=== PATIENT | male | born 1945 ===

== ENCOUNTER 2016-12-25 14:35 | Inpatient (IN) | payer MEDICARE ==
[2016-12-25 14:36] VITALS: BMI 20.1
[2016-12-25] MEDS ORDERED: Sodium Chloride 0.9% 1,000 ML IV STA (15:06)
[2016-12-25] MEDS ORDERED: Morphine 4 mg/ml ISec IVP STA (15:06)
[2016-12-25] MEDS ORDERED: Albuterol-Ipratrop 3 mg / 0.5 (3 ml) UD IH STA (15:09)
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
--- NOTE | 2016-12-25 15:23 | RAD ---
HISTORY: weak COMPARISON: CT chest without contrast from 12/09/2016 FINDINGS: LUNGS: There is redemonstration of known consolidation in the right upper lobe. The left lung is clear. PLEURA: There is a small right pleural effusion. No left pleural effusion. No pneumothorax. CARDIOVASCULAR: Normal. OSSEOUS STRUCTURES: No significant abnormalities. VISUALIZED UPPER ABDOMEN: Normal. OTHER FINDINGS: None. IMPRESSION: Persistent right upper lobe consolidation. Small right pleural effusion.
[2016-12-25 15:56] LABS: VENOUS BLOOD GAS BASE EXCESS -3.5 mmol/L (0.0-2.0); VENOUS BLOOD PH 7.32 (7.32-7.43)
[2016-12-25 16:14] LABS: HEMATOCRIT 26.9 % (42.0-52.0); MEAN CELL VOLUME 86.2 fL (80.0-105.0); MEAN CORPUSCULAR HEMOGLOBIN 29.8 pg (25.0-35.0); MEAN CORPUSCULAR HGB CONC 34.6 g/dl (31.0-37.0); MEAN PLATELET VOLUME 10.1 fl (7.0-11.0); PLATELET COUNT 197 10^3/uL (120.0-450.0); RED CELL DISTRIBUTION WIDTH 16.1 % (11.5-14.5)
[2016-12-25 16:44] LABS: ADD MANUAL DIFF? YES; WHITE BLOOD COUNT 2.8 10^3/ul (4.5-11.0)
[2016-12-25 17:44] LABS: URINE BILIRUBIN NEGATIVE (NEGATIVE); URINE BLOOD TRACE-LYSED (NEGATIVE); URINE GLUCOSE (UA) NEGATIVE (NEGATIVE); URINE KETONE TRACE mg/dL (NEGATIVE); URINE LEUKOCYTE ESTERASE NEGATIVE Leu/uL (NEGATIVE); URINE PROTEIN 30 mg/dL (<30 mg/dL); URINE UROBILINOGEN 0.2 E.U./dL (<1 E.U./dL)
[2016-12-25 18:18] LABS: URINE APPEARANCE CLEAR (CLEAR); URINE COLOR YELLOW (YELLOW)
[2016-12-25 18:22] LABS: ALB/GLOB RATIO 0.8 (1.1-1.8); ALKALINE PHOSPHATASE 159 U/L (38-133); ALT/SGPT 19 U/L (7-56); AST/SGOT 68 U/L (15-59); BLOOD UREA NITROGEN 36 mg/dL (7-21); CARBON DIOXIDE 24 mmol/L (21-33); CHLORIDE 96 mmol/L (98-107); GFR AFRICAN-AMERICAN > 60; GLUCOSE,RANDOM 225 mg/dL (70-110); SODIUM 135 mmol/L (132-148); TOTAL PROTEIN 8.2 g/dL (5.8-8.3)
[2016-12-25 18:26] LABS: BILIRUBIN,TOTAL 1.4 mg/dL (0.2-1.3); POTASSIUM 5.4 mmol/L (3.6-5.0)
[2016-12-25 18:33] LABS: TROPONIN I 0.02 ng/mL
--- NOTE | 2016-12-25 18:52 | CARD ---
APPROVED REPORT EKG Measurement Heart [id number] <Conclusion> Sinus tachycardia with premature atrial complexes Otherwise normal ECG
[2016-12-25] MEDS ORDERED: Iohexol 350 MG/100 ML VIAL ONE (18:54)
[2016-12-25 18:56] LABS: URINE BACTERIA MOD (NEG)
[2016-12-25] MEDS ORDERED: Sodium Chloride 0.9% 1,000 ML IV SCH (19:15)
[2016-12-25 19:30] LABS: BAND 9 % (0-2); NEUTROPHIL 70 % (50.0-70.0); PLATELET ESTIMATE NORMAL (NORMAL)
[2016-12-25] MEDS ORDERED: Sodium Chloride 0.45% 1,000 ML IV SCH ×2 (20:00→23:30)
[2016-12-25] MEDS: Albuterol-Ipratrop 3 mg / 0.5 (3 ml) UD IH SCH (20:31)
[2016-12-25 20:32] LABS: VENOUS BLOOD GAS BASE EXCESS -8.1 mmol/L (0.0-2.0); VENOUS BLOOD PH 7.29 (7.32-7.43)
--- NOTE | 2016-12-25 20:33 | CT ---
EXAM: CT Abdomen and Pelvis With Intravenous Contrast CLINICAL HISTORY: 71 years old, male; Pain; Abdominal pain; Acute; Patient HX: Abd pain. HX lung ca TECHNIQUE: Axial computed tomography images of the abdomen and pelvis with intravenous contrast. This CT exam was performed using one or more of the following dose reduction techniques: automated exposure control, adjustment of the mA and/or kV according to patient size, and/or use of iterative reconstruction technique. Coronal and sagittal reformatted images were created and reviewed. CONTRAST: 100 mL of OMNI administered intravenously. EXAM DATE/TIME: 12/25/2016 3:05 PM COMPARISON: There are no prior studies for comparison. FINDINGS: Lower thorax: Heart size is normal. There is a small hiatal hernia. There are multiple cysts at the lung bases. There is pleural thickening and scarring at the lung bases greatest on the right. Nodularity and pleural thickening has increased. There is increase in peribronchial cuffing in the right lower lobe. ABDOMEN: Liver: unremarkable Gallbladder and bile ducts: unremarkable Pancreas: Pancreas is mildly atrophic. Spleen: unremarkable Adrenals: unremarkable Kidneys and ureters: There is nonspecific bilateral perinephric stranding and edema. Kidneys and ureters are otherwise unremarkable. Stomach and bowel: Streak and motion limit evaluation of stomach, small and large bowel. Stomach is almost completely empty. There may be a duodenal diverticulum. Rotation is normal. Small bowel is distended with fluid and air. There are scattered air-fluid levels appear in There is no obstruction. Terminal ileum is distended with fluid. Appendix is unremarkable. A moderately large amount of stool in the colon. Appendix: See stomach and bowel PELVIS: Bladder: Bladder is almost empty. Reproductive: Seminal vesicles and prostate are unremarkable. ABDOMEN and PELVIS: Intraperitoneal space: There is no free air. There is no free fluid in the abdomen. Bones/joints: There is minimal compression deformity at L1. There are compression fractures L2 and L3.There are degenerative changes in the osseus structures. Bony structures are osteopenic. Soft tissues: unremarkable Vasculature: There are vascular calcifications. There are calcified phleboliths. Lymph nodes: There is no pathologic adenopathy. IMPRESSION: No acute solid visceral abnormality; nonspecific perinephric stranding and edema; constipation; distended small bowel ileus versus early obstruction possibly due to constipation; compression deformities L1, L2 and L3; increasing pleural disease and peribronchial thickening at the right base Additional findings as described above.
--- NOTE | 2016-12-25 22:46 | HP ---
HISTORY OF PRESENT ILLNESS: The patient is a 71-year-old known to me from multiple previous admissio ns. I got a call from daughter this morning that for the last 2 days he has not gotten out of bed. He is weak. He is lethargic. He is not eating at all. Since the patient is diabetic and he recentl y got chemotherapy, so I advised daughter to bring him to Emergency Room. According to her, he is we ak, refusing to eat and he usually resists to go to the hospital, but he said something is wrong with him and he wants to go to Emergency Room. Complaining of generalized weakness, complaining of chill s. Denies any nausea, but definitely decreased appetite. No history of hemoptysis, no hematemesis. PAST MEDICAL HISTORY: 1. Significant for Noninsulin dependent diabetes. 2. Hypertension. 3. Cancer lung, currently on chemotherapy. 4. Chronic anemia. 5. History of colonic mass. 6. Hyperlipidemia. 7. Chronic anemia. 8. Weight loss. 9. Stage III lung cancer. Received radiation and the radiation followed by chemotherapy by Dr. Nataliia palmly. ALLERGIES: Not allergic to any medications. MEDICATIONS AT HOME: He is on Pravachol 40 mg daily, Megace 400 daily, ferrous sulfate 1 tablet juan miguel y, oxybutynin 10 mg daily, Cipro 250 twice a day, tramadol 50 mg 3 times a day, glipizide 10 mg twice a day. SOCIAL HISTORY: He is single, lives with his daughter and he does have a history of heavy smoking, r ecently quit. REVIEW OF SYSTEMS: Generalized weakness, poor oral intake. PHYSICAL EXAMINATION: GENERAL: He is awake and alert, lethargic. VITAL SIGNS: He is afebrile, pulse 105, respirations 20, blood pressure 141/84. LUNGS: Bilateral fair airflow. Few expiratory rhonchi. HEART: S1, S2 audible. ABDOMEN: Soft, slight epigastric discomfort. NEUROLOGIC: He is sleepy, but arousable. EXTREMITIES: Bilateral leg, no edema. LABORATORY DATA: WBC is , hemoglobin 9.3, hematocrit 26.9, platelet of 197. His ABG: pH is 7. 32, pCO2 of 44, bicarbonate 22.7, pO2 is 20, FiO2 is 21%. Chemistry: Sodium 135, potassium 5.4, chl oride 96, CO2 of 24, BUN 36, creatinine 1.3, blood sugar of 227, total bilirubin 1.4, AST 68, alkalin e phosphatase is 159. Urinalysis shows ketones. Flu test is positive for influenza A and B. X-ray of the chest shows persistent right upper lobe consolidations, marked right pleural effusion. ASSESSMENT: 1. Lethargy, generalized weakness, positive for flu and viral syndrome. 2. Cancer lung, status post recent chemotherapy. 3. Hypertension. 4. Non-insulin dependent diabetes. 5. Significant weight loss. PLAN: CT scan of the abdomen and pelvis has been ordered. We will follow that. He has been started on Tamiflu. Blood culture and urine cultures are sent. We will monitor blood sugars. Start him on Tamiflu and also start him empirically on empirical coverage for pneumonia. Dr. Lucio and Dr. Meghana paulino will be consulted. Jose Angel Hull MD cc: [phone] TT: 12/25/2016 22:46:11 va
[2016-12-25] MEDS ORDERED: Vancomycin 1gm in NS 250ml 250 ML IVPB STA (22:59)
[2016-12-25] MEDS ORDERED: POLYETHYLENE GLYCOL 3350 17 GM/Dose PACKET PO ONE (23:10)
[2016-12-26] MEDS ORDERED: Insulin Regular 1 UNITS/0.01 ML ML SC STA ×2 (01:25→04:24)
[2016-12-26] MEDS: Cefepime 1gm in NS 100ml 100 ML IVPB SCH ×4 (01:32→22:35)
[2016-12-26] MEDS: Insulin Reg-HIGH-Coverage SC SCH ×5 (01:34→22:33)
[2016-12-26 02:41] LABS: URINE BILIRUBIN NEGATIVE (NEGATIVE); URINE BLOOD TRACE-LYSED (NEGATIVE); URINE GLUCOSE (UA) >=1000 mg/dL (NEGATIVE); URINE KETONE 15 mg/dL (NEGATIVE); URINE LEUKOCYTE ESTERASE NEGATIVE Leu/uL (NEGATIVE); URINE PROTEIN TRACE mg/dL (<30 mg/dL); URINE UROBILINOGEN 0.2 E.U./dL (<1 E.U./dL)
[2016-12-26 02:45] LABS: URINE APPEARANCE SLIGHT-CLOUDY (CLEAR); URINE COLOR YELLOW (YELLOW)
[2016-12-26 02:59] LABS: URINE BACTERIA OCC (NEG); URINE EPITHELIAL CELLS 0 - 2 /hpf (0-5); URINE RBC 0 - 2 /hpf (0-2); URINE WBC 0 - 2 /hpf (0-6)
--- NOTE | 2016-12-26 03:37 | CP.PCM.PN ---
Subjective - Date & Time of Evaluation Date of Evaluation: 12/26/16 Time of Evaluation: 03:34 - Subjective Subjective: S:Patient was seen at bedside. FSBS was > 500 mg %. He has no complaints. Denies having had extra food. Denies blurry vision, polyuria, stomach pain, sweating. Medical record was reviewed. O: Last Vital Signs 3 Temp 97.5 F L 12/25/16 22:11 Pulse 92 H 12/25/16 22:11 Resp 17 12/25/16 22:11 BP 107/58 L 12/25/16 22:11 Pulse Ox 99 12/25/16 22:11 Awake, alert, not in distress. LUNGS: Normal breathing pattern. NEURO:Speech normal. A: Hyperglycemia. P:Regular insulin 10 Untis SC Stat. Objective - Vital Signs/Intake and Output Vital Signs (last 24 hours): Temp Pulse Resp BP Pulse Ox 97.5 F L 92 H 17 107/58 L 99 12/25/16 22:11 12/25/16 22:11 12/25/16 22:11 12/25/16 22:11 12/25/16 22:11 - Medications Medications: Current Medications Acetaminophen (Tylenol 325mg Tab) 650 mg PO Q6H PRN PRN Reason: Fever >100.4 F Acyclovir (Zovirax) 400 mg PO BID [facility] Last Admin: 12/25/16 20:31 Dose: 400 mg Albuterol/Ipratropium (Duoneb 3 Mg/0.5 Mg (3 Ml) Ud) 3 ml IH [id number] [facility] Last Admin: 12/25/16 20:31 Dose: 3 ml Atorvastatin Calcium (Lipitor) 10 mg PO DIN [facility] Bisacodyl (Dulcolax) 10 mg RC ONCE ONE Stop: 12/26/16 10:01 Dexamethasone (Decadron) 4 mg PO BID [facility] Last Admin: 12/25/16 20:31 Dose: 4 mg Azithromycin (Zithromax 500mg In Ns) 250 mls @ 167 mls/hr IVPB DAILY [facility] PRN Reason: Protocol Cefepime HCl (Maxipime 1gm) 100 mls @ 100 mls/hr IVPB Q8 [facility] PRN Reason: Protocol Stop: 01/01/17 23:01 Last Admin: 12/26/16 01:32 Dose: 100 mls/hr Sodium Chloride (Sodium Chloride 0.45%) 1,000 mls @ 50 mls/hr IV .Q20H [facility] Last Admin: 12/25/16 23:52 Dose: 50 mls/hr Insulin Human Regular (Humulin R High) 0 units SC ACHS [facility] PRN Reason: Protocol Last Admin: 12/26/16 01:34 Dose: Not Given Megestrol Acetate (Megace) 400 mg PO DAILY [facility] Ondansetron HCl (Zofran Inj) 4 mg IVP Q6H PRN PRN Reason: Nausea/Vomiting Oseltamivir Phosphate (Tamiflu Cap) 75 mg PO BID [facility] PRN Reason: Protocol Stop: 12/30/16 19:54 Pantoprazole Sodium (Protonix Inj) 40 mg IVP DAILY [facility] Polyethylene Glycol (Miralax) 17 gm PO DAILY [facility] Tramadol HCl (Ultram) 50 mg PO Q6 PRN PRN Reason: Pain, moderate (4-7)
[2016-12-26 07:22] LABS: MEAN CELL VOLUME 84.5 fL (80.0-105.0); MEAN CORPUSCULAR HEMOGLOBIN 29.2 pg (25.0-35.0); MEAN CORPUSCULAR HGB CONC 34.5 g/dl (31.0-37.0); MEAN PLATELET VOLUME 9.6 fl (7.0-11.0); PLATELET COUNT 171 10^3/uL (120.0-450.0); RED CELL DISTRIBUTION WIDTH 15.9 % (11.5-14.5)
[2016-12-26 07:25] LABS: ADD MANUAL DIFF? YES; HEMATOCRIT 22.9 % (42.0-52.0); WHITE BLOOD COUNT 2.1 10^3/ul (4.5-11.0)
[2016-12-26] MEDS: Albuterol-Ipratrop 3 mg / 0.5 (3 ml) UD IH SCH ×4 (07:33→23:37)
[2016-12-26 07:54] LABS: ALB/GLOB RATIO 0.8 (1.1-1.8); ALKALINE PHOSPHATASE 131 U/L (38-133); ALT/SGPT 34 U/L (7-56); AST/SGOT 39 U/L (15-59); BILIRUBIN,TOTAL 0.5 mg/dL (0.2-1.3); BLOOD UREA NITROGEN 33 mg/dL (7-21); CALCIUM 8.1 mg/dL (8.4-10.5); CARBON DIOXIDE 21 mmol/L (21-33); CHLORIDE 100 mmol/L (98-107); GFR AFRICAN-AMERICAN > 60; GLUCOSE,RANDOM 223 mg/dL (70-110); POTASSIUM 4.1 mmol/L (3.6-5.0); SODIUM 134 mmol/L (132-148); TOTAL PROTEIN 6.6 g/dL (5.8-8.3)
[2016-12-26 08:26] LABS: HYPOCHROMIA 1+; NEUTROPHIL 77 % (50.0-70.0); PLATELET ESTIMATE NORMAL (NORMAL); POLYCHROMASIA SLIGHT
[2016-12-26 08:27] LABS: ANISOCYTOSIS SLIGHT; TOXIC GRANULATION SLIGHT
[2016-12-26] MEDS ORDERED: cefTRIAXone 1 gm 100 ML IVPB SCH (10:00)
[2016-12-26] MEDS: Megestrol Acetate 40 mg/ml Cup PO SCH (11:24)
[2016-12-26] MEDS: POLYETHYLENE GLYCOL 3350 17 GM/Dose PACKET PO SCH (11:24)
[2016-12-26] MEDS: Azithromycin 500MG/NS 250ml 250 ML IVPB SCH (11:28)
--- NOTE | 2016-12-26 13:01 | PN ---
DATE: 12/26/2016 The patient is 71 years old, seen and examined. Doing a little better. He is sitting in chair. No fever or chills. No nausea or vomiting. He is having his clear liquid diet. Had small bowel moveme nt last night. PHYSICAL EXAMINATION: VITAL SIGNS: He is afebrile, pulse 73, respirations 16, blood pressure 110/____. LUNGS: Bilateral fair airflow. Soft crackle at the right lower lung area. HEART: S1, S2 audible. ABDOMEN: Soft, nontender, no rebound, no guarding. NEUROLOGIC: The patient is awake and alert, able to communicate. EXTREMITIES: Bilateral legs, no edema. LABORATORY EXAMINATION: WBC is 2.1, hemoglobin 7.9, hematocrit 22.9, platelet of 171. Chemistry: S odium 134, potassium 4.1, chloride 100, CO2 21, BUN 33, creatinine 1.1 and blood sugar is 223. His f fawn test is positive. ASSESSMENT AND PLAN: 1. Viral syndrome. 2. Poor oral intake. 3. Pancytopenia. 4. Lung cancer status post radiation therapy completed. Currently getting chemotherapy. 5. Hyperlipidemia. PLAN: Currently, the patient is on IV fluid. He is on clear liquids. He is getting Decadron. Cont inue on statin. He is on Maxipime. Will continue him on Tamiflu. He is also on Zithromax; will con tinue that. He is on neutropenic isolation. His hemoglobin is borderline low. I will talk to Dr. Isabella grider. If he needs transfusion we should watch him, and if it continues to drop might need blood monge sfusion. Jose Angel Hull MD cc: [phone] TT: 12/26/2016 13:00:52 Confirmation # [id number] Dictation # [id number] alfredo
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
[2016-12-26] MEDS ORDERED: Insulin Lispro (humaLOG) MIX 75/25(10 ml) SC STA (18:48)
[2016-12-26] MEDS ORDERED: Insulin Detemir 100 units/ml Vial (Levemir) SC ONE (22:00)
[2016-12-27] MEDS: Albuterol-Ipratrop 3 mg / 0.5 (3 ml) UD IH SCH ×5 (01:39→23:28)
[2016-12-27] MEDS: Cefepime 1gm in NS 100ml 100 ML IVPB SCH ×2 (05:17→14:56)
[2016-12-27 06:58] LABS: ADD MANUAL DIFF? NO
[2016-12-27 07:16] LABS: BASO # 0.02 K/mm3 (0.0-2.0); BASO % 0.5 % (0.0-3.0); GRAN % 84.9 % (50.0-68.0); HEMATOCRIT 28.3 % (42.0-52.0); LYMPH # 0.4 (1.2-3.4); LYMPH % 8.5 % (22.0-35.0); MEAN CORPUSCULAR HEMOGLOBIN 28.8 pg (25.0-35.0); MEAN CORPUSCULAR HGB CONC 34.3 g/dl (31.0-37.0); MEAN PLATELET VOLUME 9.7 fl (7.0-11.0); MONO # 0.3 (0.1-0.6); MONO % 6.1 % (1.0-6.0); PLATELET COUNT 183 10^3/uL (120.0-450.0); RED CELL DISTRIBUTION WIDTH 15.4 % (11.5-14.5); WHITE BLOOD COUNT 4.2 10^3/ul (4.5-11.0)
[2016-12-27 07:24] LABS: ALB/GLOB RATIO 0.8 (1.1-1.8); ALKALINE PHOSPHATASE 124 U/L (38-133); ALT/SGPT 32 U/L (7-56); AST/SGOT 35 U/L (15-59); BILIRUBIN,TOTAL 1.1 mg/dL (0.2-1.3); BLOOD UREA NITROGEN 27 mg/dL (7-21); CALCIUM 8.3 mg/dL (8.4-10.5); CARBON DIOXIDE 23 mmol/L (21-33); CHLORIDE 98 mmol/L (98-107); GFR AFRICAN-AMERICAN > 60; GLUCOSE,RANDOM 266 mg/dL (70-110); POTASSIUM 4.3 mmol/L (3.6-5.0); SODIUM 135 mmol/L (132-148); TOTAL PROTEIN 6.9 g/dL (5.8-8.3)
[2016-12-27] MEDS: Insulin Reg-HIGH-Coverage SC SCH ×4 (08:43→22:29)
--- NOTE | 2016-12-27 09:28 | CON ---
DATE: 12/26/2016 This patient was seen and evaluated earlier and discussed with nursing staff. REASON FOR CONSULTATION: Anemia, rule out gastrointestinal source of blood loss, history of colonic polyp. HISTORY OF PRESENT ILLNESS: This 71-year-old patient with a past medical history of noninsulin-depen dent diabetes mellitus, hypertension, history of lung cancer on chemotherapy, chronic anemia, history of colonic mass, was admitted, found to be very weak and lethargic with poor intake. Sent to the Em ergency Room. The patient was found to be anemic with a hemoglobin of 9.3. White cell count was als o low at 2.8. The patient did give history of a cough. The Emergency Room's influenza test was also found to be positive. GI consultation was requested in view of the history of chronic ____ anemia, rule out a gastrointestinal source of blood loss. OTHER PAST MEDICAL HISTORY: As above. SOCIAL HISTORY: Denies smoking. He has a history of heavy smoking in the past; recently quit. Alco hol socially. REVIEW OF SYSTEMS: Positive as above. ALLERGIES: No known drug allergy. PHYSICAL EXAMINATION: GENERAL: The patient is lying on the bed, not in acute distress. VITAL SIGNS: Pulse 78 per minute. Blood pressure is 112/68. Temperature is 97.7. Respirations 20. HEENT: Atraumatic, anicteric. NECK: Supple. HEART: S1, S2 heard. LUNGS: Bilateral air entry present. ABDOMEN: Soft. There is no mass palpable. No tenderness. EXTREMITIES: No edema, no cyanosis. NEUROLOGIC: Alert, oriented. LABORATORY DATA: Hemoglobin from 9.3 has dropped to 7.9. WBCs also from 2.8 changed to 2.1. Platel et count decreased from ____ to 171. The patient's albumin has gone down from 3.[address] of the abdomen and pelvis was also reviewed and found to have a mild nonspecific perinephric s tranding. The patient also found to have a moderately large amount of stool present mainly in the ri ght colon. IMPRESSION: This 71-year-old patient with a lung cancer, on chemotherapy, admitted with weakness and lethargy, found to have influenza test positive, on respiratory isolation, where noticed a drop in b lood count. No obvious bleeding. The patient does have a history of some colorectal lesion. The de tails are not very clear at this present time for me. Review of the previous records shows that she had a PET scan done ____ which shows some increased activity in the rectal area. No obvious melena o r bright red blood per rectum noticed this admission. PLAN: Close followup of the hemoglobin and hematocrit, and transfuse. We will discuss with the onco logist and also with Dr. Hull regarding this patient's previous colonic workup. Thank you very much for allowing us to participate in the care of the patient. Will empirically star t the patient also on PPI. Selene Louis MD cc: [phone] TT: 12/27/2016 08:45:57 Confirmation # [id number] Dictation # [id number] mn
[2016-12-27] MEDS: Megestrol Acetate 40 mg/ml Cup PO SCH (09:43)
[2016-12-27] MEDS: POLYETHYLENE GLYCOL 3350 17 GM/Dose PACKET PO SCH (09:44)
[2016-12-27] MEDS: Azithromycin 500MG/NS 250ml 250 ML IVPB SCH (09:45)
--- NOTE | 2016-12-27 18:08 | CP.PCM.PN ---
Subjective - Date & Time of Evaluation Date of Evaluation: 12/27/16 Time of Evaluation: 10:45 - Subjective Subjective: Comfortable in bed, not in distress. Objective - Vital Signs/Intake and Output Vital Signs (last 24 hours): Temp Pulse Resp BP Pulse Ox 98 F 70 20 138/82 97 12/27/16 16:00 12/27/16 16:00 12/27/16 16:00 12/27/16 16:00 12/27/16 16:00 Intake and Output: 12/27/16 12/27/16 06:59 18:59 Intake Total 1207 640 Balance 1207 640 - Medications Medications: Current Medications Acetaminophen (Tylenol 325mg Tab) 650 mg PO Q6H PRN PRN Reason: Fever >100.4 F Last Admin: 12/26/16 15:56 Dose: 650 mg Acyclovir (Zovirax) 400 mg PO BID [facility] Last Admin: 12/27/16 09:45 Dose: 400 mg Albuterol/Ipratropium (Duoneb 3 Mg/0.5 Mg (3 Ml) Ud) 3 ml IH [id number] [facility] Last Admin: 12/27/16 14:21 Dose: 3 ml Atorvastatin Calcium (Lipitor) 10 mg PO DIN [facility] Last Admin: 12/26/16 17:27 Dose: 10 mg Dexamethasone (Decadron) 4 mg PO BID [facility] Last Admin: 12/27/16 09:50 Dose: 4 mg Azithromycin (Zithromax 500mg In Ns) 250 mls @ 167 mls/hr IVPB DAILY [facility] PRN Reason: Protocol Last Admin: 12/27/16 09:45 Dose: 167 mls/hr Cefepime HCl (Maxipime 1gm) 100 mls @ 100 mls/hr IVPB Q8 [facility] PRN Reason: Protocol Stop: 01/01/17 23:01 Last Admin: 12/27/16 14:56 Dose: 100 mls/hr Sodium Chloride (Sodium Chloride 0.45%) 1,000 mls @ 50 mls/hr IV .Q20H [facility] Last Admin: 12/25/16 23:52 Dose: 50 mls/hr Insulin Human Regular (Humulin R High) 0 units SC ACHS [facility] PRN Reason: Protocol Last Admin: 12/27/16 12:19 Dose: 15 units Megestrol Acetate (Megace) 400 mg PO DAILY [facility] Last Admin: 12/27/16 09:43 Dose: 400 mg Ondansetron HCl (Zofran Inj) 4 mg IVP Q6H PRN PRN Reason: Nausea/Vomiting Oseltamivir Phosphate (Tamiflu Cap) 75 mg PO BID [facility] PRN Reason: Protocol Stop: 12/30/16 19:54 Last Admin: 12/27/16 09:49 Dose: 75 mg Pantoprazole Sodium (Protonix Inj) 40 mg IVP DAILY [facility] Last Admin: 12/27/16 09:50 Dose: 40 mg Polyethylene Glycol (Miralax) 17 gm PO DAILY [facility] Last Admin: 12/27/16 09:44 Dose: 17 gm Tramadol HCl (Ultram) 50 mg PO Q6 PRN PRN Reason: Pain, moderate (4-7) - Labs Labs: 12/27/16 05:30 12/27/16 05:30 - Constitutional Appears: Non-toxic, No Acute Distress - Head Exam Head Exam: NORMAL INSPECTION - ENT Exam ENT Exam: Mucous Membranes Moist - Neck Exam Neck Exam: absent: Lymphadenopathy, Meningismus - Respiratory Exam Respiratory Exam: Decreased Breath Sounds - Cardiovascular Exam Cardiovascular Exam: +S1, +S2 - GI/Abdominal Exam GI & Abdominal Exam: Soft. absent: Tenderness Assessment and Plan - Assessment and Plan (Free Text) Plan: Assessment Sepsis secondary to systemic viral illness with Influenza with no evidence of pneumonia history of hospital-acquired pneumonia HTN lung cancer history of arthritis history of cataracts coronary artery disease Plan Started patient on Tamiflu day 2; cultures have been negative, PCT is only 0.22 - will d/c antibiotics Will continue to monitor clinical response
--- NOTE | 2016-12-27 20:19 | PN ---
DATE: 12/27/2016 SUBJECTIVE: The patient is a 71-year-old, seen and examined, doing well, eating and tolerating clear liquid. No nausea or vomiting. He did have the 1 bowel movement yesterday. Does not have signific ant abdominal pain. He states he is hungry. PHYSICAL EXAMINATION: VITAL SIGNS: He is afebrile, pulse 70, respirations 20, blood pressure 138/82. LUNGS: Bilateral fair airflow, no rhonchi or crackle. HEART: S1, S2 audible. ABDOMEN: Soft, nontender, no rebound, no guarding. NEUROLOGIC: He is awake and alert, ambulatory. EXTREMITIES: Bilateral leg, no edema. LABORATORY EXAMINATION: WBC is 4.2, hemoglobin 9.7, hematocrit 28.3, platelets 183. Chemistry: Sod ium 135, potassium 4.3, chloride 98, CO2 of 23, BUN 27, creatinine 1.0, blood sugar of 266. His bloo d culture and urine culture are negative. ASSESSMENT AND PLAN: 1. Viral syndrome, positive for influenza A and B. 2. Partial small-bowel obstruction secondary to constipation. He also had discussion with the patie nt's daughter, who stated that on colonoscopy 2-3 years ago he was told he has colonic mass, but it i s benign. I do not have further details and I will try to reach out for old records. 3. Insulin-dependent diabetes. PLAN: Advance the patient on soft diet and start him on glipizide and Januvia and keep him on high d ose regular insulin coverage and monitor his blood sugar. Start physical therapy. Reevaluate the pa tient in a.m. H and H seem to be stable after given 2 blood transfusions yesterday. We will monitor H and H and electrolytes periodically. Jose Angel Hull MD cc: [phone] TT: 12/27/2016 20:19:09 Confirmation # [id number] Dictation # [id number] mn
[2016-12-27] MEDS: GlipiZIDE 10 mg SR Tab PO SCH (22:29)
[2016-12-28] MEDS: Albuterol-Ipratrop 3 mg / 0.5 (3 ml) UD IH SCH ×4 (02:09→20:22)
--- NOTE | 2016-12-28 02:19 | PN ---
DATE: 12/27/2016 SUBJECTIVE: He is more alert and oriented. Appetite has improved slightly. He feels well. Denies any fatigue. No fever. No cough with expectoration. Son at bedside. He is currently on Tamiflu for positive flu serology. He is also getting Zithromax. Cough has improved during hospitalization. No chest pain. Blood sugar not controlled. REVIEW OF SYSTEMS: As per HPI. The rest of 12-point review of systems reviewed and negative. MEDICATIONS: Tylenol 650 q.6 hours p.r.n., DuoNeb 3 mL q.6 p.r.n., Zithromax 250 daily, Decadron 4 mg daily, glipizide 10 mg p.o. b.i.d., insulin as per sliding scale, Zofran p.r.n., Tamiflu 75 b.i.d., Protonix, MiraLAX, Ultram and Januvia 100 mg p.o. daily. PHYSICAL EXAMINATION: GENERAL: Comfortable in bed, in no acute distress. VITAL SIGNS: Stable. Temperature 98.7, heart rate 80 per minute, respiratory rate 20 per minute. HEENT: Normal. CHEST: Air entry present, equal bilateral. Crepitation, bilateral bases. CARDIOVASCULAR: S1, S2 normal. No murmur, no gallop. ABDOMEN: Soft, nontender. No hepatosplenomegaly. EXTREMITIES: No edema. CENTRAL NERVOUS SYSTEM: Alert, oriented x 3. No focal sensory or motor deficit. LYMPHADENOPATHY: None. LABORATORY DATA: White count 4.2, hemoglobin 9.7, hematocrit 28.3, platelets of 193. Sodium 135, potassium 4.3, creatinine 1. LFTs within normal limits. ASSESSMENT: 1. Lung cancer, stage III/IV. 2. Chronic bronchitis. 3. Flu. 4. Anemia. 5. Failure to thrive. PLAN: He is currently on Tamiflu and Zithromax. He has stage III/IV lung cancer, status post radiation to right lung, on palliative chemotherapy with Alimta. He gets frequent bronchitis exacerbation. He has been on antibiotics frequently a few times a month. Blood counts are recovering. He is status post chemo more than a week ago, status post 2 units of blood transfusion. Overall, general condition improved. We will do iron studies. He might benefit from IV iron if it is low. I had a lengthy discussion with the son who was at bedside. The patient has frequently expressed his wishes that he wants to go to [place]. Poor prognosis explained to the son. We will continue supportive care and palliative chemotherapy. I also explained to the son that without chemotherapy, lifespan is short, less than 3 months for him. At this point, both patient and family wants to be treated for cancer. Thank you, Dr. Hull, for allowing us to participate in the patient's care. Estrella Lucio MD cc: [id number] TT: 12/28/2016 02:18:49 Confirmation # [id number] Dictation # [id number] gee PANCHAL
--- NOTE | 2016-12-28 03:46 | PN ---
DATE: 12/27/2016 ADDENDUM The patient was seen and evaluated earlier. The patient is still in respiratory isolation for [facility]. PHYSICAL EXAMINATION: VITAL SIGNS: Temperature is 98, pulse 70, blood pressure 138/80. HEENT: Atraumatic, anicteric. NECK: Supple. HEART: S1, S2 heard. LUNGS: Bilateral air entry present. ABDOMEN: Soft. There is no mass palpable. No tenderness. EXTREMITIES: No edema. NEUROLOGIC: Alert, oriented. LABORATORY DATA: Hemoglobin is 9.7, hematocrit 28.3, WBC 4.2, platelets 183, BUN 27, creatinine 1.0. IMPRESSION: This is a 71-year-old patient with advanced lung cancer on chemotherapy. The patient ad mitted with viral syndrome. The patient was found to be also have constipation. The patient found t o also have drop in hemoglobin, He is stable. The patient did have a large bowel movement, br own stool, no blood. Dr. Hull's note was reviewed. The patient apparently appeared to have a col onoscopy done about 2-3 years ago with some colonic lesion, but however, the PET scan showed some in creased uptake higher up in the rectosigmoid area. We will try to get the report through the [facility]. We will avoid any endoscopy workup at the present time in view of this flu and then respiratory i solation. If colonoscopy is needed, this can be considered as an outpatient. Thank you very much for allowing us to participate in the care of the patient. Selene Louis MD cc: [phone] TT: 12/28/2016 03:45:48 Confirmation # [id number] Dictation # [id number] tn
--- NOTE | 2016-12-28 07:34 | CON ---
DATE: 12/26/2016 DATE OF CONSULTATION: 12/26/2016. CONSULT REQUESTED BY: Dr. Hull. REASON FOR CONSULTATION: Severe anemia, lung cancer. HISTORY OF PRESENT ILLNESS: The patient is a 71-year-old male well known to me from office. He was admitted to the hospital with failure to thrive, not eating well. Flu serology was found to be positive. He has right-sided lung cancer. Status post radiation, currently getting Alimta. He has multiple right -sided pneumonia, has chronic bronchitis and requires a few times a month antibiotics for lung infection. He recently completed a course of Augmentin. Complaining of loss of appetite. No fever, cough with expectoration with purulent sputum. No, hemoptysis. He also has chronic anemia. Hemoglobin was 9.3 g/dL declined to 7.9. He is also neutropenic with a white count of 2.1. Absolute neutrophil count is 3.6. He received chemotherapy more than a week ago. Also received Neulasta post-chemo for prevention of chemo-induced neutropenia. He has required blood transfusion in the past. PAST MEDICAL HISTORY: Lung cancer, chronic bronchitis, COPD, hypertension, anemia, history of colonic mass, weight loss. ALLERGIES: No known drug allergies. PAST SURGICAL HISTORY: Lung biopsy. HOME MEDICATIONS: Pravachol, Megace, ferrous sulfate, oxybutynin, tramadol, glipizide twice a day. SOCIAL HISTORY: Single, lives at home with a daughter. PERSONAL HISTORY: History of heavy smoking, quit last year. REVIEW OF SYSTEMS: As per HPI. Rest of 12-point review of systems reviewed and negative. PHYSICAL EXAMINATION: GENERAL: Comfortable in bed, in no acute distress, afebrile. VITAL SIGNS: Temperature 98.7, heart rate 100 per minute, respiratory rate 20, blood pressure 130/80. HEENT: Normal. NECK: No lymphadenopathy. CHEST: Crepitations present on the right base. CARDIOVASCULAR: S1, S2 normal. No murmur, no gallop. ABDOMEN: Soft, nontender, no hepatosplenomegaly. EXTREMITIES: No edema. NEUROLOGIC: Awake, alert, oriented x 3, no focal sensorimotor deficit. SPINE: Nontender. LABORATORY DATA: White count 2.1, hemoglobin 7.9, hematocrit 22.9, platelet count 171. Sodium 135, potassium 5.4, creatinine 1.3, bilirubin 1.4, AST 68, ALT 19, alkaline phosphatase 159. ASSESSMENT: 1. Lung cancer, right-sided, stage III/IV. 2. Hypertension. 3. Failure to thrive. 4. Non-insulin dependent diabetes mellitus. 5. Weight loss. 6. Chronic bronchitis. PLAN: Flue serology positive. He is status post chemo more than a week ago. Two units of blood transfusion to be transfused. He received Neulasta post- chemo. Blood counts are expected to recover soon. IV antibiotics as per ID. Consultation with Dr. Driscoll requested. He is currently getting Tamiflu 75 b.i.d. for flu serology positivity. He is also getting bronchodilators and Solu -Medrol. We will suggest a nutrition consult for failure to thrive. He lives all by himself at home alone and does not eat very well as per daughter. Anemia : we will check iron level. If low, he might benefit from IV iron. Thank you, Dr. Hull, for allowing us to participate in the patient's care. Estrella Lucio MD cc: [id number] TT: 12/28/2016 02:41:54 Confirmation # [id number] Dictation # [id number] alfredo 12/28/2016 06:33:30 ANSLEY
[2016-12-28] MEDS: Insulin Reg-HIGH-Coverage SC SCH ×4 (08:30→22:37)
[2016-12-28] MEDS: Megestrol Acetate 40 mg/ml Cup PO SCH (09:38)
[2016-12-28] MEDS: POLYETHYLENE GLYCOL 3350 17 GM/Dose PACKET PO SCH (09:38)
[2016-12-28] MEDS: GlipiZIDE 10 mg SR Tab PO SCH ×2 (09:39→17:11)
[2016-12-28] MEDS: Azithromycin 500MG/NS 250ml 250 ML IVPB SCH (12:05)
--- NOTE | 2016-12-28 12:58 | PN ---
DATE: 12/28/2016 SUBJECTIVE: The patient is a 71-year-old, seen and examined, lying in bed, comfortable, eating and t olerating. Seems a little short of breath. PHYSICAL EXAMINATION: VITAL SIGNS: He is afebrile, pulse 72, respirations 20, blood pressure 136/80. LUNGS: Bilateral expiratory rhonchi, more so on the right side in the mid lung region. HEART: S1, S2 audible. ABDOMEN: Soft, nontender, no rebound, no guarding. NEUROLOGIC: The patient is awake and alert, communicative. Moves all extremities. LABORATORY EXAMINATION: There is no new blood work available today. Blood culture and urine culture s are negative. ASSESSMENT: 1. Pancytopenia. 2. Anemia, status post 2 blood transfusions. 3. Partial small bowel obstruction probably secondary to constipation. 4. Small bowel ileus secondary to constipation. 5. Insulin-dependent diabetes. PLAN: We will continue nebulizer treatment. He has been started on glipizide. Blood sugar is being monitored. He is on Januvia 100 mg daily. We will start him on metformin. I spoke to Dr. Lucio. We will discontinue his dexamethasone. That might be contributing to his elevated blood levels. He has been restarted on his glipizide, Janumet, Januvia and metformin. He needs 1 more day of Tamiflu and we will discontinue isolation after that. We will reevaluate the patient in a.m. Jose Angel Hull MD cc: [id number] TT: 12/28/2016 12:57:58 Confirmation # [id number] Dictation # [id number] tn
--- NOTE | 2016-12-28 13:03 | PN ---
DATE: 12/28/2016 Seen and examined at the bedside. The patient denies any nausea, vomiting, or abdominal pain. He re ports having a bowel movement this morning. No reports of any overt GI bleed. Denies any shortness of breath or chest pain. VITAL SIGNS: Temperature is 98, blood pressure is 136/80, pulse 72, respirations 20, 98 on room air. LABORATORY DATA: No new labs are noted for today, 4 of 5 labs were reviewed. PHYSICAL EXAMINATION: HEENT: Sclerae are anicteric. NECK: Supple. CARDIAC: S1, S2. LUNGS: Decreased breath sounds but good air entry. No rales or wheeze. ABDOMEN: With bowel sounds, soft, nontender on palpation. No rebound, guarding, or organomegaly. EXTREMITIES: No edema. ASSESSMENT: This is a 71-year-old male with advanced lung cancer on chemotherapy, admitted with kasey l syndrome. Also has constipation and noted to have a drop in hemoglobin. The patient has history o f having colonoscopy done about 2-3 years ago, and reported to have a colonic lesion and reported to be negative, but patient had a PET scan done showing increased uptake in the rectosigmoid area. PLAN: Will request for previous colonoscopy report. The patient would likely benefit from a colonos copy, but at this point, we will avoid any endoscopic workup in view of his flu and respiratory isola tion. Can consider this as an outpatient. Currently, the patient is on acyclovir, is on Zithromax a nd Tamiflu. Continue GI prophylaxis of Protonix. He is getting MiraLax daily. The patient was seen and case discussed with Dr. Louis. Priscilla SELBY cc: [phone] TT: 12/28/2016 13:02:52 Confirmation # [id number] Dictation # [id number] cheryl
--- NOTE | 2016-12-28 23:53 | CP.PCM.PN ---
Subjective - Date & Time of Evaluation Date of Evaluation: 12/28/16 Time of Evaluation: 18:00 - Subjective Subjective: DATE: 12/28/2016 SUBJECTIVE: GC improved. Stating he feels better . He is now alert and oriented. Appetite has improved. No fever. No cough with expectoration. He is currently on Tamiflu for positive flu serology. He is also getting Zithromax. Cough has improved during hospitalization. No chest pain. Blood sugar not controlled due to steroids. REVIEW OF SYSTEMS: As per HPI. The rest of 12-point review of systems reviewed and negative. MEDICATIONS: Tylenol 650 q.6 hours p.r.n., DuoNeb 3 mL q.6 p.r.n., Zithromax 250 daily, Decadron 4 mg daily, glipizide 10 mg p.o. b.i.d., insulin as per sliding scale, Zofran p.r.n., Tamiflu 75 b.i.d., Protonix, MiraLAX, Ultram and Januvia 100 mg p.o. daily. PHYSICAL EXAMINATION: GENERAL: Comfortable in bed, in no acute distress. VITAL SIGNS: reviewed. HEENT: Normal. CHEST: Air entry present, equal bilateral. Crepitation, bilateral bases. CARDIOVASCULAR: S1, S2 normal. No murmur, no gallop. ABDOMEN: Soft, nontender. No hepatosplenomegaly. EXTREMITIES: No edema. CENTRAL NERVOUS SYSTEM: Alert, oriented x 3. No focal sensory or motor deficit. LYMPHADENOPATHY: None. LABORATORY DATA: reviewed. ASSESSMENT: 1. Lung cancer, stage III/IV. 2. Chronic bronchitis. 3. Flu. 4. Anemia. 5. Failure to thrive. PLAN: 1. Anemia: Hb/hct stable. s/p PRBC 2 units. plt, WC count stable. 2. Lung Cancer ; s/p XRT, on alimta. recent CT chest large mass rt. LL with surrounding infiltrate. 3. Flu : on tamiflu 4. Renal : BUN, normal, lytes normal 5. Weight loss: nutrition consult requested. Thank you, Dr. Hull, for allowing us to participate in the patient's care. Estrella Khadijah MD Objective - Vital Signs/Intake and Output Vital Signs (last 24 hours): Temp Pulse Resp BP Pulse Ox 97.7 F 90 20 123/86 98 12/28/16 16:00 12/28/16 16:00 12/28/16 16:00 12/28/16 16:00 12/28/16 16:00 Intake and Output: 12/28/16 12/29/16 18:59 06:59 Intake Total 180 360 Output Total 300 450 Balance -120 -90 - Medications Medications: Current Medications Acetaminophen (Tylenol 325mg Tab) 650 mg PO Q6H PRN PRN Reason: Fever >100.4 F Last Admin: 12/26/16 15:56 Dose: 650 mg Acyclovir (Zovirax) 400 mg PO BID [facility] Last Admin: 12/28/16 17:11 Dose: 400 mg Albuterol/Ipratropium (Duoneb 3 Mg/0.5 Mg (3 Ml) Ud) 3 ml IH [id number] [facility] Last Admin: 12/28/16 20:22 Dose: 3 ml Atorvastatin Calcium (Lipitor) 10 mg PO DIN [facility] Last Admin: 12/28/16 16:40 Dose: 10 mg Glipizide (Glucotrol Xl) 10 mg PO BID [facility] Last Admin: 12/28/16 17:11 Dose: 10 mg Azithromycin (Zithromax 500mg In Ns) 250 mls @ 167 mls/hr IVPB DAILY [facility] PRN Reason: Protocol Last Admin: 12/28/16 12:05 Dose: 167 mls/hr Insulin Human Regular (Humulin R High) 0 units SC ACHS [facility] PRN Reason: Protocol Last Admin: 12/28/16 22:37 Dose: 3 units Megestrol Acetate (Megace) 400 mg PO DAILY [facility] Last Admin: 12/28/16 09:38 Dose: 400 mg Metformin HCl (Glucophage) 500 mg PO BID [facility] Last Admin: 12/28/16 17:11 Dose: 500 mg Ondansetron HCl (Zofran Inj) 4 mg IVP Q6H PRN PRN Reason: Nausea/Vomiting Oseltamivir Phosphate (Tamiflu Cap) 75 mg PO BID [facility] PRN Reason: Protocol Stop: 12/30/16 19:54 Last Admin: 12/28/16 17:11 Dose: 75 mg Pantoprazole Sodium (Protonix Inj) 40 mg IVP DAILY [facility] Last Admin: 12/28/16 09:38 Dose: 40 mg Polyethylene Glycol (Miralax) 17 gm PO DAILY [facility] Last Admin: 12/28/16 09:38 Dose: 17 gm Sitagliptin Phosphate (Januvia) 100 mg PO DAILY [facility] Last Admin: 12/28/16 09:39 Dose: 100 mg Tramadol HCl (Ultram) 50 mg PO Q6 PRN PRN Reason: Pain, moderate (4-7) - Labs Labs: 12/27/16 05:30 12/27/16 05:30
[2016-12-29] MEDS: Albuterol-Ipratrop 3 mg / 0.5 (3 ml) UD IH SCH ×3 (02:33→20:37)
[2016-12-29] MEDS: Insulin Reg-HIGH-Coverage SC SCH ×4 (08:07→21:44)
[2016-12-29] MEDS: Pantoprazole 40 mg EC Tab PO SCH (08:08)
[2016-12-29] MEDS: Megestrol Acetate 40 mg/ml Cup PO SCH (10:41)
[2016-12-29] MEDS: POLYETHYLENE GLYCOL 3350 17 GM/Dose PACKET PO SCH (10:41)
[2016-12-29] MEDS: Azithromycin 500MG/NS 250ml 250 ML IVPB SCH (10:42)
[2016-12-29] MEDS: GlipiZIDE 10 mg SR Tab PO SCH ×2 (10:42→17:13)
--- NOTE | 2016-12-29 11:57 | PN ---
DATE: 12/29/2016 Seen and examined at the bedside earlier today. The patient denies any nausea, vomiting, or abdomina l pain. No acute overnight events are reported. The patient remains on droplet isolation for influe nza. VITAL SIGNS: Temperature is 98.9, blood pressure 128/70, pulse 78, respirations 18, 95% on room air. No new labs are noted for today. PHYSICAL EXAMINATION: HEENT: Sclerae anicteric. NECK: Supple. CARDIAC: S1, S2. LUNG SOUNDS: Positive for rhonchi. No wheeze heard. ABDOMEN: With bowel sounds, soft, nontender, no rebound or guarding. ASSESSMENT: Anemia, status post 2 units of blood. The patient with partial small bowel obstruction with constipation, has pancytopenia, influenza, history of having colonoscopy about 2-3 years ago wit h reported to have colonic lesion and reported to be negative. The patient had PET scan done showing an increased uptake in the rectosigmoid. History of lung cancer. PLAN: Continue to monitor for any overt signs of gastrointestinal bleed. The patient remains in res piratory isolation for influenza. He would benefit from a colonoscopy, but at this point, would avoi d in view of flu and respiratory isolation. He is on acyclovir, Zithromax and Tamiflu. We will cont inue to give Protonix for gastrointestinal prophylaxis. He is getting MiraLax daily. The patient was seen and case discussed with Dr. Louis. Priscilla SELBY cc: [id number] TT: 12/29/2016 11:56:47 Confirmation # [id number] Dictation # [id number]
--- NOTE | 2016-12-29 16:11 | PN ---
DATE: 12/29/2016 The patient is a 71-year-old gentleman, seen and examined, eating and tolerating. No nausea, vomitin g, no diarrhea. PHYSICAL EXAMINATION: VITAL SIGNS: He is afebrile, pulse 70, respirations 18, blood pressure 120/70. LUNGS: Bilateral fair airflow, no rhonchi or crackle except in right mid lung region posteriorly. HEART: S1, S2 audible. ABDOMEN: Soft, nontender, no rebound, no guarding. NEUROLOGIC: The patient is awake and alert, communicative and appropriate. EXTREMITIES: Bilateral legs no edema. LABORATORY EXAM: Blood sugar is 382. Blood cultures and urine cultures are negative. ASSESSMENT: 1. Partial small bowel obstruction, probably secondary to constipation that has improved. 2. Cancer of lung, stage IIIB. 3. Acute on chronic bronchitis. 4. Viral syndrome secondary to influenza. 5. Chronic anemia. 6. Malnutrition 7. Non-insulin dependent diabetes. PLAN: I will continue patient on nebulizer treatment. Monitor blood sugar. Request for TCU evaluat ion, continue on current antibiotics. We will reevaluate the patient in a.m. Jose Angel Hull MD cc: [phone] TT: 12/29/2016 16:10:50 Confirmation # [id number] Dictation # [id number] tn
[2016-12-29 16:55] VITALS: RESP 20
--- NOTE | 2016-12-29 21:54 | CP.PCM.PN ---
Subjective - Date & Time of Evaluation Date of Evaluation: 12/29/16 Time of Evaluation: 10:15 - Subjective Subjective: Comfortable in bed, not in distress. No fevers overnight, but still with some cough, although it is improving. Objective - Vital Signs/Intake and Output Vital Signs (last 24 hours): Temp Pulse Resp BP Pulse Ox 97.9 F 84 20 104/78 94 L 12/29/16 16:00 12/29/16 16:00 12/29/16 16:00 12/29/16 16:00 12/29/16 16:00 Intake and Output: 12/29/16 12/30/16 18:59 06:59 Intake Total 660 Balance 660 - Medications Medications: Current Medications Acetaminophen (Tylenol 325mg Tab) 650 mg PO Q6H PRN PRN Reason: Fever >100.4 F Last Admin: 12/26/16 15:56 Dose: 650 mg Acyclovir (Zovirax) 400 mg PO BID [facility] Last Admin: 12/29/16 17:13 Dose: 400 mg Albuterol/Ipratropium (Duoneb 3 Mg/0.5 Mg (3 Ml) Ud) 3 ml IH [id number] [facility] Last Admin: 12/29/16 20:37 Dose: 3 ml Atorvastatin Calcium (Lipitor) 10 mg PO DIN [facility] Last Admin: 12/29/16 17:13 Dose: 10 mg Glipizide (Glucotrol Xl) 10 mg PO BID [facility] Last Admin: 12/29/16 17:13 Dose: 10 mg Azithromycin (Zithromax 500mg In Ns) 250 mls @ 167 mls/hr IVPB DAILY [facility] PRN Reason: Protocol Last Admin: 12/29/16 10:42 Dose: 167 mls/hr Insulin Human Regular (Humulin R High) 0 units SC ACHS [facility] PRN Reason: Protocol Last Admin: 12/29/16 21:44 Dose: Not Given Megestrol Acetate (Megace) 400 mg PO DAILY [facility] Last Admin: 12/29/16 10:41 Dose: 400 mg Metformin HCl (Glucophage) 500 mg PO BID [facility] Last Admin: 12/29/16 17:13 Dose: 500 mg Ondansetron HCl (Zofran Inj) 4 mg IVP Q6H PRN PRN Reason: Nausea/Vomiting Oseltamivir Phosphate (Tamiflu Cap) 75 mg PO BID [facility] PRN Reason: Protocol Stop: 12/30/16 19:54 Last Admin: 12/29/16 17:13 Dose: 75 mg Pantoprazole Sodium (Protonix Ec Tab) 40 mg PO ACB [facility] Last Admin: 12/29/16 08:08 Dose: 40 mg Polyethylene Glycol (Miralax) 17 gm PO DAILY [facility] Last Admin: 12/29/16 10:41 Dose: 17 gm Sitagliptin Phosphate (Januvia) 100 mg PO DAILY [facility] Last Admin: 12/29/16 10:42 Dose: 100 mg Tramadol HCl (Ultram) 50 mg PO Q6 PRN PRN Reason: Pain, moderate (4-7) - Labs Labs: 12/27/16 05:30 12/27/16 05:30 - Constitutional Appears: Non-toxic, No Acute Distress - Head Exam Head Exam: NORMAL INSPECTION - Neck Exam Neck Exam: absent: Lymphadenopathy, Meningismus - Respiratory Exam Respiratory Exam: Decreased Breath Sounds Additional comments: expiratory wheezing noted - Cardiovascular Exam Cardiovascular Exam: +S1, +S2 - GI/Abdominal Exam GI & Abdominal Exam: Soft. absent: Tenderness Assessment and Plan - Assessment and Plan (Free Text) Plan: Assessment Sepsis secondary to systemic viral illness with Influenza with no evidence of pneumonia, on top of acute bronchitis history of hospital-acquired pneumonia HTN lung cancer history of arthritis history of cataracts coronary artery disease Plan continue Tamiflu day 3 and Zithromax day 3; cultures have been negative, PCT is only 0.22 Will continue to monitor clinical response
[2016-12-30] MEDS: Albuterol-Ipratrop 3 mg / 0.5 (3 ml) UD IH SCH ×4 (04:17→20:40)
[2016-12-30] MEDS: Insulin Reg-HIGH-Coverage SC SCH ×4 (08:33→23:37)
[2016-12-30] MEDS: Pantoprazole 40 mg EC Tab PO SCH (08:37)
[2016-12-30] MEDS: Azithromycin 500MG/NS 250ml 250 ML IVPB SCH (09:56)
[2016-12-30] MEDS: POLYETHYLENE GLYCOL 3350 17 GM/Dose PACKET PO SCH (09:56)
[2016-12-30] MEDS: GlipiZIDE 10 mg SR Tab PO SCH ×2 (09:56→18:13)
[2016-12-30] MEDS: Megestrol Acetate 40 mg/ml Cup PO SCH (09:56)
--- NOTE | 2016-12-30 11:35 | PN ---
DATE: 12/30/2016 The patient is 71 years old, seen and examined, sitting in chair, has shortness of breath even at res t, but no fever or chills, no nausea or vomiting. Eating and tolerating. PHYSICAL EXAMINATION: VITAL SIGNS: He is afebrile, pulse 71, respirations 20, blood pressure 128/77. LUNGS: Soft crackle in the upper lung region on the right side, more pronounced posteriorly. HEART: S1, S2 audible. ABDOMEN: Soft, nontender, no rebound, no guarding. NEUROLOGIC: He is awake and alert, communicative. Moves all extremities. He has generalized weakne ss, has exertional shortness of breath, bilateral legs, no edema. LABORATORY: His blood sugar is 382. His blood culture and urine cultures are negative. ASSESSMENT: 1. Partial small-bowel obstruction. 2. Viral syndrome secondary to influenza, on Tamiflu. 3. Lung cancer, currently on chemotherapy given by Dr. Lucio. 4. Chronic anemia. 5. Deconditioning and difficulty walking. 6. Uncontrolled hypertension. Initially he was on dexamethasone, but I have discontinued that. PLAN: We will continue him on glipizide. He is on Januvia and he is on metformin. I will add Levemi r for night time to have better 24-hour coverage. TCU evaluation has been requested. If accepted, t he patient will be transferred to TCU. Jose Angel Hull MD cc: [phone] TT: 12/30/2016 11:35:13 Confirmation # [id number] Dictation # [id number] cheryl
--- NOTE | 2016-12-30 15:23 | CP.PCM.PN ---
Subjective - Date & Time of Evaluation Date of Evaluation: 12/30/16 Time of Evaluation: 14:45 - Subjective Subjective: Comfortable in bed, not in distress, no fevers overnight, no diarrhea. Objective - Vital Signs/Intake and Output Vital Signs (last 24 hours): Temp Pulse Resp BP Pulse Ox 97.8 F 71 20 128/77 98 12/30/16 07:59 12/30/16 07:59 12/30/16 07:59 12/30/16 07:59 12/30/16 07:59 Intake and Output: 12/30/16 12/30/16 06:59 18:59 Intake Total 480 Output Total 600 Balance -120 - Medications Medications: Current Medications Acetaminophen (Tylenol 325mg Tab) 650 mg PO Q6H PRN PRN Reason: Fever >100.4 F Last Admin: 12/26/16 15:56 Dose: 650 mg Acyclovir (Zovirax) 400 mg PO BID [facility] Last Admin: 12/30/16 09:56 Dose: 400 mg Albuterol/Ipratropium (Duoneb 3 Mg/0.5 Mg (3 Ml) Ud) 3 ml IH [id number] [facility] Last Admin: 12/30/16 07:18 Dose: 3 ml Atorvastatin Calcium (Lipitor) 10 mg PO DIN [facility] Last Admin: 12/29/16 17:13 Dose: 10 mg Glipizide (Glucotrol Xl) 10 mg PO BID [facility] Last Admin: 12/30/16 09:56 Dose: 10 mg Azithromycin (Zithromax 500mg In Ns) 250 mls @ 167 mls/hr IVPB DAILY [facility] PRN Reason: Protocol Last Admin: 12/30/16 09:56 Dose: 167 mls/hr Insulin Detemir (Levemir) 15 unit SC HS [facility] Insulin Human Regular (Humulin R High) 0 units SC ACHS [facility] PRN Reason: Protocol Last Admin: 12/30/16 12:23 Dose: 12 units Megestrol Acetate (Megace) 400 mg PO DAILY [facility] Last Admin: 12/30/16 09:56 Dose: 400 mg Metformin HCl (Glucophage) 500 mg PO BID [facility] Last Admin: 12/30/16 09:56 Dose: 500 mg Ondansetron HCl (Zofran Inj) 4 mg IVP Q6H PRN PRN Reason: Nausea/Vomiting Oseltamivir Phosphate (Tamiflu Cap) 75 mg PO BID [facility] PRN Reason: Protocol Stop: 12/30/16 19:54 Last Admin: 12/30/16 09:59 Dose: 75 mg Pantoprazole Sodium (Protonix Ec Tab) 40 mg PO ACB [facility] Last Admin: 12/30/16 08:37 Dose: 40 mg Polyethylene Glycol (Miralax) 17 gm PO DAILY [facility] Last Admin: 12/30/16 09:56 Dose: 17 gm Sitagliptin Phosphate (Januvia) 100 mg PO DAILY [facility] Last Admin: 12/30/16 09:56 Dose: 100 mg Tramadol HCl (Ultram) 50 mg PO Q6 PRN PRN Reason: Pain, moderate (4-7) - Labs Labs: 12/27/16 05:30 12/27/16 05:30 - Constitutional Appears: Non-toxic, No Acute Distress - Head Exam Head Exam: NORMAL INSPECTION - ENT Exam ENT Exam: Mucous Membranes Moist - Neck Exam Neck Exam: absent: Lymphadenopathy, Meningismus - Respiratory Exam Respiratory Exam: Decreased Breath Sounds - Cardiovascular Exam Cardiovascular Exam: +S1, +S2 - GI/Abdominal Exam GI & Abdominal Exam: Soft. absent: Tenderness Assessment and Plan - Assessment and Plan (Free Text) Plan: Assessment Sepsis secondary to systemic viral illness with Influenza with no evidence of pneumonia, on top of acute bronchitis, slowly improving history of hospital-acquired pneumonia HTN lung cancer history of arthritis history of cataracts coronary artery disease Plan continue Tamiflu day 4 and Zithromax day 4, to complete a 5 day course; cultures have been negative, PCT is only 0.22 Will continue to monitor clinical response
[2016-12-30] MEDS: Insulin Detemir 100 units/ml Vial (Levemir) SC SCH (23:40)
--- NOTE | 2016-12-31 00:12 | PN ---
DATE: 12/30/2016 This patient was seen and evaluated. The patient is off the isolation. On examination temperature is afebrile, blood pressure 128/77, respirations 20. HENT: Atraumatic. Anicteric. NECK: Supple. HEART: S1, S2 heard. LUNGS: Bilateral air entry present. ABDOMEN: Soft. There is no mass palpable. EXTREMITIES: No cyanosis, no clubbing. LABORATORY DATA: No labs done recently. IMPRESSION: This ____-cwnc-orl patient initially a GI consult was requested for the anemia, with a d rop in blood count. The patient has a questionable history of colonic lesion. Details not clear yet . PET scan done on 09/04/2016: Focal increased uptake noticed in the rectum. The patient also ____ _ the lung cancer. History of lung cancer. The patient stage III/stage IV lung cancer, now admitted with viral syndrome . On Tamiflu for influenza. Anemia. Hemoglobin is now stable status post transfusion. PLAN: To consider the empiric therapy unless there is an active source of bleeding. Thank you very much for allowing us to participate in the care of the patient. Selene Louis MD cc: [phone] TT: 12/31/2016 00:11:52 Confirmation # [id number] Dictation # [id number]
[2016-12-31] MEDS: Albuterol-Ipratrop 3 mg / 0.5 (3 ml) UD IH SCH ×3 (07:16→19:42)
[2016-12-31] MEDS: Pantoprazole 40 mg EC Tab PO SCH (08:05)
[2016-12-31] MEDS: Insulin Reg-HIGH-Coverage SC SCH ×4 (08:05→23:30)
[2016-12-31] MEDS: Megestrol Acetate 40 mg/ml Cup PO SCH (09:44)
[2016-12-31] MEDS: Azithromycin 500MG/NS 250ml 250 ML IVPB SCH (09:44)
[2016-12-31] MEDS: GlipiZIDE 10 mg SR Tab PO SCH ×2 (09:44→17:34)
[2016-12-31] MEDS: POLYETHYLENE GLYCOL 3350 17 GM/Dose PACKET PO SCH (09:44)
--- NOTE | 2016-12-31 13:17 | CP.PCM.PN ---
Subjective - Date & Time of Evaluation Date of Evaluation: 12/31/16 Time of Evaluation: 11:00 - Subjective Subjective: DATE: 12/31/2016 SUBJECTIVE: Feeling better. admitted with loss of apatite, improved now. Cough improving. Denies shortness of breath. Blood counts stable. Able to ambulate in room. REVIEW OF SYSTEMS: As per HPI. The rest of 12-point review of systems reviewed and negative. MEDICATIONS: reviewed. PHYSICAL EXAMINATION: GENERAL: Comfortable in bed, in no acute distress. VITAL SIGNS: reviewed. HEENT: Normal. CHEST: Air entry present, equal bilateral. Crepitation, bilateral bases. CARDIOVASCULAR: S1, S2 normal. No murmur, no gallop. ABDOMEN: Soft, nontender. No hepatosplenomegaly. EXTREMITIES: No edema. CENTRAL NERVOUS SYSTEM: Alert, oriented x 3. No focal sensory or motor deficit. LYMPHADENOPATHY: None. LABORATORY DATA: reviewed. ASSESSMENT: 1. Lung cancer, stage III/IV. 2. Chronic bronchitis. 3. Flu. 4. Anemia. 5. Failure to thrive. 6 Uncontrolled DM II PLAN: 1. Anemia: Hb/hct stable. s/p PRBC 2 units. plt, WC count improved. 2. Lung Cancer ; s/p XRT, on alimta. recent CT chest large mass rt. LL with surrounding infiltrate. will continue palliative chemo as out patient. 3. Flu : treated with tamiflu 4. Renal : BUN, normal, lytes normal 5. Weight loss: apatite improved. 6. DM II : sugars not controlled, likely due to steroids. off steroids now. On Levemir insulin, started recently. Thank you, Dr. Hull, for allowing us to participate in the patient's care. Estrella Lucio MD Objective - Vital Signs/Intake and Output Vital Signs (last 24 hours): Temp Pulse Resp BP Pulse Ox 98.1 F 98 H 20 114/77 99 12/31/16 08:00 12/31/16 08:00 12/31/16 08:00 12/31/16 08:00 12/31/16 08:00 Intake and Output: 12/31/16 12/31/16 06:59 18:59 Intake Total 1250 Output Total 1100 Balance 150 - Medications Medications: Current Medications Acetaminophen (Tylenol 325mg Tab) 650 mg PO Q6H PRN PRN Reason: Fever >100.4 F Last Admin: 12/26/16 15:56 Dose: 650 mg Acyclovir (Zovirax) 400 mg PO BID [facility] Last Admin: 12/31/16 09:44 Dose: 400 mg Albuterol/Ipratropium (Duoneb 3 Mg/0.5 Mg (3 Ml) Ud) 3 ml IH [id number] [facility] Last Admin: 12/31/16 07:16 Dose: 3 ml Atorvastatin Calcium (Lipitor) 10 mg PO DIN [facility] Last Admin: 12/30/16 18:12 Dose: 10 mg Glipizide (Glucotrol Xl) 10 mg PO BID [facility] Last Admin: 12/31/16 09:44 Dose: 10 mg Azithromycin (Zithromax 500mg In Ns) 250 mls @ 167 mls/hr IVPB DAILY [facility] PRN Reason: Protocol Last Admin: 12/31/16 09:44 Dose: 167 mls/hr Insulin Detemir (Levemir) 15 unit SC HS [facility] Last Admin: 12/30/16 23:40 Dose: 15 unit Insulin Human Regular (Humulin R High) 0 units SC ACHS [facility] PRN Reason: Protocol Last Admin: 12/31/16 12:38 Dose: 4 units Megestrol Acetate (Megace) 400 mg PO DAILY [facility] Last Admin: 12/31/16 09:44 Dose: 400 mg Metformin HCl (Glucophage) 500 mg PO BID [facility] Last Admin: 12/31/16 09:43 Dose: 500 mg Ondansetron HCl (Zofran Inj) 4 mg IVP Q6H PRN PRN Reason: Nausea/Vomiting Pantoprazole Sodium (Protonix Ec Tab) 40 mg PO ACB [facility] Last Admin: 12/31/16 08:05 Dose: 40 mg Polyethylene Glycol (Miralax) 17 gm PO DAILY [facility] Last Admin: 12/31/16 09:44 Dose: 17 gm Sitagliptin Phosphate (Januvia) 100 mg PO DAILY [facility] Last Admin: 12/31/16 09:47 Dose: 100 mg Tramadol HCl (Ultram) 50 mg PO Q6 PRN PRN Reason: Pain, moderate (4-7) - Labs Labs: 12/27/16 05:30 12/27/16 05:30
--- NOTE | 2016-12-31 13:24 | CP.PCM.PN ---
Subjective - Date & Time of Evaluation Date of Evaluation: 12/30/16 Time of Evaluation: 10:00 - Subjective Subjective: DATE: 12/30/2016 SUBJECTIVE: He is being treated for stag III/IV right sided lung cancer. Admitted with flu and failure to thrive. Feeling better now. Cough improved. He continue to smoke at home. Sugars are elevated, likely due to steroids for COPD. No chest pain. SOB improved. complaining of back pain. Anemia, leukopenia - stable. No abdominal pain. Moving bowels. REVIEW OF SYSTEMS: As per HPI. The rest of 12-point review of systems reviewed and negative. MEDICATIONS: reviewed. PHYSICAL EXAMINATION: GENERAL: Comfortable in bed, in no acute distress. VITAL SIGNS: reviewed. HEENT: Normal. CHEST: Air entry present, equal bilateral. Crepitation, bilateral bases. CARDIOVASCULAR: S1, S2 normal. No murmur, no gallop. ABDOMEN: Soft, nontender. No hepatosplenomegaly. EXTREMITIES: No edema. CENTRAL NERVOUS SYSTEM: Alert, oriented x 3. No focal sensory or motor deficit. LYMPHADENOPATHY: None. LABORATORY DATA: reviewed. ASSESSMENT: 1. Lung cancer, stage III/IV. 2. Chronic bronchitis. 3. Flu. 4. Anemia. 5. Failure to thrive. 6 Uncontrolled DM II PLAN: 1. Anemia: blood counts stable. s/p 2 units of PRBC transfusion. 2. Lung Cancer ; s/p XRT, on alimta. recent CT chest large mass rt. LL with surrounding infiltrate. will continue palliative chemo as out patient. 3. Flu : treated with tamiflu 4. Renal : BUN, normal, lytes normal 5. Weight loss: apatite improved. 6. DM II : sugars not controlled, likely due to steroids. off steroids now. On Levemir insulin, started recently. 7. Bedside PT. Thank you, Dr. Hull, for allowing us to participate in the patient's care. Estrella Lucio MD Objective - Vital Signs/Intake and Output Vital Signs (last 24 hours): Temp Pulse Resp BP Pulse Ox 98.1 F 98 H 20 114/77 99 12/31/16 08:00 12/31/16 08:00 12/31/16 08:00 12/31/16 08:00 12/31/16 08:00 Intake and Output: 12/31/16 12/31/16 06:59 18:59 Intake Total 1250 Output Total 1100 Balance 150 - Medications Medications: Current Medications Acetaminophen (Tylenol 325mg Tab) 650 mg PO Q6H PRN PRN Reason: Fever >100.4 F Last Admin: 12/26/16 15:56 Dose: 650 mg Acyclovir (Zovirax) 400 mg PO BID [facility] Last Admin: 12/31/16 09:44 Dose: 400 mg Albuterol/Ipratropium (Duoneb 3 Mg/0.5 Mg (3 Ml) Ud) 3 ml IH [id number] [facility] Last Admin: 12/31/16 13:11 Dose: 3 ml Atorvastatin Calcium (Lipitor) 10 mg PO DIN [facility] Last Admin: 12/30/16 18:12 Dose: 10 mg Glipizide (Glucotrol Xl) 10 mg PO BID [facility] Last Admin: 12/31/16 09:44 Dose: 10 mg Azithromycin (Zithromax 500mg In Ns) 250 mls @ 167 mls/hr IVPB DAILY [facility] PRN Reason: Protocol Last Admin: 12/31/16 09:44 Dose: 167 mls/hr Insulin Detemir (Levemir) 15 unit SC HS [facility] Last Admin: 12/30/16 23:40 Dose: 15 unit Insulin Human Regular (Humulin R High) 0 units SC ACHS [facility] PRN Reason: Protocol Last Admin: 12/31/16 12:38 Dose: 4 units Megestrol Acetate (Megace) 400 mg PO DAILY [facility] Last Admin: 12/31/16 09:44 Dose: 400 mg Metformin HCl (Glucophage) 500 mg PO BID [facility] Last Admin: 12/31/16 09:43 Dose: 500 mg Ondansetron HCl (Zofran Inj) 4 mg IVP Q6H PRN PRN Reason: Nausea/Vomiting Pantoprazole Sodium (Protonix Ec Tab) 40 mg PO ACB [facility] Last Admin: 12/31/16 08:05 Dose: 40 mg Polyethylene Glycol (Miralax) 17 gm PO DAILY [facility] Last Admin: 12/31/16 09:44 Dose: 17 gm Sitagliptin Phosphate (Januvia) 100 mg PO DAILY [facility] Last Admin: 12/31/16 09:47 Dose: 100 mg Tramadol HCl (Ultram) 50 mg PO Q6 PRN PRN Reason: Pain, moderate (4-7) - Labs Labs: 12/27/16 05:30 12/27/16 05:30
--- NOTE | 2016-12-31 13:30 | CP.PCM.PN ---
Subjective - Date & Time of Evaluation Date of Evaluation: 12/29/16 Time of Evaluation: 18:00 - Subjective Subjective: DATE: 12/29/2016 SUBJECTIVE: No complaints today. No events overnight. Cough improved. treated for FLU. Apatite improved. Blood sugars high. No fever, cough. Blood counts stable, Hb 8.3, s/p PRBC transfusion. REVIEW OF SYSTEMS: As per HPI. The rest of 12-point review of systems reviewed and negative. MEDICATIONS: reviewed. PHYSICAL EXAMINATION: GENERAL: Comfortable in bed, in no acute distress. VITAL SIGNS: reviewed. HEENT: Normal. CHEST: Air entry present, equal bilateral. Crepitation, bilateral bases. CARDIOVASCULAR: S1, S2 normal. No murmur, no gallop. ABDOMEN: Soft, nontender. No hepatosplenomegaly. EXTREMITIES: No edema. CENTRAL NERVOUS SYSTEM: Alert, oriented x 3. No focal sensory or motor deficit. LYMPHADENOPATHY: None. LABORATORY DATA: reviewed. ASSESSMENT: 1. Lung cancer, stage III/IV. 2. Chronic bronchitis. 3. Flu. 4. Anemia. 5. Failure to thrive. 6 Uncontrolled DM II PLAN: 1. Anemia: Hb stable. white count improved. Status post chemo a week ago. 2. Lung Cancer ; s/p XRT, on alimta. recent CT chest large mass rt. LL with surrounding infiltrate. will continue palliative chemo as out patient. 3. Flu : treated with tamiflu 4. Renal : BUN, normal, lytes normal 5. Weight loss: apatite improved. 6. DM II : sugars not controlled, likely due to steroids. 7. Bedside PT. 8. No mucositis. Discussed with the daughter. Discussed with the staff nurse. Thank you, Dr. Hull, for allowing us to participate in the patient's care. Estrella Lucio MD Objective - Vital Signs/Intake and Output Vital Signs (last 24 hours): Temp Pulse Resp BP Pulse Ox 98.1 F 98 H 20 114/77 99 12/31/16 08:00 12/31/16 08:00 12/31/16 08:00 12/31/16 08:00 12/31/16 08:00 Intake and Output: 12/31/16 12/31/16 06:59 18:59 Intake Total 1250 Output Total 1100 Balance 150 - Medications Medications: Current Medications Acetaminophen (Tylenol 325mg Tab) 650 mg PO Q6H PRN PRN Reason: Fever >100.4 F Last Admin: 12/26/16 15:56 Dose: 650 mg Acyclovir (Zovirax) 400 mg PO BID [facility] Last Admin: 12/31/16 09:44 Dose: 400 mg Albuterol/Ipratropium (Duoneb 3 Mg/0.5 Mg (3 Ml) Ud) 3 ml IH [id number] [facility] Last Admin: 12/31/16 13:11 Dose: 3 ml Atorvastatin Calcium (Lipitor) 10 mg PO DIN [facility] Last Admin: 12/30/16 18:12 Dose: 10 mg Glipizide (Glucotrol Xl) 10 mg PO BID [facility] Last Admin: 12/31/16 09:44 Dose: 10 mg Azithromycin (Zithromax 500mg In Ns) 250 mls @ 167 mls/hr IVPB DAILY [facility] PRN Reason: Protocol Last Admin: 12/31/16 09:44 Dose: 167 mls/hr Insulin Detemir (Levemir) 15 unit SC HS [facility] Last Admin: 12/30/16 23:40 Dose: 15 unit Insulin Human Regular (Humulin R High) 0 units SC ACHS [facility] PRN Reason: Protocol Last Admin: 12/31/16 12:38 Dose: 4 units Megestrol Acetate (Megace) 400 mg PO DAILY [facility] Last Admin: 12/31/16 09:44 Dose: 400 mg Metformin HCl (Glucophage) 500 mg PO BID [facility] Last Admin: 12/31/16 09:43 Dose: 500 mg Ondansetron HCl (Zofran Inj) 4 mg IVP Q6H PRN PRN Reason: Nausea/Vomiting Pantoprazole Sodium (Protonix Ec Tab) 40 mg PO ACB [facility] Last Admin: 12/31/16 08:05 Dose: 40 mg Polyethylene Glycol (Miralax) 17 gm PO DAILY [facility] Last Admin: 12/31/16 09:44 Dose: 17 gm Sitagliptin Phosphate (Januvia) 100 mg PO DAILY [facility] Last Admin: 12/31/16 09:47 Dose: 100 mg Tramadol HCl (Ultram) 50 mg PO Q6 PRN PRN Reason: Pain, moderate (4-7) - Labs Labs: 12/27/16 05:30 12/27/16 05:30
[2016-12-31 13:56] LABS: ADD MANUAL DIFF? NO
[2016-12-31 13:58] LABS: BASO # 0.16 K/mm3 (0.0-2.0); BASO % 1.8 % (0.0-3.0); EOS % 0.3 % (1.5-5.0); GRAN # 6.69 (1.4-6.5); GRAN % 76.7 % (50.0-68.0); HEMATOCRIT 32.5 % (42.0-52.0); LYMPH # 1.2 (1.2-3.4); LYMPH % 13.5 % (22.0-35.0); MEAN CELL VOLUME 86.9 fL (80.0-105.0); MEAN CORPUSCULAR HEMOGLOBIN 29.7 pg (25.0-35.0); MEAN CORPUSCULAR HGB CONC 34.2 g/dl (31.0-37.0); MONO # 0.7 (0.1-0.6); MONO % 7.7 % (1.0-6.0); PLATELET COUNT 268 10^3/uL (120.0-450.0); RED CELL DISTRIBUTION WIDTH 16.3 % (11.5-14.5); WHITE BLOOD COUNT 8.7 10^3/ul (4.5-11.0)
[2016-12-31 14:17] LABS: BLOOD UREA NITROGEN 29 mg/dL (7-21); CALCIUM 7.9 mg/dL (8.4-10.5); CARBON DIOXIDE 26 mmol/L (21-33); CHLORIDE 97 mmol/L (98-107); GFR AFRICAN-AMERICAN > 60; POTASSIUM 4.2 mmol/L (3.6-5.0); SODIUM 134 mmol/L (132-148)
[2016-12-31 14:37] LABS: GLUCOSE,RANDOM 356 mg/dL (70-110)
--- NOTE | 2016-12-31 15:56 | CP.PCM.PN ---
Subjective - Date & Time of Evaluation Date of Evaluation: 12/31/16 Time of Evaluation: 13:50 - Subjective Subjective: Comfortable in bed, not in distress, no fevers overnight. Objective - Vital Signs/Intake and Output Vital Signs (last 24 hours): Temp Pulse Resp BP Pulse Ox 98.1 F 98 H 20 114/77 99 12/31/16 08:00 12/31/16 08:00 12/31/16 08:00 12/31/16 08:00 12/31/16 08:00 Intake and Output: 12/31/16 12/31/16 06:59 18:59 Intake Total 1250 840 Output Total 1100 600 Balance 150 240 - Medications Medications: Current Medications Acetaminophen (Tylenol 325mg Tab) 650 mg PO Q6H PRN PRN Reason: Fever >100.4 F Last Admin: 12/26/16 15:56 Dose: 650 mg Acyclovir (Zovirax) 400 mg PO BID [facility] Last Admin: 12/31/16 09:44 Dose: 400 mg Albuterol/Ipratropium (Duoneb 3 Mg/0.5 Mg (3 Ml) Ud) 3 ml IH [id number] [facility] Last Admin: 12/31/16 13:11 Dose: 3 ml Atorvastatin Calcium (Lipitor) 10 mg PO DIN [facility] Last Admin: 12/30/16 18:12 Dose: 10 mg Glipizide (Glucotrol Xl) 10 mg PO BID [facility] Last Admin: 12/31/16 09:44 Dose: 10 mg Insulin Detemir (Levemir) 15 unit SC HS [facility] Last Admin: 12/30/16 23:40 Dose: 15 unit Insulin Human Regular (Humulin R High) 0 units SC ACHS [facility] PRN Reason: Protocol Last Admin: 12/31/16 12:38 Dose: 4 units Megestrol Acetate (Megace) 400 mg PO DAILY [facility] Last Admin: 12/31/16 09:44 Dose: 400 mg Metformin HCl (Glucophage) 500 mg PO BID [facility] Last Admin: 12/31/16 09:43 Dose: 500 mg Ondansetron HCl (Zofran Inj) 4 mg IVP Q6H PRN PRN Reason: Nausea/Vomiting Pantoprazole Sodium (Protonix Ec Tab) 40 mg PO ACB [facility] Last Admin: 12/31/16 08:05 Dose: 40 mg Polyethylene Glycol (Miralax) 17 gm PO DAILY [facility] Last Admin: 12/31/16 09:44 Dose: 17 gm Sitagliptin Phosphate (Januvia) 100 mg PO DAILY [facility] Last Admin: 12/31/16 09:47 Dose: 100 mg Tramadol HCl (Ultram) 50 mg PO Q6 PRN PRN Reason: Pain, moderate (4-7) - Labs Labs: 12/31/16 13:50 12/31/16 13:50 - Constitutional Appears: Non-toxic, No Acute Distress - Head Exam Head Exam: NORMAL INSPECTION - Respiratory Exam Respiratory Exam: Decreased Breath Sounds - Cardiovascular Exam Cardiovascular Exam: +S1, +S2 - GI/Abdominal Exam GI & Abdominal Exam: Soft. absent: Tenderness Assessment and Plan - Assessment and Plan (Free Text) Plan: Assessment Sepsis secondary to systemic viral illness with Influenza with no evidence of pneumonia, on top of acute bronchitis,clinically improving history of hospital-acquired pneumonia HTN lung cancer history of arthritis history of cataracts coronary artery disease Plan completed a 5 day course of Tamiflu and Zithromax; cultures have been negative, PCT is only 0.22 Will continue to monitor off antibiotics since he is at risk for nosocomial infections
[2016-12-31] MEDS: Insulin Detemir 100 units/ml Vial (Levemir) SC SCH (21:34)
[2017-01-01] MEDS: Albuterol-Ipratrop 3 mg / 0.5 (3 ml) UD IH SCH ×4 (01:18→21:04)
--- NOTE | 2017-01-01 05:23 | PN ---
DATE: 12/31/2016 ADDENDUM SUBJECTIVE: This patient was seen and evaluated earlier today. The patient came to the hospital wit h GI complaints. PHYSICAL EXAMINATION: VITAL SIGNS: Afebrile. Pulse rate if 103, blood pressure 130/71, respirations 20, O2 saturation 100 %. HEENT: Atraumatic, anicteric. NECK: Supple. HEART: S1, S2 heard. LUNGS: Bilateral air entry present. ABDOMEN: Soft. There is no mass palpable. No tenderness. LABORATORY DATA: Hemoglobin remained stable at 11.1, hematocrit 32.5, WBCs 8.7, platelets 258. BUN 29, creatinine 1.2. IMPRESSION: This is a 71-year-old patient with lung cancer, questionable colonic lesions some activity in the rectum; anemia with a drop in blood count, status post transfusion and hemoglobin is stable, it has gone up 11.1 from 9.7. Tolerating the diet. No documented melena or bleeding per rec lamine. I would recommend continuing the present treatment. Followup of the hemoglobin and hematocrit. In the absence of bleeding and stage III/stage IV lung cancer, there is no immediate plan for a gastrointestinal workup. We discussed with Dr. Lucio regarding the patient. Again, thank you very much for allowing us to participate in the care of the patient. Selene Louis MD cc: [id number] TT: 01/01/2017 05:22:21 Confirmation # [id number] Dictation # [id number] tn
[2017-01-01] MEDS: Insulin Reg-HIGH-Coverage SC SCH ×4 (08:12→21:54)
[2017-01-01] MEDS: GlipiZIDE 10 mg SR Tab PO SCH ×2 (09:37→17:56)
[2017-01-01] MEDS: Megestrol Acetate 40 mg/ml Cup PO SCH (09:37)
[2017-01-01] MEDS: Pantoprazole 40 mg EC Tab PO SCH (09:37)
[2017-01-01] MEDS: POLYETHYLENE GLYCOL 3350 17 GM/Dose PACKET PO SCH (09:38)
--- NOTE | 2017-01-01 14:32 | PN ---
DATE: 01/01/2017 Seen and examined at the bedside. The patient was sitting on the side of the bed. Denies any nausea , vomiting, or abdominal pain. He reported having a bowel movement earlier today. No reports of any overt GI bleed. No diarrhea. Tolerating oral intake. Denies any shortness of breath or chest pain . VITAL SIGNS: Temperature is 98.8, blood pressure is 121/73, pulse is 101, respirations 20, 100% on r oom air. No new labs are noted for today except for 12/31, which was reviewed. PHYSICAL EXAMINATION: HEENT: Sclerae anicteric. NECK: Supple. CARDIAC: S1, S2. LUNG SOUNDS: With scattered rhonchi, did not hear any wheezing. ABDOMEN: With bowel sounds, soft, nontender. EXTREMITIES: No edema. ASSESSMENT: A 71-year-old male with lung cancer and questionable colonic lesions. The patient had a n outpatient PET scan, which reported activity in the rectum. The patient noted to have drop in bloo d count and anemia. He is status post blood transfusion and his hemoglobin is stable. No overt tosha rointestinal bleed. PLAN: We will continue to monitor patient's H and H. In absence of active bleeding and presence of stage III/IV lung cancer, there is no immediate plan for GI workup. We will discuss with Dr. Lucio. We will continue the bowel regimen. He is on MiraLax. The patient is on Megace and on acyclovir as per ID and oncology. The patient was seen and case discussed with Dr. Louis. Priscilla SELBY cc: [id number] TT: 01/01/2017 14:32:05 Confirmation # [id number] Dictation # [id number] en
--- NOTE | 2017-01-01 14:45 | PN ---
DATE: 01/01/2017 ADDENDUM This is an addendum to the GI progress report dictated by Priscilla Beal. This patient was seen and deidra luated earlier. The patient is tolerating the diet. Hemoglobin remains stable. No further bleeding . We will discuss with Dr. Lucio regarding the colonic lesions and need for any further GI workup. Thank you very much for allowing us to participate in the care of the patient. Selene Louis MD cc: [id number] TT: 01/01/2017 14:44:47 Confirmation # [id number] Dictation # [id number] en
--- NOTE | 2017-01-01 18:33 | PN ---
DATE: 01/01/2017 SUBJECTIVE: The patient is in bed in no acute distress, nontoxic. PHYSICAL EXAMINATION: VITAL SIGNS: Temperature is 97, blood pressure is 120/70, respiratory rate of 20. GENERAL: The patient was seen earlier this morning in room 566, bed 1. HEENT: Unremarkable. NECK: Supple. LUNGS: Decreased breath sounds. HEART: Normal S1, S2. ABDOMEN: Soft, nontender. LABORATORY EXAMINATION: Reveals the patient to have a white count of 8.7 and a hemoglobin of 11, BUN of 29, creatinine of 1.2. Urinalysis is noted and serology for influenza is positive for influenza B. Review of orders reveals the patient to be on a p.o. acyclovir. ASSESSMENT AND PLAN: A 71-year-old with sepsis secondary to systemic viral illness influenza with no evidence of pneumonia on top of acute bronchitis. Improving. Had completed 5 day course of Tamiflu and Zithromax and procalcitonin is only 0.22. Currently only on acyclovir and will follow with you. Must watch for renal toxicity if on acyclovir. Donaldo Driscoll MD cc: [id number] TT: 01/01/2017 18:32:05 Confirmation # [id number] Dictation # [id number] sn
--- NOTE | 2017-01-01 19:06 | PN ---
DATE: 01/01/2017 SUBJECTIVE: The patient is a 71-year-old, seen and examined. Still has cough, congestion with gurgl ing, phlegm in his throat. No nausea, vomiting, no diarrhea. PHYSICAL EXAMINATION: VITAL SIGNS: He is afebrile, pulse 103, respirations 20, blood pressure 125/77. LUNGS: Bilateral fair airflow, no rhonchi or crackle. HEART: S1, S2 audible. ABDOMEN: Soft, nontender, no rebound, no guarding. NEUROLOGIC: He is awake and alert, communicative. LABORATORY: Chemistry: Sodium 134, potassium 4.2, chloride 97, CO2 26, BUN 29, creatinine 1.2, bloo d sugar of 356. ASSESSMENT AND PLAN: 1. Viral syndrome. 2. Cancer, lung. 3. Postobstructive pneumonia. 4. Ruz-khvceow-gqspesaxv diabetes. 5. Chronic bronchitis. PLAN: The patient finished his course of antibiotic. Will monitor his blood sugar. He seems to be very weak and deconditioned. I recommended rehabilitation in TCU but, because of insurance reasons, he was not accepted. I will discuss with patient's daughter. The patient lives by himself. If she agrees for subacute rehabilitation, I will make a plan. Jose Angel Hull MD cc: [phone] TT: 01/01/2017 19:05:30 Confirmation # [id number] Dictation # [id number] alfredo
[2017-01-01] MEDS: Insulin Detemir 100 units/ml Vial (Levemir) SC SCH (21:53)
[2017-01-02] MEDS: Albuterol-Ipratrop 3 mg / 0.5 (3 ml) UD IH SCH ×3 (02:21→14:03)
[2017-01-02] MEDS: Insulin Reg-HIGH-Coverage SC SCH ×2 (07:34→12:12)
[2017-01-02 08:02] VITALS: BP 121/78; PULSE 98; TEMP 97.8; O2SAT 94
[2017-01-02] MEDS: Pantoprazole 40 mg EC Tab PO SCH (08:31)
[2017-01-02] MEDS: Megestrol Acetate 40 mg/ml Cup PO SCH (09:19)
[2017-01-02] MEDS: GlipiZIDE 10 mg SR Tab PO SCH (09:20)
[2017-01-02] MEDS: POLYETHYLENE GLYCOL 3350 17 GM/Dose PACKET PO SCH (09:20)
--- NOTE | 2017-01-02 12:38 | PN ---
DATE: 01/02/2017 Seen and examined late this morning. The patient denies nausea, vomiting, or abdominal pain. Report ed having bowel movement earlier today. No reports of any melena or bright red blood per rectum. VITAL SIGNS: Temperature 97.8, blood pressure 121/78, pulse 98, respirations 20, 94 on room air. LABORATORY DATA: No new labs are noted. PHYSICAL EXAMINATION: HEENT: Sclera is anicteric. NECK: Supple. CARDIAC: S1, S2. LUNGS: Sounds with scattered rhonchi, no wheezing. ABDOMEN: With bowel sounds, soft, nondistended, nontender on palpation. No organomegaly. EXTREMITIES: No edema. NEUROLOGIC: Awake, alert, and oriented. ASSESSMENT: A 71-year-old male with lung cancer, history of colon polyps. Had outpatient CT scan re porting activity in the rectum. The patient is status post a viral syndrome. The patient is noted t o have anemia, status post blood transfusion and hemoglobin remains stable. No overt GI signs of ble eding. Other comorbidities are non-insulin dependent diabetes and chronic bronchitis. PLAN: The patient will finish antibiotic course. His hemoglobin has remained stable. Continue angela l prep. He is on MiraLax, PPI, Protonix. The patient is going to be discharged home today. Can jerrica arambula in outpatient office. The patient was seen and case discussed with Dr. Louis. Priscilla SELBY cc: [id number] TT: 01/02/2017 12:38:32 Confirmation # [id number] Dictation # [id number] sn
--- NOTE | 2017-01-02 12:57 | DS ---
The patient is 71 years old, seen and examined, sitting in chair. Still has cough and congestion. C omplained of generalized weakness. However, he started to eat. PHYSICAL EXAMINATION: VITAL SIGNS: He is afebrile, pulse 9____, respirations 20, blood pressure 121/78. LUNGS: Bilateral fair airflow. No rhonchi or crackle. HEART: S1, S2 audible. No murmur. ABDOMEN: Soft, nontender. No rebound, no guarding. NEUROLOGIC: The patient is awake and alert, communicative. Ambulates with mild shortness of breath. ASSESSMENT: 1. Viral syndrome, status post influenza viral infection. 2. Non-insulin dependent diabetes. 3. Hypertension. 4. Hyperlipidemia. 5. Carcinoma lung, currently on chemotherapy that he received 2 weeks ago. PLAN: The patient finished his course of antibiotic. I really wanted him to go to subacute rehab, b ut because of insurance reasons, he cannot go to TCU, and daughter does not want him to be in subacut e rehab. I had a discussion with her, and she is willing to take him home, and she will watch him cl osely. She will follow with Dr. Lucio to continue his chemotherapy. Jose Angel Hull MD cc: [phone] TT: 01/02/2017 12:56:12 jn
--- NOTE | 2017-01-02 15:06 | PN ---
DATE: 01/02/2017 The patient is in bed, in no acute distress, nontoxic. PHYSICAL EXAMINATION: VITAL SIGNS: Temperature is 97, blood pressure is 120/70, respiratory rate of 18. HEENT: Unremarkable. NECK: Supple. LUNGS: Have decreased breath sounds. HEART: Normal S1, S2. ABDOMEN: Soft, nontender. LABORATORY DATA: Reveals a white count of 8.7, hemoglobin of 11. Chemistries are noted. BUN of 29, creatinine of 1.2. Urinalysis is noted. Influenza B is positive. Review of the orders reveals the patient to be on p.o. acyclovir. ASSESSMENT AND PLAN: This is a 71-year-old with sepsis secondary to systemic viral illness influenza , no evidence of pneumonia, on top of acute bronchitis. The patient has completed a 5-day course of Tamiflu and Zithromax. Currently, patient is at risk for developing nosocomial infections. Donaldo Driscoll MD cc: [id number] TT: 01/02/2017 15:05:54 Confirmation # [id number] Dictation # [id number] mn
== END 2017-01-02 16:00 | disposition home or self-care (01) | DRG 872 ==
LOC: ED 14:35 → ERH 19:01 → 5RNO 22:50
PROVIDERS: ADMIT Internal Medicine; ATTEND Internal Medicine
PROC: 30233N1 Transfusion of Nonautologous Red Blood Cells into Peripheral Vein, Percutaneous Approach (ICD-10-PCS; principal; 2016-12-26)
DX: A41.9 Sepsis, unspecified organism (principal); J10.1 Influenza due to other identified influenza virus with other respiratory manifestations; D61.818 Other pancytopenia; E46 Unspecified protein-calorie malnutrition; C34.91 Malignant neoplasm of unspecified part of right bronchus or lung; K56.7 Ileus, unspecified; Z68.1 Body mass index [BMI] 19.9 or less, adult; J44.0 Chronic obstructive pulmonary disease with (acute) lower respiratory infection; J20.9 Acute bronchitis, unspecified; E11.65 Type 2 diabetes mellitus with hyperglycemia; E86.0 Dehydration; I10 Essential (primary) hypertension; R62.7 Adult failure to thrive; E78.5 Hyperlipidemia, unspecified; R63.4 Abnormal weight loss; H26.9 Unspecified cataract; K59.00 Constipation, unspecified; R26.2 Difficulty in walking, not elsewhere classified; I25.10 Atherosclerotic heart disease of native coronary artery without angina pectoris; M19.90 Unspecified osteoarthritis, unspecified site; Z79.84 Long term (current) use of oral hypoglycemic drugs; Z87.891 Personal history of nicotine dependence; Z86.010 Personal history of colon polyps

== ENCOUNTER 2017-01-05 17:23 | Inpatient (IN) | payer MEDICARE ==
[2017-01-05 17:35] VITALS: BMI 24.0
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
[2017-01-05] MEDS ORDERED: Piperacill/Tazo 4.5gm in NS 100 ML IVPB STA (17:39)
[2017-01-05] MEDS ORDERED: Vancomycin 1gm in NS 250ml 250 ML IVPB STA (17:47)
[2017-01-05 18:12] LABS: HEMATOCRIT 30.2 % (42.0-52.0); MEAN CORPUSCULAR HGB CONC 34.1 g/dl (31.0-37.0); MEAN PLATELET VOLUME 9.6 fl (7.0-11.0); PLATELET COUNT 309 10^3/uL (120.0-450.0); RED CELL DISTRIBUTION WIDTH 16.6 % (11.5-14.5); VENOUS BLOOD GAS BASE EXCESS -0.4 mmol/L (0.0-2.0); VENOUS BLOOD PH 7.38 (7.32-7.43); WHITE BLOOD COUNT 18.7 10^3/ul (4.5-11.0)
[2017-01-05 18:14] LABS: ADD MANUAL DIFF? YES
[2017-01-05 18:21] LABS: ALB/GLOB RATIO 0.8 (1.1-1.8); ALKALINE PHOSPHATASE 127 U/L (38-133); ALT/SGPT 24 U/L (7-56); AST/SGOT 30 U/L (15-59); BILIRUBIN,TOTAL 1.2 mg/dL (0.2-1.3); BLOOD UREA NITROGEN 16 mg/dL (7-21); CALCIUM 8.3 mg/dL (8.4-10.5); CARBON DIOXIDE 27 mmol/L (21-33); CHLORIDE 101 mmol/L (98-107); GFR AFRICAN-AMERICAN > 60; GLUCOSE,RANDOM 207 mg/dL (70-110); PHOSPHOROUS 3.9 mg/dL (2.5-4.5); POTASSIUM 4.5 mmol/L (3.6-5.0); SODIUM 139 mmol/L (132-148); TOTAL PROTEIN 7.7 g/dL (5.8-8.3)
[2017-01-05 18:22] LABS: INR 1.12 (0.93-1.08); PARTIAL THROMBOPLASTIN TIME 28.8 Seconds (23.7-30.8)
[2017-01-05] MEDS ORDERED: Magnesium Sulfate 2 GM in Sodium Chloride 0.9% 100 ML IVPB ONE (18:27)
[2017-01-05 18:36] LABS: ANISOCYTOSIS SLIGHT; BAND 1 % (0-2); METAMYELOCYTE 1 %; NEUTROPHIL 91 % (50.0-70.0); PLATELET ESTIMATE NORMAL (NORMAL); POIKILOCYTOSIS SLIGHT
[2017-01-05 18:37] LABS: LARGE PLATELETS PRESENT
[2017-01-05] MEDS ORDERED: Sodium Chloride 0.9% 1,000 ML IV SCH (19:30)
[2017-01-05 20:23] LABS: URINE BILIRUBIN NEGATIVE (NEGATIVE); URINE BLOOD TRACE-INTACT (NEGATIVE); URINE GLUCOSE (UA) NEGATIVE (NEGATIVE); URINE KETONE NEGATIVE (NEGATIVE); URINE LEUKOCYTE ESTERASE NEGATIVE Leu/uL (NEGATIVE); URINE PROTEIN 100 mg/dL (<30 mg/dL)
[2017-01-05 20:24] LABS: URINE APPEARANCE CLEAR (CLEAR); URINE COLOR YELLOW (YELLOW)
[2017-01-05 20:40] LABS: URINE BACTERIA FEW (NEG); URINE EPITHELIAL CELLS 0 - 2 /hpf (0-5); URINE WBC 0 - 2 /hpf (0-6)
[2017-01-05] MEDS ORDERED: Levalbuterol 1.25 MG/3 ML Inhal Soln UD IH PRN (21:25)
[2017-01-05] MEDS ORDERED: ACYCLOVIR 400 MG PO SCH (21:30)
--- NOTE | 2017-01-05 22:01 | HP ---
HISTORY OF PRESENT ILLNESS: The patient is a 71-year-old known to me from multiple previous admissio ns. He was just discharged on 01/02 in stable condition after he was admitted for his viral syndrome, received 8 days of antibiotic for influenza and suppurative infection. He went home, was okay for a day, started to have cough and congestion again and he spiked fever, so daughter brought him to [facility] for further evaluation. Complains of having chills, palpitation, also complained of produ ctive cough, no hemoptysis, no hematemesis. Complained of generalized weakness and poor oral intake. PAST MEDICAL HISTORY: 1. Significant for CA lung and is currently getting chemotherapy by Dr. Lucio. 2. He also has significant past medical history of non-insulin dependent diabetes. 3. Hypertension. 4. Hyperlipidemia. 5. Status post external radiation, followed by chemotherapy that he was receiving recently. 6. Chronic anemia. ALLERGIES: Not allergic to any medications. MEDICATIONS AT HOME: He is on Pravachol 40 mg daily, Megace 400 daily, ____ sulfate 1 tablet daily, oxybutynin 10 mg daily, tramadol 50 mg 3 times a day, glipizide 10 mg twice a day. SOCIAL HISTORY: He is single, lives with his daughter and has a history of heavy smoking, and he rec ently quit. REVIEW OF SYSTEMS: Significant for generalized weakness, poor oral intake. PHYSICAL EXAMINATION: GENERAL: He is awake and alert, communicative. VITAL SIGNS: He has temperature of 101, pulse 123, respirations 20, blood pressure 141/90. LUNGS: Bilateral upper lung region soft crackles with expiratory rhonchi. HEART: S1, S2 audible. Tachycardia. ABDOMEN: Soft, nontender, no rebound, no guarding. NEUROLOGIC: He is awake and alert and communicative. EXTREMITIES: Bilateral leg, no edema. LABORATORY DATA: WBC is 18.7, hemoglobin 10.3, hematocrit 30.2, platelet 309. Chemistry: Sodium 13 9, potassium 4.5, chloride 101, CO2 of 27, BUN 16, creatinine 1.0, blood sugar of 207. Magnesium is 1.0. X-ray of chest shows right upper lobe infiltrate and small right pleural effusion. ASSESSMENT: 1. Carcinoma lung, probably postobstructive pneumonia. 2. Asthmatic bronchitis. 3. Hypertension. 4. Hyperlipidemia. 5. Non-insulin dependent diabetes. 6. Significant weight loss with poor oral intake. 7. Recent viral syndrome. PLAN: The patient will be admitted. We will start him on IV antibiotic. Blood culture and urine cu ltures are sent. Sent sputum for culture. Monitor blood sugar. Supplement magnesium and ID evaluat ion by Dr. Driscoll has been requested. We will reevaluate the patient in a.m. Jos eAngel Hull MD cc: [phone] TT: 01/05/2017 22:01:12 jn
--- NOTE | 2017-01-05 22:11 | CT ---
EXAM: CT Head Without Intravenous Contrast CLINICAL HISTORY: 71 years old, male; Pain; Headache; Vascular TECHNIQUE: Axial computed tomography images of the head/brain without intravenous contrast. This CT exam was performed using one or more of the following dose reduction techniques: automated exposure control, adjustment of the mA and/or kV according to patient size, and/or use of iterative reconstruction technique. EXAM DATE/TIME: 01/05/2017 8:15 PM COMPARISON: No relevant prior studies available. FINDINGS: BRAIN: Small area of low density is seen in the right basal ganglia, which has an appearance most compatible with an old/chronic lacunar infarct. Areas of hypodensity seen in the white matter bilaterally, nonspecific in appearance, but most likely representing chronic small vessel ischemic changes, in a patient of this age. Physiologic left basal ganglia calcification. Diffuse, marked, age-related cortical atrophy and ventriculomegaly. No significant acute abnormality identified. No acute hemorrhage seen within the brain. No acute extra-axial fluid collections visualized. No evidence of significant mass effect within the brain. VENTRICLES: See above. BONES/JOINTS: No acute fractures or other acute bony abnormality noted. SOFT TISSUES: No acute abnormality of the visualized soft tissues is seen. VASCULATURE: Atherosclerotic calcification. SINUSES: Fluid in the maxillary sinuses bilaterally, most compatible with acute sinusitis Remaining visualized paranasal sinuses appear clear. MASTOID AIR CELLS: Mastoid air cells appear clear. IMPRESSION: - No acute findings seen within the brain. - Bilateral maxillary acute sinusitis. - See above for remaining findings.
[2017-01-05] MEDS: Vancomycin 1gm in NS 250ml 250 ML IVPB SCH (22:12)
[2017-01-06 07:32] LABS: ADD MANUAL DIFF? NO
[2017-01-06 07:53] LABS: BASO # 0.02 K/mm3 (0.0-2.0); BASO % 0.1 % (0.0-3.0); EOS % 0.1 % (1.5-5.0); GRAN # 11.33 (1.4-6.5); GRAN % 83.6 % (50.0-68.0); LYMPH # 0.6 (1.2-3.4); LYMPH % 4.3 % (22.0-35.0); MEAN CELL VOLUME 88.4 fL (80.0-105.0); MEAN CORPUSCULAR HEMOGLOBIN 29.6 pg (25.0-35.0); MEAN CORPUSCULAR HGB CONC 33.5 g/dl (31.0-37.0); MEAN PLATELET VOLUME 9.7 fl (7.0-11.0); MONO # 1.6 (0.1-0.6); MONO % 11.9 % (1.0-6.0); PLATELET COUNT 251 10^3/uL (120.0-450.0); RED CELL DISTRIBUTION WIDTH 16.5 % (11.5-14.5); WHITE BLOOD COUNT 13.6 10^3/ul (4.5-11.0)
[2017-01-06 07:56] LABS: ALB/GLOB RATIO 0.8 (1.1-1.8); ALKALINE PHOSPHATASE 105 U/L (38-133); ALT/SGPT 21 U/L (7-56); AST/SGOT 22 U/L (15-59); BILIRUBIN,TOTAL 0.6 mg/dL (0.2-1.3); BLOOD UREA NITROGEN 16 mg/dL (7-21); CALCIUM 7.4 mg/dL (8.4-10.5); CARBON DIOXIDE 20 mmol/L (21-33); CHLORIDE 109 mmol/L (95-110); GFR AFRICAN-AMERICAN > 60; GLUCOSE,RANDOM 121 mg/dL (70-110); MAGNESIUM 1.2 mg/dL (1.7-2.2); PHOSPHOROUS 4.2 mg/dL (2.5-4.5); POTASSIUM 4.3 mmol/L (3.6-5.0); SODIUM 140 mmol/L (132-148)
[2017-01-06] MEDS: Vancomycin 1gm in NS 250ml 250 ML IVPB SCH (08:55)
[2017-01-06] MEDS: Megestrol Acetate 40 mg/ml Cup PO SCH (10:23)
[2017-01-06] MEDS: GlipiZIDE 10 mg SR Tab PO SCH ×2 (10:24→17:03)
[2017-01-06] MEDS: Magnesium Oxide 400 mg Tab UD PO SCH ×2 (10:24→17:04)
[2017-01-06] MEDS ORDERED: Magnesium Oxide 400 mg Tab UD PO SCH (10:30)
--- NOTE | 2017-01-06 10:33 | RAD ---
HISTORY: Sepsis Patient COMPARISON: Comparison made with prior chest radiograph and CT scan chest dated 12/25/2016 and 12/09/2016 respectively. FINDINGS: LUNGS: Re- demonstrated is right upper lobe opacity which most likely represent some a combination of previously noted pleural-based mass and atelectasis and or infiltrate. . Lung felix remain hyperinflated consistent with emphysema (upper lobe predominance) which is seen to better advantage on prior CT scan. Chronic atelectasis/scarring changes right lung base. PLEURA: No significant pleural effusion identified, no pneumothorax apparent. CARDIOVASCULAR: Normal. OSSEOUS STRUCTURES: No significant abnormalities. VISUALIZED UPPER ABDOMEN: Normal. OTHER FINDINGS: None. IMPRESSION: Right upper lobe opacity likely representing some combination of of previously noted large pleural-based mass density and associated adjacent parenchymal atelectasis and/or infiltrate. Hyperinflation consistent with emphysema.
--- NOTE | 2017-01-06 11:27 | CARD ---
APPROVED REPORT EKG Measurement Heart [id number] <Conclusion> Sinus tachycardia APC's No change
[2017-01-06] MEDS: Insulin Lispro (humaLOG) MEDIUM Coverage SC SCH ×4 (12:15→21:56)
[2017-01-06] MEDS: Levalbuterol 1.25 MG/3 ML Inhal Soln UD IH SCH ×2 (14:07→19:45)
--- NOTE | 2017-01-06 14:55 | CON ---
DATE: 01/06/2017 The patient is in bed in 367, bed 2. CHIEF COMPLAINT: Fever of 101, shortness of breath x 1 day duration. HISTORY OF PRESENT ILLNESS: This is a 71-year-old male, recent hospitalization with influenza B, was treated with Tamiflu and Zithromax. The patient with history of lung cancer with radiation, history of hypertension, diabetes, arthritis, cataract, coronary artery disease, high cholesterol, long time smoker, renal insufficiency who was admitted, recently was discharged and now readmitted with new fe vers and shortness of breath and infectious disease consultation requested. The patient states that he had no abdominal pain, just the cough, nonproductive. There is shortness of breath. No chest ulises n, no headaches, blurred vision. There is low grade fevers and occasional chills. PAST MEDICAL HISTORY: Significant for influenza B, recent hospitalization, lung cancer with radiation , hypertension, diabetes, arthritis, cataract, coronary artery disease, high cholesterol. PAST SURGICAL HISTORY: Significant for cataract surgery. ALLERGIES: The patient has no known allergies. SOCIAL HISTORY: Is a long time smoker. The patient also does have renal disease. MEDICATIONS AT HOME: Reviewed and include tramadol, oxybutynin, omeprazole and Decadron. PHYSICAL EXAMINATION: GENERAL: The patient appears chronically ill, debilitated, cachectic. VITAL SIGNS: Temperature of 101, heart rate of 96, blood pressure is 100/60, respiratory rate of 22, 91% oxygen saturation. HEENT: Unremarkable. NECK: Supple. LUNGS: Have decreased breath sounds. HEART: Normal S1, S2. ABDOMEN: Soft, nontender. LABORATORY EXAMINATION: Reveals a white count of 18,700, hemoglobin of 8, platelets of 251. The yovanny mistries reveal the BUN of 16, creatinine of 1.1. Urinalysis is noted. CAT scan of the chest is pen ding. Chest x-ray report is noted, an infiltrate with a mass. ASSESSMENT AND PLAN: This is a 71-year-old male with recent hospitalization with influenza B with fawn ng cancer and radiation, diabetes, hypertension, arthritis, cataract, coronary artery disease, high c holesterol, renal insufficiency, long time smoker, presenting with dyspnea, shortness of breath with leukocytosis, tachycardia, hypoxia and infiltrates on the chest x-ray. 1. Severe sepsis with healthcare-associated possible gram-positive cocci, possible gram-negative anuja pneumonia. We will check on a procalcitonin, blood cultures, urine cultures, sputum cultures and tr eat the patient with doxycycline and meropenem, pending initial culture results. The patient was alr amena given vancomycin. Will follow closely with you and make further recommendations based on procal citonin and virk cultures. Donaldo Driscoll MD cc: [phone] TT: 01/06/2017 14:55:36 Confirmation # [id number] Dictation # [id number] rn
[2017-01-06] MEDS: Meropenem 1g/NS 100mL IVPB 100 ML IVPB SCH ×2 (15:14→21:55)
--- NOTE | 2017-01-06 17:51 | CT ---
PROCEDURE: CT scan chest dated 01/06/2017 COMPARISON: Comparison made with CT scan chest 12/09/2016. TECHNIQUE: Radiation dose (DLP):299.23 mGy-cm. This CT exam was performed using one or more of the following dose reduction techniques: Automated exposure control, adjustment of the mA and/or kV according to patient size, and/or use of iterative reconstruction technique. Findings: The previously noted lobulated pleural-based masslike density in the right posterolateral upper lung field is less well seen on this study due to further increase/progression of surrounding adjacent atelectasis which partially silhouettes the lesion. In addition, there is a new area of atelectasis and or infiltrate in the anterior aspect right upper lobe of extending to the pleural surface located slightly more inferiorly than the progressed atelectatic changes in the posterior. The large pleural-based lesion is of uncertain etiology though could represent an area of chronic up postinflammatory pleural thickening however pleural-based malignancy not excluded. The areas of opacity upper lobe could conceivably represent contiguous tumor spread. Clinical correlation is recommended. Clinical correlation recommended. Underlying centrilobular emphysema with upper lobe predominance again noted. Re- demonstrated is a elliptical shaped nodular opacity abutting the pleural surface post lateral convexity right lung base. This measures approximately 60.4 mm. There are areas of atelectasis on and or scarring in the posterior lung base as well. Small nodular density left lung base. Tiny calcified granuloma medial aspect left lung base unchanged. Re- demonstrated are chronic appearing endplate deformities of the T8, T12 and L1 as well as superior L2 segments unchanged from prior study. No evidence of retropulsed fragments. Mild infiltration changes seen within the perinephric fat bilaterally nonspecific. Thickening Heart size within range of normal. No significant pericardial effusion. No significant mediastinal adenopathy. Rule out evaluation for hilar adenopathy limited due to the lack of circulating intravenous contrast material. Trachea and mainstem bronchi are patent without obvious endoluminal lesions. . Impression: Re- demonstrated is a somewhat lobulated pleural based mass lesion right post lateral upper lobe associate with the progression of surrounding atelectasis and or infiltrate. New area of atelectasis in the anterior aspect right upper lobe noted as well. Deep pleural-based lesion could represent chronic postinflammatory pleural thickening however the possibility of a pleural base mass with areas of surrounding atelectasis and/or infiltrate not excluded. Clinical correlation recommended Re- demonstrated are centrilobular emphysematous changes with upper lobe predominance. See above discussion for additional findings and details. .
--- NOTE | 2017-01-06 17:55 | CP.PCM.PN ---
Subjective - Date & Time of Evaluation Date of Evaluation: 01/06/17 Time of Evaluation: 11:00 - Subjective Subjective: pt needs angiocath insertion. Objective - Vital Signs/Intake and Output Vital Signs (last 24 hours): Temp Pulse Resp BP Pulse Ox 97.6 F 82 22 140/85 100 01/06/17 06:00 01/06/17 06:00 01/06/17 06:00 01/06/17 06:00 01/06/17 06:00 Intake and Output: 01/06/17 01/06/17 06:59 18:59 Intake Total 100 Output Total 200 Balance -100 - Medications Medications: Current Medications Acyclovir (Zovirax) 400 mg PO BID [facility] Last Admin: 01/06/17 17:04 Dose: 400 mg Atorvastatin Calcium (Lipitor) 10 mg PO DAILY [facility] Last Admin: 01/06/17 10:24 Dose: 10 mg Glipizide (Glucotrol Xl) 10 mg PO BID [facility] Last Admin: 01/06/17 17:03 Dose: 10 mg Sodium Chloride (Sodium Chloride 0.9%) 1,000 mls @ 100 mls/hr IV .Q10H [facility] Last Admin: 01/05/17 20:33 Dose: 100 mls/hr Vancomycin HCl (Vancomycin 1gm) 250 mls @ 167 mls/hr IVPB Q12H [facility] PRN Reason: Protocol Last Admin: 01/06/17 08:55 Dose: 167 mls/hr Doxycycline Hyclate 100 mg/ (Sodium Chloride) 100 mls @ 100 mls/hr IVPB Q12 [facility] PRN Reason: Protocol Last Admin: 01/06/17 11:05 Dose: 100 mls/hr Meropenem 1g/NS 100mL IVPB (Meropenem 1g/Ns 100ml Ivpb) 100 mls @ 100 mls/hr IVPB Q8 [facility] PRN Reason: Protocol Stop: 01/15/17 14:01 Insulin Human Lispro (Humalog Med) 0 units SC ACHS [facility] PRN Reason: Protocol Last Admin: 01/06/17 16:43 Dose: 8 units Levalbuterol HCl (Xopenex) 1.25 mg IH [id number] [facility] Last Admin: 01/06/17 14:07 Dose: 1.25 mg Levalbuterol HCl (Xopenex) 1.25 mg IH Q2 PRN PRN Reason: Shortness of Breath Magnesium Oxide (Mag-Ox) 400 mg PO BID [facility] Last Admin: 01/06/17 17:04 Dose: 400 mg Megestrol Acetate (Megace) 400 mg PO DAILY [facility] Last Admin: 01/06/17 10:23 Dose: 400 mg Sitagliptin Phosphate (Januvia) 100 mg PO DAILY [facility] Last Admin: 01/06/17 10:24 Dose: 100 mg - Labs Labs: 01/06/17 07:00 01/06/17 07:00 PT 12.1 Seconds (9.9-11.8) H 01/05/17 17:38 INR 1.12 (0.93-1.08) H 01/05/17 17:38 APTT 28.8 Seconds (23.7-30.8) 01/05/17 17:38 Assessment and Plan - Assessment and Plan (Free Text) Assessment: 20 guage angiocath inserted in rt antecubital area.
--- NOTE | 2017-01-06 17:56 | CP.PCM.PN ---
Subjective - Date & Time of Evaluation Date of Evaluation: 01/06/17 Time of Evaluation: 17:00 - Subjective Subjective: pt ,s iv infiltrated and needs angicath insertion. Objective - Vital Signs/Intake and Output Vital Signs (last 24 hours): Temp Pulse Resp BP Pulse Ox 97.6 F 82 22 140/85 100 01/06/17 06:00 01/06/17 06:00 01/06/17 06:00 01/06/17 06:00 01/06/17 06:00 Intake and Output: 01/06/17 01/06/17 06:59 18:59 Intake Total 100 Output Total 200 Balance -100 - Medications Medications: Current Medications Acyclovir (Zovirax) 400 mg PO BID [facility] Last Admin: 01/06/17 17:04 Dose: 400 mg Atorvastatin Calcium (Lipitor) 10 mg PO DAILY [facility] Last Admin: 01/06/17 10:24 Dose: 10 mg Glipizide (Glucotrol Xl) 10 mg PO BID [facility] Last Admin: 01/06/17 17:03 Dose: 10 mg Sodium Chloride (Sodium Chloride 0.9%) 1,000 mls @ 100 mls/hr IV .Q10H [facility] Last Admin: 01/05/17 20:33 Dose: 100 mls/hr Vancomycin HCl (Vancomycin 1gm) 250 mls @ 167 mls/hr IVPB Q12H [facility] PRN Reason: Protocol Last Admin: 01/06/17 08:55 Dose: 167 mls/hr Doxycycline Hyclate 100 mg/ (Sodium Chloride) 100 mls @ 100 mls/hr IVPB Q12 [facility] PRN Reason: Protocol Last Admin: 01/06/17 11:05 Dose: 100 mls/hr Meropenem 1g/NS 100mL IVPB (Meropenem 1g/Ns 100ml Ivpb) 100 mls @ 100 mls/hr IVPB Q8 [facility] PRN Reason: Protocol Stop: 01/15/17 14:01 Insulin Human Lispro (Humalog Med) 0 units SC ACHS [facility] PRN Reason: Protocol Last Admin: 01/06/17 16:43 Dose: 8 units Levalbuterol HCl (Xopenex) 1.25 mg IH [id number] [facility] Last Admin: 01/06/17 14:07 Dose: 1.25 mg Levalbuterol HCl (Xopenex) 1.25 mg IH Q2 PRN PRN Reason: Shortness of Breath Magnesium Oxide (Mag-Ox) 400 mg PO BID [facility] Last Admin: 01/06/17 17:04 Dose: 400 mg Megestrol Acetate (Megace) 400 mg PO DAILY [facility] Last Admin: 01/06/17 10:23 Dose: 400 mg Sitagliptin Phosphate (Januvia) 100 mg PO DAILY [facility] Last Admin: 01/06/17 10:24 Dose: 100 mg - Labs Labs: 01/06/17 07:00 01/06/17 07:00 PT 12.1 Seconds (9.9-11.8) H 01/05/17 17:38 INR 1.12 (0.93-1.08) H 01/05/17 17:38 APTT 28.8 Seconds (23.7-30.8) 01/05/17 17:38 Assessment and Plan - Assessment and Plan (Free Text) Assessment: 20 guage angiocath insertes in rt leg.
[2017-01-06] MEDS ORDERED: Sodium Chloride 0.9% 1,000 ML IV SCH (17:57)
--- NOTE | 2017-01-06 18:35 | PN ---
DATE: 01/06/2017 The patient is a 71-year-old, seen and examined. He was just discharged, and after 2 days he spiked fever, worsening cough and congestion, so he was brought to Emergency Room. VITAL SIGNS: Afebrile, pulse 82, respirations 22, blood pressure 140/85. LUNGS: Bilateral soft crackle. HEART: S1, S2 audible. Bilateral expiratory rhonchi. ABDOMEN: Soft, nontender, no rebound, no guarding. NEUROLOGICALLY: He is awake and alert, but falls asleep and lethargic in between. BILATERAL LEGS: No edema. LABORATORY EXAMINATION: WBC 13.6, hemoglobin 8.7, hematocrit 26, platelet 51. Chemistry: Sodium 14 0, potassium 4.3, chloride 109, CO2 of 20, BUN 16, creatinine 1.1, blood sugar of 121. Had CT scan of the chest done that shows right posterolateral lung mass associated with progression o f surrounding atelectasis and infiltrate. ID: Pleural-based lesion with postinflammatory changes, c entrilobular emphysema. ASSESSMENT AND PLAN: 1. Lung mass with associated infiltrate and postinflammatory changes. 2. Bronchospasm. 3. Asthmatic bronchitis. 4. Non-insulin dependent diabetes. PLAN: Currently, the patient is on doxycycline. He is getting glipizide and Januvia. Currently, he is on meropenem. He is on IV fluid. I will cut down from 100 to 50 mL. Encourage p.o. intake. Co ntinue nebulizer treatment. Monitor blood sugar. PROGNOSIS: Poor. I will talk to patient's daughter, who is my patient also, about DNR. Jose Angel Hull MD cc: [phone] TT: 01/06/2017 18:35:12 Confirmation # [id number] Dictation # [id number] jn
[2017-01-07] MEDS: Vancomycin 1gm in NS 250ml 250 ML IVPB SCH ×3 (00:20→22:55)
[2017-01-07] MEDS: Levalbuterol 1.25 MG/3 ML Inhal Soln UD IH SCH ×4 (01:30→19:49)
[2017-01-07] MEDS: Meropenem 1g/NS 100mL IVPB 100 ML IVPB SCH ×3 (05:42→21:32)
[2017-01-07] MEDS: Insulin Lispro (humaLOG) MEDIUM Coverage SC SCH ×4 (08:13→22:56)
[2017-01-07] MEDS: GlipiZIDE 10 mg SR Tab PO SCH ×2 (09:50→17:32)
[2017-01-07] MEDS: Megestrol Acetate 40 mg/ml Cup PO SCH (09:50)
[2017-01-07] MEDS: Magnesium Oxide 400 mg Tab UD PO SCH ×2 (09:50→17:32)
--- NOTE | 2017-01-07 11:14 | PN ---
DATE: 01/07/2017 The patient is a 71-year-old, seen and examined, sitting in chair. Mild shortness of breath with cou gh tolerating. PHYSICAL EXAMINATION: VITAL SIGNS: He is afebrile, pulse 82, respirations 22, blood pressure 140/85. LUNGS: Bilateral fair airflow, but he has soft crackles bilaterally diffuse, more so on the right up per lung region. ABDOMEN: Soft, nontender. NEUROLOGIC: He is awake and alert. EXTREMITIES: Bilateral legs, no edema. LABORATORY EXAMINATION: WBC 13.6, hemoglobin 8.7, hematocrit 26, platelets 251. Chemistry: Sodium 140, potassium 4.3, chloride 109, CO2 20, BUN 16, creatinine 1.1, blood sugar of 248, calcium 7.4. P rocalcitonin 0.96. Blood cultures are negative. ASSESSMENT: 1. Probably postobstructive pneumonia. 2. Cancer of lung, currently on chemotherapy by Dr. Lucio. 3. Noninsulin dependent diabetes. 4. Significant weight loss. 5. Right posterolateral upper lobe associated atelectasis. PLAN: Currently, patient on antibiotic as recommended by ID, that is doxycycline and meropenem. I w ill discontinue his IV fluid since he has very poor peripheral access. I will keep that just for IV antibiotics. He is on meropenem. I will start him on small dose of Solu-Medrol. I will discuss wit h the patient's daughter to discuss about do not resuscitate and I will reevaluate patient in a.m. I will order for sequential compression devices for deep venous thrombosis prophylaxis. Jose Angel Hull MD cc: [phone] TT: 01/07/2017 11:14:17 Confirmation # [id number] Dictation # [id number] en
--- NOTE | 2017-01-07 17:18 | PN ---
DATE: 01/07/2017 The patient seen in room 367, bed 2. He is somewhat improved. He has no fever. He had an uneventfu l night. The temperature is down. PHYSICAL EXAMINATION: VITAL SIGNS: Temperature is 97, T-max was 101; blood pressure is 140/80, respiratory rate of 22. HEENT: Unremarkable. NECK: Supple. LUNGS: Have decreased breath sounds. HEART: Normal S1, S2. ABDOMEN: Soft. LABORATORY DATA: Reveals a white count of 13,600, hemoglobin of 8, platelets of 251. BUN of 16, cre atinine is 1.1. Procalcitonin 0.96. Urinalysis is noted. Blood cultures are no growth. ASSESSMENT AND PLAN: He is a 71-year-old male with recent hospitalization with influenza B with lung cancer, status post radiation, diabetes and hypertension, cataracts, arthritis, coronary artery dise ase, high cholesterol, renal insufficiency, long time smoker, now presenting with shortness of breath , leukocytosis, tachycardia, hypoxia and infiltrates with severe sepsis with healthcare-associated po ssible gram-positive cocci, possible gram-negative anuja; workup pending. Currently on doxycycline and meropenem day #2. Thus far, the blood culture is no growth at 24 hours. Procalcitonin is elevated at 0.96. Will follow with you and make further recommendations. Will need at least 4-7 days of anti biotics, day #2. Donaldo Driscoll MD cc: [phone] TT: 01/07/2017 17:18:00 Confirmation # [id number] Dictation # [id number] dn
[2017-01-07] MEDS ORDERED: Insulin Lispro 1 UNITS/0.01 ML SC STA ×2 (21:31→23:15)
[2017-01-07] MEDS: MethylPREDNISolone 40 mg Vial IV SCH (21:31)
--- NOTE | 2017-01-07 21:31 | CP.PCM.PN ---
Subjective - Date & Time of Evaluation Date of Evaluation: 01/07/17 Time of Evaluation: 21:30 - Subjective Subjective: S:Patient was seen at [facility] because his fsbs was >500. I had ordered 12 Units regular insulin SC. He states that his daughter had brought Ice cream for him which he ate. Has no symptoms. Denies blurry vision, stomach pain, polyuria, palpitation, sweating. Medical record was reviewed. O: Last Vital Signs 3 Temp 98.1 F 01/08/17 00:00 Pulse 110 H 01/08/17 00:00 Resp 22 01/08/17 00:00 BP 141/64 01/08/17 00:00 Pulse Ox 96 01/08/17 00:00 Awake, alert, not in distress. LUNGS:Normal breathing pattern. A:Hyperglycemia. P:Regular insulin 12 Units SC stat. Repeat FSBS was still high (464mg %) and 12 units regular insulin was given. Repeat FSBS was 142 mg %, 71 mg %. Will observe. Objective - Vital Signs/Intake and Output Vital Signs (last 24 hours): Temp Pulse Resp BP Pulse Ox 97.6 F 82 22 140/85 100 01/06/17 06:00 01/06/17 06:00 01/06/17 06:00 01/06/17 06:00 01/06/17 06:00 - Medications Medications: Current Medications Acyclovir (Zovirax) 400 mg PO BID [facility] Last Admin: 01/07/17 17:32 Dose: 400 mg Atorvastatin Calcium (Lipitor) 10 mg PO DAILY [facility] Last Admin: 01/07/17 09:50 Dose: 10 mg Glipizide (Glucotrol Xl) 10 mg PO BID [facility] Last Admin: 01/07/17 17:32 Dose: 10 mg Vancomycin HCl (Vancomycin 1gm) 250 mls @ 167 mls/hr IVPB Q12H [facility] PRN Reason: Protocol Last Admin: 01/07/17 09:49 Dose: 167 mls/hr Doxycycline Hyclate 100 mg/ (Sodium Chloride) 100 mls @ 100 mls/hr IVPB Q12 [facility] PRN Reason: Protocol Last Admin: 01/07/17 09:49 Dose: 100 mls/hr Meropenem 1g/NS 100mL IVPB (Meropenem 1g/Ns 100ml Ivpb) 100 mls @ 100 mls/hr IVPB Q8 [facility] PRN Reason: Protocol Stop: 01/15/17 14:01 Last Admin: 01/07/17 14:21 Dose: 100 mls/hr Insulin Human Lispro (Humalog Med) 0 units SC ACHS [facility] PRN Reason: Protocol Last Admin: 01/07/17 17:31 Dose: 5 units Levalbuterol HCl (Xopenex) 1.25 mg IH [id number] [facility] Last Admin: 01/07/17 19:49 Dose: 1.25 mg Levalbuterol HCl (Xopenex) 1.25 mg IH Q2 PRN PRN Reason: Shortness of Breath Magnesium Oxide (Mag-Ox) 400 mg PO BID [facility] Last Admin: 01/07/17 17:32 Dose: 400 mg Megestrol Acetate (Megace) 400 mg PO DAILY [facility] Last Admin: 01/07/17 09:50 Dose: 400 mg Methylprednisolone (Solu-Medrol) 20 mg IV Q12 [facility] Sitagliptin Phosphate (Januvia) 100 mg PO DAILY [facility] Last Admin: 01/07/17 09:50 Dose: 100 mg - Labs Labs: 01/06/17 07:00 01/06/17 07:00 PT 12.1 Seconds (9.9-11.8) H 01/05/17 17:38 INR 1.12 (0.93-1.08) H 01/05/17 17:38 APTT 28.8 Seconds (23.7-30.8) 01/05/17 17:38
[2017-01-08] MEDS: Levalbuterol 1.25 MG/3 ML Inhal Soln UD IH SCH ×4 (01:10→19:40)
[2017-01-08] MEDS: Meropenem 1g/NS 100mL IVPB 100 ML IVPB SCH ×3 (05:49→21:58)
--- NOTE | 2017-01-08 06:34 | CP.PCM.PN ---
Subjective - Date & Time of Evaluation Date of Evaluation: 01/08/17 Time of Evaluation: 06:33 - Subjective Subjective: # 22 angiocath was inserted in left forearm. Dx:Poor venous access. Objective - Vital Signs/Intake and Output Vital Signs (last 24 hours): Temp Pulse Resp BP Pulse Ox 98.1 F 110 H 22 141/64 96 01/08/17 00:00 01/08/17 00:00 01/08/17 00:00 01/08/17 00:00 01/08/17 00:00 Intake and Output: 01/07/17 01/08/17 18:59 06:59 Intake Total 690 Output Total 700 Balance -10 - Medications Medications: Current Medications Acyclovir (Zovirax) 400 mg PO BID [facility] Last Admin: 01/07/17 17:32 Dose: 400 mg Atorvastatin Calcium (Lipitor) 10 mg PO DAILY [facility] Last Admin: 01/07/17 09:50 Dose: 10 mg Glipizide (Glucotrol Xl) 10 mg PO BID [facility] Last Admin: 01/07/17 17:32 Dose: 10 mg Vancomycin HCl (Vancomycin 1gm) 250 mls @ 167 mls/hr IVPB Q12H [facility] PRN Reason: Protocol Last Admin: 01/07/17 22:55 Dose: 167 mls/hr Doxycycline Hyclate 100 mg/ (Sodium Chloride) 100 mls @ 100 mls/hr IVPB Q12 [facility] PRN Reason: Protocol Last Admin: 01/07/17 21:32 Dose: 100 mls/hr Meropenem 1g/NS 100mL IVPB (Meropenem 1g/Ns 100ml Ivpb) 100 mls @ 100 mls/hr IVPB Q8 [facility] PRN Reason: Protocol Stop: 01/15/17 14:01 Last Admin: 01/08/17 05:49 Dose: 100 mls/hr Insulin Human Lispro (Humalog Med) 0 units SC ACHS [facility] PRN Reason: Protocol Last Admin: 01/07/17 22:56 Dose: Not Given Levalbuterol HCl (Xopenex) 1.25 mg IH [id number] [facility] Last Admin: 01/08/17 01:10 Dose: 1.25 mg Levalbuterol HCl (Xopenex) 1.25 mg IH Q2 PRN PRN Reason: Shortness of Breath Magnesium Oxide (Mag-Ox) 400 mg PO BID [facility] Last Admin: 01/07/17 17:32 Dose: 400 mg Megestrol Acetate (Megace) 400 mg PO DAILY [facility] Last Admin: 01/07/17 09:50 Dose: 400 mg Methylprednisolone (Solu-Medrol) 20 mg IV Q12 [facility] Last Admin: 01/07/17 21:31 Dose: 20 mg Sitagliptin Phosphate (Januvia) 100 mg PO DAILY [facility] Last Admin: 01/07/17 09:50 Dose: 100 mg - Labs Labs: 01/06/17 07:00 01/06/17 07:00 PT 12.1 Seconds (9.9-11.8) H 01/05/17 17:38 INR 1.12 (0.93-1.08) H 01/05/17 17:38 APTT 28.8 Seconds (23.7-30.8) 01/05/17 17:38
[2017-01-08] MEDS: Insulin Lispro (humaLOG) MEDIUM Coverage SC SCH ×2 (07:57→11:39)
[2017-01-08] MEDS: GlipiZIDE 10 mg SR Tab PO SCH ×2 (09:52→17:34)
[2017-01-08] MEDS: Megestrol Acetate 40 mg/ml Cup PO SCH (09:52)
[2017-01-08] MEDS: Vancomycin 1gm in NS 250ml 250 ML IVPB SCH ×2 (09:52→21:58)
[2017-01-08] MEDS: Magnesium Oxide 400 mg Tab UD PO SCH ×2 (09:52→17:34)
[2017-01-08] MEDS: MethylPREDNISolone 40 mg Vial IV SCH ×2 (09:54→21:59)
[2017-01-08] MEDS ORDERED: Insulin Regular 1 UNITS/0.01 ML ML SC STA (12:56)
--- NOTE | 2017-01-08 13:33 | PN ---
DATE: 01/08/2017 The patient is a 71-year-old, seen and examined, mild shortness of breath, more so on walking. He is still coughing a lot, bringing phlegm. PHYSICAL EXAMINATION: VITAL SIGNS: He is afebrile, pulse 95, respirations 18, blood pressure 144/83. LUNGS: Bilateral soft crackles. HEART: S1, S2 audible. ABDOMEN: Soft, nontender, no rebound, no guarding. NEUROLOGIC: He is awake and alert, able to communicate. LABORATORY EXAMINATION: Blood sugar is 237. ASSESSMENT: 1. Cancer of lung. 2. Postobstructive pneumonia. 3. Chronic anemia. 4. Non-insulin dependent diabetes. 5. History of hypertension. PLAN: We will continue patient on doxycycline and meropenem. Started on IV steroids. He is on vanc omycin. I will discuss with Dr. Lucio. I will also discuss with patient's daughter. He should be D NR. His respiratory status is declining. Jose Angel Hull MD cc: [phone] TT: 01/08/2017 13:33:32 Confirmation # [id number] Dictation # [id number] en
[2017-01-08] MEDS ORDERED: Insulin Lispro (humaLOG) MIX 75/25(10 ml) SC SCH (16:30)
--- NOTE | 2017-01-08 16:30 | CP.PCM.PN ---
Subjective - Date & Time of Evaluation Date of Evaluation: 01/08/17 Time of Evaluation: 09:20 - Subjective Subjective: Patient is comfortable in bed, not in distress, no fevers overnight. Objective - Vital Signs/Intake and Output Vital Signs (last 24 hours): Temp Pulse Resp BP Pulse Ox 98.0 F 95 H 18 144/83 98 01/08/17 06:00 01/08/17 06:00 01/08/17 06:00 01/08/17 06:00 01/08/17 06:00 Intake and Output: 01/08/17 01/08/17 06:59 18:59 Intake Total 690 240 Output Total 700 475 Balance -10 -235 - Medications Medications: Current Medications Acyclovir (Zovirax) 400 mg PO BID [facility] Last Admin: 01/08/17 09:52 Dose: 400 mg Atorvastatin Calcium (Lipitor) 10 mg PO DAILY [facility] Last Admin: 01/08/17 09:52 Dose: 10 mg Glipizide (Glucotrol Xl) 10 mg PO BID [facility] Last Admin: 01/08/17 09:52 Dose: 10 mg Vancomycin HCl (Vancomycin 1gm) 250 mls @ 167 mls/hr IVPB Q12H [facility] PRN Reason: Protocol Last Admin: 01/08/17 09:52 Dose: 167 mls/hr Doxycycline Hyclate 100 mg/ (Sodium Chloride) 100 mls @ 100 mls/hr IVPB Q12 [facility] PRN Reason: Protocol Last Admin: 01/08/17 11:29 Dose: 100 mls/hr Meropenem 1g/NS 100mL IVPB (Meropenem 1g/Ns 100ml Ivpb) 100 mls @ 100 mls/hr IVPB Q8 [facility] PRN Reason: Protocol Stop: 01/15/17 14:01 Last Admin: 01/08/17 13:36 Dose: 100 mls/hr Insulin Human Lispro (Humalog High) 0 units SC ACHS [facility] PRN Reason: Protocol Insulin Lispro Protam/Lispro Human (Humalog Mix 75/25) 10 units SC ACBD [facility] Levalbuterol HCl (Xopenex) 1.25 mg IH [id number] [facility] Last Admin: 01/08/17 13:10 Dose: 1.25 mg Levalbuterol HCl (Xopenex) 1.25 mg IH Q2 PRN PRN Reason: Shortness of Breath Magnesium Oxide (Mag-Ox) 400 mg PO BID [facility] Last Admin: 01/08/17 09:52 Dose: 400 mg Methylprednisolone (Solu-Medrol) 20 mg IV Q12 [facility] Last Admin: 01/08/17 09:54 Dose: 20 mg Sitagliptin Phosphate (Januvia) 100 mg PO DAILY [facility] Last Admin: 01/08/17 09:52 Dose: 100 mg - Labs Labs: 01/06/17 07:00 01/06/17 07:00 PT 12.1 Seconds (9.9-11.8) H 01/05/17 17:38 INR 1.12 (0.93-1.08) H 01/05/17 17:38 APTT 28.8 Seconds (23.7-30.8) 01/05/17 17:38 - Constitutional Appears: Non-toxic, No Acute Distress - Head Exam Head Exam: NORMAL INSPECTION - ENT Exam ENT Exam: Mucous Membranes Moist - Neck Exam Neck Exam: absent: Lymphadenopathy, Meningismus - Respiratory Exam Respiratory Exam: Decreased Breath Sounds - Cardiovascular Exam Cardiovascular Exam: +S1, +S2 - GI/Abdominal Exam GI & Abdominal Exam: Soft. absent: Tenderness Assessment and Plan - Assessment and Plan (Free Text) Plan: Assessment Severe sepsis secondary to healthcare-associated pneumonia with possible gram positive cocci and/or gram negative bacilli, slowly improving S/P systemic viral illness with Influenza with no evidence of pneumonia, on top of acute bronchitis history of hospital-acquired pneumonia HTN lung cancer history of arthritis history of cataracts coronary artery disease Plan continue Doxycycline and Meropenem day 3, to complete 4-7 days of therapy Will follow clinically
[2017-01-08] MEDS: Insulin Lispro (HUMAlog) HIGH Coverage SC SCH ×2 (17:34→21:54)
[2017-01-09] MEDS: Levalbuterol 1.25 MG/3 ML Inhal Soln UD IH SCH ×4 (02:45→19:15)
[2017-01-09] MEDS: GlipiZIDE 10 mg SR Tab PO SCH ×2 (11:07→17:35)
[2017-01-09] MEDS: MethylPREDNISolone 40 mg Vial IV SCH ×2 (11:08→22:13)
[2017-01-09] MEDS: Magnesium Oxide 400 mg Tab UD PO SCH ×2 (11:08→17:35)
[2017-01-09] MEDS: Vancomycin 1gm in NS 250ml 250 ML IVPB SCH (11:09)
[2017-01-09] MEDS: Meropenem 1g/NS 100mL IVPB 100 ML IVPB SCH ×2 (14:00→22:13)
--- NOTE | 2017-01-09 14:02 | PN ---
DATE: 01/09/2017 The patient is a 71-year-old, seen and examined, still short of breath, has cough and congestion. [place] s productive cough, gets short of breath on walking. PHYSICAL EXAMINATION: VITAL SIGNS: He is afebrile, pulse 72, respirations 20, blood pressure 140/78. LUNGS: Bilateral soft crackles, more pronounced posteriorly. HEART: S1, S2 audible. ABDOMEN: Soft, nontender, no rebound, no guarding. NEUROLOGIC: He is awake and alert and able to answer simple questions. LABORATORY EXAMINATION: Blood sugar is 237. Urine is positive for Enterococcus faecium and is resis tant to almost all antibiotics. ASSESSMENT. 1. Cancer lung, probably postobstructive pneumonia. 2. Status post viral illness, was on Tamiflu. 3. Asthmatic bronchitis. 4. Insulin-dependent diabetes. 5. Hypertension. 6. Enterococcus faecium urinary tract infection. PLAN: Currently, the patient is on doxycycline. He is on meropenem. He is also getting vancomycin. He is on small dose of steroids. His blood sugar seems to be running high. I will increase his do se from 10-15 for coverage. He is refusing for physical therapy. I spoke to his daughter about DNR. She is not clear. She will discuss with her father and might have to arrange for subacute rehab. The patient has not been able to get chemotherapy because of his repeated episodes of pneumonia and v iral illness. I will discussed with Dr. Lucio. I will follow up this patient in a.m. Jose Angel Hull MD cc: [phone] TT: 01/09/2017 14:02:12 Confirmation # [id number] Dictation # [id number] tn
--- NOTE | 2017-01-09 17:16 | CP.PCM.PN ---
Subjective - Date & Time of Evaluation Date of Evaluation: 01/09/17 Time of Evaluation: 09:50 - Subjective Subjective: Patient is feeling better, no fevers overnight. Objective - Vital Signs/Intake and Output Vital Signs (last 24 hours): Temp Pulse Resp BP Pulse Ox 98.4 F 72 20 140/78 100 01/09/17 06:00 01/09/17 06:00 01/09/17 06:00 01/09/17 06:00 01/09/17 06:00 Intake and Output: 01/09/17 01/09/17 06:59 18:59 Intake Total 120 1200 Output Total 975 Balance -855 1200 - Medications Medications: Current Medications Acyclovir (Zovirax) 400 mg PO BID [facility] Last Admin: 01/09/17 11:09 Dose: 400 mg Atorvastatin Calcium (Lipitor) 10 mg PO DAILY [facility] Last Admin: 01/09/17 11:08 Dose: 10 mg Glipizide (Glucotrol Xl) 10 mg PO BID [facility] Last Admin: 01/09/17 11:07 Dose: 10 mg Vancomycin HCl (Vancomycin 1gm) 250 mls @ 167 mls/hr IVPB Q12H [facility] PRN Reason: Protocol Last Admin: 01/09/17 11:09 Dose: 167 mls/hr Doxycycline Hyclate 100 mg/ (Sodium Chloride) 100 mls @ 100 mls/hr IVPB Q12 [facility] PRN Reason: Protocol Last Admin: 01/08/17 21:55 Dose: 100 mls/hr Meropenem 1g/NS 100mL IVPB (Meropenem 1g/Ns 100ml Ivpb) 100 mls @ 100 mls/hr IVPB Q8 [facility] PRN Reason: Protocol Stop: 01/15/17 14:01 Last Admin: 01/08/17 21:58 Dose: 100 mls/hr Insulin Human Lispro (Humalog High) 0 units SC ACHS [facility] PRN Reason: Protocol Last Admin: 01/08/17 21:54 Dose: 3 units Insulin Lispro Protam/Lispro Human (Humalog Mix 75/25) 15 units SC ACBD [facility] Levalbuterol HCl (Xopenex) 1.25 mg IH [id number] [facility] Last Admin: 01/09/17 13:25 Dose: 1.25 mg Levalbuterol HCl (Xopenex) 1.25 mg IH Q2 PRN PRN Reason: Shortness of Breath Magnesium Oxide (Mag-Ox) 400 mg PO BID [facility] Last Admin: 01/09/17 11:08 Dose: 400 mg Methylprednisolone (Solu-Medrol) 20 mg IV Q12 [facility] Last Admin: 01/09/17 11:08 Dose: 20 mg Sitagliptin Phosphate (Januvia) 100 mg PO DAILY [facility] Last Admin: 01/09/17 11:07 Dose: 100 mg - Labs Labs: 01/06/17 07:00 01/06/17 07:00 PT 12.1 Seconds (9.9-11.8) H 01/05/17 17:38 INR 1.12 (0.93-1.08) H 01/05/17 17:38 APTT 28.8 Seconds (23.7-30.8) 01/05/17 17:38 - Constitutional Appears: Non-toxic, No Acute Distress - Head Exam Head Exam: NORMAL INSPECTION - ENT Exam ENT Exam: Mucous Membranes Moist - Neck Exam Neck Exam: absent: Lymphadenopathy, Meningismus - Respiratory Exam Respiratory Exam: Decreased Breath Sounds - Cardiovascular Exam Cardiovascular Exam: +S1, +S2 - GI/Abdominal Exam GI & Abdominal Exam: Soft. absent: Tenderness Assessment and Plan - Assessment and Plan (Free Text) Plan: Assessment Severe sepsis secondary to healthcare-associated pneumonia with possible gram positive cocci and/or gram negative bacilli, slowly improving S/P systemic viral illness with Influenza with no evidence of pneumonia, on top of acute bronchitis history of hospital-acquired pneumonia HTN lung cancer history of arthritis history of cataracts coronary artery disease Plan continue Doxycycline and Meropenem day 4, to complete 4-7 days of therapy Will follow clinically
[2017-01-09] MEDS: Insulin Lispro (HUMAlog) HIGH Coverage SC SCH ×4 (18:22→22:12)
[2017-01-09] MEDS: Insulin Lispro (humaLOG) MIX 75/25(10 ml) SC SCH (18:24)
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
[2017-01-09] MEDS: Levalbuterol 1.25 MG/3 ML Inhal Soln UD IH PRN (23:36)
[2017-01-10] MEDS: Levalbuterol 1.25 MG/3 ML Inhal Soln UD IH SCH ×4 (01:24→19:17)
[2017-01-10] MEDS: Meropenem 1g/NS 100mL IVPB 100 ML IVPB SCH (05:38)
[2017-01-10] MEDS: Insulin Lispro (HUMAlog) HIGH Coverage SC SCH ×4 (08:02→22:23)
[2017-01-10] MEDS: Insulin Lispro (humaLOG) MIX 75/25(10 ml) SC SCH ×2 (08:03→16:06)
[2017-01-10] MEDS: MethylPREDNISolone 40 mg Vial IV SCH ×2 (09:48→22:24)
[2017-01-10] MEDS: Magnesium Oxide 400 mg Tab UD PO SCH ×2 (09:49→18:17)
[2017-01-10] MEDS: GlipiZIDE 10 mg SR Tab PO SCH ×2 (09:49→18:17)
--- NOTE | 2017-01-10 13:46 | PN ---
DATE: 01/10/2017 The patient is a 71-year-old, seen and examined, sitting in chair with mild shortness of breath, bett er than before, but still gets short of breath on minimal walking. PHYSICAL EXAMINATION: VITAL SIGNS: He is afebrile, pulse 89, respirations 20, blood pressure 120/67. LUNGS: Bilateral soft crackles anteriorly and posteriorly. HEART: S1, S2 audible. ABDOMEN: Soft, nontender, no rebound, no guarding. NEUROLOGIC: He is awake and alert, able to communicate, minimal activity, gets short of breath on ex ertion. EXTREMITIES: Bilateral legs, no edema. LABORATORY EXAMINATION: Blood sugar is 237. His urine positive for Enterococcus faecium. ASSESSMENT: 1. Cancer of lung. 2. Chronic obstructive pulmonary disease with postobstructive pneumonia. 3. Stage IV cancer of lung. 4. Noninsulin dependent diabetes. 5. Deconditioning and difficulty walking. 6. Recent viral syndrome. 7. Enterococcus faecium urinary tract infection. 8. Asthmatic bronchitis. PLAN: I discussed with Dr. Lucio. Prognosis overall is poor. His functional status is declining. We will continue him on current antibiotic regimen that is doxycycline and meropenem. Continue on ne bulizer treatment. Monitor blood sugar. He is on small of steroid, continue that. We will discuss with ID for duration of antibiotic and make discharge plan. Jose Angel Hull MD cc: [phone] TT: 01/10/2017 13:45:39 Confirmation # [id number] Dictation # [id number] tn
--- NOTE | 2017-01-10 17:54 | CP.PCM.PN ---
Subjective - Date & Time of Evaluation Date of Evaluation: 01/10/17 Time of Evaluation: 10:05 - Subjective Subjective: Comfortable in bed, not in distress, no fevers overnight. Objective - Vital Signs/Intake and Output Vital Signs (last 24 hours): Temp Pulse Resp BP Pulse Ox 97.9 F 89 20 125/67 100 01/10/17 06:00 01/10/17 06:00 01/10/17 06:00 01/10/17 06:00 01/10/17 06:00 Intake and Output: 01/10/17 01/10/17 06:59 18:59 Intake Total 420 1220 Output Total 1200 400 Balance -780 820 - Medications Medications: Current Medications Acyclovir (Zovirax) 400 mg PO BID [facility] Last Admin: 01/10/17 09:49 Dose: 400 mg Atorvastatin Calcium (Lipitor) 10 mg PO DAILY [facility] Last Admin: 01/10/17 09:49 Dose: 10 mg Doxycycline Hyclate (Doryx) 100 mg PO Q12 [facility] PRN Reason: Protocol Glipizide (Glucotrol Xl) 10 mg PO BID [facility] Last Admin: 01/10/17 09:49 Dose: 10 mg Meropenem 1g/NS 100mL IVPB (Meropenem 1g/Ns 100ml Ivpb) 100 mls @ 100 mls/hr IVPB Q8 [facility] PRN Reason: Protocol Stop: 01/15/17 14:01 Last Admin: 01/10/17 05:38 Dose: 100 mls/hr Insulin Human Lispro (Humalog High) 0 units SC ACHS [facility] PRN Reason: Protocol Last Admin: 01/10/17 16:05 Dose: 10 units Insulin Lispro Protam/Lispro Human (Humalog Mix 75/25) 15 units SC ACBD [facility] Last Admin: 01/10/17 16:06 Dose: 15 unit Levalbuterol HCl (Xopenex) 1.25 mg IH [id number] [facility] Last Admin: 01/10/17 13:22 Dose: 1.25 mg Levalbuterol HCl (Xopenex) 1.25 mg IH Q2 PRN PRN Reason: Shortness of Breath Last Admin: 01/09/17 23:36 Dose: 1.25 mg Magnesium Oxide (Mag-Ox) 400 mg PO BID [facility] Last Admin: 01/10/17 09:49 Dose: 400 mg Methylprednisolone (Solu-Medrol) 20 mg IV Q12 [facility] Last Admin: 01/10/17 09:48 Dose: 20 mg Sitagliptin Phosphate (Januvia) 100 mg PO DAILY [facility] Last Admin: 01/10/17 09:49 Dose: 100 mg - Labs Labs: 01/06/17 07:00 01/06/17 07:00 PT 12.1 Seconds (9.9-11.8) H 01/05/17 17:38 INR 1.12 (0.93-1.08) H 01/05/17 17:38 APTT 28.8 Seconds (23.7-30.8) 01/05/17 17:38 - Constitutional Appears: Non-toxic, No Acute Distress - Head Exam Head Exam: NORMAL INSPECTION - ENT Exam ENT Exam: Mucous Membranes Moist - Neck Exam Neck Exam: absent: Lymphadenopathy, Meningismus - Respiratory Exam Respiratory Exam: Decreased Breath Sounds - Cardiovascular Exam Cardiovascular Exam: +S1, +S2 - GI/Abdominal Exam GI & Abdominal Exam: Soft. absent: Tenderness Assessment and Plan - Assessment and Plan (Free Text) Plan: Assessment Severe sepsis secondary to healthcare-associated pneumonia with possible gram positive cocci and/or gram negative bacilli, slowly improving S/P systemic viral illness with Influenza with no evidence of pneumonia, on top of acute bronchitis history of hospital-acquired pneumonia HTN lung cancer history of arthritis history of cataracts coronary artery disease Plan continue Doxycycline and Meropenem day 5, to complete 4-7 days of therapy Will follow clinically
[2017-01-10] MEDS: Levalbuterol 1.25 MG/3 ML Inhal Soln UD IH PRN (23:27)
[2017-01-11] MEDS: Levalbuterol 1.25 MG/3 ML Inhal Soln UD IH SCH ×3 (02:55→13:05)
[2017-01-11] MEDS: Insulin Lispro (HUMAlog) HIGH Coverage SC SCH ×3 (08:34→17:22)
[2017-01-11] MEDS: Insulin Lispro (humaLOG) MIX 75/25(10 ml) SC SCH ×2 (08:35→17:22)
[2017-01-11 09:59] VITALS: BP 120/72; PULSE 95; RESP 22; TEMP 98.2; O2SAT 98
[2017-01-11] MEDS: MethylPREDNISolone 40 mg Vial IV SCH (10:48)
[2017-01-11] MEDS: GlipiZIDE 10 mg SR Tab PO SCH (10:48)
[2017-01-11] MEDS: Magnesium Oxide 400 mg Tab UD PO SCH (10:48)
[2017-01-11 13:12] LABS: ALB/GLOB RATIO 0.8 (1.1-1.8); ALKALINE PHOSPHATASE 110 U/L (38-133); ALT/SGPT 41 U/L (7-56); AST/SGOT 34 U/L (15-59); BILIRUBIN,TOTAL 0.4 mg/dL (0.2-1.3); BLOOD UREA NITROGEN 37 mg/dL (7-21); CALCIUM 8.4 mg/dL (8.4-10.5); CARBON DIOXIDE 27 mmol/L (21-33); CHLORIDE 100 mmol/L (98-107); GFR AFRICAN-AMERICAN > 60; GLUCOSE,RANDOM 147 mg/dL (70-110); POTASSIUM 4.5 mmol/L (3.6-5.0); SODIUM 137 mmol/L (132-148); TOTAL PROTEIN 6.6 g/dL (5.8-8.3)
--- NOTE | 2017-01-11 13:14 | RAD ---
HISTORY: Lung ca PNA COMPARISON: 01/05/2017 FINDINGS: LUNGS: There is a persistent infiltrate in the right upper lobe. This is unchanged PLEURA: No significant pleural effusion identified, no pneumothorax apparent. CARDIOVASCULAR: Normal. OSSEOUS STRUCTURES: No significant abnormalities. VISUALIZED UPPER ABDOMEN: Normal. OTHER FINDINGS: None. IMPRESSION: No change in right upper lobe infiltrate
--- NOTE | 2017-01-11 13:16 | PN ---
DATE: 01/11/2017 The patient is 71 years old, seen and examined sitting in chair. His lungs seem better today. He polanco s less rattling in the upper lung region. PHYSICAL EXAMINATION: VITAL SIGNS: He is afebrile, pulse 95, respirations 22, blood pressure 120/72. LUNGS: Bilateral good airflow, few soft crackles in the upper lung region and bilateral posteriorly. HEART: S1, S2 audible. ABDOMEN: Soft, nontender, no rebound, no guarding. NEUROLOGIC: The patient is awake and alert, communicative. LABORATORY: Blood sugar is 237. ASSESSMENT AND PLAN: 1. Lung mass, right posterolateral associated with progression of surrounding atelectasis and infilt rate. 2. New area of atelectasis in anterior aspect of the right upper lobe. 3. Non-insulin dependent diabetes. 4. Hypertension. 5. Significant weight loss. 6. Poor intravenous access. PLAN: Currently, patient is on doxycycline and meropenem. He has been switched to p.o. steroid and doxycycline. I will request Dr. Villa to evaluate patient if he is again needed for bronchoscopic suc tion because he is getting recurrent pneumonia. If he plans for that, we will keep him another day. Otherwise, he is scheduled to be transferred to subacute rehab versus home. Jose Angel Hull MD cc: [phone] TT: 01/11/2017 13:16:25 Confirmation # [id number] Dictation # [id number]
[2017-01-11 13:18] LABS: ARTERIAL BLOOD GAS HCO3 24.2 mmol/L (21-28); ARTERIAL BLOOD GAS O2 CAPACITY 12.1 mL/dl (16-24); ARTERIAL BLOOD GAS O2 CONTENT 11.7 ML/dl (15-23); ARTERIAL BLOOD GAS PH 7.46 (7.35-7.45); ARTERIAL BLOOD HGB O2 SAT 93.7 % (95.0-98.0); HHB 3.1 % (0-5); METHEMOGLOBIN 1.2 % (0.0-3.0)
[2017-01-11 14:07] LABS: ADD MANUAL DIFF? NO
[2017-01-11 14:09] LABS: BASO # 0.01 K/mm3 (0.0-2.0); BASO % 0.1 % (0.0-3.0); GRAN # 13.45 (1.4-6.5); GRAN % 87.6 % (50.0-68.0); HEMATOCRIT 26.9 % (42.0-52.0); LYMPH # 0.8 (1.2-3.4); LYMPH % 4.9 % (22.0-35.0); MEAN CELL VOLUME 88.5 fL (80.0-105.0); MEAN CORPUSCULAR HEMOGLOBIN 30.3 pg (25.0-35.0); MEAN CORPUSCULAR HGB CONC 34.2 g/dl (31.0-37.0); MEAN PLATELET VOLUME 9.5 fl (7.0-11.0); MONO # 1.1 (0.1-0.6); MONO % 7.4 % (1.0-6.0); PLATELET COUNT 288 10^3/uL (120.0-450.0); RED CELL DISTRIBUTION WIDTH 16.3 % (11.5-14.5); WHITE BLOOD COUNT 15.4 10^3/ul (4.5-11.0)
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
--- NOTE | 2017-01-11 19:17 | CP.PCM.PN ---
Subjective - Date & Time of Evaluation Date of Evaluation: 01/11/17 Time of Evaluation: 10:15 - Subjective Subjective: Comfortable in bed, not in distress. No fevers. Objective - Vital Signs/Intake and Output Vital Signs (last 24 hours): Temp Pulse Resp BP Pulse Ox 98.2 F 95 H 22 120/72 98 01/11/17 06:00 01/11/17 06:00 01/11/17 06:00 01/11/17 06:00 01/11/17 06:00 Intake and Output: 01/11/17 01/12/17 18:59 06:59 Intake Total 360 Output Total 500 Balance -140 - Labs Labs: 01/11/17 14:06 01/11/17 12:45 PT 12.1 Seconds (9.9-11.8) H 01/05/17 17:38 INR 1.12 (0.93-1.08) H 01/05/17 17:38 APTT 28.8 Seconds (23.7-30.8) 01/05/17 17:38 - Constitutional Appears: Non-toxic, No Acute Distress - Head Exam Head Exam: NORMAL INSPECTION - Respiratory Exam Respiratory Exam: Decreased Breath Sounds - Cardiovascular Exam Cardiovascular Exam: +S1, +S2 - GI/Abdominal Exam GI & Abdominal Exam: Soft. absent: Tenderness Assessment and Plan - Assessment and Plan (Free Text) Plan: Assessment Severe sepsis secondary to healthcare-associated pneumonia with possible gram positive cocci and/or gram negative bacilli,clinically improving S/P systemic viral illness with Influenza with no evidence of pneumonia, on top of acute bronchitis history of hospital-acquired pneumonia HTN lung cancer history of arthritis history of cataracts coronary artery disease Plan continue Doxycycline day 6, to complete 7 days of therapy discussed with Dr. Hull
[2017-01-11] MEDS ORDERED: Arformoterol 15 mcg/2 ml Inh Sol IH SCH (20:00)
[2017-01-11] MEDS ORDERED: Acetylcysteine 20% Inhal Soln (4ml) IH SCH (20:00)
[2017-01-11] MEDS ORDERED: Budesonide 0.5 mg/2 ml Inhal Susp UD IH SCH (20:00)
--- NOTE | 2017-01-26 13:01 | DS ---
ADDENDUM to note written on 01/11. The patient was evaluated by Dr. Villa and it was decided that he does not need any intervention and t here was no indication for bronchoscopy, so he was discharged on 01/11 to subacute rehab and I will fo llow him as outpatient when he is discharged from rehabilitation. I spoke with his daughter who will resume all his medication as outpatient including tramadol, he is on Januvia 100 daily, Pravachol 20 mg daily. He will be maintained on oxybutynin, omeprazole, Megace, glipizide, ferrous sulfate, and Decadron 4 mg twice a day, Zovirax. I will follow him in the office. Jose Angel Hull MD cc: [phone] TT: 01/26/2017 13:01:23 jn
== END 2017-01-11 18:49 | DRG 871 ==
LOC: ED 17:23 → ERH 19:27 → 3RNO 22:37
PROVIDERS: ADMIT Internal Medicine; ATTEND Internal Medicine
DX: A41.9 Sepsis, unspecified organism (principal); J11.00 Influenza due to unidentified influenza virus with unspecified type of pneumonia; R64 Cachexia; E11.65 Type 2 diabetes mellitus with hyperglycemia; D89.9 Disorder involving the immune mechanism, unspecified; C34.90 Malignant neoplasm of unspecified part of unspecified bronchus or lung; J44.0 Chronic obstructive pulmonary disease with (acute) lower respiratory infection; N39.0 Urinary tract infection, site not specified; J98.11 Atelectasis; D64.9 Anemia, unspecified; I10 Essential (primary) hypertension; E78.5 Hyperlipidemia, unspecified; F17.200 Nicotine dependence, unspecified, uncomplicated; E78.00 Pure hypercholesterolemia, unspecified; B95.2 Enterococcus as the cause of diseases classified elsewhere; I25.10 Atherosclerotic heart disease of native coronary artery without angina pectoris; J45.909 Unspecified asthma, uncomplicated; N28.9 Disorder of kidney and ureter, unspecified; R09.02 Hypoxemia; R65.20 Severe sepsis without septic shock; Z79.84 Long term (current) use of oral hypoglycemic drugs; Z79.899 Other long term (current) drug therapy; Z85.118 Personal history of other malignant neoplasm of bronchus and lung; Z87.01 Personal history of pneumonia (recurrent); Z87.440 Personal history of urinary (tract) infections; Z92.3 Personal history of irradiation; M19.90 Unspecified osteoarthritis, unspecified site; R40.2412 Glasgow coma scale score 13-15, at arrival to emergency department; R00.0 Tachycardia, unspecified; R63.4 Abnormal weight loss; B34.9 Viral infection, unspecified; Z98.49 Cataract extraction status, unspecified eye; R53.81 Other malaise; R26.2 Difficulty in walking, not elsewhere classified

== ENCOUNTER 2017-02-17 07:53 | Observation (INO) | payer MEDICARE, OTHER ==
[2017-02-17 08:18] VITALS: BMI 21.9
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
[2017-02-17 09:08] LABS: ADD MANUAL DIFF? NO
[2017-02-17 09:15] LABS: BASO # 0.02 K/mm3 (0.0-2.0); BASO % 0.3 % (0.0-3.0); EOS % 0.5 % (1.5-5.0); GRAN # 5.95 (1.4-6.5); GRAN % 77.4 % (50.0-68.0); LYMPH # 1.1 (1.2-3.4); MEAN CELL VOLUME 85.9 fL (80.0-105.0); MEAN CORPUSCULAR HEMOGLOBIN 29.3 pg (25.0-35.0); MEAN CORPUSCULAR HGB CONC 34.1 g/dl (31.0-37.0); MEAN PLATELET VOLUME 8.1 fl (7.0-11.0); MONO # 0.6 (0.1-0.6); MONO % 7.8 % (1.0-6.0); PLATELET COUNT 188 10^3/uL (120.0-450.0); RED CELL DISTRIBUTION WIDTH 16.8 % (11.5-14.5); WHITE BLOOD COUNT 7.7 10^3/ul (4.5-11.0)
[2017-02-17 09:16] LABS: HEMATOCRIT 21.4 % (42.0-52.0)
[2017-02-17 09:27] LABS: ALB/GLOB RATIO 0.9 (1.1-1.8); ALKALINE PHOSPHATASE 194 U/L (38-133); ALT/SGPT 29 U/L (7-56); AST/SGOT 37 U/L (15-59); BILIRUBIN,TOTAL 0.4 mg/dL (0.2-1.3); BLOOD UREA NITROGEN 18 mg/dL (7-21); CALCIUM 9.3 mg/dL (8.4-10.5); CARBON DIOXIDE 24 mmol/L (21-33); CHLORIDE 103 mmol/L (98-107); GFR AFRICAN-AMERICAN > 60; GLUCOSE,RANDOM 168 mg/dL (70-110); INR 1.06 (0.93-1.08); PARTIAL THROMBOPLASTIN TIME 30.8 Seconds (23.7-30.8); POTASSIUM 3.5 mmol/L (3.6-5.0); SODIUM 140 mmol/L (132-148); TOTAL PROTEIN 7.6 g/dL (5.8-8.3)
[2017-02-17] MEDS ORDERED: Potassium Chloride 20 mEq ER Tab PO STA (09:35)
--- NOTE | 2017-02-17 10:06 | RAD ---
HISTORY: cough r/o pna COMPARISON: CT and chest x-ray 01/06/2017 FINDINGS: LUNGS: There is chronic dense consolidation in the right upper lobe. This is unchanged. PLEURA: No significant pleural effusion identified, no pneumothorax apparent. CARDIOVASCULAR: Normal. OSSEOUS STRUCTURES: No significant abnormalities. VISUALIZED UPPER ABDOMEN: Normal. OTHER FINDINGS: None. IMPRESSION: Chronic dense consolidation right upper lobe
[2017-02-17 12:01] VITALS: RESP 20
[2017-02-17 12:32] VITALS: O2SAT 98
[2017-02-17] MEDS ORDERED: OXYBUTYNIN CHLORIDE 10 MG PO SCH (14:00)
[2017-02-17] MEDS ORDERED: Levalbuterol 1.25 MG/3 ML Inhal Soln UD IH SCH (14:00)
[2017-02-17] MEDS ORDERED: Insulin Lispro (humaLOG) MEDIUM Coverage SC SCH (16:30)
--- NOTE | 2017-02-17 17:56 | HP ---
HISTORY OF PRESENT ILLNESS: The patient is 71 years old, who was referred by Dr. Lucio because of ab normal lab; hemoglobin was 7.1. He also was having shortness of breath, cough and congestion. He polanco s a plan to visit a family member in [place] but because of his increasing weakness and shortness of breath, he was referred to the ER for blood transfusions. Denies any fever or chills. Does comp erich of cough and congestion. No history of nausea or vomiting, no history of diarrhea. PAST MEDICAL HISTORY: Is significant for: 1. Non-insulin dependent diabetes. 2. Hypertension. 3. Cancer lung, currently getting chemotherapy. 4. Hypertension. 5. Hyperlipidemia. 6. Status post external radiation. 7. Chronic anemia. ALLERGIES: Not allergic to any medications. MEDICATIONS AT HOME: He is on Pravachol 40 mg daily, Megace 400 daily, , Oxybutynin 10 mg juan miguel y, tramadol 50 mg 3 times a day, glipizide 10 mg twice a day. SOCIAL HISTORY: He is single. He lives with his daughter. History of heavy smoking in the past, bu t he quit recently, a few years ago. REVIEW OF SYSTEMS: Is significant for generalized weakness, cough and congestion. PHYSICAL EXAMINATION: GENERAL: He is awake and alert, communicative. VITAL SIGNS: He is afebrile, pulse 77, respirations 20, blood pressure . LUNGS: Bilateral fair airflow, no rhonchi or crackle. HEART: S1, S2. HEENT: He does have rhonchi in the mid lung region posteriorly. ABDOMEN: Soft, nontender, no rebound, no guarding. NEUROLOGIC: He is awake and alert, communicative. LABORATORY DATA: WBC 7.7, hemoglobin 7.3, hematocrit 21.4, platelet of 188. PT 11.4, INR 1.06. Roula dalila: Sodium 140, potassium 3.5, chloride 103, CO2 of 24, BUN 18, creatinine 1.3, blood sugar of 1 89. ASSESSMENT AND PLAN: 1. Symptomatic anemia. 2. Carcinoma of the lung. 3. Chronic obstructive pulmonary disease. 4. Hypertension. 5. Hyperlipidemia. 6. Non-insulin dependent diabetes. PLAN: The patient is being placed in observation. He will receive 2 packed RBCs and he will be give n Lasix 20 mg in between. Monitor blood sugar. After his 2 blood transfusions, his respiratory stat us will be assessed. If he is clinically stable, he will be discharge either tonight or tomorrow bertram haile. Jose Angel Hull MD cc: [phone] TT: 02/17/2017 17:55:25 gee
[2017-02-17 17:57] VITALS: BP 136/82; PULSE 74; TEMP 98.3
[2017-02-17] MEDS ORDERED: GlipiZIDE 10 mg SR Tab PO SCH (18:00)
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
[2017-02-18] MEDS ORDERED: Pantoprazole 40 mg EC Tab PO SCH (06:30)
--- NOTE | 2017-03-14 22:36 | DS ---
The patient is 71 years old, who was referred by Dr. Lucio since she is leaving country. He was foun d to be anemic, so Dr. Lucio sent patient to have blood transfusion done. His hemoglobin was 7.1. T he patient received 2 blood transfusions under cover of Lasix and after he received 2 blood transfusi ons he was discharged home the same day. Will resume his medication. He will follow with Dr. Lucio and myself as outpatient. Jose Angel Hull MD cc: [phone] TT: 03/14/2017 22:35:31 gee
== END 2017-02-17 19:23 | disposition home or self-care (01) ==
LOC: ED 07:53 → ERH 09:47 → 3RSO 11:47
PROVIDERS: ADMIT Internal Medicine; ATTEND Internal Medicine
DX: D64.9 Anemia, unspecified (principal); C34.90 Malignant neoplasm of unspecified part of unspecified bronchus or lung; E11.9 Type 2 diabetes mellitus without complications; E78.5 Hyperlipidemia, unspecified; G62.9 Polyneuropathy, unspecified; H40.9 Unspecified glaucoma; I10 Essential (primary) hypertension; J44.9 Chronic obstructive pulmonary disease, unspecified; Z79.84 Long term (current) use of oral hypoglycemic drugs; Z79.899 Other long term (current) drug therapy; Z87.01 Personal history of pneumonia (recurrent); Z87.440 Personal history of urinary (tract) infections; F17.210 Nicotine dependence, cigarettes, uncomplicated; Z98.42 Cataract extraction status, left eye; Z98.41 Cataract extraction status, right eye; M19.90 Unspecified osteoarthritis, unspecified site; R40.2412 Glasgow coma scale score 13-15, at arrival to emergency department; Z92.3 Personal history of irradiation
CPT/HCPCS: 36430; 71010; 80053; 82948; 85025; 85610; 85730; 86850; 86900; 86920; 94640; 96374; 99285; G0378; J1940; J8540; P9016

== ENCOUNTER 2017-03-19 13:20 | Inpatient (IN) | payer MEDICARE, BC ==
[2017-03-19 13:20] VITALS: BMI 21.9
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
--- NOTE | 2017-03-19 15:24 | US ---
PROCEDURE: Left upper extremity venous ultrasound HISTORY: Arm pain and swelling. Evaluate for deep venous thrombosis. PHYSICIAN(S): Jose Piper MD. FINDINGS: The visualized leftinternal jugular vein is sonographically normal and compressible. No evidence of obstruction or thrombus is seen. The visualized segments of the left subclavian vein are patent with normal waveforms. No sonographic evidence of obstruction or thrombosis is seen. The visualized deep venous system of the proximal leftupper extremity is sonographically normal and compressible. IMPRESSION: 1. No sonographic evidence for deep venous thrombosis in the visualized segments of the left upper extremity.
--- NOTE | 2017-03-19 15:57 | RAD ---
PROCEDURE: Left Hand Radiographs. HISTORY: swelling COMPARISON: None. FINDINGS: BONES: Normal. No fracture. JOINTS: Normal. No osteoarthritic changes. SOFT TISSUES: Normal. OTHER FINDINGS: None. IMPRESSION: Normal left hand radiographs.
[2017-03-19 17:15] LABS: ADD MANUAL DIFF? NO
[2017-03-19 17:32] LABS: BASO # 0.03 K/mm3 (0.0-2.0); BASO % 0.4 % (0.0-3.0); EOS # 0.2 (0.0-0.7); EOS % 1.9 % (1.5-5.0); GRAN % 77.3 % (50.0-68.0); HEMATOCRIT 27.8 % (42.0-52.0); LYMPH # 1.1 (1.2-3.4); LYMPH % 13.8 % (22.0-35.0); MEAN CELL VOLUME 88.5 fL (80.0-105.0); MEAN CORPUSCULAR HEMOGLOBIN 29.6 pg (25.0-35.0); MEAN CORPUSCULAR HGB CONC 33.5 g/dl (31.0-37.0); MEAN PLATELET VOLUME 8.8 fl (7.0-11.0); MONO # 0.5 (0.1-0.6); MONO % 6.6 % (1.0-6.0); PLATELET COUNT 322 10^3/uL (120.0-450.0); RED CELL DISTRIBUTION WIDTH 15.8 % (11.5-14.5); WHITE BLOOD COUNT 7.8 10^3/ul (4.5-11.0)
[2017-03-19 17:38] LABS: ALB/GLOB RATIO 0.9 (1.1-1.8); BILIRUBIN,TOTAL 0.7 mg/dL (0.2-1.3); CALCIUM 8.9 mg/dL (8.4-10.5); POTASSIUM 4.2 mmol/L (3.6-5.0); URIC ACID 6.4 mg/dL (3.5-8.5)
[2017-03-19 17:39] LABS: INR 1.05 (0.93-1.08); PARTIAL THROMBOPLASTIN TIME 32.9 Seconds (23.7-30.8)
[2017-03-19] MEDS ORDERED: Vancomycin 1gm in NS 250ml 1 GM/250 ML BAG IVPB STA (18:22)
--- NOTE | 2017-03-19 20:44 | US ---
PROCEDURE: Right lower extremity venous US HISTORY: Leg pain and swelling. Evaluate for DVT. PHYSICIAN(S): Jose Piper M.D. TECHNIQUE: Duplex sonography and color-flow Doppler with graded compression were used to evaluate the deep venous system of the right lower extremity. FINDINGS: The visualized deep venous system of the right lower extremity is sonographically normal and compressible. Normal waveforms and augmentation are seen. There is no sonographic evidence for deep venous thrombosis in the visualized segments of the right lower extremity. IMPRESSION: 1. No sonographic evidence for deep venous thrombosis in the visualized segments of the right lower extremity.
--- NOTE | 2017-03-19 20:45 | US ---
PROCEDURE: Upper extremity WBI/PVR exam HISTORY: Peripheral vascular disease with arm pain PHYSICIAN(S): Jose Piper MD. FINDINGS: The resting WBI's are normal: right, 1.19and left, 1.19. The upper arm, forearm, and wrist PVR waveforms are normal and symmetric bilaterally. No significant segmental gradients are demonstrated. IMPRESSION: 1. Normal WBI and PVR examination at rest.
--- NOTE | 2017-03-19 21:40 | CON ---
DATE: 03/19/2017 The patient was seen earlier in the Emergency Room. CHIEF COMPLAINT: Left hand swelling x 1 day. HISTORY OF PRESENT ILLNESS: This is a 71-year-old male, known to me from previous admission with a h istory of lung cancer, has had chemotherapy and radiation, hypertension, coronary artery disease, hig h cholesterol, diabetes, arthritis and cataract, a long time smoker, history of healthcare-associated pneumonia, renal insufficiency, history of influenza B, history of cataract surgery and was admitted with swelling of the left hand times several days. The patient states he has had chemotherapy recen tly; however, it has not been in his left hand, it has been in his right hand. He has had no fevers and chills. No chest pain, shortness of breath or cough. No hemoptysis. PAST MEDICAL HISTORY: Significant for lung cancer with hypertension, coronary artery disease, high c holesterol, diabetes, arthritis, cataract and renal insufficiency. PAST SURGICAL HISTORY: Significant for cataract surgery. ALLERGIES: The patient has no known allergies. MEDICATIONS: Noted. PHYSICAL EXAMINATION: GENERAL: The patient is in bed with a temperature of 98, blood pressure is 116/60, respiratory rate of 18, heart rate of 92. HEENT: Unremarkable. NECK: Supple. LUNGS: Have decreased breath sounds. HEART: Normal S1, S2. ABDOMEN: Soft, nontender. EXTREMITIES: The left hand is swollen and edema, no break in the skin. It is warm to touch and no d ischarge. Pulses: Radial pulse and ulnar pulse are intact. He is able to flex and extend his finge rs, although it is difficult because of the significant edema. LABORATORY EXAMINATION: Reveals the patient has a white count of 7.8, hemoglobin of 9, platelets of 322. Coagulation is noted. The chemistries reveal the creatinine is 1.5 with a GFR of 46 and alk ph os is 139. ASSESSMENT AND PLAN: A 71-year-old male with lung cancer, chemotherapy, radiation, hypertension, dep ression, diabetes mellitus, high cholesterol, arthritis, influenza B, renal insufficiency. 1. Left hand cellulitis in a patient with renal insufficiency. We will treat the patient with Tefla ro pending culture results and clinical response. X-ray of the hand is negative. The patient had an ultrasound which shows no clear thrombus in the subclavian and will make further recommendations upo n reviewing the initial results. Donaldo Driscoll MD cc: [phone] TT: 03/19/2017 21:39:52 Confirmation # [id number] Dictation # [id number] mn
[2017-03-19] MEDS: Ceftaroline 600 MG in Sodium Chloride 0.9% 100 ML IVPB SCH (21:53)
[2017-03-19 23:07] VITALS: RESP 20
[2017-03-20] MEDS ORDERED: oxyCODONE 10 mg Immediate Release Tab PO PRN (00:07)
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
[2017-03-20] MEDS: Albuterol-Ipratrop 3 mg / 0.5 (3 ml) UD IH SCH ×4 (04:30→20:22)
[2017-03-20] MEDS: Insulin Reg-MEDIUM-Coverage SC SCH ×4 (08:33→22:04)
[2017-03-20] MEDS: Ceftaroline 600 MG in Sodium Chloride 0.9% 100 ML IVPB SCH ×2 (09:48→22:03)
--- NOTE | 2017-03-20 19:32 | CP.PCM.PN ---
Subjective - Date & Time of Evaluation Date of Evaluation: 03/20/17 Time of Evaluation: 08:00 - Subjective Subjective: improving hand infevtion Objective - Vital Signs/Intake and Output Vital Signs (last 24 hours): Temp Pulse Resp BP Pulse Ox 98.2 F 93 H 20 144/75 97 03/20/17 16:00 03/20/17 16:00 03/20/17 16:00 03/20/17 16:00 03/20/17 16:00 Intake and Output: 03/20/17 03/21/17 18:59 06:59 Intake Total 620 Output Total 550 Balance 70 - Medications Medications: Current Medications Acetaminophen (Tylenol 325mg Tab) 650 mg PO Q6H PRN PRN Reason: Pain, Mild (1-3) Acyclovir (Zovirax) 400 mg PO BID [facility] PRN Reason: Protocol Last Admin: 03/20/17 18:05 Dose: 400 mg Albuterol/Ipratropium (Duoneb 3 Mg/0.5 Mg (3 Ml) Ud) 3 ml IH [id number] [facility] Last Admin: 03/20/17 13:29 Dose: 3 ml Colchicine (Colocrys) 0.6 mg PO TID [facility] Last Admin: 03/20/17 18:06 Dose: 0.6 mg Ceftaroline Fosamil 600 mg/ (Sodium Chloride) 100 mls @ 100 mls/hr IVPB Q12 [facility] PRN Reason: Protocol Stop: 03/28/17 22:01 Last Admin: 03/20/17 09:48 Dose: 100 mls/hr Insulin Human Regular (Humulin R Med) 0 units SC ACHS [facility] PRN Reason: Protocol Last Admin: 03/20/17 18:06 Dose: 3 units Oxycodone HCl (Oxycodone Immediate Release Tab) 10 mg PO Q4 PRN PRN Reason: Pain, moderate (4-7) Pantoprazole Sodium (Protonix Inj) 40 mg IVP DAILY [facility] Last Admin: 03/20/17 09:47 Dose: 40 mg Prednisone (Prednisone Tab) 20 mg PO BID [facility] Last Admin: 03/20/17 18:06 Dose: 20 mg - Labs Labs: PT 11.3 Seconds (9.9-11.8) 03/19/17 17:04 INR 1.05 (0.93-1.08) 03/19/17 17:04 APTT 32.9 Seconds (23.7-30.8) H 03/19/17 17:04 - Constitutional Appears: Well - Head Exam Head Exam: ATRAUMATIC, NORMAL INSPECTION, NORMOCEPHALIC - Eye Exam Eye Exam: EOMI, Normal appearance, PERRL Pupil Exam: NORMAL ACCOMODATION, PERRL - ENT Exam ENT Exam: Mucous Membranes Moist, Normal Exam - Neck Exam Neck Exam: Full ROM, Normal Inspection. absent: Lymphadenopathy - Extremities Exam Extremities Exam: Full ROM, Normal Capillary Refill, Normal Inspection. absent : Joint Swelling, Pedal Edema - Back Exam Back Exam: NORMAL INSPECTION - Neurological Exam Neurological Exam: Alert, Awake, CN II-XII Intact, Normal Gait, Oriented x3 Assessment and Plan - Assessment and Plan (Free Text) Assessment: left hand cellulitis Plan: present abx pending work up
[2017-03-21] MEDS: Albuterol-Ipratrop 3 mg / 0.5 (3 ml) UD IH SCH ×3 (01:27→13:10)
[2017-03-21 06:44] LABS: ADD MANUAL DIFF? NO
[2017-03-21 07:08] LABS: BASO # 0.01 K/mm3 (0.0-2.0); BASO % 0.2 % (0.0-3.0); GRAN # 5.47 (1.4-6.5); GRAN % 87.2 % (50.0-68.0); HEMATOCRIT 26.6 % (42.0-52.0); LYMPH # 0.5 (1.2-3.4); LYMPH % 8.6 % (22.0-35.0); MEAN CELL VOLUME 88.4 fL (80.0-105.0); MEAN CORPUSCULAR HEMOGLOBIN 29.2 pg (25.0-35.0); MEAN CORPUSCULAR HGB CONC 33.1 g/dl (31.0-37.0); MEAN PLATELET VOLUME 9.1 fl (7.0-11.0); MONO # 0.3 (0.1-0.6); PLATELET COUNT 350 10^3/uL (120.0-450.0); RED CELL DISTRIBUTION WIDTH 15.6 % (11.5-14.5); WHITE BLOOD COUNT 6.3 10^3/ul (4.5-11.0)
[2017-03-21 07:11] LABS: ALB/GLOB RATIO 0.9 (1.1-1.8); ALKALINE PHOSPHATASE 132 U/L (38-133); ALT/SGPT 12 U/L (7-56); AST/SGOT 29 U/L (15-59); BILIRUBIN,TOTAL 0.6 mg/dL (0.2-1.3); BLOOD UREA NITROGEN 17 mg/dL (7-21); CALCIUM 9.1 mg/dL (8.4-10.5); CARBON DIOXIDE 23 mmol/L (21-33); CHLORIDE 101 mmol/L (98-107); GFR AFRICAN-AMERICAN > 60; GLUCOSE,RANDOM 219 mg/dL (70-110); MAGNESIUM 1.2 mg/dL (1.7-2.2); POTASSIUM 4.7 mmol/L (3.6-5.0); SODIUM 134 mmol/L (132-148); TOTAL PROTEIN 7.3 g/dL (5.8-8.3); URIC ACID 5.4 mg/dL (3.5-8.5)
[2017-03-21] MEDS: Insulin Reg-MEDIUM-Coverage SC SCH ×2 (08:08→12:24)
[2017-03-21] MEDS: Ceftaroline 600 MG in Sodium Chloride 0.9% 100 ML IVPB SCH (10:37)
[2017-03-21] MEDS ORDERED: Magnesium Oxide 400 mg Tab UD PO SCH (10:45)
[2017-03-21] MEDS ORDERED: Magnesium Sulfate 2 GM in Sodium Chloride 0.9% 100 ML IVPB SCH (10:45)
[2017-03-21 11:40] LABS: IRON 55 ug/dL (45-180)
[2017-03-21] MEDS: Magnesium Sulfate 2 GM in Sodium Chloride 0.9% 100 ML IVPB SCH (14:43)
[2017-03-21] MEDS ORDERED: Magnesium Oxide 400 mg Tab UD PO ONE (16:00)
[2017-03-21 16:38] VITALS: BP 140/74; PULSE 78; TEMP 98.2; O2SAT 100
[2017-03-21 18:37] LABS: FOLATE 8.5 ng/mL
--- NOTE | 2017-03-21 19:19 | CP.PCM.PN ---
Subjective - Date & Time of Evaluation Date of Evaluation: 03/21/17 Time of Evaluation: 07:00 - Subjective Subjective: doing better hand improving Objective - Vital Signs/Intake and Output Vital Signs (last 24 hours): Temp Pulse Resp BP Pulse Ox 98.2 F 78 20 140/74 100 03/21/17 16:00 03/21/17 16:00 03/21/17 16:00 03/21/17 16:00 03/21/17 16:00 Intake and Output: 03/21/17 03/22/17 18:59 06:59 Intake Total 120 Balance 120 - Labs Labs: 03/21/17 06:30 03/21/17 06:30 PT 11.3 Seconds (9.9-11.8) 03/19/17 17:04 INR 1.05 (0.93-1.08) 03/19/17 17:04 APTT 32.9 Seconds (23.7-30.8) H 03/19/17 17:04 - Constitutional Appears: Well - Head Exam Head Exam: ATRAUMATIC, NORMAL INSPECTION, NORMOCEPHALIC - Eye Exam Eye Exam: EOMI, Normal appearance, PERRL Pupil Exam: NORMAL ACCOMODATION, PERRL - ENT Exam ENT Exam: Mucous Membranes Moist, Normal Exam - Neck Exam Neck Exam: Full ROM, Normal Inspection. absent: Lymphadenopathy - Respiratory Exam Respiratory Exam: Clear to Ausculation Bilateral, NORMAL BREATHING PATTERN - Cardiovascular Exam Cardiovascular Exam: REGULAR RHYTHM, +S1, +S2. absent: Murmur - GI/Abdominal Exam GI & Abdominal Exam: Soft, Normal Bowel Sounds. absent: Tenderness - Rectal Exam Rectal Exam: NORMAL INSPECTION - Exam Exam: Circumcision, NORMAL INSPECTION External exam: NORMAL EXTERNAL EXAM Speculum exam: NORMAL SPECULUM EXAM Bimanual exam: NORMAL BIMANUAL EXAM - Extremities Exam Extremities Exam: Full ROM, Normal Capillary Refill, Normal Inspection. absent : Joint Swelling, Pedal Edema - Back Exam Back Exam: NORMAL INSPECTION - Neurological Exam Neurological Exam: Alert, Awake, CN II-XII Intact, Normal Gait, Oriented x3 - Psychiatric Exam Psychiatric exam: Normal Affect, Normal Mood - Skin Skin Exam: Dry, Intact, Normal Color, Warm Assessment and Plan - Assessment and Plan (Free Text) Assessment: left hand cellulitis resolving Plan: po abx d/w pmd f/up as outpt
[2017-03-22] MEDS ORDERED: Amoxicillin-Clav 875-125 mg Tab PO SCH (10:00)
== END 2017-03-21 18:37 | disposition home or self-care (01) | DRG 603 ==
LOC: ED 13:20 → ERH 18:28 → 5RNO 20:51
PROVIDERS: ADMIT Internal Medicine; ATTEND Internal Medicine
DX: L03.114 Cellulitis of left upper limb (principal); J44.9 Chronic obstructive pulmonary disease, unspecified; C34.91 Malignant neoplasm of unspecified part of right bronchus or lung; E11.9 Type 2 diabetes mellitus without complications; D64.9 Anemia, unspecified; I10 Essential (primary) hypertension; M19.90 Unspecified osteoarthritis, unspecified site; Z92.21 Personal history of antineoplastic chemotherapy; Z92.3 Personal history of irradiation; Z87.891 Personal history of nicotine dependence; Z87.440 Personal history of urinary (tract) infections; Z87.01 Personal history of pneumonia (recurrent); Z79.899 Other long term (current) drug therapy; I25.10 Atherosclerotic heart disease of native coronary artery without angina pectoris; E78.00 Pure hypercholesterolemia, unspecified; Z98.42 Cataract extraction status, left eye; Z98.41 Cataract extraction status, right eye; R40.2412 Glasgow coma scale score 13-15, at arrival to emergency department; N28.9 Disorder of kidney and ureter, unspecified

== ENCOUNTER 2017-04-09 12:40 | Day surgery (SDC) | payer MEDICARE, BC ==
[2017-04-03 09:59] VITALS: BMI 19.9
[2017-04-09 13:16] LABS: MEAN CELL VOLUME 88.9 fL (80.0-105.0); MEAN CORPUSCULAR HEMOGLOBIN 29.3 pg (25.0-35.0); MEAN CORPUSCULAR HGB CONC 32.9 g/dl (31.0-37.0); MEAN PLATELET VOLUME 8.8 fl (7.0-11.0); PLATELET COUNT 115 10^3/uL (120.0-450.0); RED CELL DISTRIBUTION WIDTH 14.9 % (11.5-14.5)
[2017-04-09 13:23] LABS: BLOOD UREA NITROGEN 17 mg/dL (7-21); CALCIUM 9.1 mg/dL (8.4-10.5); GFR AFRICAN-AMERICAN > 60; GFR NON-AFRICAN AMERICAN 60; WHITE BLOOD COUNT 2.4 10^3/ul (4.5-11.0)
[2017-04-09 13:24] LABS: HEMOGLOBIN 7.9 gm/dL (14.0-18.0)
[2017-04-09 13:25] LABS: INR 0.99 (0.93-1.08); PARTIAL THROMBOPLASTIN TIME 29.4 Seconds (23.7-30.8); PROTHROMBIN TIME 10.7 Seconds (9.9-11.8)
[2017-04-09 13:58] LABS: BAND 2 % (0-2); LYMPHOCYTE 30 % (22.0-35.0); MONOCYTE 5 % (1.0-6.0); NEUTROPHIL 63 % (50.0-70.0); PLATELET ESTIMATE LOW (NORMAL)
[2017-04-09] MEDS ORDERED: Lidocaine 2% Inj (20ml) ONE (15:28)
[2017-04-09] MEDS ORDERED: Midazolam 2 MG/2 ML VIAL ONE ×2 (15:29→16:07)
[2017-04-09 17:26] VITALS: PULSE 70
[2017-04-09] MEDS ORDERED: Oxycodone/Acetaminophen 5/325 mg Tab PO PRN (17:29)
[2017-04-09] MEDS ORDERED: Sodium Chloride 0.45% 1,000 ML IV SCH (17:30)
[2017-04-09 17:45] VITALS: RESP 18; TEMP 97.4
--- NOTE | 2017-04-09 18:46 | VASCULAR ---
PROCEDURE: Ultrasound and fluoroscopic right internal jugular venous access port. CLINICAL HISTORY: Lung carcinoma.Venous port for chemotherapy. PHYSICIAN(S): Jose Piper M.D. TECHNIQUE: The relative risks and indications of the procedure were explained to the patient and his daughter and consent obtained. The patient was placed supine on the arteriogram table and the right neck and chest prepped and draped in the usual sterile fashion. Conscious sedation monitoring was provided throughout the procedure by a nurse. Antibiotics were given prior to the procedure. Under direct ultrasound guidance, the right internal jugular vein was punctured with a micro-puncture set. A 0.035 angled Glidewire was advanced into the IVC. A 4 cm incision was made below the right clavicle and the pocket blunted dissected. A 8 Maori single-lumen catheter, 21 cm long, was advanced to the SVC/RA junction. The catheter was trimmed and attached to the port. The port aspirates and injects easily. The port was placed in the pocket and closed in 2 layers. The patient tolerated the procedure well. IMPRESSION: Ultrasound and fluoroscopically placed right internal jugular venous access port.
[2017-04-09 19:07] VITALS: BP 124/66; O2SAT 95
== END 2017-04-09 19:10 | disposition home or self-care (01) ==
LOC: SDSVAS 12:40
PROVIDERS: ATTEND Radiology Vascular & Interventional Radiology
DX: Z45.2 Encounter for adjustment and management of vascular access device (principal); C34.91 Malignant neoplasm of unspecified part of right bronchus or lung; I10 Essential (primary) hypertension; E11.9 Type 2 diabetes mellitus without complications; D64.9 Anemia, unspecified
CPT/HCPCS: 36415; 36561; 76937; 77001; 80048; 85025; 85610; 85730; 99152; C1769; C1788; J0690; J1644; J2250; J2405; J3010; J7030 ×2

== ENCOUNTER 2017-06-04 20:33 | Inpatient (IN) | payer MEDICARE, BC ==
[2017-06-04] MEDS ORDERED: Oxycodone/Acetaminophen 5/325 mg Tab PO STA (21:25)
[2017-06-04 22:10] LABS: BASO # 0.07 K/mm3 (0.0-2.0); BASO % 0.7 % (0.0-3.0); EOS # 0.1 (0.0-0.7); EOS % 1.2 % (1.5-5.0); GRAN # 8.04 (1.4-6.5); GRAN % 80.1 % (50.0-68.0); LYMPH # 1.2 (1.2-3.4); LYMPH % 12.1 % (22.0-35.0); MEAN CELL VOLUME 86.8 fl (80.0-105.0); MEAN CORPUSCULAR HEMOGLOBIN 29.5 pg (25.0-35.0); MEAN PLATELET VOLUME 9.1 fl (7.0-11.0); MONO # 0.6 (0.1-0.6); MONO % 5.9 % (1.0-6.0); RED CELL DISTRIBUTION WIDTH 15.5 % (11.5-14.5)
[2017-06-04 22:24] LABS: ALB/GLOB RATIO 1.2 (1.1-1.8); ALKALINE PHOSPHATASE 181 U/L (38-126); ALT/SGPT 18 U/L (7-56); AST/SGOT 38 U/L (17-59); BILIRUBIN,TOTAL 0.6 mg/dL (0.2-1.3); BLOOD UREA NITROGEN 18 mg/dL (7-21); CALCIUM 9.1 mg/dL (8.4-10.5); CARBON DIOXIDE 21 mmol/L (21-33); CHLORIDE 101 mmol/L (98-107); GFR AFRICAN-AMERICAN > 60; GLUCOSE,RANDOM 256 mg/dL (70-110); POTASSIUM 4.5 mmol/L (3.6-5.0); SODIUM 133 mmol/L (132-148)
[2017-06-04 22:32] LABS: INR 1.06 (0.93-1.08); PARTIAL THROMBOPLASTIN TIME 31.6 Seconds (23.7-30.8)
[2017-06-04] MEDS ORDERED: Morphine 2 mg/ml ISec IVP STA (22:38)
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
[2017-06-05] MEDS: Morphine 2 mg/ml ISec IVP PRN ×2 (02:09→18:13)
[2017-06-05 03:20] VITALS: BMI 18.0
[2017-06-05] MEDS: Albuterol-Ipratrop 3 mg / 0.5 (3 ml) UD IH SCH ×2 (07:38→13:32)
--- NOTE | 2017-06-05 08:30 | CT ---
PROCEDURE: CT right hand/wrist HISTORY: without contrast/hand CT, ro fx COMPARISON: Not available TECHNIQUE: 1.25 mm contiguous axial sections were acquired through the right hand and wrist. Sagittal and coronal images were reformatted from the axial scan. Please note that the examination is limited in that the patient was unable cooperate for proper positioning. FINDINGS: There is no evidence of fracture. The joint spaces and articular surfaces are preserved. There is chondrocalcinosis seen throughout the wrist. This is a nonspecific finding. Normal carpal alignment is maintained. The radiocarpal articulation is intact. IMPRESSION: No acute fracture.
--- NOTE | 2017-06-05 08:40 | RAD ---
PROCEDURE: Right Hand Radiographs. HISTORY: fx COMPARISON: None. FINDINGS: BONES: Normal. No fracture. JOINTS: There are some calcifications in the region of the triangular fibrocartilage SOFT TISSUES: Normal. OTHER FINDINGS: None. IMPRESSION: No evidence of fracture.
--- NOTE | 2017-06-05 08:42 | RAD ---
PROCEDURE: Radiographs of the Right Shoulder HISTORY: fx COMPARISON: No prior. FINDINGS: BONES: There is a displaced overlapping fracture of the humeral neck JOINTS: Normal. Glenohumeral and acromioclavicular joints preserved. No osteoarthritis. SOFT TISSUES: Normal. OTHER FINDINGS: None. IMPRESSION: Transverse displaced overlapping fracture of the humeral neck
--- NOTE | 2017-06-05 08:44 | RAD ---
PROCEDURE: Radiographs of the right humerus. HISTORY: fx COMPARISON: Shoulder FINDINGS: BONES: There is a displaced transverse overlapping fracture of the humeral neck. The remainder of the humerus is intact SOFT TISSUES: Normal. OTHER FINDINGS: None. IMPRESSION: There is a displaced transverse overlapping fracture of the humeral neck. The remainder of the humerus is intact
--- NOTE | 2017-06-05 08:49 | RAD ---
HISTORY: cough COMPARISON: 02/17/2017 FINDINGS: LUNGS: There is dense consolidation in the right upper lobe. This is unchanged. PLEURA: No significant pleural effusion identified, no pneumothorax apparent. CARDIOVASCULAR: Normal. OSSEOUS STRUCTURES: Fracture of right humeral neck VISUALIZED UPPER ABDOMEN: Normal. OTHER FINDINGS: None. IMPRESSION: Chronic consolidation in the right upper lobe
[2017-06-05] MEDS: GlipiZIDE 10 mg SR Tab PO SCH ×2 (10:36→17:16)
--- NOTE | 2017-06-05 17:13 | CP.PCM.PN ---
Subjective - Date & Time of Evaluation Date of Evaluation: 06/05/17 Time of Evaluation: 17:09 - Subjective Subjective: Patient seen and examined with Dr. Little full consult dictated Objective - Vital Signs/Intake and Output Vital Signs (last 24 hours): Temp Pulse Resp BP Pulse Ox 97.6 F 75 18 124/75 97 06/05/17 07:22 06/05/17 07:41 06/05/17 07:22 06/05/17 07:22 06/05/17 07:22 Intake and Output: 06/05/17 06/05/17 06:59 18:59 Intake Total 120 660 Output Total 20 400 Balance 100 260 - Medications Medications: Current Medications Acetaminophen (Tylenol 325mg Tab) 650 mg PO Q4 PRN PRN Reason: Fever >100.4 F Albuterol/Ipratropium (Duoneb 3 Mg/0.5 Mg (3 Ml) Ud) 3 ml IH Q6 [facility] Stop: 06/05/17 18:01 Last Admin: 06/05/17 13:32 Dose: 3 ml Atorvastatin Calcium (Lipitor) 10 mg PO DIN [facility] Colchicine (Colocrys) 0.6 mg PO DAILY [facility] Last Admin: 06/05/17 10:36 Dose: 0.6 mg Glipizide (Glucotrol Xl) 10 mg PO BID [facility] Last Admin: 06/05/17 10:36 Dose: 10 mg Morphine Sulfate (Morphine) 2 mg IVP Q4 PRN PRN Reason: Pain, moderate (4-7) Last Admin: 06/05/17 02:09 Dose: 2 mg Pantoprazole Sodium (Protonix Inj) 40 mg IVP DAILY [facility] Last Admin: 06/05/17 10:36 Dose: 40 mg Sitagliptin Phosphate (Januvia) 100 mg PO DAILY [facility] Last Admin: 06/05/17 10:36 Dose: 100 mg - Labs Labs: PT 11.4 Seconds (9.9-11.8) 06/04/17 22:06 INR 1.06 (0.93-1.08) 06/04/17 22:06 APTT 31.6 Seconds (23.7-30.8) H 06/04/17 22:06 Assessment and Plan (1) Closed fracture of right proximal humerus Assessment & Plan: risks/benefits/alt of surgical vs conservative mgmt of fracture explained to patient and son at bedside patient opts for surgery ORIF vs hemiarthroplasty after medically optimized Dr. Little d/w Dr. Lucio plan for surgery when optimized, possibly 06/07 pm or 06/08am elbow pain, xrays ordered right hand pain, CT negative for fracure, noted degenerative joint disease and chondrocalcinosis, cont brace for rest sling ice Status: Acute
--- NOTE | 2017-06-05 21:16 | HP ---
HISTORY OF PRESENT ILLNESS: The patient is 71 years old, known to [place] [facility]. The patient went to visit his country in [place]. He fell almost a week ago, he was seen by local doctor and he does not recall and but patient states he is in lot of pain, he cannot lift his right arm, so his daughter brought him to the emergency room for further evaluation. Denies any head trauma. No history of loss of consciousness. PAST MEDICAL HISTORY: 1. His past medical history is significant for carcinoma of lung, currently under care of Dr. Lucio and was getting chemotherapy. 2. Hypertension. 3. Gnl-bgsckzz-avhkrhidp diabetes. 4. Hyperlipidemia. ALLERGIES: NOT ALLERGIC TO ANY MEDICATION. MEDICATIONS AT HOME: He is in on Pravachol 40 mg daily, Mag-Ox 400 mg daily, colchicine 0.6 daily, Glipizide 10 mg twice a day, Januvia 100 mg daily. SOCIAL HISTORY: He is single, lives with his daughter and was a heavy smoker in the past, but quit since he was diagnosed with CA lung. REVIEW OF SYSTEMS: Significant for right arm pain, unable to raise his right arm; however, he is able to move his fingers. PHYSICAL EXAMINATION GENERAL: He is awake, alert, oriented, able to give his history. VITAL SIGNS: He is afebrile, pulse 75, respiration 18, blood pressure 124/75. LUNGS: Bilateral fair air flow. No rhonchi or crackle. HEART: S1, S2 audible. ABDOMEN: Soft, nontender, no rebound, no guarding. NEUROLOGIC: He is awake and alert, able to communicate. EXTREMITIES: Right arm is in the sling. Bilateral leg, no edema. LABORATORY EXAM: WBC is 10, hemoglobin 8.5, hematocrit 25, platelet 328, PT 11.4, INR 1.06. Chemistry; sodium 133, potassium 4.5, chloride 101, CO2 21, BUN 18, creatinine 1.1, blood sugar of 219, alkaline phosphatase 181. X-ray of right shoulder shows transverse displaced overlapping fracture of the humeral neck. X-ray of the head is negative for any fracture. ASSESSMENT AND PLAN: 1. Status post fall. 2. Displaced transverse overlapping right humeral fracture. 3. Cancer of lung. 4. Chronic obstructive pulmonary disease. 5. Hypertension. 6. Ysa-efptope-itnwkuvmn diabetes. The plan is currently patient's right shoulder is in the splint, awaiting Dr. Little's input, continue him on current pain medication, monitor his blood sugar, out of bed to chair. We will reevaluate patient in a.m. and we will discuss with daughter. Jose Angel Hull MD
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
[2017-06-06] MEDS: MethylPREDNISolone 40 mg Vial IVP SCH ×2 (00:41→09:55)
--- NOTE | 2017-06-06 02:09 | CON ---
DATE: 06/05/2017 INPATIENT CONSULTATION REASON FOR CONSULT: Right possible humerus fracture. HISTORY OF PRESENT ILLNESS: This is a 71-year-old gentleman with past medical history of lung CA, hypertension and diabetes who presented with complaints of right upper extremity pain. According to the patient, he fell approximately one week ago in [place] injuring his right shoulder. The patient has subsequently returned to [place] and was seen in the emergency room and was found to have a very proximal humerus fracture. I was consulted for further orthopedic evaluation and treatment. The patient also has some complaints of right elbow pain in right hand and wrist pain. The wrist pain appears to be chronic. He does have a history of having previous gouty attack. PHYSICAL EXAMINATION GENERAL: This is a elderly gentleman in no apparent distress. He is awake, alert, and oriented x3. EXTREMITIES: His right upper extremity is in a sling. Some swelling is noted around the shoulder and the skin is otherwise intact. He has pain with passive range of motion of the shoulder. No swelling and no tenderness along the humeral shaft. He does have some mild tenderness to palpation at the distal humerus at the elbow joint. No gross crepitus is appreciated. He is tolerating some passive elbow flexion and extension without significant pain. His forearm is nontender and there was no obvious swelling or crepitus. Grossly, he is evaluated on the wrist. He came in using a cockup wrist splint. No gross deformity is appreciated. Grossly, he is neurovascularly intact. DIAGNOSTIC DATA: X-rays of the right shoulder showed a displaced right proximal humerus fracture. 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 Again, there is no acute changes are appreciated. IMPRESSION: Right proximal humerus fracture. PLAN: I spoke to the patient and his son and given the displacement, recommendation will be for possible open reduction and internal fixation of the fracture verus hemiarthroplasty. For now, the patient wants to proceed. I spoke to Dr. Lucio and he is going to be medically optimize with cardiac and pulmonary clearance prior to surgery. Matthew Little MD [facility] # [id number]
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
[2017-06-06] MEDS: Budesonide 0.5 mg/2 ml Inhal Susp UD IH SCH ×2 (07:09→21:06)
[2017-06-06] MEDS: Arformoterol 15 mcg/2 ml Inh Sol IH SCH ×2 (07:09→21:01)
[2017-06-06] MEDS: Acetylcysteine 20% Inhal Soln (4ml) IH SCH ×2 (07:09→21:01)
[2017-06-06 07:40] LABS: BASO # 0.04 K/mm3 (0.0-2.0); BASO % 0.5 % (0.0-3.0); EOS % 0.1 % (1.5-5.0); GRAN # 8.14 (1.4-6.5); GRAN % 94.3 % (50.0-68.0); HEMATOCRIT 25.4 % (42.0-52.0); LYMPH # 0.4 (1.2-3.4); LYMPH % 4.2 % (22.0-35.0); MEAN CELL VOLUME 86.7 fl (80.0-105.0); MEAN CORPUSCULAR HEMOGLOBIN 28.7 pg (25.0-35.0); MEAN CORPUSCULAR HGB CONC 33.1 g/dl (31.0-37.0); MEAN PLATELET VOLUME 9.5 fl (7.0-11.0); MONO # 0.1 (0.1-0.6); MONO % 0.9 % (1.0-6.0); PLATELET COUNT 360 10^3/uL (120.0-450.0); RED CELL DISTRIBUTION WIDTH 15.3 % (11.5-14.5); WHITE BLOOD COUNT 8.6 10^3/ul (4.5-11.0)
[2017-06-06 08:44] LABS: ANISOCYTOSIS 1+; HYPOCHROMIA 2+; NEUTROPHIL 95 % (50.0-70.0); OVALOCYTES SLIGHT; PLATELET ESTIMATE NORMAL (NORMAL); POLYCHROMASIA SLIGHT; TOXIC GRANULATION 1+
--- NOTE | 2017-06-06 09:05 | RAD ---
PROCEDURE: Radiographs of the right elbow. HISTORY: elbow pain COMPARISON: No prior. FINDINGS: BONES: Normal. No fracture. JOINTS: Normal. No osteoarthritis. SOFT TISSUES: Normal. JOINT EFFUSION: None. OTHER FINDINGS: None. IMPRESSION: Unremarkable radiographs of the right elbow.
--- NOTE | 2017-06-06 09:49 | CARD ---
APPROVED REPORT EKG Measurement Heart [id number] <Conclusion> Normal sinus rhythm with sinus arrhythmia Normal ECG
[2017-06-06] MEDS: GlipiZIDE 10 mg SR Tab PO SCH ×2 (09:56→17:01)
[2017-06-06] MEDS ORDERED: Enoxaparin 30 mg Syringe SC SCH (10:00)
--- NOTE | 2017-06-06 10:45 | CP.PCM.PN ---
Subjective - Date & Time of Evaluation Date of Evaluation: 06/06/17 Time of Evaluation: 10:41 - Subjective Subjective: Ortho note/Dr. Little Patient complains of right shoulder pain. Denies CP/SOB/numbness/tingling at this time. Objective - Vital Signs/Intake and Output Vital Signs (last 24 hours): Temp Pulse Resp BP Pulse Ox 98.0 F 76 20 122/69 96 06/06/17 07:30 06/06/17 07:30 06/06/17 07:30 06/06/17 07:30 06/06/17 07:30 Intake and Output: 06/06/17 06/06/17 06:59 18:59 Intake Total 720 Output Total 950 Balance -230 - Medications Medications: Current Medications Acetaminophen (Tylenol 325mg Tab) 650 mg PO Q4 PRN PRN Reason: Fever >100.4 F Acetylcysteine (Acetylcysteine 20%) 4 ml IH BIDRESP [facility] Last Admin: 06/06/17 07:09 Dose: 4 ml Arformoterol Tartrate (Brovana) 15 mcg IH [id number] [facility] Last Admin: 06/06/17 07:09 Dose: 15 mcg Atorvastatin Calcium (Lipitor) 10 mg PO DIN [facility] Last Admin: 06/05/17 17:16 Dose: 10 mg Budesonide (Pulmicort Respules) 0.5 mg IH [id number] [facility] Last Admin: 06/06/17 07:09 Dose: 0.5 mg Colchicine (Colocrys) 0.6 mg PO DAILY [facility] Last Admin: 06/06/17 09:56 Dose: 0.6 mg Doxycycline Hyclate (Doryx) 100 mg PO Q12 [facility] PRN Reason: Protocol Last Admin: 06/06/17 09:55 Dose: 100 mg Enoxaparin Sodium (Lovenox) 30 mg SC DAILY [facility] PRN Reason: Protocol Furosemide (Lasix) 20 mg IVP ONCE PRN PRN Reason: give between blood transfusion Stop: 06/06/20 23:59 Glipizide (Glucotrol Xl) 10 mg PO BID [facility] Last Admin: 06/06/17 09:56 Dose: 10 mg Methylprednisolone (Solu-Medrol) 20 mg IVP Q12 [facility] Last Admin: 06/06/17 09:55 Dose: 20 mg Montelukast Sodium (Singulair) 10 mg PO HS [facility] Morphine Sulfate (Morphine) 2 mg IVP Q4 PRN PRN Reason: Pain, moderate (4-7) Last Admin: 06/05/17 18:13 Dose: 2 mg Pantoprazole Sodium (Protonix Inj) 40 mg IVP DAILY [facility] Last Admin: 06/06/17 09:54 Dose: 40 mg Roflumilast (Daliresp) 500 mcg PO DAILY [facility] Last Admin: 06/06/17 09:55 Dose: 500 mcg Sitagliptin Phosphate (Januvia) 100 mg PO DAILY [facility] Last Admin: 06/06/17 09:55 Dose: 100 mg - Labs Labs: 06/06/17 06:24 PT 11.4 Seconds (9.9-11.8) 06/04/17 22:06 INR 1.06 (0.93-1.08) 06/04/17 22:06 APTT 31.6 Seconds (23.7-30.8) H 06/04/17 22:06 - Extremities Exam Additional comments: RUE: sling intact, +ROM fingers/thumb, sensation intact, TTP shoulder, and elbow. +radial pulse Assessment and Plan (1) Closed fracture of right proximal humerus Assessment & Plan: patient agrees to surgery, ORIF vs hemiarthroplasty (decision will be made intraoperatively) awaiting medical optimization pulm consultation noted plan for OR 06/07 5pm if optimized for transfusion (chronic anemia) NPO p 8am tomorrow hold lovenox after today's dose labs in am elbow xrays reviewed with Dr. Little, negative for fracture d/w Dr. Little, agrees with above Status: Acute Radiology Interpretation - Senior Commissary Agent Senior Commissary Agent:: Radiologist - Radiology Interpretation #2 Interpretation: Patient Name / ID : RAIZA ETIENNE / [id number] Exam Date : 06/05/2017 21:06:06 ( Approved ) Study Comment : Sex / Age : M / [id number] Creator : Nilson Fernando MD Dictator : Nilson Fernando MD Solar Sales Rep : Dcs Engineer : Nilson Fernando MD Approver2 : Report Date : 06/06/2017 08:59:42 My Comment : PROCEDURE: Radiographs of the right elbow. HISTORY: elbow pain COMPARISON: No prior. FINDINGS: BONES: Normal. No fracture. JOINTS: Normal. No osteoarthritis. SOFT TISSUES: Normal. JOINT EFFUSION: None. OTHER FINDINGS: None. IMPRESSION: Unremarkable radiographs of the right elbow.
--- NOTE | 2017-06-06 14:17 | CON ---
DATE: 06/06/2017 LOCATION: The patient in room 564, bed 1. REASON FOR CONSULTATION: Fracture right humerus, cardiac evaluation, risk stratification for surgery, history of carcinoma of the lung, getting chemotherapy, anemia, COPD, and hypertension. HISTORY OF PRESENT ILLNESS: A 71-year-old male with known case of carcinoma of the lung, hypertension, cyp-sfoubxz-sqloygnod diabetes, hyperlipidemia, getting chemotherapy. He slipped and fell and had pain on the right upper arm and shoulder. He could not raise the arm and found to have a displaced transverse overlapping right humerus fracture, for which he is needing surgery, so consult has been requested for risk stratification from cardiac point of view. The patient denies any history of chest pain on exertion or any history of CT or angina. The patient says that his breathing also has been stable. PAST MEDICAL HISTORY: Positive for carcinoma of the lung and chemotherapy treatment, hypertension, wmf-oedbcyz-mdfbqdekl diabetes mellitus and hyperlipidemia. PERSONAL HISTORY: He used to smoke one to yhi-eie-ynoi pack for many years, stopped now. The patient used to drink socially. ALLERGIES: THE PATIENT DENIES ANY ALLERGIES. HOME MEDICATIONS: The patient was getting chemotherapy till about few weeks ago. He was also getting magnesium oxide 400 mg daily, colchicine 0.6 mg daily, glipizide 10 mg twice a day, Januvia 100 mg daily, and Pravachol 40 mg daily. REVIEW OF SYSTEMS: All the systems reviewed, positive mentioned in the history, otherwise negative. PHYSICAL EXAMINATION: VITAL SIGNS: Blood pressure 122/69, respiration 20, pulse 76, temperature 98.0. HEENT: Head is normocephalic. Eyes, pupil normal. Conjunctiva pale. NECK: JVP low. Carotids are equal. Thorax, AP diameter is normal. LUNGS: No rales. CARDIOVASCULAR: S1 and S2. ABDOMEN: Soft. No tenderness. No organomegaly. EXTREMITIES: The patient had no edema on the legs. No clubbing. No cyanosis. The patient has marked tenderness in the right upper arm, shoulder and cannot lift the arm. CENTRAL NERVOUS SYSTEM: The patient is conscious, alert, and moving otherwise all extremities. LABORATORY DATA: Show prothrombin time 11.4 with INR 1.06, PTT 31.6. WBC 8.6, hemoglobin 8.4, hematocrit 25.4, platelet 360. Sodium 133, potassium 4.5, BUN 18, creatinine 1.1, sugar 74, random sugar 256. AST and ALT normal. Alkaline phosphatase 181. Total protein and albumin normal. Calcium 9.1. Chest x-ray shows a right upper lobe consolidation, which has not changed as compare to previously. The rest of the lung shows emphysematous changes. EKG showed sinus rhythm, PAC and early repolarization with ST-T changes in II, III, aVF. DIAGNOSES: Displaced transverse overlapping right humerus fracture, status post fall, carcinoma of the lung, and getting chemotherapy, anemia, chronic obstructive pulmonary disease, hypertension, iha-aqvoseb-snythzrhu diabetes and hyperlipidemia. PLAN: From a cardiac point of view, the patient's condition seems to be stable. The patient has Port-A-Cath on the right upper chest for chemotherapy. The patient's blood count is low, so if he needs surgery, he probably needs blood transfusion. From a cardiac point of view, the patient can go surgery at a moderate risk. The patient is getting colchicine 0.6 mg daily, Daliresp 500 mcg p.o. daily, Doryx 100 mg p.o. q. 12 hours, Glucotrol XL 10 mg b.i.d., Januvia 100 mg daily, atorvastatin 10 mg p.o. daily, Lovenox 30 mg subcutaneous daily, Protonix injection 40 mg IV daily, Singulair 10 mg p.o. at bedtime and Solu-Medrol 20 mg IV q. 12 hours. We will follow with you. Allan Chavez MD
--- NOTE | 2017-06-06 15:33 | PN ---
DATE: SUBJECTIVE: The patient is a 71-year-old, seen and examined, lying in bed, seems to be comfortable. No nausea, vomiting, or diarrhea. Eating and tolerating. Complained of pain in the right arm, unable to move. PHYSICAL EXAMINATION: VITAL SIGNS: Afebrile, pulse 76, respirations 18, and blood pressure 137/62. LUNGS: Bilateral fair air flow. No rhonchi or crackles. HEART: S1 and S2 audible. ABDOMEN: Soft and nontender. No rebound. No guarding. NEUROLOGIC: He is awake and alert, and able to communicate. EXTREMITIES: Bilateral leg, no edema. LABORATORY DATA: WBC is 8.6, hemoglobin 8.4, hematocrit 25.4, and platelets of 360. Chemistry: Blood sugar is 335. ASSESSMENT: 1. Status post fall. 2. Displaced right humeral fracture. 3. Cancer of lung, on chemotherapy. 4. Pancytopenia. 5. Hypertension. 6. Iik-ezqdlty-cjpimdoqa diabetes. 7. osteoarthritis. PLAN: Currently, the patient is on DVT prophylaxis. He is on Brovana and Pulmicort. The patient will receive two blood transfusions for possible open reduction and internal fixation in the a.m. Jose Angel Hull MD
[2017-06-06] MEDS: Insulin Reg-MEDIUM-Coverage SC SCH ×2 (16:56→22:05)
[2017-06-06] MEDS: Insulin Lispro (humaLOG) MIX 75/25(10 ml) SC SCH (19:09)
--- NOTE | 2017-06-06 19:12 | PN ---
DATE: 06/06/2017 PULMONARY PROGRESS NOTE REFERRING PHYSICIAN: Jose Angel Hull MD SUBJECTIVE: He is lying on the bed, feeling better today, decreased cough, decreased shortness of breath. Still has a right upper extremity pain. No nausea, vomiting or diarrhea. No leg pain or leg swelling. OBJECTIVE GENERAL: In no acute distress. VITAL SIGNS: Temperature is 98, heart rate is 72, respiratory rate is 18, blood pressure 139/74, pulse ox 93% on room air. HEENT: Moist mucous membrane. . NECK: Supple. No JVD. LUNGS: Had a good airflow with left lung, scattered rhonchi, some wheezing on the right lung. Has a right Port-A-Cath. ABDOMEN: Soft, nontender. No organomegaly. EXTREMITIES: No edema. NEUROLOGIC: Awake and alert. Follows simple commands. LABORATORY DATA: Shows hemoglobin 8.4, hematocrit 25.4, WBC 8.6, platelet is 360. INR 1.06, PTT 32. Blood sugar is 135. EKG this morning shows normal sinus rhythm with sinus arrhythmia. IMPRESSION AND PLAN: History of unresectable lung cancer, been on chemotherapy, chronic obstructive lung disease, hypertension, diabetes, hyperlipidemia, status post fall with right humeral fracture, anemia requiring blood transfusions. From pulmonary point of view, he is doing much better. Lungs are improved. We will decrease steroids. Continue inhaled bronchodilators. Pulmonary status much better than yesterday, probably optimized from pulmonary point of view. May need close cardiopulmonary monitoring, especially because of upper airway crowdiness. May have sleep apnea syndrome. Thank you and we will follow with you. Allan Woods MD
[2017-06-06] MEDS: Albuterol-Ipratrop 3 mg / 0.5 (3 ml) UD IH SCH (21:02)
[2017-06-07 07:32] LABS: HEMATOCRIT 32.2 % (42.0-52.0); MEAN CELL VOLUME 84.7 fl (80.0-105.0); MEAN CORPUSCULAR HEMOGLOBIN 29.5 pg (25.0-35.0); MEAN CORPUSCULAR HGB CONC 34.8 g/dl (31.0-37.0); MEAN PLATELET VOLUME 9.5 fl (7.0-11.0); RED CELL DISTRIBUTION WIDTH 14.9 % (11.5-14.5); WHITE BLOOD COUNT 13.7 10^3/ul (4.5-11.0)
[2017-06-07] MEDS: Arformoterol 15 mcg/2 ml Inh Sol IH SCH (07:51)
[2017-06-07] MEDS: Acetylcysteine 20% Inhal Soln (4ml) IH SCH (07:51)
[2017-06-07] MEDS: Budesonide 0.5 mg/2 ml Inhal Susp UD IH SCH (07:51)
[2017-06-07] MEDS: Insulin Lispro (humaLOG) MIX 75/25(10 ml) SC SCH ×2 (08:00→17:00)
[2017-06-07] MEDS: Insulin Reg-MEDIUM-Coverage SC SCH ×4 (08:00→23:29)
--- NOTE | 2017-06-07 08:53 | CP.PCM.PN ---
Subjective - Date & Time of Evaluation Date of Evaluation: 06/07/17 Time of Evaluation: 08:53 - Subjective Subjective: Pt seen and evaluated by pulmonary and cardiac services. Will plan for ORIF today if medically optimized. Objective - Vital Signs/Intake and Output Vital Signs (last 24 hours): Temp Pulse Resp BP Pulse Ox 97.8 F 76 20 137/77 97 06/07/17 07:30 06/07/17 07:30 06/07/17 07:30 06/07/17 07:30 06/07/17 07:30 Intake and Output: 06/07/17 06/07/17 06:59 18:59 Intake Total 2285 Output Total 3800 Balance -1515 - Medications Medications: Current Medications Acetaminophen (Tylenol 325mg Tab) 650 mg PO Q4 PRN PRN Reason: Fever >100.4 F Acetylcysteine (Acetylcysteine 20%) 4 ml IH BIDRESP [facility] Last Admin: 06/07/17 07:51 Dose: 4 ml Arformoterol Tartrate (Brovana) 15 mcg IH [id number] [facility] Last Admin: 06/07/17 07:51 Dose: 15 mcg Atorvastatin Calcium (Lipitor) 10 mg PO DIN [facility] Last Admin: 06/06/17 16:57 Dose: 10 mg Budesonide (Pulmicort Respules) 0.5 mg IH [id number] [facility] Last Admin: 06/07/17 07:51 Dose: 0.5 mg Colchicine (Colocrys) 0.6 mg PO DAILY [facility] Last Admin: 06/06/17 09:56 Dose: 0.6 mg Doxycycline Hyclate (Doryx) 100 mg PO Q12 [facility] PRN Reason: Protocol Last Admin: 06/06/17 22:04 Dose: 100 mg Enoxaparin Sodium (Lovenox) 30 mg SC DAILY [facility] PRN Reason: Protocol Last Admin: 06/06/17 13:38 Dose: Not Given Furosemide (Lasix) 20 mg IVP ONCE PRN PRN Reason: give between blood transfusion Stop: 06/06/20 23:59 Last Admin: 06/06/17 16:49 Dose: 20 mg Glipizide (Glucotrol Xl) 10 mg PO BID [facility] Last Admin: 06/06/17 17:01 Dose: 10 mg Insulin Human Regular (Humulin R Med) 0 units SC ACHS [facility] PRN Reason: Protocol Last Admin: 06/06/17 22:05 Dose: Not Given Insulin Lispro Protam/Lispro Human (Humalog Mix 75/25) 10 units SC ACBD [facility] Last Admin: 06/06/17 19:09 Dose: 10 units Montelukast Sodium (Singulair) 10 mg PO HS [facility] Last Admin: 06/06/17 22:04 Dose: 10 mg Morphine Sulfate (Morphine) 2 mg IVP Q4 PRN PRN Reason: Pain, moderate (4-7) Last Admin: 06/05/17 18:13 Dose: 2 mg Pantoprazole Sodium (Protonix Inj) 40 mg IVP DAILY [facility] Last Admin: 06/06/17 09:54 Dose: 40 mg Prednisone (Prednisone Tab) 20 mg PO DAILY [facility] Roflumilast (Daliresp) 500 mcg PO DAILY [facility] Last Admin: 06/06/17 09:55 Dose: 500 mcg Sitagliptin Phosphate (Januvia) 50 mg PO DAILY [facility] - Labs Labs: 06/07/17 07:15 PT 11.4 Seconds (9.9-11.8) 06/04/17 22:06 INR 1.06 (0.93-1.08) 06/04/17 22:06 APTT 31.6 Seconds (23.7-30.8) H 06/04/17 22:06
[2017-06-07] MEDS: GlipiZIDE 10 mg SR Tab PO SCH (10:00)
--- NOTE | 2017-06-07 13:37 | PN ---
DATE: SUBJECTIVE: The patient is seen and examined. He is status post fall and had right humerus fracture. He has pain in the right shoulder. Scheduled for surgery today, late afternoon. PHYSICAL EXAMINATION VITAL SIGNS: The patient is afebrile, pulse 76, respirations 20, blood pressure 137/77. LUNGS: Bilateral fair air flow. No rhonchi or crackles. HEART: S1 and S2 audible. ABDOMEN: Soft, nontender. No rebound. No guarding. NEUROLOGIC: The patient is awake and alert. Able to communicate, ambulatory. Right arm is in the sling. LABORATORY DATA: WBC is 13.7, hemoglobin 11.2, hematocrit 32, platelet of 383. Chemistry, blood sugar is 106. He had more attacks of hypoglycemia. I will cut down his oral hypoglycemic since his oral intake is going to be unpredictable after surgery. ASSESSMENT: 1. Status post fall. 2. Displaced humeral fracture. 2. Hypertension. 3. Carcinoma of lung. 4. Chronic obstructive pulmonary disease. 5. Anemia status post blood transfusion. PLAN: I will continue the patient on current medication. I will hold off his oral hypoglycemics. Continue him on antibiotic. Plan for surgery tonight. Jose Angel Hull MD
--- NOTE | 2017-06-07 14:55 | PN ---
DATE: 06/07/2017 LOCATION: Room 564, bed 1. REASON FOR CONSULTATION: Fracture right humerus, cardiac evaluation, history of carcinoma of the lung, anemia, COPD, and hypertension. SUBJECTIVE: The patient lying flat in bed without any chest pain, shortness of breath, or palpitation. Complaining right upper arm pain where he had fracture. PHYSICAL EXAMINATION VITAL SIGNS: Blood pressure 137/77, respirations 20, pulse 76, and temperature 97.8. HEENT: Head is normocephalic. Eyes: Pupil normal. Conjunctiva slightly pale. NECK: JVP low. Carotids are equal. Thorax, AP diameter is normal. LUNGS: Clear. CARDIOVASCULAR: S1 and S2. ABDOMEN: Soft and nontender. No organomegaly. EXTREMITIES: Right upper arm fractured area. Legs: No clubbing. No cyanosis. LABORATORY DATA: WBC 13.7, hemoglobin 11.2, hematocrit 32.2, and platelet 383. The patient's hemoglobin was low so the patient received blood transfusion then hemoglobin improved today. Random sugar 106. Other lab was normal from 06/04/2017 that reported in yesterday's consult. DIAGNOSES: Displaced transverse overlapping right humerus fracture, status post fall, carcinoma of the lung, getting chemotherapy, anemia, chronic obstructive pulmonary disease, hypertension, tin-ruecvaa-ppzziztua diabetes mellitus, hyperlipidemia, status post blood transfusion for the anemia. PLAN: As mentioned before, the patient is at moderate risk for surgery. So, from cardiac point of view the patient can go for surgery at moderate risk. The patient continued on colchicine 0.6 mg p.o. daily, Doryx 100 mg p.o. q.12 hours, Januvia 50 mg daily, Lipitor 10 mg p.o. daily, Protonix 40 mg daily, Singulair 10 mg p.o. at bedtime daily. Continue present therapy. We will follow with you. Allan Chavez MD
[2017-06-07] MEDS ORDERED: Bupivacaine-Epi 0.25%-1:200,000 PF Inj ONE (16:25)
[2017-06-07] MEDS ORDERED: Bupivacaine 0.5% Inj(30mL) ONE (16:26)
[2017-06-07] MEDS ORDERED: Midazolam 2 MG/2 ML VIAL ONE (16:35)
[2017-06-07] MEDS ORDERED: Etomidate 20 mg/10ml Inj IV ONE (16:36)
[2017-06-07] MEDS ORDERED: Dextrose 50% SYRINGE Inj (50 ml) IVP STA (16:40)
[2017-06-07] MEDS ORDERED: Desflurane Inhalation Anesthetic Liq (240 ml) ONE (17:22)
[2017-06-07] MEDS ORDERED: Succinylcholine 200 mg/10 ml Inj IV ONE (17:25)
[2017-06-07] MEDS ORDERED: Rocuronium 10 mg/ml (5 ml) ONE (17:25)
[2017-06-07] MEDS ORDERED: Glycopyrrolate 0.2 mg/ml (2ml vial) ONE (21:37)
--- NOTE | 2017-06-07 21:51 | PN ---
PULMONARY PROGRESS NOTE DATE: 06/07/2017 REFERRING PHYSICIAN: Jose Angel Hull MD. SUBJECTIVE: The patient is out of bed to chair. Night was unremarkable. Breathing is better. Decreased cough. No nausea. No vomiting. No diarrhea. No leg pain or leg swelling. Right upper extremity is in sling. OBJECTIVE: GENERAL: In no acute distress. VITAL SIGNS: Temperature 98, heart rate 76, respiratory rate is 20, blood pressure 137/77, pulse ox 97% on room air. HEENT: Moist mucous membranes. Crowded airway. NECK: Supple. No JVD. LUNGS: Scattered rhonchi and few wheezing, more on the right lung, left lung comparatively clear. HEART: S1 and S2. ABDOMEN: Soft and nontender. No organomegaly. EXTREMITIES: There is no edema. NEUROLOGIC: Awake and alert. Follows simple command. MEDICATIONS: He is on Mucomyst 20% inhaled twice a day, Brovana inhaled twice a day, colchicine 0.6 mg daily, Dilaudid 500 mcg daily, doxycycline 100 mg twice a day, insulin coverage, Januvia 50 mg daily, Lasix 20 mg IV daily p.r.n., Lipitor 10 mg daily, Lovenox 30 mg subcutaneous daily, morphine 2 mg q. 4 hours p.r.n., prednisone 20 mg daily, Protonix 40 mg daily, Pulmicort inhaled twice a day, Singulair 10 mg daily, Tylenol p.r.n. basis. LABORATORY DATA: Hemoglobin 11.2, hematocrit 32.2, WBC 13.7, platelet is 383. Glucose is 106. IMPRESSION AND PLAN: Unresectable lung cancer, been on chemotherapy, chronic obstructive lung disease, hypertension, diabetes, hyperlipidemia, status post fall with a right humeral fracture, anemia, requiring blood transfusion. Pulmonary point of view, pulmonary function is optimized with steroids, antibiotics, and inhaled bronchodilator. Sleep apnea precaution. He is sedated and needs close cardiopulmonary monitoring. Thank you and we will follow with you. Allan Woods MD
[2017-06-07] MEDS ORDERED: Lactated Ringer's 1,000 ML IV SCH (22:17)
[2017-06-07] MEDS: HYDROmorphone 0.5 mg/0.5 ml ISec IVP PRN ×3 (22:20→22:50)
[2017-06-07] MEDS ORDERED: HYDROmorphone 0.5 mg/0.5 ml ISec ONE ×2 (22:36→22:54)
--- NOTE | 2017-06-07 23:25 | PCM.SURG1 ---
Surgeon's Initial Post Op Note - Surgeon's Notes Surgeon: Cheri Little MD Panel Assembler: Stiven Cristina PA-C Type of Anesthesia: General Endo Anesthesia Administered By: Dr. Antony Pre-Operative Diagnosis: Right proximal humerus fracture Operative Findings: biomet plate Post-Operative Diagnosis: same Operation Performed: ORIF right proximal humerus Specimen/Specimens Removed: none Estimated Blood Loss: EBL {In ML}: 600 Blood Products Given: PRBC (1u) Drains Used: No Drains Post-Op Condition: Fair Date of Surgery/Procedure: 06/07/17 Time of Surgery/Procedure: 10:30
[2017-06-08] MEDS: ceFAZolin 2 GM in Sodium Chloride 0.9% 100 ML IVPB SCH ×2 (01:22→09:35)
[2017-06-08 02:10] VITALS: RESP 20
[2017-06-08] MEDS: Acetylcysteine 20% Inhal Soln (4ml) IH SCH ×2 (07:28→20:05)
[2017-06-08] MEDS: Budesonide 0.5 mg/2 ml Inhal Susp UD IH SCH ×2 (07:29→20:07)
[2017-06-08] MEDS: Arformoterol 15 mcg/2 ml Inh Sol IH SCH ×2 (07:29→20:07)
[2017-06-08 07:38] LABS: HEMATOCRIT 31.1 % (42.0-52.0); MEAN CELL VOLUME 86.9 fl (80.0-105.0); MEAN CORPUSCULAR HEMOGLOBIN 29.9 pg (25.0-35.0); MEAN CORPUSCULAR HGB CONC 34.4 g/dl (31.0-37.0); MEAN PLATELET VOLUME 9.3 fl (7.0-11.0); RED CELL DISTRIBUTION WIDTH 14.9 % (11.5-14.5); WHITE BLOOD COUNT 10.8 10^3/ul (4.5-11.0)
[2017-06-08] MEDS: Insulin Lispro (humaLOG) MIX 75/25(10 ml) SC SCH ×2 (08:18→17:37)
[2017-06-08] MEDS: Insulin Reg-MEDIUM-Coverage SC SCH ×4 (08:19→21:51)
--- NOTE | 2017-06-08 10:37 | RAD ---
PROCEDURE: Radiographs of the Right Shoulder HISTORY: s/p ORIF right shoulder COMPARISON: Comparison is made to the previous study dated 06/04/2017 FINDINGS: BONES: Status post internal fixation for the previously seen right humeral neck fracture. The right humerus not seen at near normal alignment. There is no evidence of glenohumeral dislocation. JOINTS: Normal. Glenohumeral and acromioclavicular joints preserved. No osteoarthritis. SOFT TISSUES: Mild soft tissue swelling seen. OTHER FINDINGS: Re- demonstration of heterogeneous opacity at the right upper lung. Right-sided Port-A-Cath is again seen in place. IMPRESSION: Status post internal fixation of the previously seen right humerus neck fracture.
--- NOTE | 2017-06-08 10:44 | RAD ---
PROCEDURE: Fluoroscopy up to 1 hour HISTORY: O.R.I.F. RT. HUMERUS COMPARISON: TECHNIQUE: Fluoroscopy was provided in the operating room. 274 seconds of fluoro time were used. 7 images were submitted FINDINGS: The study shows internal fixation of a right humeral fracture with a plate and multiple screws. There is anatomic alignment IMPRESSION: As above
--- NOTE | 2017-06-08 13:53 | OP ---
PROCEDURE DATE: 06/07/2017 PREOPERATIVE DIAGNOSIS: Right proximal humerus fracture. POSTOPERATIVE DIAGNOSIS: Right proximal humerus fracture. PROCEDURE: Open reduction and internal fixation of right proximal humerus fracture. SURGEON: Matthew Little MD [employer] OFFICER: Dr. Little was assisted by Phi Cristina, the physician assistant professor of forestry. Ms. Cristina was scrubbed and present throughout the entire case and assisted in the patient's positioning, fracture reduction, retraction as well as wound closure. TYPE OF ANESTHESIA: General. COMPLICATIONS: None. ESTIMATED BLOOD LOSS: 600 mL. The patient received 1 unit of packed RBCs. IMPLANT: Biomet proximal humeral locking plate. INDICATION FOR THE PROCEDURE: This is a 71-year-old gentleman who presented status post fall approximately one week ago with complains of right shoulder pain. Clinical and radiographic examination was consistent with a displaced proximal humerus fracture. Recommendations were for open reduction and internal fixation of the fracture once the patient is medically optimized. The risks, benefits, and alternatives of the procedure were discussed with the patient and informed consent was obtained. DESCRIPTION OF PROCEDURE: After the surgical site was finally identified in the preoperative holding area, the patient was taken to the operating room and placed supine on the operating table. After administration of general anesthesia, the patient was positioned in the beach chair position. Care was taken to make sure all bony prominences and nerves were well padded and protected. The patient received 2 grams of Ancef IV and right upper extremity was prepped and draped in the usual sterile fashion. The bony landmarks were identified and approximately 10 cm oblique incision was made over the deltopectoral interval. Soft tissues were dissected bluntly and a systolic vein was identified and gently retracted laterally. The deltopectoral groove was then developed down to the clavipectoral fascia, which was incised and the patient was noted to have some fracture of the hematoma and this was evacuated. At this point, the wound was copiously irrigated and our attention was directed to the fracture. The patient was noted to have a partial tearing of the subscapularis and stay sutures were placed in the subscapularis as well as the greater tuberosity fragment. The humeral articular fragment was then elevated and an open reduction was performed. Open reduction was originally held due to K-wires. This was confirmed using the C-arm image intensifier both the AP and axillary planes. Satisfied, a 3-0 zip Biomet proximal humeral plate was placed and was held in the place with additional K-wires. The position of the plate was confirmed using the C-arm. Satisfied, the plate was first fixed distally with a cortical screw and then 6 locking screws were then placed in the head fragment. Again position of the screws was confirmed using the image intensifier. Finally, the two additional locking screws were placed in the shaft. All K-wires were removed and position of the hardware was confirmed using the image intensifier multiple planes. Satisfied, the greater tuberosity fragment was repaired to the plate with using #2 FiberWire suture and that was passed through the fragment and then produce suture holes in the plate. In a similar fashion, the subscapularis was also repaired back down. At this point, final x-rays were taken confirming good position of the hardware as well as a good fracture reduction. The wound was then copiously irrigated and closed in a layered fashion. A sterile dressing was applied and the right upper extremity was placed in a sling. The patient was awakened and taken to the recovery room in stable condition. Matthew Little MD
--- NOTE | 2017-06-08 14:01 | CP.PCM.PN ---
Subjective - Date & Time of Evaluation Date of Evaluation: 06/08/17 Time of Evaluation: 13:59 - Subjective Subjective: Pt awake, alert. VSS afebrile RUE: dressing intact grossly NVI distally Hg 10.7 POD#1 cont sling stable for d/c from ortho standpoint antibiotics X 1 week Objective - Vital Signs/Intake and Output Vital Signs (last 24 hours): Temp Pulse Resp BP Pulse Ox 97.7 F 65 20 145/78 97 06/08/17 08:04 06/08/17 08:04 06/08/17 08:04 06/08/17 08:04 06/08/17 08:04 Intake and Output: 06/08/17 06/08/17 06:59 18:59 Intake Total 2520 Output Total 400 Balance 2120 - Medications Medications: Current Medications Acetaminophen (Tylenol 325mg Tab) 650 mg PO Q4 PRN PRN Reason: Fever >100.4 F Acetylcysteine (Acetylcysteine 20%) 4 ml IH BIDRESP [facility] Last Admin: 06/08/17 07:28 Dose: 4 ml Arformoterol Tartrate (Brovana) 15 mcg IH [id number] [facility] Last Admin: 06/08/17 07:29 Dose: 15 mcg Atorvastatin Calcium (Lipitor) 10 mg PO DIN [facility] Last Admin: 06/07/17 17:02 Dose: Not Given Budesonide (Pulmicort Respules) 0.5 mg IH [id number] [facility] Last Admin: 06/08/17 07:29 Dose: 0.5 mg Colchicine (Colocrys) 0.6 mg PO DAILY [facility] Last Admin: 06/08/17 09:33 Dose: 0.6 mg Doxycycline Hyclate (Doryx) 100 mg PO Q12 [facility] PRN Reason: Protocol Last Admin: 06/08/17 09:33 Dose: 100 mg Enoxaparin Sodium (Lovenox) 30 mg SC Q24H [facility] PRN Reason: Protocol Furosemide (Lasix) 20 mg IVP ONCE PRN PRN Reason: give between blood transfusion Stop: 06/06/20 23:59 Last Admin: 06/06/17 16:49 Dose: 20 mg Hydromorphone HCl (Dilaudid) 0.5 mg IVP Q15M PRN PRN Reason: Pain, moderate (4-7) Last Admin: 06/07/17 22:50 Dose: 0.5 mg Insulin Human Regular (Humulin R Med) 0 units SC ACHS [facility] PRN Reason: Protocol Last Admin: 06/08/17 11:36 Dose: 3 units Insulin Lispro Protam/Lispro Human (Humalog Mix 75/25) 10 units SC ACBD [facility] Last Admin: 06/08/17 08:18 Dose: 10 units Montelukast Sodium (Singulair) 10 mg PO HS [facility] Last Admin: 06/07/17 23:30 Dose: Not Given Morphine Sulfate (Morphine) 2 mg IVP Q4 PRN PRN Reason: Pain, moderate (4-7) Last Admin: 06/05/17 18:13 Dose: 2 mg Pantoprazole Sodium (Protonix Inj) 40 mg IVP DAILY [facility] Last Admin: 06/08/17 09:33 Dose: 40 mg Prednisone (Prednisone Tab) 20 mg PO DAILY [facility] Last Admin: 06/08/17 09:33 Dose: 20 mg Roflumilast (Daliresp) 500 mcg PO DAILY [facility] Last Admin: 06/08/17 09:33 Dose: 500 mcg Sitagliptin Phosphate (Januvia) 50 mg PO DAILY [facility] Last Admin: 06/08/17 09:33 Dose: 50 mg - Labs Labs: 06/08/17 06:30 PT 11.4 Seconds (9.9-11.8) 06/04/17 22:06 INR 1.06 (0.93-1.08) 06/04/17 22:06 APTT 31.6 Seconds (23.7-30.8) H 06/04/17 22:06
--- NOTE | 2017-06-08 14:03 | CP.PCM.PN ---
Subjective - Date & Time of Evaluation Date of Evaluation: 06/08/17 Time of Evaluation: 13:59 - Subjective Subjective: Patient sitting in chair. Complains of right shoulder pain, but says that medication helps. Denies CP/SOB/dizziness. Objective - Vital Signs/Intake and Output Vital Signs (last 24 hours): Temp Pulse Resp BP Pulse Ox 97.7 F 65 20 145/78 97 06/08/17 08:04 06/08/17 08:04 06/08/17 08:04 06/08/17 08:04 06/08/17 08:04 Intake and Output: 06/08/17 06/08/17 06:59 18:59 Intake Total 2520 Output Total 400 Balance 2120 - Medications Medications: Current Medications Acetaminophen (Tylenol 325mg Tab) 650 mg PO Q4 PRN PRN Reason: Fever >100.4 F Acetylcysteine (Acetylcysteine 20%) 4 ml IH BIDRESP [facility] Last Admin: 06/08/17 07:28 Dose: 4 ml Arformoterol Tartrate (Brovana) 15 mcg IH [id number] [facility] Last Admin: 06/08/17 07:29 Dose: 15 mcg Atorvastatin Calcium (Lipitor) 10 mg PO DIN [facility] Last Admin: 06/07/17 17:02 Dose: Not Given Budesonide (Pulmicort Respules) 0.5 mg IH [id number] [facility] Last Admin: 06/08/17 07:29 Dose: 0.5 mg Colchicine (Colocrys) 0.6 mg PO DAILY [facility] Last Admin: 06/08/17 09:33 Dose: 0.6 mg Doxycycline Hyclate (Doryx) 100 mg PO Q12 BRAYAN PRN Reason: Protocol Last Admin: 06/08/17 09:33 Dose: 100 mg Enoxaparin Sodium (Lovenox) 30 mg SC Q24H BRAYAN PRN Reason: Protocol Furosemide (Lasix) 20 mg IVP ONCE PRN PRN Reason: give between blood transfusion Stop: 06/06/20 23:59 Last Admin: 06/06/17 16:49 Dose: 20 mg Hydromorphone HCl (Dilaudid) 0.5 mg IVP Q15M PRN PRN Reason: Pain, moderate (4-7) Last Admin: 06/07/17 22:50 Dose: 0.5 mg Insulin Human Regular (Humulin R Med) 0 units SC ACHS BRAYAN PRN Reason: Protocol Last Admin: 06/08/17 11:36 Dose: 3 units Insulin Lispro Protam/Lispro Human (Humalog Mix 75/25) 10 units SC ACBD [facility] Last Admin: 06/08/17 08:18 Dose: 10 units Montelukast Sodium (Singulair) 10 mg PO HS [facility] Last Admin: 06/07/17 23:30 Dose: Not Given Morphine Sulfate (Morphine) 2 mg IVP Q4 PRN PRN Reason: Pain, moderate (4-7) Last Admin: 06/05/17 18:13 Dose: 2 mg Pantoprazole Sodium (Protonix Inj) 40 mg IVP DAILY [facility] Last Admin: 06/08/17 09:33 Dose: 40 mg Prednisone (Prednisone Tab) 20 mg PO DAILY [facility] Last Admin: 06/08/17 09:33 Dose: 20 mg Roflumilast (Daliresp) 500 mcg PO DAILY [facility] Last Admin: 06/08/17 09:33 Dose: 500 mcg Sitagliptin Phosphate (Januvia) 50 mg PO DAILY [facility] Last Admin: 06/08/17 09:33 Dose: 50 mg - Labs Labs: 06/08/17 06:30 PT 11.4 Seconds (9.9-11.8) 06/04/17 22:06 INR 1.06 (0.93-1.08) 06/04/17 22:06 APTT 31.6 Seconds (23.7-30.8) H 06/04/17 22:06 - Extremities Exam Additional comments: RUE: sling and dressing intact. +ROM fingers/wrist, sensation intact, +radial pulse, no visible drainage from wound Assessment and Plan (1) Closed fracture of right proximal humerus Assessment & Plan: POD#1 s/p right proximal humerus ORIF -sig intraop blood loss, given 1uPRBC intra op, monitor h/h -sling -dressing may be removed on 06/12 and replaced with dry sterile dressing -d/c planning to rehab per Dr. Hull -orthopedically stable for d/c -continue pain medication, also per Dr. Little continue keflex 500mg PO QID x 7 days upon discharge -PT/OT -encourage OOB -d/w Dr. Little, agrees with above -post operative imaging reviewed, well positioned fx and hardware Status: Acute (2) Anemia Assessment & Plan: acute on chronic s/p 2uPRBC preop and 1u intraop Status: Acute
--- NOTE | 2017-06-08 14:15 | PN ---
DATE: 06/08/2017 LOCATION: The patient is in room 564, bed 1. REASON FOR CONSULTATION: Followup of his fracture right humerus, status post surgery yesterday, history of carcinoma of the lung, anemia, COPD, and hypertension. SUBJECTIVE: The patient is lying flat in bed without any chest pain, shortness of breath, or palpitation. Complaining of pain at the surgical site, which is right upper arm. PHYSICAL EXAMINATION: VITAL SIGNS: Blood pressure 145/78 and earlier blood pressure was 125/77, respirations 20, pulse 65, and temperature 97.7. HEENT: Head is normocephalic. Eyes, pupils normal. Conjunctivae slightly pale. NECK: JVP low. Carotids are equal. Thorax, AP diameter is normal. LUNGS: No significant rales. CARDIOVASCULAR: S1 and S2. ABDOMEN: Soft. No tenderness. No organomegaly. Bowel sounds normal. EXTREMITIES: No clubbing. No cyanosis. LABORATORY DATA: WBC 10.8, hemoglobin 10.7, hematocrit 31.1, and platelets 317. Random sugar 231. DIAGNOSES: Status post surgery for displaced transverse overlapping right humerus fracture, hypertension, status post fall, carcinoma of the lung, getting chemotherapy, anemia, chronic obstructive pulmonary disease, [id number] diabetes mellitus, hyperlipidemia, status post blood transfusion for the anemia. PLAN: Clinically, the patient's cardiac status seem to be stable. We will continue the present therapy, which is colchicine 0.6 mg daily, Daliresp 500 mcg p.o. daily, Doryx 100 mg p.o. q. 12 hours, Januvia 50 mg daily, Lipitor 10 mg daily, Lovenox 30 mg subcu q. 24 hours, Protonix 40 mg IV daily, and Singulair 10 mg at bedtime. We will continue present therapy and we will continue to monitor and follow with you. Allan Chavez MD
--- NOTE | 2017-06-08 14:47 | PN ---
DATE: SUBJECTIVE: The patient is 71-year-old male, seen and examined, sitting in chair, status post open reduction and internal fixation right femur, doing well. He complained of some pain, but better than before. PHYSICAL EXAMINATION: VITAL SIGNS: He is afebrile, pulse is 65, respirations are 20, and blood pressure is 141/78. LUNGS: Bilateral fair air flow. No rhonchi or crackles. HEART: S1 and S2 audible. ABDOMEN: Soft. NEUROLOGIC: He is awake and alert. Communicative and ambulatory. LABORATORY EXAM: WBC is 10.8, hemoglobin is 10.7, hematocrit is 31, and platelet of 317. Chemistry; blood sugar is 231. ASSESSMENT AND PLAN: 1. Status post fall. 2. Status post right humerus open reduction and internal fixation. 3. Carcinoma of lung, on chemotherapy. 4. Hypertension. 5. Non-insulin dependent diabetes. PLAN: We will continue the patient on current medical treatment and TCU evaluation will be requested. If bed is available, he can be transferred to TCU. Jose Angel Hull MD
[2017-06-08] MEDS ORDERED: Enoxaparin 30 mg Syringe SC SCH ×2 (21:00)
--- NOTE | 2017-06-08 21:06 | PN ---
PULMONARY PROGRESS NOTE DATE: 06/08/2017 REFERRING PHYSICIAN: Jose Angel Hull MD SUBJECTIVE: The patient is out of bed to chair. Status post right proximal humerus ORIF. Feels better. Some pain at the incision site. Still has some cough. No nausea, vomiting or diarrhea. No leg swelling. PHYSICAL EXAMINATION GENERAL: In no acute distress. VITAL SIGNS: Temperature 98, heart rate 65, respiratory rate is 20, blood pressure 145/78, pulse ox 97% on room air. HEENT: Moist mucous membranes. Crowded airway. NECK: Supple. No JVD. LUNGS: Scattered rhonchi and wheezing of the right lung, fair air flow in the left lung. HEART: S1 and S2. ABDOMEN: Soft and nontender. No organomegaly. EXTREMITIES: There is no edema of the lower extremity. Right upper extremity with dressing. NEUROLOGIC: Awake and alert. Follows simple command. MEDICATIONS: He is on Mucomyst 20% inhaled twice a day, Brovana inhaled twice a day, colchicine 0.6 mg daily, Daliresp 500 mcg daily, Dilaudid 5 mg q.15 minutes p.r.n. basis, doxycycline 100 mg twice a day, insulin coverage, Januvia 50 mg daily, Lasix 20 mg was given today, Lipitor 10 mg daily, Lovenox 30 mg subcutaneous q. 24 hours, morphine 2 mg q. 4 hours p.r.n., prednisone 20 mg daily, Protonix 40 mg daily, Pulmicort inhaled twice a day, Singulair 10 mg daily, Tylenol p.r.n. basis. LABORATORY DATA: Shows hemoglobin 10.7, hematocrit 30.1, WBC 10.8, platelet is 317. Blood sugars is 175. IMPRESSION AND PLAN: Status post fall with the right humerus fracture status post open reduction and internal fixation of right humerus with plate, chronic obstructive lung disease, unresectable lung cancer, hypertension, diabetes, hyperlipidemia. Pulmonary point of view, doing okay. We will decrease prednisone to 10 mg daily. Continue inhaled bronchodilator, pain medications, gastric prophylaxis, DVT prophylaxis. Start therapy. Thank you and we will follow with you. Allan Woods MD [facility] # [id number]
[2017-06-08] MEDS: Morphine 2 mg/ml ISec IVP PRN (21:26)
[2017-06-09 07:55] VITALS: BP 129/60; PULSE 70; TEMP 98.2; O2SAT 98
[2017-06-09] MEDS: Insulin Reg-MEDIUM-Coverage SC SCH ×2 (08:28→15:01)
[2017-06-09] MEDS: Insulin Lispro (humaLOG) MIX 75/25(10 ml) SC SCH (08:29)
[2017-06-09] MEDS: Acetylcysteine 20% Inhal Soln (4ml) IH SCH (08:34)
[2017-06-09] MEDS: Arformoterol 15 mcg/2 ml Inh Sol IH SCH (08:34)
[2017-06-09] MEDS: Budesonide 0.5 mg/2 ml Inhal Susp UD IH SCH (08:35)
--- NOTE | 2017-06-09 22:14 | PN ---
DATE: 06/09/2017 PULMONARY PROGRESS NOTE REFERRING PHYSICIAN: Jose Angel Hull MD SUBJECTIVE: He is sitting up in the chair. Night was unremarkable. Feels better. Decreased cough, decreased shortness of breath. Right shoulder pain is better. No nausea, no vomiting, no diarrhea. No leg pain or leg swelling. PHYSICAL EXAMINATION GENERAL: In no acute distress. VITAL SIGNS: Temperature is 98, heart rate 70, respiratory rate is 20, blood pressure 129/60, and pulse ox 98% on room air. HEENT: Moist mucous membranes. No sore throat. NECK: Supple. No JVD. LUNGS: Scattered rhonchi, more on the right than the left. HEART: S1 and S2. ABDOMEN: Soft and nontender. No organomegaly. EXTREMITIES: No edema. Right shoulder has a dressing. NEUROLOGIC: Awake and alert. Follows simple command. MEDICATIONS: Reviewed, noted no new change in medications reported since yesterday. LABORATORY DATA: Reviewed. Blood sugar this morning is 162. IMPRESSION AND PLAN: Status post fall with right humeral fracture, status post open reduction and internal fixation of the right humerus; chronic obstructive lung disease; unresectable lung cancer; hypertension; diabetes; hyperlipidemia; may have sleep apnea syndrome. The patient will need outpatient full PFT. Also, should have sleep study. Gastric prophylaxis, DVT prophylaxis, bronchodilator, and pain management. Thank you and we will follow with you. Allan Woods MD
--- NOTE | 2017-06-09 22:28 | PN ---
REASON FOR CONSULTATION: Follow up fracture of right humerus, status post open reduction and internal fixation, COPD, hypertension, continue the care. SUBJECTIVE: The patient denies any chest pain, shortness of breath, any palpitation. OBJECTIVE: Not in apparent distress, lying flat. PHYSICAL EXAMINATION: VITAL SIGNS: Temperature afebrile, heart rate 70, blood pressure 109/60. HEENT: PERRLA. Extraocular muscles are intact. NECK: Supple. No carotid bruit. No thyromegaly. EXTREMITIES: Right arm in sling and cast. LABORATORY DATA: Blood workup as follows: WBC 10.8, hemoglobin 10.7, hematocrit 31.1, platelet count 317. Chemistry shows sodium as of 11, 133; potassium 4.5; chloride 101; carbon dioxide 21; anion gap of 15; BUN 18; creatinine 1.1. IMPRESSION: A 71-year-old male with past medical history significant for status post displaced humerus fracture, status post open reduction and internal fixation, status post fall, carcinoma of the lung, getting chemotherapy, chronic obstructive pulmonary disease, type 2 diabetes, hypertension, hyperlipidemia. RECOMMENDATION: Pervious studies are stable. Continue current treatment and continue DVT prophylaxis. We will follow with you, adequate analgesia, ambulation. Repeat the blood workup in the morning. We will follow with you. Thank you Dr. Hull for providing me the opportunity in taking care of the patient. We will repeat the blood workup on Sunday. Allan Solano MD
--- NOTE | 2017-06-10 02:45 | DS ---
HISTORY OF PRESENT ILLNESS: The patient is a 71-year-old male known to me from previous admissions, went to [facility], had a fall, was having excruciating pain in the right shoulder. He came here for evaluation and found to have dysplasia, humeral head fracture. The patient underwent open reduction and internal fixation and he also has significant past medical history of non-insulin dependent diabetes, CA lung, on chemotherapy, hypertension, hyperlipidemia, chronic anemia, requiring blood transfusion. The patient had surgical intervention done by Dr. Little and being transferred for TCU for further rehab. PHYSICAL EXAMINATION: GENERAL: On examination today, he is awake and alert. Communicative. VITAL SIGNS: ;Afebrile, pulse 70, respirations 20, blood pressure 129/60. LUNG: Bilateral fair airs, no rhonchi or crackles. HEART: S1 and S2 audible. ABDOMEN: Soft, nontender. No rebound. No guarding. NEUROLOGIC: Awake and alert, able to communicate, ambulatory. EXTREMITIES: Right arm is in the sling. LABORATORY DATA: Blood sugar is 162. ASSESSMENT: 1. Status post fall. 2. Right humeral fracture, status post open reduction and internal fixation. 3. Carcinoma of the lung. 4. Chronic anemia. 5. Non-insulin dependent diabetes. PLAN: The patient is being transferred to TCU. He will receive physical therapy, gait graining and we will monitor his medication. Monitor his blood sugar and reevaluate the patient. Jose Angel Hull MD
== END 2017-06-09 16:00 | DRG 493 ==
LOC: ED 20:33 → ERH 23:09 → 5RNO 06-05 01:26
PROVIDERS: ADMIT Internal Medicine Medical Oncology; ATTEND Internal Medicine
PROC: 0PSC04Z Reposition Right Humeral Head with Internal Fixation Device, Open Approach (ICD-10-PCS; principal; 2017-06-07 17:00)
PROC: 0X980ZZ Drainage of Right Upper Arm, Open Approach (ICD-10-PCS; 2017-06-07 17:00)
DX: S42.291A Other displaced fracture of upper end of right humerus, initial encounter for closed fracture (principal); D61.818 Other pancytopenia; J44.9 Chronic obstructive pulmonary disease, unspecified; C34.11 Malignant neoplasm of upper lobe, right bronchus or lung; E11.9 Type 2 diabetes mellitus without complications; W01.0XXA Fall on same level from slipping, tripping and stumbling without subsequent striking against object, initial encounter; D50.9 Iron deficiency anemia, unspecified; I10 Essential (primary) hypertension; E78.5 Hyperlipidemia, unspecified; M10.9 Gout, unspecified; M19.90 Unspecified osteoarthritis, unspecified site; Z79.84 Long term (current) use of oral hypoglycemic drugs; Z79.899 Other long term (current) drug therapy; H40.9 Unspecified glaucoma; Z92.3 Personal history of irradiation; Z87.01 Personal history of pneumonia (recurrent); Z87.440 Personal history of urinary (tract) infections; Z87.891 Personal history of nicotine dependence; H26.9 Unspecified cataract; Z87.19 Personal history of other diseases of the digestive system; R40.2412 Glasgow coma scale score 13-15, at arrival to emergency department; M11.20 Other chondrocalcinosis, unspecified site

== ENCOUNTER 2017-06-09 16:05 | Inpatient (IN) | payer OTHER, BC ==
[2017-06-09] MEDS: Morphine 2 mg/ml ISec IVP PRN (20:56)
[2017-06-09] MEDS: Insulin Reg-MEDIUM-Coverage SC SCH (21:20)
[2017-06-09] MEDS ORDERED: Pneumococcal 23-Valent Vaccine IM ONE (22:07)
[2017-06-09] MEDS: Arformoterol 15 mcg/2 ml Inh Sol IH SCH (22:15)
[2017-06-09] MEDS: Budesonide 0.5 mg/2 ml Inhal Susp UD IH SCH (22:16)
[2017-06-10 07:00] LABS: BASO # 0.03 K/mm3 (0.0-2.0); BASO % 0.2 % (0.0-3.0); EOS # 0.1 (0.0-0.7); EOS % 0.7 % (1.5-5.0); GRAN # 9.73 (1.4-6.5); GRAN % 80.7 % (50.0-68.0); HEMATOCRIT 31.2 % (42.0-52.0); LYMPH # 1.2 (1.2-3.4); LYMPH % 10.2 % (22.0-35.0); MEAN CELL VOLUME 87.6 fl (80.0-105.0); MEAN CORPUSCULAR HEMOGLOBIN 29.2 pg (25.0-35.0); MEAN CORPUSCULAR HGB CONC 33.3 g/dl (31.0-37.0); MEAN PLATELET VOLUME 9.3 fl (7.0-11.0); MONO % 8.2 % (1.0-6.0); WHITE BLOOD COUNT 12.1 10^3/ul (4.5-11.0)
[2017-06-10] MEDS: Insulin Lispro (humaLOG) MIX 75/25(10 ml) SC SCH ×2 (07:07→17:45)
[2017-06-10] MEDS: Acetylcysteine 20% Inhal Soln (4ml) IH SCH ×3 (07:13→20:00)
[2017-06-10] MEDS: Budesonide 0.5 mg/2 ml Inhal Susp UD IH SCH ×2 (07:16→20:00)
[2017-06-10] MEDS: Arformoterol 15 mcg/2 ml Inh Sol IH SCH ×2 (07:16→20:00)
[2017-06-10 07:40] LABS: GFR AFRICAN-AMERICAN > 60
[2017-06-10] MEDS: Insulin Reg-MEDIUM-Coverage SC SCH ×4 (08:18→22:25)
[2017-06-10 08:21] LABS: ALKALINE PHOSPHATASE 85 U/L (38-126); ALT/SGPT 14 U/L (7-56); AST/SGOT 19 U/L (17-59); BILIRUBIN,TOTAL 0.4 mg/dL (0.2-1.3); BLOOD UREA NITROGEN 22 mg/dL (7-21); CARBON DIOXIDE 19 mmol/L (21-33); CHLORIDE 110 mmol/L (98-107); GLUCOSE,RANDOM 143 mg/dL (70-110); POTASSIUM 3.4 mmol/L (3.6-5.0); SODIUM 139 mmol/L (132-148); TOTAL PROTEIN 4.5 g/dL (5.8-8.3)
[2017-06-10 08:26] LABS: CALCIUM 6.7 mg/dL (8.4-10.5)
[2017-06-10] MEDS ORDERED: Potassium Chloride 20 mEq/15 ml LIQ UD PO STA (08:46)
[2017-06-10] MEDS: Enoxaparin 30 mg Syringe SC SCH (10:53)
[2017-06-10] MEDS: Morphine 2 mg/ml ISec IVP PRN (22:28)
--- NOTE | 2017-06-11 02:00 | HP ---
HISTORY OF PRESENT ILLNESS: The patient is a 71 years old who fell at home and sustained right humerus fracture that was displaced, underwent open reduction and internal fixation, now transferred to TCU for rehab. PAST MEDICAL HISTORY: The patient has significant past medical history of; 1. CA lung. 2. History of COPD, currently getting chemotherapy. 3. Non-insulin dependent diabetes. 4. Hypertension. 5. Hyperlipidemia. 6. History of gastritis. ALLERGIES: NOT ALLERGIC TO ANY MEDICATIONS. MEDICATIONS AT HOME: He is on Januvia 100 daily, Pravachol 20 mg daily, glipizide 10 mg twice a day, ferrous sulfate 325 daily, colchicine 0.6 daily. SOCIAL HISTORY: Single, lives with his daughter. His is back in [place]. Was actively smoking up until few months ago. PHYSICAL EXAMINATION GENERAL: He is awake and alert. Communicative. VITAL SIGNS: Afebrile, pulse 87, respirations 18, blood pressure 135/74. LUNG: Bilateral fair airflow. No rhonchi or crackles. HEART: S1 and S2 audible. ABDOMEN: Soft, nontender. No rebound. No guarding. NEUROLOGIC: Awake and alert, able to communicate. Right arm is in the sling, status post open reduction and internal fixation. LABORATORY DATA: WBC is 12.1, hemoglobin 10.4, hematocrit 31.2, platelets 256. Chemistries; sodium 139, potassium 3.4, chloride 110, CO2 of 19, BUN 22, creatinine 0.7, blood sugar of 147. ASSESSMENT AND PLAN: 1. Status post fall. 2. Right humeral fracture, status post open reduction and internal fixation. 3. Non-insulin dependent diabetes. 4. Hypertension. 5. Hyperlipidemia. 6. Cancer of lung, currently on physical therapy. We will continue to monitor blood sugar. Encouraged ambulation. We will follow up. Jose Angel Hull MD
[2017-06-11] MEDS: Morphine 2 mg/ml ISec IVP PRN ×2 (05:50→21:51)
[2017-06-11] MEDS: Pantoprazole 40 mg EC Tab PO SCH (05:51)
[2017-06-11] MEDS: Arformoterol 15 mcg/2 ml Inh Sol IH SCH ×2 (07:43→21:15)
[2017-06-11] MEDS: Budesonide 0.5 mg/2 ml Inhal Susp UD IH SCH ×2 (07:43→21:15)
[2017-06-11] MEDS: Acetylcysteine 20% Inhal Soln (4ml) IH SCH ×2 (07:43→21:15)
[2017-06-11] MEDS: Enoxaparin 30 mg Syringe SC SCH (11:00)
[2017-06-11] MEDS ORDERED: Potassium Chloride 20 mEq/15 ml LIQ UD PO STA (11:13)
[2017-06-11] MEDS: Insulin Reg-MEDIUM-Coverage SC SCH ×3 (12:30→21:58)
[2017-06-11] MEDS: Insulin Lispro (humaLOG) MIX 75/25(10 ml) SC SCH (17:37)
--- NOTE | 2017-06-11 17:43 | PN ---
DATE: SUBJECTIVE: The patient is an 71-year-old male, seen and examined, doing well, lying in bed, relatively pain free. PHYSICAL EXAMINATION: VITAL SIGNS: The patient is afebrile, pulse 88, respirations 18, blood pressure 115/59. LUNGS: Bilateral fair air flow. No rhonchi or crackles. HEART: S1 and S2 audible. ABDOMEN: Soft, nontender. No rebound. No guarding. NEUROLOGIC: The patient is awake and alert, able to communicate. LABORATORY DATA: WBC 12.1, hemoglobin 10.4, hematocrit 31.2, and platelets 256. Chemistry: Blood sugar is 252. ASSESSMENT: 1. Status post fall. 2. Right humerus fracture. 3. Status post open reduction and internal fixation. 4. Carcinoma of lung. 5. Non-insulin dependent diabetes. 6. Anemia, status post blood fusion. PLAN: Monitor blood sugar and encourage physical therapy . Jose Angel Hull MD
--- NOTE | 2017-06-12 01:18 | CON ---
DATE: 06/11/2017 CONSULT REQUESTED BY: Jose Angel Hull MD REASON FOR CONSULTATION: Left lung cancer, and right arm fracture. HISTORY OF PRESENT ILLNESS: Mr. Chepe Amaro is a 71-year-old male with right-sided lung cancer. He is currently on single agent gemcitabine. His last chemotherapy was more than a month ago. He went to [place] and fell there. He had right humerus fracture, underwent repair, and transferred to Transitional Care Unit for physical therapy. PAST MEDICAL HISTORY: 1. Lung cancer, right sided. 2. COPD. 3. Non-insulin dependent diabetes. 4. Hypertension. 5. Hyperlipidemia. 6. History of gastritis. ALLERGIES: NO KNOWN DRUG ALLERGIES. PAST SURGICAL HISTORY: Lung biopsy. CURRENT MEDICATIONS: Januvia,, Pravachol, glipizide, iron, and colchicine daily. SOCIAL HISTORY: Lives with his daughter. PERSONAL HISTORY: He is a smoker. No history of drug abuse. PHYSICAL EXAMINATION GENERAL: Alert, awake and oriented. VITAL SIGNS: Stable. Temperature is 98.6, heart rate is 80 per minute, blood pressure is 110/70 and respiratory rate is 18 per minute, and oxygen saturation is 98% on room air. CHEST: Air entry present and equal and bilaterally. No added sounds. CARDIOVASCULAR: S1 and S2 normal. No murmur. No gallop. ABDOMEN: Soft and nontender. No hepatosplenomegaly. EXTREMITIES: No edema. LABORATORY DATA: White count of 12,000, hemoglobin of 10.4, hematocrit of 31, and platelets of 256. Sodium of 139, potassium of 3.4, BUN of 22, and creatinine of 0.7. ASSESSMENT AND PLAN: 1. Right humerus fracture. 2. Diabetes mellitus. 3. Right-sided lung cancer. 4. Hypertension. 5. Hyperlipidemia. PLAN: Pain is well controlled on morphine 2 mg IV q. 4 hours. p.r.n. It is unlikely, he has metastatic lesion in the bone, but I will consider bone scan while he is admitted to the hospital. He is currently on single agent gemcitabine, last chemotherapy more than a month ago. We will resume chemotherapy in 3 to 4 weeks. Continue current medications. He is also on doxycycline and Keflex. Sugar was controlled on current medication. Thank you Dr. Hull for allowing us to participate in Mr. Amaro' care. Estrella Lucio MD [facility] # [id number] [place]
[2017-06-12] MEDS: Acetylcysteine 20% Inhal Soln (4ml) IH SCH ×2 (07:13→20:44)
[2017-06-12] MEDS: Arformoterol 15 mcg/2 ml Inh Sol IH SCH ×2 (07:13→20:44)
[2017-06-12] MEDS: Budesonide 0.5 mg/2 ml Inhal Susp UD IH SCH ×2 (07:14→20:44)
[2017-06-12] MEDS: Enoxaparin 30 mg Syringe SC SCH (10:39)
[2017-06-12] MEDS: Insulin Reg-MEDIUM-Coverage SC SCH ×5 (12:36→21:55)
[2017-06-12] MEDS: Insulin Lispro (humaLOG) MIX 75/25(10 ml) SC SCH (17:53)
--- NOTE | 2017-06-12 21:50 | PN ---
SUBJECTIVE: The patient is 71 years old, seen and examined, lying in bed, seemed to be comfortable, not in any distress, eating and tolerating. PHYSICAL EXAMINATION: VITAL SIGNS: The patient is afebrile, pulse 88, respirations 18, blood pressure 116/64. LUNGS: Bilateral air flow. No rhonchi or crackles. HEART: S1 and S2 audible. ABDOMEN: Soft, nontender. No rebound. No guarding. NEUROLOGIC: The patient is awake and alert, able to communicate. Blood sugar is 230. ASSESSMENT: 1. Status post fall. 2. Right humerus fracture, status post open reduction and internal fixation. 3. Insulin-dependent diabetes. 4. Carcinoma of lung. 5. Hypertension. 6. Hyperlipidemia. PLAN: Currently, the patient is on DVT prophylaxis. He is on Singulair, getting Keflex. Continue physical therapy. We will see the patient in a.m. Jose Angel Hull MD
[2017-06-13] MEDS: Pantoprazole 40 mg EC Tab PO SCH (05:51)
[2017-06-13] MEDS: Insulin Lispro (humaLOG) MIX 75/25(10 ml) SC SCH (06:29)
[2017-06-13] MEDS: Insulin Reg-MEDIUM-Coverage SC SCH ×4 (06:29→22:11)
[2017-06-13] MEDS: Acetylcysteine 20% Inhal Soln (4ml) IH SCH ×2 (07:14→20:15)
[2017-06-13] MEDS: Budesonide 0.5 mg/2 ml Inhal Susp UD IH SCH ×2 (07:15→20:15)
[2017-06-13] MEDS: Arformoterol 15 mcg/2 ml Inh Sol IH SCH ×2 (07:15→20:15)
[2017-06-13] MEDS: Enoxaparin 30 mg Syringe SC SCH (10:33)
--- NOTE | 2017-06-13 10:38 | CP.PCM.PN ---
Subjective - Date & Time of Evaluation Date of Evaluation: 06/13/17 Time of Evaluation: 10:37 - Subjective Subjective: Pt awake, alert. Afebrile, VSS RUE: incision clean and intact NVI distally sling in place cont current care D/c sutures POD #14 Objective - Vital Signs/Intake and Output Vital Signs (last 24 hours): Temp Pulse Resp BP Pulse Ox 98.6 F 71 14 125/78 97 06/12/17 17:48 06/12/17 17:48 06/12/17 17:48 06/12/17 17:48 06/12/17 10:00 - Medications Medications: Current Medications Acetaminophen (Tylenol 325mg Tab) 650 mg PO Q4H PRN; Protocol PRN Reason: Fever >100.4 F Last Admin: 06/12/17 21:59 Dose: 650 mg Acetylcysteine (Acetylcysteine 20%) 4 ml IH BID BRAYAN PRN Reason: Protocol Last Admin: 06/13/17 07:14 Dose: 4 ml Arformoterol Tartrate (Brovana) 15 mcg IH [id number] BRAYAN PRN Reason: Protocol Last Admin: 06/13/17 07:15 Dose: 15 mcg Atorvastatin Calcium (Lipitor) 10 mg PO 1700 BRAYAN PRN Reason: Protocol Last Admin: 06/12/17 17:56 Dose: 10 mg Budesonide (Pulmicort Respules) 0.5 mg IH [id number] BRAYAN PRN Reason: Protocol Last Admin: 06/13/17 07:15 Dose: 0.5 mg Cephalexin Monohydrate (Keflex) 500 mg PO Q6 BRAYAN PRN Reason: Protocol Last Admin: 06/13/17 05:51 Dose: 500 mg Colchicine (Colocrys) 0.6 mg PO DAILY BRAYAN PRN Reason: Protocol Last Admin: 06/12/17 10:37 Dose: 0.6 mg Doxycycline Hyclate (Doryx) 100 mg PO Q12 BRAYAN PRN Reason: Protocol Last Admin: 06/12/17 21:55 Dose: 100 mg Enoxaparin Sodium (Lovenox) 30 mg SC DAILY BRAYAN PRN Reason: Protocol Last Admin: 06/12/17 10:39 Dose: 30 mg Insulin Human Regular (Humulin R Med) 0 units SC ACHS BRAYAN PRN Reason: Protocol Last Admin: 06/13/17 06:29 Dose: Not Given Insulin Lispro Protam/Lispro Human (Humalog Mix 75/25) 10 units SC ACBD BRAYAN PRN Reason: Protocol Last Admin: 06/13/17 06:29 Dose: Not Given Montelukast Sodium (Singulair) 10 mg PO HS BRAYAN PRN Reason: Protocol Last Admin: 06/12/17 21:56 Dose: 10 mg Morphine Sulfate (Morphine) 2 mg IVP Q4H PRN; Protocol PRN Reason: Pain, moderate (4-7) Last Admin: 06/11/17 21:51 Dose: 2 mg Pantoprazole Sodium (Protonix Ec Tab) 40 mg PO 0600 BRAYAN Last Admin: 06/13/17 05:51 Dose: 40 mg Prednisone (Prednisone Tab) 10 mg PO DAILY BRAYAN PRN Reason: Protocol Last Admin: 06/12/17 10:39 Dose: 10 mg Roflumilast (Daliresp) 500 mcg PO DAILY BRAYAN PRN Reason: Protocol Last Admin: 06/12/17 10:37 Dose: 500 mcg Sitagliptin Phosphate (Januvia) 50 mg PO DAILY BRAYAN PRN Reason: Protocol Last Admin: 06/12/17 10:38 Dose: 50 mg - Labs Labs: 06/10/17 06:30 06/10/17 06:30
--- NOTE | 2017-06-13 19:26 | PN ---
SUBJECTIVE: The patient is 71 years old, seen and examined, lying in bed, seems to be comfortable, eating and tolerating, minimal pain in the right shoulder, participating in therapy. PHYSICAL EXAMINATION: VITAL SIGNS: He is afebrile, pulse 72, respirations 18, blood pressure 123/60. LUNGS: Bilateral air flow. No rhonchi or crackles. HEART: S1 and S2 audible. ABDOMEN: Soft, nontender. No rebound. No guarding. NEUROLOGIC: The patient is awake and alert, communicative. Blood sugar seems to be running high. I will discontinue doxycycline, and we will start the patient on oral hypoglycemics, and I will put him on glipizide, cut down his prednisone, monitor his blood sugar, and continue physical therapy. Reevaluate the patient in a.m. Jose Angel Hull MD
--- NOTE | 2017-06-14 00:34 | CP.PCM.PN ---
Subjective - Date & Time of Evaluation Date of Evaluation: 06/13/17 Time of Evaluation: 11:00 - Subjective Subjective: HISTORY OF PRESENT ILLNESS: Mr. Chepe Amaro is a 71-year-old male with right-sided lung cancer. He is currently on single agent gemcitabine. His last chemotherapy was more than a month ago. He went to [place] and fell there. He had right humerus fracture, underwent repair, Pain controlled with current meds. PAST MEDICAL HISTORY: 1. Lung cancer, right sided. 2. COPD. 3. Non-insulin dependent diabetes. 4. Hypertension. 5. Hyperlipidemia. 6. History of gastritis. ALLERGIES: NO KNOWN DRUG ALLERGIES. PAST SURGICAL HISTORY: Lung biopsy. CURRENT MEDICATIONS: Januvia,, Pravachol, glipizide, iron, and colchicine daily. SOCIAL HISTORY: Lives with his daughter. PERSONAL HISTORY: He is a smoker. No history of drug abuse. PHYSICAL EXAMINATION GENERAL: Alert, awake and oriented. VITAL SIGNS: reviewed. CHEST: Air entry present and equal and bilaterally. No added sounds. CARDIOVASCULAR: S1 and S2 normal. No murmur. No gallop. ABDOMEN: Soft and nontender. No hepatosplenomegaly. EXTREMITIES: No edema. LABORATORY DATA: White count of 12,000, hemoglobin of 10.4, hematocrit of 31, and platelets of 256. Sodium of 139, potassium of 3.4, BUN of 22, and creatinine of 0.7. ASSESSMENT AND PLAN: 1. Right humerus fracture. 2. Diabetes mellitus. 3. Right-sided lung cancer. 4. Hypertension. 5. Hyperlipidemia. PLAN: pain controlled with current meds. will re-start chemo in 3-4 weeks. H/hct stable. ambulating. Thank you Dr. Hull for allowing us to participate in Mr. Amaro' care. Estrella Lucio MD Objective - Vital Signs/Intake and Output Vital Signs (last 24 hours): Temp Pulse Resp BP Pulse Ox 98 F 72 18 123/60 98 06/13/17 16:00 06/13/17 16:00 06/13/17 16:00 06/13/17 16:00 06/13/17 16:00 Intake and Output: 06/13/17 06/14/17 18:59 06:59 Intake Total 480 Output Total 700 Balance -220 - Medications Medications: Current Medications Acetaminophen (Tylenol 325mg Tab) 650 mg PO Q4H PRN; Protocol PRN Reason: Fever >100.4 F Last Admin: 06/13/17 12:53 Dose: 650 mg Acetylcysteine (Acetylcysteine 20%) 4 ml IH BID BRAYAN PRN Reason: Protocol Last Admin: 06/13/17 20:15 Dose: 4 ml Arformoterol Tartrate (Brovana) 15 mcg IH [id number] BRAYAN PRN Reason: Protocol Last Admin: 06/13/17 20:15 Dose: 15 mcg Atorvastatin Calcium (Lipitor) 10 mg PO 1700 BRAYAN PRN Reason: Protocol Last Admin: 06/13/17 17:30 Dose: 10 mg Budesonide (Pulmicort Respules) 0.5 mg IH [id number] BRAYAN PRN Reason: Protocol Last Admin: 06/13/17 20:15 Dose: 0.5 mg Cephalexin Monohydrate (Keflex) 500 mg PO Q6 BRAYAN PRN Reason: Protocol Last Admin: 06/14/17 00:16 Dose: 500 mg Colchicine (Colocrys) 0.6 mg PO DAILY BRAYAN PRN Reason: Protocol Last Admin: 06/13/17 10:33 Dose: 0.6 mg Doxycycline Hyclate (Doryx) 100 mg PO Q12 BRAYAN PRN Reason: Protocol Last Admin: 06/13/17 21:45 Dose: 100 mg Enoxaparin Sodium (Lovenox) 30 mg SC DAILY BRAYAN PRN Reason: Protocol Last Admin: 06/13/17 10:33 Dose: 30 mg Glipizide (Glucotrol) 10 mg PO 0700,1700 [facility] Insulin Human Regular (Humulin R Med) 0 units SC ACHS BRAYAN PRN Reason: Protocol Last Admin: 06/13/17 22:11 Dose: 2 units Insulin Lispro Protam/Lispro Human (Humalog Mix 75/25) 10 units SC ACBD BRAYAN PRN Reason: Protocol Last Admin: 06/13/17 06:29 Dose: Not Given Montelukast Sodium (Singulair) 10 mg PO HS BRAYAN PRN Reason: Protocol Last Admin: 06/13/17 21:46 Dose: 10 mg Pantoprazole Sodium (Protonix Ec Tab) 40 mg PO 0600 [facility] Last Admin: 06/13/17 05:51 Dose: 40 mg Roflumilast (Daliresp) 500 mcg PO DAILY BRAYAN PRN Reason: Protocol Last Admin: 06/13/17 10:33 Dose: 500 mcg Sitagliptin Phosphate (Januvia) 50 mg PO DAILY [facility] PRN Reason: Protocol Last Admin: 06/13/17 10:33 Dose: 50 mg - Labs Labs: 06/10/17 06:30 06/10/17 06:30
[2017-06-14] MEDS: Pantoprazole 40 mg EC Tab PO SCH (05:57)
[2017-06-14] MEDS: Arformoterol 15 mcg/2 ml Inh Sol IH SCH ×2 (07:34→20:08)
[2017-06-14] MEDS: Budesonide 0.5 mg/2 ml Inhal Susp UD IH SCH ×2 (07:35→20:09)
[2017-06-14] MEDS: Insulin Lispro (humaLOG) MIX 75/25(10 ml) SC SCH ×4 (08:13→17:56)
[2017-06-14] MEDS: Insulin Reg-MEDIUM-Coverage SC SCH ×3 (08:19→17:55)
[2017-06-14] MEDS: Enoxaparin 30 mg Syringe SC SCH (11:47)
[2017-06-14] MEDS: Acetylcysteine 20% Inhal Soln (4ml) IH SCH (20:08)
--- NOTE | 2017-06-14 22:06 | PN ---
SUBJECTIVE: The patient is 71 years old, seen and examined, sitting in chair, seems to be comfortable. Finished eating the lunch, finished all. No nausea or vomiting. No diarrhea. Complains of pain in the right shoulder . PHYSICAL EXAMINATION VITAL SIGNS: He is afebrile. Pulse 79, respirations 20, blood pressure 119/67. LUNGS: Bilateral fair air flow. No rhonchi or crackles. HEART: S1 and S2 audible. ABDOMEN: Soft. Nontender. No rebound. No guarding. NEUROLOGIC: The patient is communicative and ambulatory with therapist. ASSESSMENT: 1. Status post fall. 2. Right humerus fracture, status post open reduction and internal fixation. 3. Carcinoma of the lung. 3. Hypertension. 4. Insulin-dependent diabetes. PLAN: The patient is currently stable, receiving his medications, doing well. Blood sugar is being monitored. Continue physical therapy. We will follow the patient. Jose Angel Hull MD
[2017-06-15] MEDS: Insulin Reg-MEDIUM-Coverage SC SCH ×5 (00:25→21:45)
[2017-06-15] MEDS: Pantoprazole 40 mg EC Tab PO SCH (05:29)
[2017-06-15] MEDS: Insulin Lispro (humaLOG) MIX 75/25(10 ml) SC SCH (06:38)
[2017-06-15] MEDS: Acetylcysteine 20% Inhal Soln (4ml) IH SCH (07:14)
[2017-06-15] MEDS: Arformoterol 15 mcg/2 ml Inh Sol IH SCH ×2 (07:15→19:58)
[2017-06-15] MEDS: Budesonide 0.5 mg/2 ml Inhal Susp UD IH SCH ×2 (07:15→19:58)
[2017-06-15] MEDS: Enoxaparin 30 mg Syringe SC SCH (10:26)
--- NOTE | 2017-06-15 16:01 | PN ---
DATE: SUBJECTIVE: The patient is a 71-year-old, seen and examined, ambulating well. Eating and tolerating. No nausea, vomiting. No diarrhea. PHYSICAL EXAMINATION VITAL SIGNS: He is afebrile, pulse 80, respirations 20, and blood pressure 122/66. LUNGS: Bilateral fair air flow. No rhonchi or crackles. HEART: S1 and S2 audible. ABDOMEN: Soft, nontender. No rebound. No guarding. NEUROLOGIC: The patient is awake and alert, communicative, ambulatory. ASSESSMENT AND PLAN: 1. Status post fall. 2. . 3. Status post open reduction and internal fixation. 4. Non-insulin dependent diabetes. 5. Carcinoma of lung. 6. Chronic obstructive pulmonary disease. PLAN: We will continue the patient on current medical treatment. Discontinue Mucomyst. Continue on Brovana, colchicine. Discontinue Daliresp. Discontinue doxycycline. Monitor his blood sugar closely. Continue physical therapy. We will follow up the patient in a.m. Jose Angel Hull MD
[2017-06-16] MEDS: Insulin Reg-MEDIUM-Coverage SC SCH ×4 (06:34→22:01)
[2017-06-16] MEDS: Insulin Lispro (humaLOG) MIX 75/25(10 ml) SC SCH ×2 (06:35→17:30)
[2017-06-16] MEDS: Arformoterol 15 mcg/2 ml Inh Sol IH SCH ×2 (07:50→20:21)
[2017-06-16] MEDS: Budesonide 0.5 mg/2 ml Inhal Susp UD IH SCH ×2 (07:50→20:21)
[2017-06-16] MEDS: Enoxaparin 30 mg Syringe SC SCH (10:08)
[2017-06-16 16:45] VITALS: RESP 19
--- NOTE | 2017-06-17 00:13 | CP.PCM.PN ---
Subjective - Date & Time of Evaluation Date of Evaluation: 06/14/17 Time of Evaluation: 10:00 - Subjective Subjective: SUBJECTIVE : Mr. Chepe Amaro is a 71-year-old male with right-sided lung cancer. He is currently on single agent gemcitabine. His last chemotherapy was more than a month ago. He went to [place] and fell there. He had right humerus fracture, underwent repair, Pain controlled with current meds. he is participating in PT . PAST MEDICAL HISTORY: 1. Lung cancer, right sided. 2. COPD. 3. Non-insulin dependent diabetes. 4. Hypertension. 5. Hyperlipidemia. 6. History of gastritis. ALLERGIES: NO KNOWN DRUG ALLERGIES. PAST SURGICAL HISTORY: Lung biopsy. CURRENT MEDICATIONS: Januvia,, Pravachol, glipizide, iron, and colchicine daily. SOCIAL HISTORY: Lives with his daughter. PERSONAL HISTORY: He is a smoker. No history of drug abuse. PHYSICAL EXAMINATION GENERAL: Alert, awake and oriented. VITAL SIGNS: reviewed. CHEST: Air entry present and equal and bilaterally. No added sounds. CARDIOVASCULAR: S1 and S2 normal. No murmur. No gallop. ABDOMEN: Soft and nontender. No hepatosplenomegaly. EXTREMITIES: No edema. RADIO PERFORMER : alert, oriented, no cranial nerves intact. LABORATORY DATA: reviewed. ASSESSMENT AND PLAN: 1. Right humerus fracture. 2. Diabetes mellitus. 3. Right-sided lung cancer. 4. Hypertension. 5. Hyperlipidemia. PLAN: pain controlled with current meds. H/hct stable. ambulating with support. Thank you Dr. Hull for allowing us to participate in Mr. Amaro' care. Estrella Lucio MD Objective - Vital Signs/Intake and Output Vital Signs (last 24 hours): Temp Pulse Resp BP Pulse Ox 97.4 F L 86 19 109/66 98 06/16/17 16:00 06/16/17 16:00 06/16/17 16:00 06/16/17 16:00 06/16/17 16:00 - Medications Medications: Current Medications Acetaminophen (Tylenol 325mg Tab) 650 mg PO Q4H PRN; Protocol PRN Reason: Fever >100.4 F Last Admin: 06/13/17 12:53 Dose: 650 mg Arformoterol Tartrate (Brovana) 15 mcg IH [id number] BRAYAN PRN Reason: Protocol Last Admin: 06/16/17 20:21 Dose: 15 mcg Atorvastatin Calcium (Lipitor) 10 mg PO 1700 BRAYAN PRN Reason: Protocol Last Admin: 06/16/17 17:00 Dose: 10 mg Budesonide (Pulmicort Respules) 0.5 mg IH [id number] BRAYAN PRN Reason: Protocol Last Admin: 06/16/17 20:21 Dose: 0.5 mg Colchicine (Colocrys) 0.6 mg PO DAILY BRAYAN PRN Reason: Protocol Last Admin: 06/16/17 10:08 Dose: 0.6 mg Enoxaparin Sodium (Lovenox) 30 mg SC 0600 BRAYAN PRN Reason: Protocol Glipizide (Glucotrol) 10 mg PO 0700,1700 [facility] Last Admin: 06/16/17 17:00 Dose: 10 mg Insulin Human Regular (Humulin R Med) 0 units SC ACHS BRAYAN PRN Reason: Protocol Last Admin: 06/16/17 22:01 Dose: Not Given Insulin Lispro Protam/Lispro Human (Humalog Mix 75/25) 10 units SC ACBD BRAYAN PRN Reason: Protocol Last Admin: 06/16/17 17:30 Dose: 10 unit Sitagliptin Phosphate (Januvia) 50 mg PO DAILY [facility] PRN Reason: Protocol Last Admin: 06/16/17 10:08 Dose: 50 mg - Labs Labs: 06/10/17 06:30 06/10/17 06:30
--- NOTE | 2017-06-17 00:19 | CP.PCM.PN ---
Subjective - Date & Time of Evaluation Date of Evaluation: 06/15/17 Time of Evaluation: 10:00 - Subjective Subjective: Comfortable in bed. Pain right shoulder controlled with current meds. apatite good. No nausea, no vomiting. Objective - Vital Signs/Intake and Output Vital Signs (last 24 hours): Temp Pulse Resp BP Pulse Ox 97.4 F L 86 19 109/66 98 06/16/17 16:00 06/16/17 16:00 06/16/17 16:00 06/16/17 16:00 06/16/17 16:00 - Medications Medications: Current Medications Acetaminophen (Tylenol 325mg Tab) 650 mg PO Q4H PRN; Protocol PRN Reason: Fever >100.4 F Last Admin: 06/13/17 12:53 Dose: 650 mg Arformoterol Tartrate (Brovana) 15 mcg IH [id number] BRAYAN PRN Reason: Protocol Last Admin: 06/16/17 20:21 Dose: 15 mcg Atorvastatin Calcium (Lipitor) 10 mg PO 1700 [facility]RAYAN PRN Reason: Protocol Last Admin: 06/16/17 17:00 Dose: 10 mg Budesonide (Pulmicort Respules) 0.5 mg IH [id number] BRAYAN PRN Reason: Protocol Last Admin: 06/16/17 20:21 Dose: 0.5 mg Colchicine (Colocrys) 0.6 mg PO DAILY BRAYAN PRN Reason: Protocol Last Admin: 06/16/17 10:08 Dose: 0.6 mg Enoxaparin Sodium (Lovenox) 30 mg SC 0600 BRAYAN PRN Reason: Protocol Glipizide (Glucotrol) 10 mg PO 0700,1700 [facility] Last Admin: 06/16/17 17:00 Dose: 10 mg Insulin Human Regular (Humulin R Med) 0 units SC ACHS BRAYAN PRN Reason: Protocol Last Admin: 06/16/17 22:01 Dose: Not Given Insulin Lispro Protam/Lispro Human (Humalog Mix 75/25) 10 units SC ACBD BRAYAN PRN Reason: Protocol Last Admin: 06/16/17 17:30 Dose: 10 unit Sitagliptin Phosphate (Januvia) 50 mg PO DAILY BRAYAN PRN Reason: Protocol Last Admin: 06/16/17 10:08 Dose: 50 mg - Labs Labs: 06/10/17 06:30 06/10/17 06:30 - Head Exam Head Exam: ATRAUMATIC, NORMAL INSPECTION, NORMOCEPHALIC - Eye Exam Eye Exam: absent: Conjunctival injection, EOMI, Normal appearance, Nystagmus, Periorbital swelling, Periorbital tenderness, PERRL, Scleral icterus - ENT Exam ENT Exam: absent: Mucous Membranes Dry, Mucous Membranes Moist, Normal Exam, Normal External Ear Exam, Normal Oropharynx, TM's Normal Bilaterally - Neck Exam Neck Exam: absent: Full ROM, Lymphadenopathy, Meningismus, Normal Inspection, Tenderness, Thyromegaly - Respiratory Exam Respiratory Exam: Clear to Ausculation Bilateral, NORMAL BREATHING PATTERN - Cardiovascular Exam Cardiovascular Exam: REGULAR RHYTHM, +S1, +S2 - GI/Abdominal Exam GI & Abdominal Exam: absent: Bruit, Distended, Firm, Guarding, Rigid, Soft, Tenderness, Diminished Bowel Sounds, Hernia, Hyperactive Bowel Sounds, Hypoactive Bowel Sounds, Normal Bowel Sounds, Organomegaly, Pulsatile Mass, Rebound, Mass - Extremities Exam Extremities Exam: Normal Inspection - Back Exam Back Exam: NORMAL INSPECTION - Neurological Exam Neurological Exam: Alert, Normal Gait, Oriented x3 - Psychiatric Exam Psychiatric exam: Normal Affect - Skin Skin Exam: Normal Color, Warm Assessment and Plan - Assessment and Plan (Free Text) Assessment: 1. Lung cancer, right upper lobe : on single agent gemcitabine. On hold for past 1 month. resume in 3-4 weeks. 2. Anemia : Hb/hct stable. 3. Right arm pain : controlled with current meds. 4. PT : walks with support. Thank you Dr. Hull for allowing us to participate in his care.
--- NOTE | 2017-06-17 05:23 | DS ---
HISTORY OF PRESENT ILLNESS: The patient is a 71-year-old, seen and examined, lying in bed, seems to be comfortable. Eating and tolerating. PHYSICAL EXAMINATION: VITAL SIGNS: He is afebrile, pulse of 79, respiration 20, and blood pressure 125/63. LUNGS: Bilateral fair airflow. No rhonchi or crackles. HEART: S1 and S2, audible. ABDOMEN: Soft and nontender. No rebound. No guarding. EXTREMITIES: His right arm is in the sling. LABORATORY DATA: Blood sugar is 157. ASSESSMENT: 1. Status post fall. 2. Right humerus fracture. 3. Status post open reduction and internal fixation. 4. Non-insulin dependent diabetes. 5. Hyperlipidemia. 6. Cancer of lung, currently on chemotherapy. PLAN: The patient is clinically stable. He is being discharge home tomorrow and he will get his physical therapy as outpatient and he will follow with Dr. Lucio for treatment of lung cancer. Jose Angel Hull MD
[2017-06-17] MEDS ORDERED: Enoxaparin 30 mg Syringe SC SCH (06:00)
[2017-06-17] MEDS: Insulin Lispro (humaLOG) MIX 75/25(10 ml) SC SCH (06:32)
[2017-06-17] MEDS: Insulin Reg-MEDIUM-Coverage SC SCH ×2 (06:33→12:00)
[2017-06-17 16:53] VITALS: BP 113/61; PULSE 89; TEMP 98.4; O2SAT 99
[2017-06-17] MEDS: Arformoterol 15 mcg/2 ml Inh Sol IH SCH (16:53)
[2017-06-17] MEDS: Budesonide 0.5 mg/2 ml Inhal Susp UD IH SCH (16:53)
== END 2017-06-17 17:03 | disposition home or self-care (01) | DRG 560 ==
LOC: TRCU 16:05
PROVIDERS: ADMIT Internal Medicine; ATTEND Internal Medicine
PROC: F07Z9ZZ Gait Training/Functional Ambulation Treatment (ICD-10-PCS; principal; 2017-06-10)
PROC: 3E0F7GC Introduction of Other Therapeutic Substance into Respiratory Tract, Via Natural or Artificial Opening (ICD-10-PCS; 2017-06-10)
PROC: F08Z4ZZ Home Management Treatment (ICD-10-PCS; 2017-06-11)
DX: S42.291D Other displaced fracture of upper end of right humerus, subsequent encounter for fracture with routine healing (principal); Z98.890 Other specified postprocedural states; C34.11 Malignant neoplasm of upper lobe, right bronchus or lung; J44.9 Chronic obstructive pulmonary disease, unspecified; E11.9 Type 2 diabetes mellitus without complications; D64.9 Anemia, unspecified; I10 Essential (primary) hypertension; E78.5 Hyperlipidemia, unspecified; K29.70 Gastritis, unspecified, without bleeding; F17.210 Nicotine dependence, cigarettes, uncomplicated; W19.XXXD Unspecified fall, subsequent encounter; Z79.84 Long term (current) use of oral hypoglycemic drugs; Z79.4 Long term (current) use of insulin

== ENCOUNTER 2017-11-16 12:37 | Inpatient (IN) | payer MEDICARE, BC ==
[2017-11-14 15:14] VITALS: BMI 18.0
[2017-11-16] MEDS ORDERED: Etomidate 40 MG/20 ML ML IV ONE (14:36)
[2017-11-16] MEDS ORDERED: Sodium Chloride 0.9% 1,000 ML IV SCH (15:30)
[2017-11-16 15:49] LABS: HEMOGLOBIN 11.1 g/dL (14.0-18.0); MEAN CELL VOLUME 87.5 fl (80.0-105.0); MEAN CORPUSCULAR HEMOGLOBIN 28.2 pg (25.0-35.0); MEAN CORPUSCULAR HGB CONC 32.3 g/dl (31.0-37.0); MEAN PLATELET VOLUME 9.2 fl (7.0-11.0); RBC 3.93 10^6/uL (3.5-6.1); RED CELL DISTRIBUTION WIDTH 17.5 % (11.5-14.5); WHITE BLOOD COUNT 10.9 10^3/ul (4.5-11.0)
--- NOTE | 2017-11-16 19:06 | CP.PCM.CON ---
History of Present Illness - History of Present Illness History of Present Illness: General surgery consult for Dr. Rivera Consulted for: sigmoid mass Patient is a 71M with PMH of lung cancer currently undergoing chemotherapy who came for a colonoscopy today. Patient was found to have a 3.5cm sessile polyp in his sigmoid colon which was biopsied. Dr. Rivera was consulted for possible resection. Patient states that he has abdominal pain after the colonoscopy but denies any current or history of nausea, vomiting, or melena but states that he had a small amount of blood after his multiple bowel movements from drinking the colonoscopy prep. Denies fevers, chills, chest pain, SOB, or any other symptoms. Review of Systems - Review of Systems All systems: reviewed and no additional remarkable complaints except (as per HPI ) Past Patient History - Infectious Disease Hx of Infectious Diseases: None - Past Medical History & Family History Past Medical History?: Yes - Past Social History Smoking Status: Light Smoker < 10 Cigarettes Daily Alcohol: Occasional Drugs: Denies - CARDIAC Hx Pacemaker: No - PULMONARY Hx Chronic Obstructive Pulmonary Disease (COPD): Yes - NEUROLOGICAL Hx Paralysis: No - HEENT Hx HEENT Problems: Yes Hx Cataracts: Yes Hx Glaucoma: Yes - RENAL Hx Chronic Kidney Disease: No - ENDOCRINE/METABOLIC Hx Diabetes Mellitus Type 2: Yes - HEMATOLOGICAL/ONCOLOGICAL Hx Blood Transfusions: Yes (2 UNITS PRBC IN 2017 AFTER CHEMO) Hx Blood Transfusion Reaction: No Hx Cancer: Yes (lung) - INTEGUMENTARY Hx Dermatological Problems: No - MUSCULOSKELETAL/RHEUMATOLOGICAL Hx Musculoskeletal Disorders: Yes (right knee pain) Hx Fractures: Yes (R humerus) - GASTROINTESTINAL Hx Gastrointestinal Disorders: No - GENITOURINARY/GYNECOLOGICAL Hx Genitourinary Disorders: No Hx Reproductive Disorders: No - PSYCHIATRIC Hx Emotional Abuse: No Hx Physical Abuse: No Hx Substance Use: No - SURGICAL HISTORY Hx Surgeries: Yes Hx Cholecystectomy: Yes - ANESTHESIA Hx Anesthesia Reactions: No Hx Malignant Hyperthermia: No Meds Allergies/Adverse Reactions: Allergies Allergy/AdvReac Type Severity Reaction Status Date / Time No Known Allergies Allergy Verified 11/16/17 13:55 - Medications Medications: Current Medications Albuterol/Ipratropium (Duoneb 3 Mg/0.5 Mg (3 Ml) Ud) 3 ml IH [id number] BRAYAN Physical Exam - Constitutional Appears: Well, Non-toxic, No Acute Distress - Head Exam Head Exam: ATRAUMATIC, NORMOCEPHALIC - Eye Exam Eye Exam: EOMI. absent: Conjunctival injection, Scleral icterus - ENT Exam ENT Exam: Mucous Membranes Moist, Normal Oropharynx - Neck Exam Additional comments: portacath in place in the right superior chest - Respiratory Exam Respiratory Exam: NORMAL BREATHING PATTERN. absent: Accessory Muscle Use, Respiratory Distress - Cardiovascular Exam Cardiovascular Exam: RRR - GI/Abdominal Exam GI & Abdominal Exam: Soft. absent: Distended, Tenderness - Rectal Exam Rectal Exam: NORMAL INSPECTION. absent: Bloody Stool, Fecal Impaction Additional comments: no masses palpated, normal prostate - Extremities Exam Extremities exam: Positive for: pedal pulses present. Negative for: calf tenderness, pedal edema - Neurological Exam Neurological exam: Alert, Oriented x3 - Psychiatric Exam Psychiatric exam: Normal Affect, Normal Mood - Skin Skin Exam: Dry, Intact, Normal Color, Warm Results - Vital Signs Recent Vital Signs: Last Vital Signs Temp 98 F 11/16/17 17:48 Pulse 75 11/16/17 17:48 Resp 18 11/16/17 17:48 BP 110/58 L 11/16/17 17:48 Pulse Ox 95 11/16/17 17:48 - Labs Result Diagrams: 11/16/17 15:45 Labs: Laboratory Results - last 24 hr 11/16/17 15:45 WBC 10.9 D RBC 3.93 Hgb 11.1 L D Hct 34.4 L MCV 87.5 MCH 28.2 MCHC 32.3 RDW 17.5 H Plt Count 307 MPV 9.2 Assessment & Plan - Assessment and Plan (Free Text) Assessment: 71M with sigmoid polyp concerning for neoplasm Plan: -F/U biopsy results -CLD per GI recs -F/U further GI recommendations -F/U oncology recommendations -Further surgical planning pending pathology results--possible surgical resection next week -trend CBC -PRN pain and nausea medication -Thank you for this interesting consult Seen and examined with DR. Rivera, Further recs per him Cecile Dash, PGY2
[2017-11-16] MEDS: Sodium Chloride 0.45% 1,000 ML IV SCH (20:02)
[2017-11-16 21:02] LABS: CALCIUM 9.9 mg/dL (8.4-10.5)
[2017-11-16] MEDS ORDERED: Influenza Vaccine 60 mcg/0.5 mL SYR (4YR UP) IM ONE (22:56)
[2017-11-16] MEDS ORDERED: Pneumococcal 23-Valent Vaccine IM ONE (22:56)
[2017-11-17] MEDS: Albuterol-Ipratrop 3 mg / 0.5 (3 ml) UD IH SCH ×4 (03:50→21:00)
[2017-11-17 06:49] LABS: BASO # 0.06 K/mm3 (0.0-2.0); BASO % 0.9 % (0.0-3.0); EOS # 0.1 (0.0-0.7); EOS % 1.8 % (1.5-5.0); GRAN # 4.51 (1.4-6.5); GRAN % 68.8 % (50.0-68.0); HEMOGLOBIN 9.6 g/dL (14.0-18.0); LYMPH # 1.2 (1.2-3.4); LYMPH % 17.7 % (22.0-35.0); MEAN CORPUSCULAR HEMOGLOBIN 27.4 pg (25.0-35.0); MEAN CORPUSCULAR HGB CONC 31.8 g/dl (31.0-37.0); MEAN PLATELET VOLUME 9.2 fl (7.0-11.0); MONO # 0.7 (0.1-0.6); MONO % 10.8 % (1.0-6.0); RBC 3.51 10^6/uL (3.5-6.1); RED CELL DISTRIBUTION WIDTH 17.4 % (11.5-14.5); WHITE BLOOD COUNT 6.6 10^3/ul (4.5-11.0)
[2017-11-17 07:03] LABS: INR 1.15 (0.93-1.08); PROTHROMBIN TIME 13.3 SECONDS (9.4-12.5)
[2017-11-17 07:19] LABS: CALCIUM 9.7 mg/dL (8.4-10.5)
[2017-11-17 07:20] LABS: ALBUMIN 3.5 g/dL (3.0-4.8)
[2017-11-17 07:21] LABS: ALB/GLOB RATIO 1.1 (1.1-1.8)
[2017-11-17] MEDS ORDERED: Iohexol 240 (50 ml) ONE (08:46)
--- NOTE | 2017-11-17 10:29 | CP.PCM.PN ---
Subjective - Date & Time of Evaluation Date of Evaluation: 11/17/17 Time of Evaluation: 07:25 - Subjective Subjective: Surgery Progress note. Dr. Rivera Pt seen and examined at bedside. No acute events overnight. No N/V/D. Tolerating clears C/o right 2nd toe pain. Denies trauma. No CP/SOB. No F/C. Objective - Vital Signs/Intake and Output Vital Signs (last 24 hours): Temp Pulse Resp BP Pulse Ox 99.9 F H 82 20 121/66 94 L 11/17/17 00:00 11/17/17 00:00 11/17/17 00:00 11/17/17 00:00 11/17/17 00:00 Intake and Output: 11/17/17 11/17/17 06:59 18:59 Intake Total 1480 Output Total 450 Balance 1030 - Medications Medications: Current Medications Albuterol/Ipratropium (Duoneb 3 Mg/0.5 Mg (3 Ml) Ud) 3 ml IH [id number] [facility] Last Admin: 11/17/17 08:35 Dose: 3 ml Sodium Chloride (Sodium Chloride 0.45%) 1,000 mls @ 60 mls/hr IV .[id number] BRAYAN Last Admin: 11/16/17 20:02 Dose: 60 mls/hr - Labs Labs: 11/17/17 06:30 11/17/17 06:30 PT 13.3 SECONDS (9.4-12.5) H 11/17/17 06:30 INR 1.15 (0.93-1.08) H 11/17/17 06:30 - Constitutional Appears: Well, Non-toxic, No Acute Distress - Head Exam Head Exam: ATRAUMATIC, NORMAL INSPECTION, NORMOCEPHALIC - Eye Exam Eye Exam: EOMI, Normal appearance - ENT Exam ENT Exam: Mucous Membranes Moist - Respiratory Exam Respiratory Exam: NORMAL BREATHING PATTERN. absent: Accessory Muscle Use, Respiratory Distress - GI/Abdominal Exam GI & Abdominal Exam: Soft. absent: Distended, Firm, Guarding, Rigid, Tenderness , Rebound - Extremities Exam Extremities Exam: Normal Inspection. absent: Calf Tenderness Additional comments: Right 2nd toe: no apparent deformities. Tenderness to palpation. Dry skin noted. No erythema, no induration. - Neurological Exam Neurological Exam: Alert, Awake, Oriented x3 - Psychiatric Exam Psychiatric exam: Normal Affect, Normal Mood - Skin Skin Exam: Dry, Intact, Warm Assessment and Plan - Assessment and Plan (Free Text) Assessment: 71yo M with sigmoid polyp, s/p biopsy by GI on 11/16/17. Also c/o right toe pain today. Plan: - f/u biopsy results - Diet recs as per GI - f/u Heme/Onc recs - F/u Foot Xray - Possible surgical resection next week pending path results Further recs as per Dr. Miguel Baum PGY1 surgery pager: [phone]
--- NOTE | 2017-11-17 10:58 | RAD ---
HISTORY: COMPARISON: 06/04/2017. TECHNIQUE: Chest PA and lateral FINDINGS: The right MediPort terminates at the cavoatrial junction. LINES AND TUBES: None. LUNG AND PLEURA: The lungs are well inflated. There is persistent dense consolidation in the right upper lobe. The left lung is clear. There is a small right pleural effusion. The left lung is clear. HEART AND MEDIASTINUM: The heart is not enlarged. The hilar and mediastinal contours are within normal limits. SKELETAL STRUCTURES: Status post ORIF right proximal humeral fracture. VISUALIZED UPPER ABDOMEN: Normal. OTHER FINDINGS: None. IMPRESSION: Persistent right upper lobe consolidation and small pleural effusion. Clear left lung.
--- NOTE | 2017-11-17 11:09 | RAD ---
PROCEDURE: Radiographs of the right 2nd digit. TECHNIQUE:: AP radiograph of the right foot, with oblique and lateral view of the right 2nd digit. COMPARISON: None. FINDINGS: BONES: There is no acute displaced fracture or bone destruction. Bone alignment is normal. There is diffuse bone demineralization. 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 The remaining joint spaces are preserved. SOFT TISSUES: Normal. OTHER FINDINGS: None. IMPRESSION: No acute fracture or dislocation.
[2017-11-17] MEDS: PrednisoLONE 1% Opht Susp(5 ml) OU SCH ×2 (12:55→17:13)
--- NOTE | 2017-11-17 14:04 | CT ---
PROCEDURE: CT Abdomen and Pelvis with contrast HISTORY: Sigmoid mass COMPARISON: 12/25/2016. TECHNIQUE: CT scan of the abdomen and pelvis was performed without administration of intravenous contrast. Oral contrast was administered. Coronal and sagittal reformatted images were obtained. Radiation dose: Total exam DLP = 194.86 mGy-cm. This CT exam was performed using one or more of the following dose reduction techniques: Automated exposure control, adjustment of the mA and/or kV according to patient size, and/or use of iterative reconstruction technique. FINDINGS: LOWER THORAX: There is subsegmental atelectasis in the right middle lobe, lower lobe and dependent atelectasis in the left lung base. LIVER: Normal in size. No gross lesion or ductal dilatation. GALLBLADDER AND BILE DUCTS: There are no calcified gallstones. PANCREAS: Normal in size. No gross lesion or ductal dilatation. SPLEEN: Normal in size. ADRENALS: No discrete nodule. KIDNEYS AND URETERS: Normal in size without hydronephrosis or nephrolithiasis. VASCULATURE: Advanced atherosclerotic aortoiliac calcifications. No aortic aneurysm. BOWEL: The small bowel loops are normal in caliber. There is a 3.1 x 2.7 x 2.9 cm polypoid soft tissue mass in the distal sigmoid colon. There is mild sigmoid diverticulosis without CT evidence for acute diverticulitis. No bowel obstruction. APPENDIX: Normal appendix. PERITONEUM: No free fluid. No free air. LYMPH NODES: No enlarged lymph nodes. BLADDER: Well distended and normal in appearance. REPRODUCTIVE: The prostate gland is normal in size. BONES: Diffuse bone demineralization and old superior endplate compression fracture deformities in the L2 and L3 vertebral bodies. Multilevel degenerative disc disease. OTHER FINDINGS: None. IMPRESSION: 1. 3.1 x 2.7 x 2.9 cm polypoid soft tissue mass in the distal sigmoid colon. No evidence of bowel obstruction. 2. Sigmoid diverticulosis without CT evidence for acute diverticulitis.
[2017-11-17] MEDS: FLUOROMETHOLONE OU SCH ×2 (14:55→17:15)
[2017-11-17] MEDS: Insulin Lispro (humaLOG) MEDIUM Coverage SC SCH ×2 (17:12→22:20)
--- NOTE | 2017-11-17 18:27 | CARD ---
APPROVED REPORT EXAM: Two-dimensional and M-mode echocardiogram with Doppler and color Doppler. INDICATION Pre-Op 2D DIMENSIONS Left Atrium (2D)4.0 (1.6-4.0cm)IVSd1.3 (0.7-1.1cm) LVDd4.0 (3.9-5.9cm)PWd1.3 (0.7-1.1cm) LVDs3.1 (2.5-4.0cm)FS (%) 21.6 % LVEF (%)44.3 (>50%) M-Mode DIMENSIONS Aortic Root3.00 (2.2-3.7cm) Aortic Valve AoV Peak Vhhwnmrr37.7cm/Freya Peak GR.4mmHg Mitral Valve MV E Bmxypfuy86.6cm/sMV A Zunveusb72.9cm/sE/A ratio0.8 TDI E/Lateral E'0.0E/Medial E'0.0 LEFT VENTRICLE The left ventricle is normal size. There is borderline concentric left ventricular hypertrophy. The systolic function is mildly impaired. There is global hypokinesis of the left ventricle. Transmitral Doppler flow pattern is Grade I-abnormal relaxation pattern. RIGHT VENTRICLE The right ventricle is normal size. There is normal right ventricular wall thickness. The right ventricular systolic function is normal. ATRIA The left atrium size is normal. The right atrium size is normal. There is a catheter in the right atrium AORTIC VALVE The aortic valve is not well visualized. No aortic regurgitation is present. There is no aortic valvular stenosis. MITRAL VALVE The mitral valve is not well visualized. There is no mitral valve regurgitation noted. There is no mitral valve stenosis. TRICUSPID VALVE The tricuspid valve is normal in structure. There is no tricuspid valve regurgitation noted. GREAT VESSELS The aortic root is normal in size. The IVC is normal in size and collapses >50% with inspiration. PERICARDIAL EFFUSION There is a trace circumferential pericardial effusion. <Conclusion> The left ventricle is normal size. There is borderline concentric left ventricular hypertrophy. The systolic function is mildly impaired. There is global hypokinesis of the left ventricle. Transmitral Doppler flow pattern is Grade I-abnormal relaxation pattern.
--- NOTE | 2017-11-17 18:57 | CARD ---
APPROVED REPORT EKG Measurement Heart [id number] <Conclusion> Normal sinus rhythm with sinus arrhythmia Normal ECG
[2017-11-17] MEDS: Latanoprost 2.5 ml Opht Soln OU SCH (22:21)
--- NOTE | 2017-11-17 23:49 | HP ---
HISTORY OF PRESENT ILLNESS: The patient is a 71-year-old who had chronic anemia, was being treated for lung cancer and was getting chemotherapy intermittently as recommended by Dr. Lucio. He has been given iron infusion and was scheduled to have a colonoscopy done as outpatient that was done yesterday and was found to have obstructing lesion in the colon, so being admitted for further evaluation. The patient denies any active rectal bleeding, does have history of weight loss. PAST MEDICAL HISTORY: Significant for: 1. Ywp-niabcta-tmxheezqf diabetes. 2. Hypertension. 3. Hyperlipidemia. 4. CA of lung, on chemotherapy. 5. Recent fall, sustaining left humeral fracture, for which he had open reduction and internal fixation. ALLERGIES: HE IS NOT ALLERGIC TO ANY MEDICATION. MEDICATIONS AT HOME: He is on tramadol 50 mg twice a day, metformin 500 twice a day, Januvia 100 mg daily, prednisolone eye drop, pravastatin, glipizide, ferrous sulfate, and colchicine for his gout. SOCIAL HISTORY: He used to be a heavy smoker. He still smokes as he get the chance. He does admit drinking alcohol. REVIEW OF SYSTEMS: Generalized weakness and weight loss. PHYSICAL EXAMINATION: GENERAL: He is awake, alert, oriented, communicative. VITAL SIGNS: Temperature 99.9, pulse 82, respirations 20, blood pressure 110/66. LUNGS: Bilateral good airflow. Few soft crackle in upper lung region. HEART: S1 and S2 audible. ABDOMEN: Soft, nontender. No rebound, no guarding. NEUROLOGIC: He is awake and alert, able to communicate. EXTREMITIES: Bilateral leg, no edema. LABORATORY DATA: WBC 6.6, hemoglobin 9.6, hematocrit 30.2, platelets of 280. PT 13.3, INR 1.15. Chemistry: Sodium 135, potassium 4.8, chloride 104, CO2 of 22, BUN 28, creatinine 1.6, blood sugar of 123. His CEA is 5. His echocardiogram is pending. His foot x-ray, no fracture. ASSESSMENT: 1. Sessile lesion in sigmoid colon. 2. Cancer, lung. 3. Renal insufficiency. 4. Bav-krnpmba-vwjgchlny diabetes. 5. Chronic anemia. PLAN: We will follow up echocardiogram, monitor his blood sugar. The patient is going for CT of the abdomen and pelvis, get Cardiology evaluation for medical clearance. We will keep him on clear liquid. Once the patient is prepped, we will proceed for partial colectomy next week. Jose Angel Hull MD [facility] # [id number]
[2017-11-18] MEDS: Albuterol-Ipratrop 3 mg / 0.5 (3 ml) UD IH SCH ×5 (02:07→20:19)
--- NOTE | 2017-11-18 02:28 | CON ---
DATE OF EVALUATION: 11/17/2017 REASON FOR CONSULTATION: Colon mass, lung cancer. CONSULT REQUESTED BY: Jose Angel Hull MD HISTORY OF PRESENT ILLNESS: Mr. Amaro is a 71-year-old male, well-known to me. He was diagnosed with right upper lobe lung cancer, completed radiation to the lung, currently on maintenance chemotherapy with gemcitabine. He had last PET scan done in July, showed complete resolution of right upper lobe mass with low FDG activity in the pleural surface consistent with scarring. He has iron deficiency anemia, status post IV iron. Colonoscopy done yesterday, showed a rectosigmoid mass around 3 cm. A CAT scan of the abdomen and pelvis done today showed cecal mass around 3 cm. He denies any abdominal pain. No nausea, no vomiting, and no active bleeding. Having bowel movements, no signs of intestinal obstruction. PAST MEDICAL HISTORY: Diabetes mellitus type 2, hypertension, hyperlipidemia; lung cancer, non-small cell. ALLERGIES: NO KNOWN DRUG ALLERGIES. PAST SURGICAL HISTORY: Repair of left humeral fracture. HOME MEDICATIONS: Tramadol twice a day, metformin twice a day, Januvia 100 mg daily, prednisone eye drops, pravastatin and colchicine. SOCIAL HISTORY: A heavy smoker, continues to smoke. No history of alcohol abuse. REVIEW OF SYSTEMS: As per HPI. Rest of 12-point review of systems reviewed negative. PHYSICAL EXAMINATION GENERAL: Comfortable in bed, in no acute distress. VITAL SIGNS: Temperature 98.7, heart rate 80 per minute, blood pressure 132/70. HEENT: Pallor positive. NECK: No lymphadenopathy. CHEST: Air entry present and equal bilaterally. No added sounds. CARDIOVASCULAR: S1 and S2 normal. No murmur. No gallop. ABDOMEN: Soft, nontender. No hepatosplenomegaly. EXTREMITIES: No edema. CENTRAL NERVOUS SYSTEM: Alert and oriented x3. No focal sensory or motor deficits. LABORATORY DATA: White count 6.6, hemoglobin 9.6, hematocrit 30.2, platelets 280. Sodium 135, potassium 4.8, creatinine 1.6, bilirubin 0.7. Coags normal. ASSESSMENT: 1. New rectosigmoid mass. 2. Lung cancer. 3. Iron deficiency anemia. 4. Chronic obstructive pulmonary disease. 5. Diabetes mellitus type 2. PLAN: Surgery consultation by Dr. Rivera is requested, he needs resection of the rectosigmoid mass. He has a very good response to treatment for lung cancer. As per the last PET scan done in 07/2017,. He received radiation also. Iron deficiency anemia, he is on IV iron as an outpatient. We will give one dose of iron 200 mg. Hemoglobin is 9.6. He will need Cardiology clearance for surgery. Currently, on liquid and soft diet. Thank you Dr. Hull for allowing us to participate in Mr. Amaro' care. Estrella Lucio MD [facility]
[2017-11-18 07:04] LABS: BASO # 0.08 K/mm3 (0.0-2.0); BASO % 1.1 % (0.0-3.0); EOS # 0.1 (0.0-0.7); EOS % 1.5 % (1.5-5.0); GRAN # 5.12 (1.4-6.5); GRAN % 72.2 % (50.0-68.0); HEMOGLOBIN 9.7 g/dL (14.0-18.0); LYMPH # 0.9 (1.2-3.4); LYMPH % 13.2 % (22.0-35.0); MEAN CELL VOLUME 87.2 fl (80.0-105.0); MEAN CORPUSCULAR HEMOGLOBIN 28.2 pg (25.0-35.0); MEAN CORPUSCULAR HGB CONC 32.3 g/dl (31.0-37.0); MEAN PLATELET VOLUME 9.4 fl (7.0-11.0); MONO # 0.9 (0.1-0.6); RBC 3.44 10^6/uL (3.5-6.1); WHITE BLOOD COUNT 7.1 10^3/ul (4.5-11.0)
[2017-11-18] MEDS: Insulin Lispro (humaLOG) MEDIUM Coverage SC SCH ×4 (07:47→22:24)
[2017-11-18 08:51] LABS: ALB/GLOB RATIO 1.1 (1.1-1.8); ALBUMIN 3.4 g/dL (3.0-4.8); ALT/SGPT 22 U/L (7-56); AST/SGOT 23 U/L (17-59); BLOOD UREA NITROGEN 25 mg/dL (7-21); CALCIUM 9.4 mg/dL (8.4-10.5); GFR AFRICAN-AMERICAN > 60; GFR NON-AFRICAN AMERICAN 54
--- NOTE | 2017-11-18 10:14 | CP.PCM.PN ---
Subjective - Date & Time of Evaluation Date of Evaluation: 11/18/17 Time of Evaluation: 10:11 - Subjective Subjective: surgery: Dr. Rivera patient complains of right 2nd toe pain. States it feels like pins and needles. No other complaints. Objective - Vital Signs/Intake and Output Vital Signs (last 24 hours): Temp Pulse Resp BP Pulse Ox 98 F 71 18 121/67 99 11/18/17 08:23 11/18/17 08:23 11/18/17 08:23 11/18/17 08:23 11/18/17 08:23 Intake and Output: 11/18/17 11/18/17 06:59 18:59 Intake Total 1740 Output Total 1900 Balance -160 - Medications Medications: Current Medications Albuterol/Ipratropium (Duoneb 3 Mg/0.5 Mg (3 Ml) Ud) 3 ml IH [id number] [facility] Last Admin: 11/18/17 08:50 Dose: 3 ml Sodium Chloride (Sodium Chloride 0.45%) 1,000 mls @ 60 mls/hr IV .[id number] [facility] Last Admin: 11/16/17 20:02 Dose: 60 mls/hr Iron Sucrose 200 mg/ Sodium (Chloride) 110 mls @ 110 mls/hr IVPB ONCE ONE Stop: 11/18/17 10:59 Insulin Human Lispro (Humalog Med) 0 units SC ACHS [facility] PRN Reason: Protocol Last Admin: 11/18/17 07:47 Dose: Not Given Latanoprost (Xalatan Opht) 0 ml OU HS [facility] Last Admin: 11/17/17 22:21 Dose: 2.5 ml Fluorometholone [ Fluorometholone] ( Home Med) 1 drop OU TID [facility] Last Admin: 11/17/17 17:15 Dose: Not Given Prednisolone Acetate (Pred Forte 1% Opht Susp) 0 ml OU BID [facility] Last Admin: 11/17/17 17:13 Dose: 1 drop - Labs Labs: 11/18/17 06:40 11/18/17 06:40 PT 13.3 SECONDS (9.4-12.5) H 11/17/17 06:30 INR 1.15 (0.93-1.08) H 11/17/17 06:30 - Constitutional Appears: Non-toxic, No Acute Distress - Head Exam Head Exam: ATRAUMATIC, NORMOCEPHALIC - Eye Exam Eye Exam: EOMI, Normal appearance - ENT Exam ENT Exam: Mucous Membranes Moist - Respiratory Exam Respiratory Exam: NORMAL BREATHING PATTERN. absent: Respiratory Distress - Cardiovascular Exam Cardiovascular Exam: REGULAR RHYTHM. absent: Tachycardia - Extremities Exam Additional comments: anhydrosis of BL LE, DP pulses faint. LE warm to touch. reproduction of pain with light touch. No calf pain noted and compartments are soft. - Skin Skin Exam: Dry, Warm Assessment and Plan - Assessment and Plan (Free Text) Assessment: 71 y/o male w/ rectal mass s/p biopsy and RLE pain Plan: -await ABIs of LE -f/u pathology from biopsy -consider neurotin for pain of LE -cont diet -no acute surgical intervention, will plan for resection of rectal mass next week pending pathology -further recs per Dr. Miguel Watts PGY3
[2017-11-18] MEDS: PrednisoLONE 1% Opht Susp(5 ml) OU SCH ×2 (10:54→17:34)
[2017-11-18] MEDS: FLUOROMETHOLONE OU SCH ×3 (10:55→17:35)
[2017-11-18] MEDS: Latanoprost 2.5 ml Opht Soln OU SCH (22:24)
--- NOTE | 2017-11-18 22:42 | CON ---
DATE: 11/18/2017 CARDIOLOGY CONSULTATION Cardiology consultation (with Dr. Chavez) HISTORY OF PRESENT ILLNESS: The patient is a 71-year-old male who presents for possible surgery based on the pathologic results of the endoscopic biopsy of his colon. PAST MEDICAL HISTORY: Notable for history of lung CA. In addition, the patient suffers from diabetes mellitus and COPD. His risk factors also includes hypertension as well as hyperlipidemia. In preparation for his possible surgery, echocardiogram revealed a dilated cardiomyopathy. SOCIAL HISTORY: The patient still occasionally smokes. No alcohol abuse, however. REVIEW OF SYSTEMS: 14-point review of systems is reviewed in detail. No angina. No shortness of breath. Negative edema. No previous myocardial infarction. No other cardiac symptomatology noted. PHYSICAL EXAMINATION: VITAL SIGNS: Blood pressure 121/67, heart rate in the 70s. NECK: Negative JVD. LUNGS: Without rales, negative wheezing. HEART: Reveal S1, S2. EXTREMITIES: Without edema. LABORATORY DATA: EKG shows no acute changes. BUN and creatinine is 25 and 1.3, hemoglobin is 9.7. IMPRESSION: 1. Dilated cardiomyopathy. 2. History of lung cancer. 3. Diabetes mellitus. 4. Hypertension. 5. Hypercholesterolemia. 6. Awaiting biopsy results of his colonoscopy. Given these findings, the patient's etiology for his dilated cardiomyopathy is unknown. However, given his multiple cardiac risk factors, coronary artery disease would be high on the list. He is currently stable from a cardiac perspective. We will start beta blockers given his high probability for coronary artery disease. Awaiting for surgical decision of when to do surgery. In the morning, we will transfer the care back to Dr. Chavez. Jose Knight MD
--- NOTE | 2017-11-18 22:50 | PN ---
DATE: 11/18/2017 SUBJECTIVE: He is comfortable in bed, in no acute distress. He is on soft diet right now. Family is bringing other food and giving him to eat. He has currently two oranges on his plate, brought by the family member. In the morning, he was found to be eating muffin. Denies any shortness of breath. No chest pain. No abdominal pain. No bleeding from any site. REVIEW OF SYSTEMS: As per HPI. Rest of 12-point review of systems reviewed negative. PHYSICAL EXAMINATION: GENERAL: Comfortable in bed, in no acute distress. VITAL SIGNS: Temperature 98.7, heart rate 80 per minute, blood pressure 134/67, respiratory rate 18 per minute, oxygen saturation 100% on room air. HEENT: Normal. Pallor positive. CHEST: Air entry present and equal bilaterally. No added sound. CARDIOVASCULAR: S1 and S2 normal. No murmur. No gallop. ABDOMEN: Soft, nontender. No hepatosplenomegaly. EXTREMITIES: No edema. SPINE: Nontender. LABORATORY DATA: White count 7.1, hemoglobin 9.7, hematocrit 30, platelet count 255. Sodium 135, potassium 4.8, creatinine 1.3. ASSESSMENT: 1. Lung cancer, right upper lobe. 2. Rectosigmoid mass. 3. Iron deficiency anemia. 4. Chronic obstructive pulmonary disease. 5. Diabetes mellitus type 2. PLAN: He is currently on liquid diet in anticipation for surgery likely to be done on Sunday after clearance from Cardiology, on DuoNeb every 6 hours. He is currently on sliding scale insulin, beta-miguel 25 mg p.o. b.i.d. metoprolol, continue that. He is on gentle hydration at 60 mL an hour sodium chloride. We will monitor the blood counts and renal functions. Estrella Lucio MD
[2017-11-19] MEDS: Albuterol-Ipratrop 3 mg / 0.5 (3 ml) UD IH SCH ×4 (02:00→20:30)
[2017-11-19] MEDS: Sodium Chloride 0.45% 1,000 ML IV SCH (05:36)
[2017-11-19 06:22] LABS: BASO # 0.08 K/mm3 (0.0-2.0); BASO % 1.3 % (0.0-3.0); EOS # 0.1 (0.0-0.7); EOS % 2.1 % (1.5-5.0); GRAN # 4.33 (1.4-6.5); GRAN % 68.8 % (50.0-68.0); HEMOGLOBIN 9.8 g/dL (14.0-18.0); LYMPH # 0.9 (1.2-3.4); LYMPH % 14.1 % (22.0-35.0); MEAN CELL VOLUME 85.4 fl (80.0-105.0); MEAN CORPUSCULAR HEMOGLOBIN 27.6 pg (25.0-35.0); MEAN CORPUSCULAR HGB CONC 32.3 g/dl (31.0-37.0); MEAN PLATELET VOLUME 9.1 fl (7.0-11.0); MONO # 0.9 (0.1-0.6); MONO % 13.7 % (1.0-6.0); RBC 3.55 10^6/uL (3.5-6.1); RED CELL DISTRIBUTION WIDTH 16.7 % (11.5-14.5); WHITE BLOOD COUNT 6.3 10^3/ul (4.5-11.0)
[2017-11-19 06:55] LABS: BLOOD UREA NITROGEN 16 mg/dL (7-21); CALCIUM 9.5 mg/dL (8.4-10.5); GFR AFRICAN-AMERICAN > 60; GFR NON-AFRICAN AMERICAN > 60
[2017-11-19] MEDS: Insulin Lispro (humaLOG) MEDIUM Coverage SC SCH ×3 (08:02→17:11)
[2017-11-19] MEDS: PrednisoLONE 1% Opht Susp(5 ml) OU SCH ×2 (10:16→17:04)
[2017-11-19] MEDS: FLUOROMETHOLONE OU SCH ×3 (10:17→18:14)
--- NOTE | 2017-11-19 13:10 | CP.PCM.PN ---
Subjective - Date & Time of Evaluation Date of Evaluation: 11/19/17 Time of Evaluation: 13:07 - Subjective Subjective: General Surgery progress note: Dr. Rivera Patient seen and examined at bedside. Patient denies any complaints at this time including nausea vomiting diarrhea. He is tolerating his diet. Objective - Vital Signs/Intake and Output Vital Signs (last 24 hours): Temp Pulse Resp BP Pulse Ox 98.9 F 64 18 121/68 97 11/19/17 08:23 11/19/17 10:15 11/19/17 08:23 11/19/17 10:15 11/19/17 08:23 Intake and Output: 11/19/17 11/19/17 06:59 18:59 Intake Total 1200 Output Total 2024 Balance -825 - Medications Medications: Current Medications Albuterol/Ipratropium (Duoneb 3 Mg/0.5 Mg (3 Ml) Ud) 3 ml IH [id number] [facility] Last Admin: 11/19/17 07:38 Dose: 3 ml Gabapentin (Neurontin) 400 mg PO TID [facility] PRN Reason: Protocol Last Admin: 11/19/17 10:16 Dose: 400 mg Sodium Chloride (Sodium Chloride 0.45%) 1,000 mls @ 60 mls/hr IV .[id number] [facility] Last Admin: 11/19/17 05:36 Dose: 60 mls/hr Insulin Human Lispro (Humalog Med) 0 units SC ACHS [facility] PRN Reason: Protocol Last Admin: 11/19/17 11:52 Dose: Not Given Latanoprost (Xalatan Opht) 0 ml OU HS [facility] Last Admin: 11/18/17 22:24 Dose: 2.5 ml Metoprolol Tartrate (Lopressor) 25 mg PO BID [facility] Last Admin: 11/19/17 10:15 Dose: 25 mg Fluorometholone [ Fluorometholone] ( Home Med) 1 drop OU TID [facility] Last Admin: 11/19/17 10:17 Dose: Not Given Prednisolone Acetate (Pred Forte 1% Opht Susp) 0 ml OU BID [facility] Last Admin: 11/19/17 10:16 Dose: 1 drop - Labs Labs: 11/19/17 06:00 11/19/17 06:00 PT 13.3 SECONDS (9.4-12.5) H 11/17/17 06:30 INR 1.15 (0.93-1.08) H 11/17/17 06:30 Assessment and Plan - Assessment and Plan (Free Text) Assessment: 71 y/o male w/ rectal mass s/p biopsy and RLE pain, possibly 2/2 PVD Plan: -await ABIs of LE -f/u pathology from rectal mass biopsy -further surgical plans pending pathology results -started neurontin today -cont diet, CLD starting tomorrow in preparation for possible OR -discussed with Dr. Rivera, who agrees with above
--- NOTE | 2017-11-19 16:28 | PN ---
DATE: REASON FOR CONSULTATION AND FOLLOWUP: Preop evaluation for abdominal surgery, risk stratification. SUBJECTIVE: The patient denies any chest pain or shortness of breath, complains of right leg pain and abdominal pain. OBJECTIVE: GENERAL: Not in apparent distress. VITAL SIGNS: Temperature afebrile, heart rate 64, blood pressure 121/68. HEENT: PERRLA. Extraocular muscles intact. NECK: Supple. No carotid bruit or thyromegaly. CHEST: Clear to auscultation. HEART: S1, S2, regular. ABDOMEN: Soft. EXTREMITIES: Clubbing and cyanosis negative. LABORATORY DATA: Blood workup as follows: WBC 6.3, hemoglobin 9.8, hematocrit 30.3, platelet count 272. Chemistry show sodium 132, potassium 4.9, chloride 104, carbon dioxide 24, anion gap of 13. BUN 16, creatinine 1.1. IMPRESSION: Preoperative evaluation, risk stratification for abdominal surgery of partial obstruction of the small bowel, history of lung cancer, history of diabetes, chronic obstructive pulmonary disease. The patient is scheduled for abdominal surgery tomorrow. The patient had echocardiography done on 11/17/2017, that showed his mildly impaired calculated ejection fraction is 44%, no mitral regurgitation noted, no mitral stenosis, no tricuspid valve regurgitation noted. A 71-year-old male with past medical history of lung cancer, admitted for bowel obstruction requiring abdominal surgery to relieve the small bowel obstruction, history of chronic obstructive pulmonary disease, diabetes, hypertension, hyperlipidemia, mildly decreased left ventricular function, ejection fraction 44%. Left ventricular size reported normal, concentric left ventricular hypertrophy, mildly decreased left ventricular function, normal left ventricular size and function, normal mitral valve, normal tricuspid valve. In view of above, for risk stratification, patient is moderate to high risk for surgery. We will clear the surgery because bnvh-wq-ppmohdq ratio is in favor of having surgery because patient from the obstruction, history of lung cancer. No evidence of acute ischemia, no evidence of acute congestive heart failure or arrhythmia. We will clear him for the high risk procedure. Continue beta-miguel 25 p.o. b.i.d. We will monitor with you. Thank you Dr. Hull for providing us the opportunity in taking care of the patient, Chepe Amaro. We will follow with you. We will get lipid profile, TSH, hemoglobin A1c for tomorrow. Allan Solano MD [facility] # [id number]
--- NOTE | 2017-11-19 17:52 | US ---
PROCEDURE: Lower extremity STERLING exam HISTORY: Peripheral vascular disease with pain and claudication. Diabetes. Smoker. PHYSICIAN(S): Jose Piper MD. FINDINGS: The resting STERLING's are severely abnormal: Right, 0.45 and left, 0.57. The brachial systolic pressures are symmetric. The right high thigh PVR waveform is normal. The left high thigh PVR waveform is slightly decreased in amplitude compared to the right. Could represent left iliac occlusive disease. Severe gradients are noted across both thighs. The calf PVR waveforms are moderately blunted. This is consistent with bilateral SFA occlusive disease. The ankle and metatarsal waveforms are severely blunted and nearly flat. This is consistent with bilateral tibial disease. IMPRESSION: 1. Severely abnormal ABIs at rest. 2. Bilateral SFA occlusive disease. 3. Bilateral tibial occlusive disease. 4. Possible left iliac occlusive disease. 5. If clinically indicated, further evaluation with MRA with gadolinium runoff, CTA runoff, or conventional arteriogram can be considered.
--- NOTE | 2017-11-19 18:11 | PN ---
DATE: SUBJECTIVE: The patient is 71 years old, seen and examined, complained of foot pain, complained of some abdominal discomfort. No nausea, vomiting or diarrhea. OBJECTIVE: VITAL SIGNS: He is afebrile, pulse 64, respirations 18, blood pressure 121/68. LUNGS: Bilateral fair airflow. No rhonchi or crackle. HEART: S1 and S2 audible. ABDOMEN: Soft, nontender. No rebound, no guarding. NEUROLOGICAL: Patient is awake and alert, able to communicate. LABORATORY DATA: WBC 6.3, hemoglobin 9.8, hematocrit 30.3, platelets 272. Chemistry: Sodium 137, potassium 4.9, chloride 104, CO2 of 24, BUN 16, creatinine 1.1, blood sugar of 132. Had x-ray of chest done shows right upper lobe consolidation with small pleural effusion, but actually this is a CA lung. Echocardiogram shows left ventricle normal in size, but LVH, mild systolic function impairment, global hypokinesia of left ventricle. ASSESSMENT: 1. Descending colon mass. 2. Cancer of the lung, currently on chemotherapy. 3. Hxj-jslchrt-djezbpoes diabetes. 4. Hyperlipidemia. 5. Foot pain, rule out peripheral vascular disease. X-ray of the foot is negative. PLAN: Patient is going for Doppler study, I agree with that. We will monitor his blood sugar. He is on clear liquid diet. Awaiting Cardiology evaluation yet. The patient has been started on beta-miguel. Once we have arterial Doppler study done and get Cardiology eval, he is scheduled to be for surgery on Sunday or . Jose Angel Hull MD
[2017-11-19] MEDS: EYE OU SCH (18:14)
[2017-11-19] MEDS ORDERED: Albuterol-Ipratrop 3 mg / 0.5 (3 ml) UD IH STA (18:16)
[2017-11-19] MEDS: Latanoprost 2.5 ml Opht Soln OU SCH (21:47)
--- NOTE | 2017-11-20 01:12 | PN ---
DATE: 11/19/2017 SUBJECTIVE: This patient was seen and evaluated earlier. The patient is tolerating the diet. No complaints of any abdominal pain. PHYSICAL EXAMINATION: VITAL SIGNS: Temperature is 97.6, pulse 61, blood pressure 110/52, respirations 20, O2 saturations 99. HEENT: Atraumatic, anicteric. NECK: Supple. HEART: S1 and S2 heard. LUNGS: Bilateral air entry present. ABDOMEN: Soft. There is no tenderness. EXTREMITIES: No cyanosis or clubbing. LABORATORY DATA: Hemoglobin 9.8, hematocrit 30.3, WBC 6.3, platelets 272. Chemistries essentially unremarkable. CT scan of the abdomen and pelvis done earlier was reviewed. Again, there is a colonic mass in the distal sigmoid colon. IMPRESSION AND PLAN: This is a 71-year-old patient with a history of lung cancer, on chemo, non-insulin dependent diabetes mellitus, who was found to have a large colonic mass in the distal sigmoid colon at 20 cm level. It was initially at 10 cm, pushed up to 20 cm, suggestive of possible intussuscepting lesion. Multiple biopsies done. Pathology is still pending. Would recommend followup of the biopsy report. The patient is due to have surgery. Thank you very much for allowing us to participate in the care of the patient. Selene Louis MD
[2017-11-20] MEDS: Albuterol-Ipratrop 3 mg / 0.5 (3 ml) UD IH SCH ×4 (02:32→20:40)
[2017-11-20] MEDS ORDERED: Peg-Electrolyte Oral Soln 4L (Golytely) PO ONE ×2 (07:28→15:46)
--- NOTE | 2017-11-20 07:36 | CP.PCM.PN ---
Subjective - Date & Time of Evaluation Date of Evaluation: 11/20/17 Time of Evaluation: 07:33 - Subjective Subjective: Surgery Pt s&e. No acute events overnight. Pt denies Fever, chills, nausea, vomiting, diarrhea, chest pain, SOB. Tolerating diet. c/o LE pain Objective - Vital Signs/Intake and Output Vital Signs (last 24 hours): Temp Pulse Resp BP Pulse Ox 98.0 F 67 18 110/52 L 99 11/19/17 21:00 11/19/17 21:00 11/19/17 21:00 11/19/17 18:33 11/19/17 21:00 Intake and Output: 11/20/17 11/20/17 06:59 18:59 Intake Total 240 Output Total 1600 Balance -1360 - Medications Medications: Current Medications Albuterol/Ipratropium (Duoneb 3 Mg/0.5 Mg (3 Ml) Ud) 3 ml IH [id number] [facility] Last Admin: 11/20/17 02:32 Dose: Not Given Gabapentin (Neurontin) 400 mg PO TID [facility] PRN Reason: Protocol Last Admin: 11/19/17 17:04 Dose: 400 mg Sodium Chloride (Sodium Chloride 0.45%) 1,000 mls @ 60 mls/hr IV .[id number] [facility] Last Admin: 11/19/17 05:36 Dose: 60 mls/hr Insulin Human Lispro (Humalog Med) 0 units SC ACHS [facility] PRN Reason: Protocol Last Admin: 11/19/17 17:11 Dose: Not Given Latanoprost (Xalatan Opht) 0 ml OU HS [facility] Last Admin: 11/19/17 21:47 Dose: 2.5 ml Metoprolol Tartrate (Lopressor) 25 mg PO BID [facility] Last Admin: 11/19/17 17:03 Dose: 25 mg Fluorometholone [Fml (0.1%] Eye Drops) 1 drop OU TID [facility] Last Admin: 11/19/17 18:14 Dose: 1 drop Polyethylene Glycol/Electrolytes (Golytely) 2,000 ml PO ONCE ONE Stop: 11/21/17 07:27 Polyethylene Glycol/Electrolytes (Golytely) 2,000 ml PO ONCE ONE Stop: 11/20/17 07:29 Prednisolone Acetate (Pred Forte 1% Opht Susp) 0 ml OU BID [facility] Last Admin: 11/19/17 17:04 Dose: 1 drop - Labs Labs: 11/19/17 06:00 11/19/17 06:00 PT 13.3 SECONDS (9.4-12.5) H 11/17/17 06:30 INR 1.15 (0.93-1.08) H 11/17/17 06:30 - Constitutional Appears: No Acute Distress - Head Exam Head Exam: ATRAUMATIC, NORMAL INSPECTION, NORMOCEPHALIC - Eye Exam Eye Exam: EOMI, Normal appearance, PERRL Pupil Exam: NORMAL ACCOMODATION, PERRL - ENT Exam ENT Exam: Mucous Membranes Moist, Normal Exam - Neck Exam Neck Exam: Full ROM, Normal Inspection. absent: Lymphadenopathy - Respiratory Exam Respiratory Exam: Clear to Ausculation Bilateral, NORMAL BREATHING PATTERN - Cardiovascular Exam Cardiovascular Exam: REGULAR RHYTHM, +S1, +S2. absent: Murmur - GI/Abdominal Exam GI & Abdominal Exam: Soft, Normal Bowel Sounds. absent: Distended, Firm, Guarding, Rigid, Tenderness - Extremities Exam Extremities Exam: absent: Joint Swelling, Pedal Edema, Tenderness - Back Exam Back Exam: NORMAL INSPECTION - Neurological Exam Neurological Exam: Alert, Awake, CN II-XII Intact, Normal Gait, Oriented x3 - Psychiatric Exam Psychiatric exam: Normal Affect, Normal Mood - Skin Skin Exam: Dry, Intact, Normal Color, Warm Assessment and Plan - Assessment and Plan (Free Text) Assessment: 71 y/o male w/ rectal mass s/p biopsy and RLE pain, possibly 2/2 PVD STERLING: R 0.45, L 0.57 Plan: -Possible OR on 11/22 -NPO aftermidnight on Sun -Golytely today 2L and tomorrow 2L -f/u pathology from rectal mass biopsy - neurontin for LE pain -cont diet, CLD in preparation for possible OR -Will discuss with Dr. Rivera
[2017-11-20 07:44] LABS: BASO # 0.06 K/mm3 (0.0-2.0); BASO % 0.8 % (0.0-3.0); EOS # 0.2 (0.0-0.7); EOS % 2.3 % (1.5-5.0); GRAN # 5.21 (1.4-6.5); GRAN % 71.9 % (50.0-68.0); LYMPH # 1.1 (1.2-3.4); LYMPH % 15.2 % (22.0-35.0); MEAN CELL VOLUME 86.1 fl (80.0-105.0); MEAN CORPUSCULAR HEMOGLOBIN 28.4 pg (25.0-35.0); MEAN PLATELET VOLUME 9.1 fl (7.0-11.0); MONO # 0.7 (0.1-0.6); MONO % 9.8 % (1.0-6.0); RBC 3.52 10^6/uL (3.5-6.1); RED CELL DISTRIBUTION WIDTH 16.7 % (11.5-14.5); WHITE BLOOD COUNT 7.3 10^3/ul (4.5-11.0)
[2017-11-20] MEDS: Insulin Lispro (humaLOG) MEDIUM Coverage SC SCH ×3 (07:44→16:33)
[2017-11-20 08:02] LABS: LDL CHOLESTEROL 60 mg/dL (0-129)
[2017-11-20 08:12] LABS: ALB/GLOB RATIO 1.1 (1.1-1.8); ALBUMIN 3.5 g/dL (3.0-4.8); ALT/SGPT 20 U/L (7-56); AST/SGOT 28 U/L (17-59); BLOOD UREA NITROGEN 13 mg/dL (7-21); CALCIUM 9.6 mg/dL (8.4-10.5); GFR AFRICAN-AMERICAN > 60; GFR NON-AFRICAN AMERICAN > 60; HDL CHOLESTEROL 50 mg/dL (29-60); MAGNESIUM 1.4 mg/dL (1.7-2.2)
--- NOTE | 2017-11-20 09:33 | PN ---
DATE: SUBJECTIVE: has a mass in the sigmoid somewhere between 10 and 25 cm, apparently a prolapse is in and out. Biopsies are pending. Surgical resection is planned for . CAT scan apparently report shows this polypoid mass, 53, biopsies are pending. Plan is for . Morgan Rivera MD
[2017-11-20] MEDS: FLUOROMETHOLONE OU SCH ×3 (09:47→18:33)
[2017-11-20] MEDS: EYE OU SCH ×3 (09:47→18:33)
[2017-11-20] MEDS: PrednisoLONE 1% Opht Susp(5 ml) OU SCH ×2 (10:13→18:31)
[2017-11-20] MEDS ORDERED: Magnesium Sulfate 2 GM in Sodium Chloride 0.9% 100 ML IVPB ONE (11:37)
--- NOTE | 2017-11-20 15:39 | PN ---
DATE: REASON FOR CONSULTATION: Follow up preop evaluation for abdominal pain for abdominal surgery risk stratification. SUBJECTIVE: The patient denies any chest pain, shortness of breath or any palpitation. Says that surgery has been postponed for . Now, he is eating light breakfast. PHYSICAL EXAMINATION: GENERAL: Not in any apparent distress. VITAL SIGNS: Temperature afebrile, heart rate 62, blood pressure 130/65. HEENT: PERRLA. Extraocular muscles intact. NECK: Supple. No carotid bruit or thyromegaly. CHEST: Clear to auscultation. HEART: S1, S2, regular. ABDOMEN: Soft. EXTREMITIES: Clubbing and cyanosis negative. LABORATORY DATA: Blood workup as follows: WBC 7.3, hemoglobin 10, hematocrit 30.3, platelet count 277. Chemistry show sodium 137, potassium 5.3, chloride 103, carbon dioxide 24, anion gap of 14, BUN 13, creatinine 1.1, magnesium 1.4. IMPRESSION: Hypomagnesemia, hyperkalemia, anemia, preoperative evaluation for abdominal surgery, risk stratification for abdominal surgery, diabetes, hypertension, hyperlipidemia, chronic obstructive pulmonary disease, status post endoscopy. The patient had echocardiography on 11/17/2017 shows mildly impaired calculated ejection fraction 44%, no mitral regurgitation, no tricuspid regurgitation, no mitral stenosis. In view of above, risks and benefits ratio, the patient to have abdominal surgery done, no acute contraindication, no evidence of acute decompensated congestive heart failure, no evidence of acute ischemia. Because of the overall the patient moderate to high risk, but risk and benefits ratio in favor of the patient to have surgery done. We will continue perioperative beta-miguel. We will follow with you. We will follow electrolytes and monitor with you closely. We will supplement magnesium and repeat the lab in the morning for elevated potassium. We will follow with you. Thank you, Dr. Hull, for providing us the opportunity in taking care of the patientPrem. Allan Solano MD
[2017-11-20] MEDS: Lactated Ringer's 1,000 ML IV SCH (16:25)
--- NOTE | 2017-11-20 17:49 | CP.PCM.PN ---
<Priscilla Beal - Last Filed: 11/20/17 17:48> Subjective - Date & Time of Evaluation Date of Evaluation: 11/20/17 Time of Evaluation: 12:30 - Subjective Subjective: Seen and examined at the bedside earlier today, chart reviewed. Patient denies nausea or vomiting no complaints of abdominal pain. Patient tolerating clear liquid. No acute overnight events reported. Sigmoid colon biopsy at 20 cm reports tubular adenomas. Objective - Vital Signs/Intake and Output Vital Signs (last 24 hours): Temp Pulse Resp BP Pulse Ox 97.6 F 62 16 130/65 98 11/20/17 06:00 11/20/17 09:44 11/20/17 06:00 11/20/17 09:44 11/20/17 06:00 Intake and Output: 11/20/17 11/20/17 06:59 18:59 Intake Total 240 760 Output Total 1600 Balance -1360 760 - Medications Medications: Current Medications Albuterol/Ipratropium (Duoneb 3 Mg/0.5 Mg (3 Ml) Ud) 3 ml IH [id number] [facility] Last Admin: 11/20/17 13:55 Dose: Not Given Gabapentin (Neurontin) 400 mg PO TID [facility] PRN Reason: Protocol Last Admin: 11/20/17 15:10 Dose: 400 mg Lactated Ringer's (Lactated Ringer's) 1,000 mls @ 75 mls/hr IV .[id number] [facility] Last Admin: 11/20/17 16:25 Dose: 75 mls/hr Insulin Human Lispro (Humalog Med) 0 units SC ACHS [facility] PRN Reason: Protocol Last Admin: 11/20/17 11:35 Dose: Not Given Latanoprost (Xalatan Opht) 0 ml OU HS [facility] Last Admin: 11/19/17 21:47 Dose: 2.5 ml Metoprolol Tartrate (Lopressor) 25 mg PO BID [facility] Last Admin: 11/20/17 09:44 Dose: 25 mg Fluorometholone [Fml (0.1%] Eye Drops) 1 drop OU TID [facility] Last Admin: 11/20/17 15:24 Dose: 1 drop Polyethylene Glycol/Electrolytes (Golytely) 2,000 ml PO ONCE ONE Stop: 11/21/17 07:27 Prednisolone Acetate (Pred Forte 1% Opht Susp) 0 ml OU BID [facility] Last Admin: 11/20/17 10:13 Dose: 1 drop - Labs Labs: 11/20/17 07:00 11/20/17 07:00 PT 13.3 SECONDS (9.4-12.5) H 11/17/17 06:30 INR 1.15 (0.93-1.08) H 11/17/17 06:30 - Constitutional Appears: No Acute Distress - Head Exam Head Exam: NORMOCEPHALIC - Eye Exam Eye Exam: Normal appearance. absent: Scleral icterus - ENT Exam ENT Exam: Mucous Membranes Moist - Respiratory Exam Respiratory Exam: NORMAL BREATHING PATTERN. absent: Respiratory Distress - Cardiovascular Exam Cardiovascular Exam: +S1, +S2 - GI/Abdominal Exam GI & Abdominal Exam: Soft, Normal Bowel Sounds. absent: Guarding, Tenderness, Rebound - Extremities Exam Extremities Exam: absent: Calf Tenderness - Neurological Exam Neurological Exam: Alert, Awake, Oriented x3 - Skin Skin Exam: Dry, Warm Assessment and Plan - Assessment and Plan (Free Text) Assessment: Assessment: Abnormal PET scan, status post colonoscopy found to have a sigmoid colon mass, pathology report tubular adenoma Lung cancer on chemotherapy Diabetes mellitus Peripheral vascular disease Plan: Clear liquids Tentative plan for OR on , start bowel prep on Sunday as per surgery Continue IV fluids for hydration Continue PPI DVT prophylaxis Monitor H&H Surgical follow-up Seen and discussed with Dr. Louis. <Selene Louis V - Last Filed: 11/21/17 01:17> Objective - Vital Signs/Intake and Output Vital Signs (last 24 hours): Temp Pulse Resp BP Pulse Ox 97.4 F L 70 18 123/58 L 100 11/20/17 16:00 11/20/17 18:32 11/20/17 16:00 11/20/17 18:32 11/20/17 16:00 Intake and Output: 11/20/17 11/21/17 18:59 06:59 Intake Total 760 Balance 760 - Medications Medications: Current Medications Albuterol/Ipratropium (Duoneb 3 Mg/0.5 Mg (3 Ml) Ud) 3 ml IH [id number] [facility] Last Admin: 11/20/17 20:40 Dose: 3 ml Gabapentin (Neurontin) 400 mg PO TID [facility] PRN Reason: Protocol Last Admin: 11/20/17 18:32 Dose: 400 mg Lactated Ringer's (Lactated Ringer's) 1,000 mls @ 75 mls/hr IV .[id number] [facility] Last Admin: 11/20/17 16:25 Dose: 75 mls/hr Insulin Human Lispro (Humalog Med) 0 units SC ACHS [facility] PRN Reason: Protocol Last Admin: 11/20/17 16:33 Dose: Not Given Latanoprost (Xalatan Opht) 0 ml OU HS [facility] Last Admin: 11/20/17 21:19 Dose: 2.5 ml Metoprolol Tartrate (Lopressor) 25 mg PO BID [facility] Last Admin: 11/20/17 18:32 Dose: 25 mg Fluorometholone [Fml (0.1%] Eye Drops) 1 drop OU TID [facility] Last Admin: 11/20/17 18:33 Dose: 1 drop Polyethylene Glycol/Electrolytes (Golytely) 2,000 ml PO ONCE ONE Stop: 11/21/17 07:27 Prednisolone Acetate (Pred Forte 1% Opht Susp) 0 ml OU BID [facility] Last Admin: 11/20/17 18:31 Dose: 1 drop - Labs Labs: 11/20/17 07:00 11/20/17 07:00 PT 13.3 SECONDS (9.4-12.5) H 11/17/17 06:30 INR 1.15 (0.93-1.08) H 11/17/17 06:30 Attending/Attestation - Attestation I have personally seen and examined this patient.: Yes I have fully participated in the care of the patient.: Yes I have reviewed all pertinent clinical information, including history, physical exam and plan: Yes Notes (Text): This is an addendum to GI progress report dictated by Priscilla Beal APN.The patient was seen and examined earlier. Medical records, lab studies, imagings were reviewed. Last 24 hours events reviewed. Agreed with the above treatment plan as outlined in Priscilla Beal APN's notes the with the addition of the following comfortable on examination abdomen soft no tenderness pathology report reviewed Large lesion partially obstructing, would need to surgery Schedule for OR on 11/21/17 01:16
[2017-11-20] MEDS: Latanoprost 2.5 ml Opht Soln OU SCH (21:19)
[2017-11-21] MEDS: Insulin Lispro (humaLOG) MEDIUM Coverage SC SCH ×5 (02:13→23:02)
[2017-11-21] MEDS: Albuterol-Ipratrop 3 mg / 0.5 (3 ml) UD IH SCH ×4 (02:30→21:20)
--- NOTE | 2017-11-21 02:34 | CON ---
DATE: 11/20/2017 TIME: 4 p.m. CHIEF COMPLAINT/HISTORY OF PRESENT ILLNESS: I know Mr. Amaro from a port placement in March 2017. He was diagnosed with a right lung cancer and has been receiving treatment with Dr. Lucio. Recently, he was noted to have a large sigmoid polyp, which was biopsied and will likely need surgery in the near future. I am seeing him for his PVD and rest pain. Mr. Amaro is an ex-smoker since his lung CA diagnosis and has diabetes. He states that he has been having rest pain in his feet, greater on the right than the left for approximately 1 to 2 months. It is worse at night and does interfere with his sleep. He has no obvious ulcer or gangrene. He has strong femoral pulses. He has a palpable left popliteal pulse. His right popliteal pulse is absent. His pedal pulses are absent bilaterally. Chronic ishemic changes with slow capillary refill is seen bilaterally. His feet are cool and symmetric in temperature. His STERLING/PVR exam is severely abnormal. His right ankle and metatarsal waveforms are essentially flat. His left ankle and metatarsal waveforms are severely blunted. The study is consistent with multilevel occlusive disease. IMPRESSION AND PLAN: I will order an MRA runoff with gadolinium to evaluate the levels of obstruction. Mr. Amaro is having some rest pain and his circulation will likely have to be addressed. Certainly, his sigmoid polyp needs to be dealt with first. I will review his MRA and make recommendations at that point. Dr. Rivera is planning on proceeding with surgery in the near future. Jose Piper MD MTDD
[2017-11-21] MEDS ORDERED: Peg-Electrolyte Oral Soln 4L (Golytely) PO ONE (07:26)
--- NOTE | 2017-11-21 08:45 | PN ---
DATE: 11/20/2017 SUBJECTIVE: The patient is a 71 years old, seen and examined. Anxious to irregular foot. Does complain of right foot pain. Doppler study was done, seems to have significant peripheral vascular disease. Spoke to Dr. Jose Piper, who will order for MRA and we will get DrArthur involved. PHYSICAL EXAMINATION: GENERAL: He is awake, alert, oriented, communicative. VITAL SIGNS: He is afebrile, pulse 69, respirations 18, blood pressure 123/51. LUNGS: Bilateral fair airflow. No rhonchi or crackle. HEART: S1 and S2 audible. ABDOMEN: Soft, nontender. No rebound. No guarding. NEUROLOGIC: The patient is awake, alert, able to communicate. LABORATORY DATA: WBC 7.3, hemoglobin 10, hematocrit 30, platelets 277. PT 13.3, INR 1.15. Chemistry: Sodium 137, potassium 5.3, chloride 103, CO2 of 24, BUN 13, creatinine 1.1, blood sugar 122, magnesium 1.4. ASSESSMENT: 1. Cancer of lung, on chemotherapy. 2. Cancer of colon showing tubular adenoma that has obstructive lesion. 3. [id number] diabetes. 4. Hypertension. 5. Hyperlipidemia. 6. Peripheral vascular disease. PLAN: His biopsy is not consistent with malignancy. I will reach out to surgical team for further plan. We have to address his significant peripheral vascular disease and we will continue the patient on current nebulizer treatment. He is on IV fluids. Blood sugar is being monitored. Re-evaluate the patient in the a.m. Jose Angel Hull MD
--- NOTE | 2017-11-21 10:47 | CP.PCM.CON ---
History of Present Illness - History of Present Illness History of Present Illness: Vascular surgery consult note for Dr. Healy Consulted for: PVD Patient is a 71M who ambulates with a cane at home with PMH of lung cancer undergoing chemotherapy, COPD currently smoking everyday, DM, HTN, and HLD who developed an acute worsening of chronic right lower extremity pain after a colonoscopy on 11/16. Patient states pain begins at his knee and radiates down his leg. It is worst in his right 2nd toe. Patient denies any numbness or weakness in his extremity but uses a cane at home due to arthritis of the right knee. Denies any history of chronic wounds or blood clots. Patient underwent a bilateral US of his LE's on 11/19 which showed STERLING's of 0.41 on the right and 0.57 on the left. Vascular surgery was consulted. PMH: COPD, lung cancer, HTN, HLD, DM type 2, tobacco abuse, gastritis PSH: cholecystectomy, portacath placement ALL: NKDA Social: current 1/2PPD smoker, occasional alcohol consumption, no marijuana or other substances Review of Systems - Review of Systems All systems: reviewed and no additional remarkable complaints except (as per HPI ) Past Patient History - Infectious Disease Hx of Infectious Diseases: None - Past Medical History & Family History Past Medical History?: Yes Past Family History: Reviewed and not pertinent - Past Social History Smoking Status: Current Some Days Smoker Alcohol: Occasional Drugs: Denies - CARDIAC Hx Hypercholesterolemia: Yes Hx Hypertension: Yes Hx Pacemaker: No - PULMONARY Hx Asthma: Yes Hx Bronchitis: Yes Hx Chronic Obstructive Pulmonary Disease (COPD): Yes Hx Pneumonia: Yes - NEUROLOGICAL Hx Neurological Disorder: No - HEENT Hx HEENT Problems: Yes Hx Cataracts: Yes (b/l sx) Hx Glaucoma: Yes - RENAL Hx Chronic Kidney Disease: No - ENDOCRINE/METABOLIC Hx Diabetes Mellitus Type 2: Yes - HEMATOLOGICAL/ONCOLOGICAL Hx Anemia: Yes (blood transfusion) Hx Cancer: Yes (lung) Hx Chemotherapy: Yes - INTEGUMENTARY Hx Dermatological Problems: Yes Other/Comment: dry skin to arms and legs thick toenails, dry heels - MUSCULOSKELETAL/RHEUMATOLOGICAL Hx Musculoskeletal Disorders: Yes (right knee pain) Hx Arthritis: Yes Hx Falls: Yes (past) Hx Fractures: Yes (R humerus) Hx Unsteady Gait: Yes (cane) - GASTROINTESTINAL Hx Gastrointestinal Disorders: Yes (appetite loss, diarrhea, colon tumor) Other/Comment: sigmoidoscope and bx of colon mass partial obstructed lesion today 11/16/17 - GENITOURINARY/GYNECOLOGICAL Hx Urinary Tract Infection: Yes - PSYCHIATRIC Hx Emotional Abuse: No Hx Physical Abuse: No Hx Substance Use: No - SURGICAL HISTORY Hx Surgeries: Yes (rcw pac) Hx Cardiac Catheterization: Yes Hx Cholecystectomy: Yes - ANESTHESIA Hx Anesthesia Reactions: No Hx Malignant Hyperthermia: No Meds Allergies/Adverse Reactions: Allergies Allergy/AdvReac Type Severity Reaction Status Date / Time No Known Allergies Allergy Verified 11/16/17 13:55 - Medications Medications: Current Medications Albuterol/Ipratropium (Duoneb 3 Mg/0.5 Mg (3 Ml) Ud) 3 ml IH [id number] [facility] Last Admin: 11/21/17 07:37 Dose: 3 ml Gabapentin (Neurontin) 400 mg PO TID [facility] PRN Reason: Protocol Last Admin: 11/20/17 18:32 Dose: 400 mg Lactated Ringer's (Lactated Ringer's) 1,000 mls @ 75 mls/hr IV .[id number] [facility] Last Admin: 11/20/17 16:25 Dose: 75 mls/hr Insulin Human Lispro (Humalog Med) 0 units SC ACHS [facility] PRN Reason: Protocol Last Admin: 11/21/17 02:13 Dose: Not Given Latanoprost (Xalatan Opht) 0 ml OU HS [facility] Last Admin: 11/20/17 21:19 Dose: 2.5 ml Metoprolol Tartrate (Lopressor) 25 mg PO BID [facility] Last Admin: 11/20/17 18:32 Dose: 25 mg Fluorometholone [Fml (0.1%] Eye Drops) 1 drop OU TID [facility] Last Admin: 11/20/17 18:33 Dose: 1 drop Prednisolone Acetate (Pred Forte 1% Opht Susp) 0 ml OU BID [facility] Last Admin: 11/20/17 18:31 Dose: 1 drop Physical Exam - Constitutional Appears: Non-toxic, No Acute Distress, Chronically Ill - Head Exam Head Exam: ATRAUMATIC, NORMOCEPHALIC - Eye Exam Eye Exam: Normal appearance. absent: Conjunctival injection, Scleral icterus - ENT Exam ENT Exam: Mucous Membranes Moist, Normal Oropharynx - Respiratory Exam Respiratory Exam: NORMAL BREATHING PATTERN. absent: Accessory Muscle Use, Respiratory Distress - Cardiovascular Exam Cardiovascular Exam: RRR - GI/Abdominal Exam GI & Abdominal Exam: Soft. absent: Distended, Tenderness - Extremities Exam Extremities exam: Negative for: calf tenderness, pedal edema Additional comments: DP and TP pulses 1+ palpation on the left foot. Dopplerable TP and DP pulses on the right foot. No wounds. Feet warm, normal color - Neurological Exam Neurological exam: Alert, Oriented x3 - Psychiatric Exam Psychiatric exam: Normal Affect, Normal Mood - Skin Skin Exam: Dry, Intact, Normal Color, Warm Results - Vital Signs Recent Vital Signs: Last Vital Signs Temp 97.4 F L 11/20/17 16:00 Pulse 70 11/20/17 18:32 Resp 18 11/20/17 16:00 BP 123/58 L 11/20/17 18:32 Pulse Ox 100 11/20/17 16:00 - Labs Result Diagrams: 11/20/17 07:00 11/20/17 07:00 Labs: Laboratory Results - last 24 hr 11/20/17 11/20/17 11/20/17 07:00 16:12 21:39 POC Glucose (mg/dL) 122 H 113 H Hemoglobin A1c 6.3 Magnesium 11/21/17 11/21/17 06:40 07:28 POC Glucose (mg/dL) 87 Hemoglobin A1c Magnesium 1.8 Assessment & Plan - Assessment and Plan (Free Text) Assessment: 71M with occlusive disease of the BL lower extremities and claudication Plan: -F/U MRA today--further recs pending results -proceed with colon resection with Dr. Rivera tomorrow, which takes priority. Will address the PVD further after the resection -Keep pressure offloading boots while patient in bed -PRN pain medication Discussed with Dr. Healy, who agrees with above Cecile Dash, PGY2
[2017-11-21] MEDS: PrednisoLONE 1% Opht Susp(5 ml) OU SCH ×2 (11:06→17:43)
[2017-11-21] MEDS: EYE OU SCH ×3 (11:07→17:40)
[2017-11-21] MEDS: FLUOROMETHOLONE OU SCH ×3 (11:07→17:40)
--- NOTE | 2017-11-21 13:59 | CP.PCM.PN ---
<Priscilla Beal - Last Filed: 11/21/17 13:59> Subjective - Date & Time of Evaluation Date of Evaluation: 11/21/17 Time of Evaluation: 12:00 - Subjective Subjective: S&E at bedside, chart reviewed, No new complaints, tolerating oral intake, No N.V or c/o abdominal pain. C/o pain to legs, for MRI LE. Preppring for surgery . Objective - Vital Signs/Intake and Output Vital Signs (last 24 hours): Temp Pulse Resp BP Pulse Ox 97.4 F L 75 18 117/78 100 11/20/17 16:00 11/21/17 11:06 11/20/17 16:00 11/21/17 11:06 11/20/17 16:00 - Medications Medications: Current Medications Albuterol/Ipratropium (Duoneb 3 Mg/0.5 Mg (3 Ml) Ud) 3 ml IH [id number] ON LICENSE OF [facility] Last Admin: 11/21/17 07:37 Dose: 3 ml Gabapentin (Neurontin) 400 mg PO TID ON LICENSE OF [facility] PRN Reason: Protocol Last Admin: 11/21/17 11:05 Dose: 400 mg Lactated Ringer's (Lactated Ringer's) 1,000 mls @ 75 mls/hr IV .[id number] ON LICENSE OF [facility] Last Admin: 11/20/17 16:25 Dose: 75 mls/hr Insulin Human Lispro (Humalog Med) 0 units SC ACHS ON LICENSE OF [facility] PRN Reason: Protocol Last Admin: 11/21/17 08:05 Dose: Not Given Latanoprost (Xalatan Opht) 0 ml OU HS ON LICENSE OF [facility] Last Admin: 11/20/17 21:19 Dose: 2.5 ml Metoprolol Tartrate (Lopressor) 25 mg PO BID ON LICENSE OF [facility] Last Admin: 11/21/17 11:06 Dose: 25 mg Fluorometholone [Fml (0.1%] Eye Drops) 1 drop OU TID ON LICENSE OF [facility] Last Admin: 11/21/17 11:07 Dose: 1 drop Prednisolone Acetate (Pred Forte 1% Opht Susp) 0 ml OU BID ON LICENSE OF [facility] Last Admin: 11/21/17 11:06 Dose: 1 drop - Labs Labs: 11/20/17 07:00 11/20/17 07:00 PT 13.3 SECONDS (9.4-12.5) H 11/17/17 06:30 INR 1.15 (0.93-1.08) H 11/17/17 06:30 Assessment and Plan - Assessment and Plan (Free Text) Assessment: Assessment: Abnormal PET scan, status post colonoscopy found to have a sigmoid colon mass, pathology report tubular adenoma Lung cancer on chemotherapy Diabetes mellitus Peripheral vascular disease Plan: Clear liquids plan for OR on ,bowel prep as per surgery, golytle Continue IV fluids for hydration Continue PPI DVT prophylaxis Monitor H&H Surgical follow-up vascular team on board. Seen and discussed with Dr. Louis. <Selene Louis V - Last Filed: 11/22/17 00:03> Objective - Vital Signs/Intake and Output Vital Signs (last 24 hours): Temp Pulse Resp BP Pulse Ox 98.0 F 66 18 135/68 98 11/21/17 07:30 11/21/17 17:43 11/21/17 07:30 11/21/17 17:43 11/21/17 07:30 Intake and Output: 11/21/17 11/22/17 18:59 06:59 Intake Total 900 Output Total 1200 Balance -300 - Medications Medications: Current Medications Albuterol/Ipratropium (Duoneb 3 Mg/0.5 Mg (3 Ml) Ud) 3 ml IH [id number] ON LICENSE OF [facility] Last Admin: 11/21/17 21:20 Dose: 3 ml Gabapentin (Neurontin) 400 mg PO TID ON LICENSE OF [facility] PRN Reason: Protocol Last Admin: 11/21/17 17:39 Dose: 400 mg Lactated Ringer's (Lactated Ringer's) 1,000 mls @ 75 mls/hr IV .[id number] ON LICENSE OF [facility] Last Admin: 11/20/17 16:25 Dose: 75 mls/hr Insulin Human Lispro (Humalog Med) 0 units SC ACHS ON LICENSE OF [facility] PRN Reason: Protocol Last Admin: 11/21/17 23:02 Dose: Not Given Latanoprost (Xalatan Opht) 0 ml OU HS ON LICENSE OF [facility] Last Admin: 11/21/17 21:27 Dose: 2.5 ml Metoprolol Tartrate (Lopressor) 25 mg PO BID ON LICENSE OF [facility] Last Admin: 11/21/17 17:43 Dose: 25 mg Fluorometholone [Fml (0.1%] Eye Drops) 1 drop OU TID ON LICENSE OF [facility] Last Admin: 11/21/17 17:40 Dose: 1 drop Prednisolone Acetate (Pred Forte 1% Opht Susp) 0 ml OU BID [facility] Last Admin: 11/21/17 17:43 Dose: 1 drop - Labs Labs: 11/20/17 07:00 11/20/17 07:00 PT 13.3 SECONDS (9.4-12.5) H 11/17/17 06:30 INR 1.15 (0.93-1.08) H 11/17/17 06:30 Attending/Attestation - Attestation I have personally seen and examined this patient.: Yes I have fully participated in the care of the patient.: Yes I have reviewed all pertinent clinical information, including history, physical exam and plan: Yes Notes (Text): This is an addendum to GI progress report dictated by Priscilla Beal APN.The patient was seen and examined earlier. Medical records, lab studies, imagings were reviewed. Last 24 hours events reviewed. Agreed with the above treatment plan as outlined in Priscilla Beal APN's notes the with the addition of the following 11/22/17 00:02
--- NOTE | 2017-11-21 14:19 | CP.PCM.PN ---
<BrittanieEdgar - Last Filed: 11/21/17 14:31> Subjective - Date & Time of Evaluation Date of Evaluation: 11/21/17 Time of Evaluation: 14:14 - Subjective Subjective: General Surgery progress note: Rivera Patient seen and examined at bedside. No acute events overnight, including fevers, chills, nausea, vomiting, and diarrhea. Patient denies any bloody bowel movements. Objective - Vital Signs/Intake and Output Vital Signs (last 24 hours): Temp Pulse Resp BP Pulse Ox 98.0 F 75 18 117/78 98 11/21/17 07:30 11/21/17 11:06 11/21/17 07:30 11/21/17 11:06 11/21/17 07:30 - Medications Medications: Current Medications Albuterol/Ipratropium (Duoneb 3 Mg/0.5 Mg (3 Ml) Ud) 3 ml IH [id number] ON [facility] OF [facility] Last Admin: 11/21/17 13:59 Dose: 3 ml Gabapentin (Neurontin) 400 mg PO TID ON LICENSE OF [facility] PRN Reason: Protocol Last Admin: 11/21/17 11:05 Dose: 400 mg Lactated Ringer's (Lactated Ringer's) 1,000 mls @ 75 mls/hr IV .[id number] ON LICENSE OF [facility] Last Admin: 11/20/17 16:25 Dose: 75 mls/hr Insulin Human Lispro (Humalog Med) 0 units SC ACHS ON LICENSE OF [facility] PRN Reason: Protocol Last Admin: 11/21/17 08:05 Dose: Not Given Latanoprost (Xalatan Opht) 0 ml OU HS ON [facility] OF [facility] Last Admin: 11/20/17 21:19 Dose: 2.5 ml Metoprolol Tartrate (Lopressor) 25 mg PO BID ON [facility] OF [facility] Last Admin: 11/21/17 11:06 Dose: 25 mg Fluorometholone [Fml (0.1%] Eye Drops) 1 drop OU TID ON LICENSE OF [facility] Last Admin: 11/21/17 11:07 Dose: 1 drop Prednisolone Acetate (Pred Forte 1% Opht Susp) 0 ml OU BID ON LICENSE OF [facility] Last Admin: 11/21/17 11:06 Dose: 1 drop - Labs Labs: 11/20/17 07:00 11/20/17 07:00 PT 13.3 SECONDS (9.4-12.5) H 11/17/17 06:30 INR 1.15 (0.93-1.08) H 11/17/17 06:30 - Constitutional Appears: Well - Head Exam Head Exam: ATRAUMATIC, NORMAL INSPECTION, NORMOCEPHALIC - Eye Exam Eye Exam: EOMI, Normal appearance, PERRL Pupil Exam: NORMAL ACCOMODATION, PERRL - ENT Exam ENT Exam: Mucous Membranes Moist, Normal Exam - Neck Exam Neck Exam: Full ROM, Normal Inspection. absent: Lymphadenopathy - Respiratory Exam Respiratory Exam: Clear to Ausculation Bilateral, NORMAL BREATHING PATTERN - Cardiovascular Exam Cardiovascular Exam: REGULAR RHYTHM, +S1, +S2. absent: Murmur - GI/Abdominal Exam GI & Abdominal Exam: Soft, Normal Bowel Sounds. absent: Tenderness - Extremities Exam Extremities Exam: Full ROM, Normal Capillary Refill, Normal Inspection. absent : Joint Swelling, Pedal Edema Additional comments: DP and TP pulses 1+ palpation on the left foot. Dopplerable TP and DP pulses on the right foot. No wounds. Feet warm, normal color - Back Exam Back Exam: NORMAL INSPECTION - Neurological Exam Neurological Exam: Alert, Awake, CN II-XII Intact, Normal Gait, Oriented x3 - Psychiatric Exam Psychiatric exam: Normal Affect, Normal Mood - Skin Skin Exam: Dry, Intact, Normal Color, Warm Assessment and Plan - Assessment and Plan (Free Text) Assessment: 71 y/o male w/ rectal mass s/p biopsy and RLE pain, possibly 2/2 PVD STERLING: R 0.45, L 0.57 Plan: -OR on 11/22 -Patient had 2L of Golytely yesterday, will have 2L of Golytely today -Rectal mass biopsy showed 3.5 cm tubular adenoma in sigmoid colon -Neurontin for LE pain -Cont diet, then NPO after midnight tonight -Vascular consult put in for Dr. Healy -Will discuss with Dr. Rivera <Selene Louis V - Last Filed: 11/22/17 00:10> Objective - Vital Signs/Intake and Output Vital Signs (last 24 hours): Temp Pulse Resp BP Pulse Ox 98.0 F 66 18 135/68 98 11/21/17 07:30 11/21/17 17:43 11/21/17 07:30 11/21/17 17:43 11/21/17 07:30 Intake and Output: 11/21/17 11/22/17 18:59 06:59 Intake Total 900 Output Total 1200 Balance -300 - Medications Medications: Current Medications Albuterol/Ipratropium (Duoneb 3 Mg/0.5 Mg (3 Ml) Ud) 3 ml IH [id number] ON LICENSE OF [facility] Last Admin: 11/21/17 21:20 Dose: 3 ml Gabapentin (Neurontin) 400 mg PO TID ON LICENSE OF [facility] PRN Reason: Protocol Last Admin: 11/21/17 17:39 Dose: 400 mg Lactated Ringer's (Lactated Ringer's) 1,000 mls @ 75 mls/hr IV .[id number] ON LICENSE OF [facility] Last Admin: 11/20/17 16:25 Dose: 75 mls/hr Insulin Human Lispro (Humalog Med) 0 units SC ACHS ON LICENSE OF [facility] PRN Reason: Protocol Last Admin: 11/21/17 23:02 Dose: Not Given Latanoprost (Xalatan Opht) 0 ml OU HS ON LICENSE OF [facility] Last Admin: 11/21/17 21:27 Dose: 2.5 ml Metoprolol Tartrate (Lopressor) 25 mg PO BID ON LICENSE OF [facility] Last Admin: 11/21/17 17:43 Dose: 25 mg Fluorometholone [Fml (0.1%] Eye Drops) 1 drop OU TID ON LICENSE OF [facility] Last Admin: 11/21/17 17:40 Dose: 1 drop Prednisolone Acetate (Pred Forte 1% Opht Susp) 0 ml OU BID ON LICENSE OF [facility] Last Admin: 11/21/17 17:43 Dose: 1 drop - Labs Labs: 11/20/17 07:00 11/20/17 07:00 PT 13.3 SECONDS (9.4-12.5) H 11/17/17 06:30 INR 1.15 (0.93-1.08) H 11/17/17 06:30 Attending/Attestation - Attestation I have personally seen and examined this patient.: Yes I have fully participated in the care of the patient.: Yes I have reviewed all pertinent clinical information, including history, physical exam and plan: Yes Notes (Text): This is an addendum to GI progress report dictated by Priscilla Beal APN.The patient was seen and examined earlier. Medical records, lab studies, imagings were reviewed. Last 24 hours events reviewed. Agreed with the above treatment plan as outlined in Priscilla Beal APN's notes the with the addition of the following 11/22/17 00:09
[2017-11-21] MEDS ORDERED: Gadodiamide 287 MG/ML VIAL (20ML) IV ONE (16:14)
--- NOTE | 2017-11-21 19:12 | PN ---
DATE: 11/21/2017 LOCATION: The patient is in room 578, bed 2. REASON FOR CONSULTATION: Followup of his abdominal pain. The patient is scheduled for surgery, cardiac risk stratification, hypertension, diabetes, hyperlipidemia, COPD. SUBJECTIVE: The patient is sitting in chair without chest pain, shortness of breath or palpitation. The patient complains of right foot pain. PHYSICAL EXAMINATION: VITAL SIGNS: Blood pressure 117/78, respirations 18, pulse 75, temperature 97.4. HEENT: Head is normocephalic. Eyes, pupils normal. Conjunctivae slightly pale. NECK: JVP low. Carotids are equal. Thorax, AP diameter is normal. LUNGS: Clear. CARDIOVASCULAR: S1 and S2. ABDOMEN: Soft. No tenderness. No organomegaly. EXTREMITIES: No clubbing. No cyanosis. LABORATORY DATA: WBC 7.3, hemoglobin 10.0, hematocrit 30.3, platelets 277. Random sugar 119. Yesterday, sodium 137, potassium 5.3, BUN 13, creatinine 1.1, calcium 9.6, phosphorus 3.4, magnesium 1.4. AST and ALT normal. Total protein and albumin normal. TSH 1.41. IMPRESSION: Hyperkalemia, hypomagnesemia, anemia, diabetes, hypertension, hyperlipidemia, chronic obstructive pulmonary disease. Echocardiogram of 11/17/2017 showed left ventricular ejection fraction 44%, which shows mildly impaired left ventricular systolic function. No regurgitation was seen. PLAN: As mentioned in the yesterday's progress note by Dr. Solano, there is no acute contraindication to not to have surgery, but the patient is moderate to high risk because of other associated problems. The patient has no evidence of angina or CHF. The patient is already on metoprolol 25 mg b.i.d. The patient was given magnesium sulfate 2 g yesterday, Neurontin 400 mg t.i.d. We will repeat SMA-7 today and check the potassium and magnesium level. We will follow. Allan Chavez MD
--- NOTE | 2017-11-21 21:08 | PN ---
DATE: SUBJECTIVE: The patient is 71 years old, seen and examined, lying in bed. Does not offer any complaints. Complaining about being on liquid diet sometimes. PHYSICAL EXAMINATION: VITAL SIGNS: He is afebrile, pulse 75, respirations 18, blood pressure 117/78. LUNGS: Bilateral good airflow. No rhonchi or crackle. HEART: S1 and S2 audible. ABDOMEN: Left lower quadrant discomfort. NEUROLOGIC: He is awake, alert, oriented, communicative, ambulatory. LABORATORY DATA: Blood sugar is 119. He had colon biopsy done prior to this admission, shows tubular adenoma and his leg Doppler shows severe peripheral vascular disease. The patient is scheduled to have MRA runoff done. ASSESSMENT: 1. Cancer of lung, on chemotherapy. 2. Sigmoid mass, biopsy showed tubular adenoma. 3. Hypertension. 4. Lpo-kiyeqgg-jnkidogty diabetes. 5. Severe peripheral vascular disease. PLAN: The patient will have MRA of the lower extremities done and then we will get evaluation by Dr. Healy. Not sure about his abdominal surgery, if he is going to need partial colectomy since initial notes from Dr. Louis's input shows obstructive lesion. We will discuss with , and we will follow up this patient in a.m. and I will discuss with the patient's daughter also. Jose Angel Hull MD
--- NOTE | 2017-11-21 21:24 | CP.PCM.PN ---
Subjective - Date & Time of Evaluation Date of Evaluation: 11/20/17 Time of Evaluation: 18:00 - Subjective Subjective: He is comfortable in bed. Biopsy of sigmoid mass is tubular adenoma. Has severe PVD . Awaiting medical clearance for surgery. cough with expectoration improved. No bleeding per rectum. daughter bedside. Objective - Vital Signs/Intake and Output Vital Signs (last 24 hours): Temp Pulse Resp BP Pulse Ox 98.0 F 66 18 135/68 98 11/21/17 07:30 11/21/17 17:43 11/21/17 07:30 11/21/17 17:43 11/21/17 07:30 Intake and Output: 11/21/17 11/22/17 18:59 06:59 Intake Total 900 Output Total 1200 Balance -300 - Medications Medications: Current Medications Albuterol/Ipratropium (Duoneb 3 Mg/0.5 Mg (3 Ml) Ud) 3 ml IH [id number] [facility] Last Admin: 11/21/17 13:59 Dose: 3 ml Gabapentin (Neurontin) 400 mg PO TID [facility] PRN Reason: Protocol Last Admin: 11/21/17 17:39 Dose: 400 mg Lactated Ringer's (Lactated Ringer's) 1,000 mls @ 75 mls/hr IV .[id number] [facility] Last Admin: 11/20/17 16:25 Dose: 75 mls/hr Insulin Human Lispro (Humalog Med) 0 units SC ACHS [facility] PRN Reason: Protocol Last Admin: 11/21/17 17:42 Dose: Not Given Latanoprost (Xalatan Opht) 0 ml OU HS [facility] Last Admin: 11/20/17 21:19 Dose: 2.5 ml Metoprolol Tartrate (Lopressor) 25 mg PO BID [facility] Last Admin: 11/21/17 17:43 Dose: 25 mg Fluorometholone [Fml (0.1%] Eye Drops) 1 drop OU TID [facility] Last Admin: 11/21/17 17:40 Dose: 1 drop Prednisolone Acetate (Pred Forte 1% Opht Susp) 0 ml OU BID [facility] Last Admin: 11/21/17 17:43 Dose: 1 drop - Labs Labs: 11/20/17 07:00 11/20/17 07:00 PT 13.3 SECONDS (9.4-12.5) H 11/17/17 06:30 INR 1.15 (0.93-1.08) H 11/17/17 06:30 - Constitutional Appears: Chronically Ill - Head Exam Head Exam: ATRAUMATIC, NORMAL INSPECTION, NORMOCEPHALIC - Eye Exam Eye Exam: Normal appearance - ENT Exam ENT Exam: Mucous Membranes Moist - Neck Exam Neck Exam: Normal Inspection - Respiratory Exam Respiratory Exam: Clear to Ausculation Bilateral, NORMAL BREATHING PATTERN - Cardiovascular Exam Cardiovascular Exam: REGULAR RHYTHM, +S1, +S2 - GI/Abdominal Exam GI & Abdominal Exam: Soft, Normal Bowel Sounds - Extremities Exam Extremities Exam: Normal Inspection - Back Exam Back Exam: NORMAL INSPECTION - Neurological Exam Neurological Exam: Alert, Awake, CN II-XII Intact, Normal Gait, Oriented x3 - Psychiatric Exam Psychiatric exam: Normal Affect, Normal Mood - Skin Skin Exam: Normal Color, Pallor Assessment and Plan - Assessment and Plan (Free Text) Assessment: 1. lung cancer : good response to chemo, small focus of residual in right lung. 2. Tubular adenoma sigmoid colon. surgery planned. 3. Iron deficiency anemia : s/p IV iron. 4. PVD : severe. vascular consult requested. 5. CV : stable. Thank you Dr. Hull for allowing us to participate in his care.
[2017-11-21] MEDS: Latanoprost 2.5 ml Opht Soln OU SCH (21:27)
[2017-11-22] MEDS: Albuterol-Ipratrop 3 mg / 0.5 (3 ml) UD IH SCH ×3 (02:21→14:06)
[2017-11-22 04:43] LABS: BASO # 0.06 K/mm3 (0.0-2.0); BASO % 0.9 % (0.0-3.0); EOS # 0.3 (0.0-0.7); EOS % 3.8 % (1.5-5.0); GRAN # 4.82 (1.4-6.5); GRAN % 72.5 % (50.0-68.0); HEMOGLOBIN 9.2 g/dL (14.0-18.0); LYMPH # 0.9 (1.2-3.4); MEAN CELL VOLUME 86.7 fl (80.0-105.0); MEAN CORPUSCULAR HEMOGLOBIN 27.7 pg (25.0-35.0); MEAN CORPUSCULAR HGB CONC 31.9 g/dl (31.0-37.0); MEAN PLATELET VOLUME 8.5 fl (7.0-11.0); MONO # 0.7 (0.1-0.6); MONO % 9.8 % (1.0-6.0); RBC 3.32 10^6/uL (3.5-6.1); RED CELL DISTRIBUTION WIDTH 16.9 % (11.5-14.5); WHITE BLOOD COUNT 6.6 10^3/ul (4.5-11.0)
[2017-11-22 04:53] LABS: URINE BILIRUBIN NEGATIVE (NEGATIVE); URINE BLOOD NEGATIVE (NEGATIVE); URINE GLUCOSE (UA) NEGATIVE (NEGATIVE); URINE LEUKOCYTE ESTERASE MODERATE Leu/uL (NEGATIVE); URINE NITRATE POSITIVE (NEGATIVE); URINE PROTEIN NEGATIVE mg/dL (<30 mg/dL); URINE UROBILINOGEN 0.2 E.U./dL (<1 E.U./dL)
[2017-11-22 04:56] LABS: URINE APPEARANCE CLEAR (CLEAR); URINE COLOR YELLOW (YELLOW)
[2017-11-22 04:59] LABS: INR 1.09 (0.93-1.08); PARTIAL THROMBOPLASTIN TIME 31.7 Seconds (25.1-36.5); PROTHROMBIN TIME 12.4 SECONDS (9.4-12.5)
[2017-11-22 05:10] LABS: URINE BACTERIA MOD (NEG); URINE EPITHELIAL CELLS 0 - 2 /hpf (0-5); URINE RBC 0 - 2 /hpf (0-2)
[2017-11-22 05:27] LABS: ALB/GLOB RATIO 1.1 (1.1-1.8); ALBUMIN 3.2 g/dL (3.0-4.8); ALT/SGPT 16 U/L (7-56); AST/SGOT 24 U/L (17-59); BLOOD UREA NITROGEN 16 mg/dL (7-21); CALCIUM 9.5 mg/dL (8.4-10.5); GFR AFRICAN-AMERICAN > 60; GFR NON-AFRICAN AMERICAN > 60
[2017-11-22] MEDS: Lactated Ringer's 1,000 ML IV SCH (06:29)
[2017-11-22] MEDS ORDERED: Sodium Chloride 0.9% 1,000 ML IV SCH ×2 (07:15→17:00)
[2017-11-22] MEDS ORDERED: Sodium Chloride 0.9% 500 ML IV STA (07:24)
[2017-11-22] MEDS: Insulin Lispro (humaLOG) MEDIUM Coverage SC SCH ×3 (07:40→22:10)
[2017-11-22] MEDS: EYE OU SCH ×2 (09:03→14:03)
[2017-11-22] MEDS: FLUOROMETHOLONE OU SCH ×2 (09:03→14:03)
[2017-11-22] MEDS: PrednisoLONE 1% Opht Susp(5 ml) OU SCH (09:05)
--- NOTE | 2017-11-22 10:27 | MRI ---
PROCEDURE: MR angiography of the lower extremities with and without contrast HISTORY: PVD with ischemia COMPARISON: TECHNIQUE: MR angiography of the abdominal aorta and lower extremities was performed with and without IV contrast. 20 cc of Omniscan was injected. FINDINGS: The aorta is normal in caliber. The renal arteries SMA and celiac arteries are patent. The iliac and common femoral arteries are patent. There is a short segment occlusion in the mid right SFA with collateral formation. Mild short-segment stenoses can be seen throughout the left SFA. There is a focal occlusion or high-grade stenosis of the right popliteal. There is single vessel runoff to the ankle via the peroneal. There is a focal occlusion of the left tibioperoneal trunk. There is reconstitution of the peroneal which extends to the ankle. IMPRESSION: Focal short segment occlusion in the mid right SFA. Occlusive disease below the knee as described. Single vessel peroneal runoff.
--- NOTE | 2017-11-22 11:05 | CARD ---
APPROVED REPORT EKG Measurement Heart [id number] <Conclusion> Normal sinus rhythm Normal ECG
[2017-11-22 11:13] LABS: BLOOD UREA NITROGEN 14 mg/dL (7-21); CALCIUM 9.2 mg/dL (8.4-10.5); GFR AFRICAN-AMERICAN > 60; GFR NON-AFRICAN AMERICAN > 60
[2017-11-22] MEDS ORDERED: Propofol 10 mg/ml Inj (20 ML) ONE (13:43)
[2017-11-22] MEDS ORDERED: Etomidate 20 mg/10ml Inj IV ONE (13:44)
[2017-11-22] MEDS ORDERED: Midazolam 2 MG/2 ML VIAL ONE (13:44)
[2017-11-22] MEDS ORDERED: Rocuronium 10 mg/ml (5 ml) ONE (13:52)
--- NOTE | 2017-11-22 14:17 | PN ---
DATE: The patient had an MRA performed, which showed a short segment occlusion of the superficial femoral artery and single-vessel runoff. On the left side, he has diffuse stenosis of the superficial femoral and the popliteal as well as popliteal bifurcation disease. The patient is scheduled for low anterior resection today and has recovered from his colon surgery. He is a candidate for angiogram and angioplasty. Sonya Healy MD
[2017-11-22] MEDS ORDERED: cefTRIAXone 1 GM in NS 100 ML BAG IVPB ONE (14:20)
[2017-11-22] MEDS ORDERED: cefTRIAXone (Rocephin) 1 gm Inj ONE (14:27)
[2017-11-22] MEDS ORDERED: metroNIDAZOLE IV 500 mg/100 ml 500 MG/100 ML BAG ONE (14:28)
[2017-11-22] MEDS ORDERED: METRONIDAZOLE 250 MG/50 ML IVPB ONE (14:35)
--- NOTE | 2017-11-22 15:01 | PN ---
DATE: SUBJECTIVE: The patient is 71 years old, seen and examined, lying in bed. He is n.p.o, getting ready for partial colectomy today. PHYSICAL EXAMINATION: VITAL SIGNS: He is afebrile, pulse 65, respirations 19, blood pressure 109/44. LUNGS: Bilateral fair airflow. No rhonchi or crackle. HEART: S1 and S2 audible. ABDOMEN: Soft, nontender. No rebound. No guarding. NEUROLOGICAL: Patient is awake and alert, communicative. LABORATORY DATA AND IMAGING: WBC is 6.6, hemoglobin 9.2, hematocrit 28, platelet 250. Chemistry: Sodium 139, potassium 4.8, chloride 105, CO2 of 25, BUN 14, creatinine 1.0, blood sugar 97. He had MRA of the legs done, that shows focal short segment occlusion in the mid right SFA and occlusive disease below the knee. ASSESSMENT: 1. Sigmoid colon tubular adenoma. 2. Cancer of lung, currently on chemotherapy. 3. Peripheral vascular disease. 4. Hypertension. 5. Gmj-lzvfhsv-mzkhfaorc diabetes. PLAN: Patient is going for OR today. He will have lower extremity procedure done after he recuperate from his abdominal intervention and we will follow up this patient in a.m. Jose Angel Hull MD
[2017-11-22] MEDS ORDERED: Bupivacaine 0.5% Inj(30mL) ONE (15:32)
[2017-11-22] MEDS ORDERED: Bupivacaine 0.5% Inj(30mL) IJ ONE (15:44)
--- NOTE | 2017-11-22 15:57 | CP.PCM.PN ---
<Priscilla Beal - Last Filed: 11/22/17 15:57> Subjective - Date & Time of Evaluation Date of Evaluation: 11/22/17 Time of Evaluation: 11:00 - Subjective Subjective: Seen and examined at the bedside earlier today, chart review. Daughter at the bedside. Patient is NPO for OR today. Patient with no complaints or acute overnight events. Objective - Vital Signs/Intake and Output Vital Signs (last 24 hours): Temp Pulse Resp BP Pulse Ox 97.8 F 58 L 18 148/71 99 11/22/17 12:25 11/22/17 12:25 11/22/17 12:25 11/22/17 12:25 11/22/17 12:25 Intake and Output: 11/22/17 11/22/17 06:59 18:59 Intake Total 1020 Output Total 500 Balance 520 - Medications Medications: Current Medications Albuterol/Ipratropium (Duoneb 3 Mg/0.5 Mg (3 Ml) Ud) 3 ml IH [id number] [facility] Last Admin: 11/22/17 14:06 Dose: Not Given Gabapentin (Neurontin) 400 mg PO TID [facility] PRN Reason: Protocol Last Admin: 11/21/17 17:39 Dose: 400 mg Sodium Chloride (Sodium Chloride 0.9%) 1,000 mls @ 100 mls/hr IV .Q10H [facility] Insulin Human Lispro (Humalog Med) 0 units SC ACHS [facility] PRN Reason: Protocol Last Admin: 11/22/17 07:40 Dose: Not Given Latanoprost (Xalatan Opht) 0 ml OU HS [facility] Last Admin: 11/21/17 21:27 Dose: 2.5 ml Metoprolol Tartrate (Lopressor) 25 mg PO BID [facility] Last Admin: 11/22/17 11:16 Dose: 25 mg Fluorometholone [Fml (0.1%] Eye Drops) 1 drop OU TID [facility] Last Admin: 11/21/17 17:40 Dose: 1 drop Prednisolone Acetate (Pred Forte 1% Opht Susp) 0 ml OU BID [facility] Last Admin: 11/21/17 17:43 Dose: 1 drop - Labs Labs: 11/22/17 04:00 11/22/17 10:58 PT 12.4 SECONDS (9.4-12.5) 11/22/17 04:00 INR 1.09 (0.93-1.08) H 11/22/17 04:00 APTT 31.7 Seconds (25.1-36.5) 11/22/17 04:00 - Constitutional Appears: No Acute Distress - Eye Exam Eye Exam: Normal appearance. absent: Scleral icterus - ENT Exam ENT Exam: Mucous Membranes Moist - Respiratory Exam Respiratory Exam: NORMAL BREATHING PATTERN. absent: Respiratory Distress - Cardiovascular Exam Cardiovascular Exam: +S1, +S2 - GI/Abdominal Exam GI & Abdominal Exam: Soft, Normal Bowel Sounds. absent: Guarding, Tenderness, Rebound - Extremities Exam Extremities Exam: absent: Pedal Edema - Neurological Exam Neurological Exam: Alert, Awake, Oriented x3 Assessment and Plan - Assessment and Plan (Free Text) Assessment: Assessment: Abnormal PET scan, status post colonoscopy found to have a sigmoid colon mass, pathology report tubular adenoma Lung cancer on chemotherapy Diabetes mellitus Peripheral vascular disease Plan: NPO for OR today, planned colectomy Continue PPI DVT prophylaxis Monitor H&H vascular team on board. Seen and discussed with Dr. Louis. <Selene Louis V - Last Filed: 11/22/17 23:14> Objective - Vital Signs/Intake and Output Vital Signs (last 24 hours): Temp Pulse Resp BP Pulse Ox 98.8 F 70 14 144/72 98 11/22/17 17:32 11/22/17 17:32 11/22/17 17:32 11/22/17 17:32 11/22/17 17:32 Intake and Output: 11/22/17 11/23/17 18:59 06:59 Intake Total 360 Balance 360 - Medications Medications: Current Medications Albuterol/Ipratropium (Duoneb 3 Mg/0.5 Mg (3 Ml) Ud) 3 ml IH [id number] [facility] Last Admin: 11/22/17 14:06 Dose: Not Given Enoxaparin Sodium (Lovenox) 40 mg SC DAILY [facility] PRN Reason: Protocol Gabapentin (Neurontin) 400 mg PO TID [facility] PRN Reason: Protocol Last Admin: 11/22/17 14:05 Dose: Not Given Metronidazole (Flagyl) 500 mg in 100 mls @ 100 mls/hr IVPB Q8 [facility] PRN Reason: Protocol Stop: 11/23/17 06:59 Last Admin: 03/01/18 22:05 Dose: 100 mls/hr Ceftriaxone Sodium (Rocephin 1 Gram Ivpb) 1 gm in 100 mls @ 100 mls/hr IVPB DAILY [facility] PRN Reason: Protocol Stop: 11/24/17 10:59 Sodium Chloride (Sodium Chloride 0.45%) 1,000 mls @ 70 mls/hr IV .[id number] [facility] Last Admin: 11/22/17 22:06 Dose: 70 mls/hr Insulin Human Lispro (Humalog Med) 0 units SC ACHS [facility] PRN Reason: Protocol Last Admin: 11/22/17 22:10 Dose: Not Given Latanoprost (Xalatan Opht) 0 ml OU HS [facility] Last Admin: 11/22/17 22:05 Dose: 2.5 ml Metoprolol Tartrate (Lopressor) 25 mg PO BID [facility] Last Admin: 11/22/17 11:16 Dose: 25 mg Morphine Sulfate (Morphine) 4 mg IVP Q4H PRN PRN Reason: Pain, severe (8-10) Fluorometholone [Fml (0.1%] Eye Drops) 1 drop OU TID [facility] Last Admin: 11/22/17 14:03 Dose: Not Given Ondansetron HCl (Zofran Inj) 4 mg IVP Q6H PRN PRN Reason: Nausea/Vomiting Oxycodone/Acetaminophen (Percocet 10/325 Mg Tab) 1 tab PO Q4H PRN PRN Reason: Pain, severe (8-10) Oxycodone/Acetaminophen (Percocet 5/325 Mg Tab) 1 tab PO Q4H PRN PRN Reason: Pain, moderate (4-7) Stop: 11/25/17 16:57 Last Admin: 11/22/17 18:48 Dose: 1 tab Prednisolone Acetate (Pred Forte 1% Opht Susp) 0 ml OU BID [facility] Last Admin: 11/22/17 09:05 Dose: 1 drop - Labs Labs: 11/22/17 04:00 11/22/17 10:58 PT 12.4 SECONDS (9.4-12.5) 11/22/17 04:00 INR 1.09 (0.93-1.08) H 11/22/17 04:00 APTT 31.7 Seconds (25.1-36.5) 11/22/17 04:00 Attending/Attestation - Attestation I have personally seen and examined this patient.: Yes I have fully participated in the care of the patient.: Yes I have reviewed all pertinent clinical information, including history, physical exam and plan: Yes Notes (Text): This is an addendum to GI progress report dictated by Priscilla Beal APN.The patient was seen and examined earlier. Medical records, lab studies, imagings were reviewed. Last 24 hours events reviewed. Agreed with the above treatment plan as outlined in Priscilla Beal APN's notes the with the addition of the following 11/22/17 23:14
[2017-11-22] MEDS ORDERED: Neostigmine Methylsulfate 3mg/3ml Syringe IV ONE (16:11)
[2017-11-22] MEDS ORDERED: Glycopyrrolate 0.2 mg/ml (2ml vial) ONE (16:12)
--- NOTE | 2017-11-22 16:50 | PCM.SURG1 ---
Surgeon's Initial Post Op Note - Surgeon's Notes Surgeon: Dr. Rivera Metal Pattern Maker: Dr. Medina PGY3, Dr. Villegas PGY2 Type of Anesthesia: General Endo Pre-Operative Diagnosis: tubulous adenoma, partially obstructing Operative Findings: see operative report Post-Operative Diagnosis: same Operation Performed: sigmoidoscopy. laparoscopic sigmoidectomy converted to open. removal of tubulous adenoma Specimen/Specimens Removed: tubulous adenoma from sigmoid. pertioneal biopsy. epiploic appendage specimen Estimated Blood Loss: EBL {In ML}: 25 Blood Products Given: N/A Drains Used: No Drains Post-Op Condition: Good Date of Surgery/Procedure: 11/22/17 Time of Surgery/Procedure: 14:00
[2017-11-22] MEDS ORDERED: Oxycodone/Acetaminophen 10/325 mg Tab PO PRN (16:56)
[2017-11-22] MEDS ORDERED: Morphine 4 mg/ml ISec IVP PRN (16:56)
[2017-11-22] MEDS: HYDROmorphone 0.5 mg/0.5 ml ISec IVP PRN ×3 (17:00→17:30)
[2017-11-22] MEDS ORDERED: HYDROmorphone 0.5 mg/0.5 ml ISec ONE ×2 (17:13→17:35)
--- NOTE | 2017-11-22 18:40 | PN ---
DATE: REASON FOR CONSULTATION AND FOLLOWUP: Preop evaluation, risk stratification for abdominal surgery. SUBJECTIVE: Patient denies any chest pain. Family is at the bedside. OBJECTIVE: GENERAL: Not in apparent distress. VITAL SIGNS: Temperature afebrile, heart rate 50, blood pressure 142/71. HEENT: PERRLA. Extraocular muscles are intact. NECK: Supple. No carotid bruit or thyromegaly. CHEST: Clear to auscultation. HEART: S1 and S2 regular. ABDOMEN: Soft. EXTREMITIES: Clubbing and cyanosis negative. LABORATORY DATA: Blood workup as follows: WBC 6.6, hemoglobin 9.8, hematocrit 28.8, platelet count 250. Chemistry shows sodium 139, potassium 4.0, chloride 105, carbon dioxide 25, anion gap of 14, BUN 14, creatinine 1.0. IMPRESSION AND PLAN: Electrolyte imbalance, anemia, diabetes, hypertension, hyperlipidemia, chronic obstructive pulmonary disease. Echocardiography dated 11/17/2017 showed ejection fraction of 44%, mild impaired left ventricular function, no regurgitation noted. Patient is scheduled to go for surgery as mentioned above. We will follow with you. Continue perioperative beta-miguel. Discussed with the family. Thank you, Dr. Hull, for providing us the opportunity in taking care of the patient, Chepe Amaro. Allan Solano MD
[2017-11-22] MEDS: Oxycodone/Acetaminophen 5/325 mg Tab PO PRN (18:48)
[2017-11-22] MEDS ORDERED: Sodium Chloride 0.45% 1,000 ML IV SCH (20:15)
[2017-11-22] MEDS: metroNIDAZOLE IV 500 mg/100 ml 500 MG/100 ML BAG IVPB SCH (22:05)
[2017-11-22] MEDS: Latanoprost 2.5 ml Opht Soln OU SCH (22:05)
[2017-11-23] MEDS: Albuterol-Ipratrop 3 mg / 0.5 (3 ml) UD IH SCH ×4 (01:48→19:38)
[2017-11-23] MEDS: metroNIDAZOLE IV 500 mg/100 ml 500 MG/100 ML BAG IVPB SCH (06:23)
[2017-11-23 06:42] LABS: BASO # 0.02 K/mm3 (0.0-2.0); BASO % 0.2 % (0.0-3.0); EOS % 0.2 % (1.5-5.0); GRAN # 12.43 (1.4-6.5); GRAN % 93.1 % (50.0-68.0); HEMOGLOBIN 8.8 g/dL (14.0-18.0); LYMPH # 0.5 (1.2-3.4); LYMPH % 3.6 % (22.0-35.0); MEAN CELL VOLUME 86.5 fl (80.0-105.0); MEAN CORPUSCULAR HEMOGLOBIN 28.2 pg (25.0-35.0); MEAN CORPUSCULAR HGB CONC 32.6 g/dl (31.0-37.0); MEAN PLATELET VOLUME 8.9 fl (7.0-11.0); MONO # 0.4 (0.1-0.6); MONO % 2.9 % (1.0-6.0); PLATELET COUNT 262 10^3/uL (120.0-450.0); RBC 3.12 10^6/uL (3.5-6.1); RED CELL DISTRIBUTION WIDTH 17.1 % (11.5-14.5); WHITE BLOOD COUNT 13.3 10^3/ul (4.5-11.0)
[2017-11-23 06:55] LABS: ALBUMIN 3.1 g/dL (3.0-4.8); ALT/SGPT 23 U/L (7-56); AST/SGOT 35 U/L (17-59); BLOOD UREA NITROGEN 13 mg/dL (7-21); GFR AFRICAN-AMERICAN > 60; GFR NON-AFRICAN AMERICAN > 60
[2017-11-23] MEDS: Insulin Lispro (humaLOG) MEDIUM Coverage SC SCH ×4 (08:41→21:50)
[2017-11-23 09:07] LABS: ANISOCYTOSIS 1+; BAND 5 % (0-2); HYPOCHROMIA 1+; LYMPHOCYTE 3 % (22.0-35.0); MONOCYTE 2 % (1.0-6.0); NEUTROPHIL 90 % (50.0-70.0); PLATELET ESTIMATE NORMAL (NORMAL)
[2017-11-23 09:08] LABS: TOXIC GRANULATION SLIGHT
[2017-11-23] MEDS ORDERED: cefTRIAXone 1 gm 1 GM/100 ML BAG IVPB SCH (10:00)
[2017-11-23] MEDS: PrednisoLONE 1% Opht Susp(5 ml) OU SCH ×2 (11:10→18:03)
[2017-11-23] MEDS: cefTRIAXone 1 gm 1 GM/100 ML BAG IVPB SCH (11:11)
[2017-11-23] MEDS: Enoxaparin 40 mg Syringe SC SCH (11:12)
[2017-11-23] MEDS: EYE OU SCH ×3 (11:13→18:03)
[2017-11-23] MEDS: FLUOROMETHOLONE OU SCH ×3 (11:13→18:03)
--- NOTE | 2017-11-23 11:57 | CP.PCM.PN ---
Subjective - Date & Time of Evaluation Date of Evaluation: 11/23/17 Time of Evaluation: 08:15 - Subjective Subjective: Patient seen and examined. No acute events over night. Patient complaining of surgical incision site pain. Denies nausea/vomiting. Has not passed flatus. Tolerating liquid diet. Objective - Vital Signs/Intake and Output Vital Signs (last 24 hours): Temp Pulse Resp BP Pulse Ox 94 F L 91 H 18 133/62 96 11/23/17 08:02 11/23/17 08:02 11/23/17 08:02 11/23/17 11:12 11/23/17 08:02 Intake and Output: 11/23/17 11/23/17 06:59 18:59 Intake Total 1360 Output Total 450 Balance 910 - Medications Medications: Current Medications Albuterol/Ipratropium (Duoneb 3 Mg/0.5 Mg (3 Ml) Ud) 3 ml IH [id number] [facility] Last Admin: 11/23/17 08:03 Dose: 3 ml Enoxaparin Sodium (Lovenox) 40 mg SC DAILY [facility] PRN Reason: Protocol Last Admin: 11/23/17 11:12 Dose: 40 mg Gabapentin (Neurontin) 400 mg PO TID [facility] PRN Reason: Protocol Last Admin: 11/23/17 11:10 Dose: 400 mg Ceftriaxone Sodium (Rocephin 1 Gram Ivpb) 1 gm in 100 mls @ 100 mls/hr IVPB DAILY [facility] PRN Reason: Protocol Stop: 11/24/17 10:59 Last Admin: 11/23/17 11:11 Dose: 100 mls/hr Dextrose/Sodium Chloride (Dextrose 5%/0.45% Ns 1000 Ml) 1,000 mls @ 75 mls/hr IV .[id number] [facility] Insulin Human Lispro (Humalog Med) 0 units SC ACHS [facility] PRN Reason: Protocol Last Admin: 11/23/17 08:41 Dose: Not Given Latanoprost (Xalatan Opht) 0 ml OU HS [facility] Last Admin: 11/22/17 22:05 Dose: 2.5 ml Metoprolol Tartrate (Lopressor) 25 mg PO BID [facility] Last Admin: 11/23/17 11:12 Dose: 25 mg Morphine Sulfate (Morphine) 4 mg IVP Q4H PRN PRN Reason: Pain, severe (8-10) Fluorometholone [Fml (0.1%] Eye Drops) 1 drop OU TID [facility] Last Admin: 11/23/17 11:13 Dose: 1 drop Ondansetron HCl (Zofran Inj) 4 mg IVP Q6H PRN PRN Reason: Nausea/Vomiting Last Admin: 11/23/17 04:50 Dose: 4 mg Oxycodone/Acetaminophen (Percocet 10/325 Mg Tab) 1 tab PO Q4H PRN PRN Reason: Pain, severe (8-10) Oxycodone/Acetaminophen (Percocet 5/325 Mg Tab) 1 tab PO Q4H PRN PRN Reason: Pain, moderate (4-7) Stop: 11/25/17 16:57 Last Admin: 11/22/17 18:48 Dose: 1 tab Prednisolone Acetate (Pred Forte 1% Opht Susp) 0 ml OU BID [facility] Last Admin: 11/23/17 11:10 Dose: 1 drop - Labs Labs: 11/23/17 06:00 11/23/17 06:00 PT 12.4 SECONDS (9.4-12.5) 11/22/17 04:00 INR 1.09 (0.93-1.08) H 11/22/17 04:00 APTT 31.7 Seconds (25.1-36.5) 11/22/17 04:00 - Constitutional Appears: Non-toxic - Head Exam Head Exam: NORMAL INSPECTION - Eye Exam Eye Exam: EOMI, Normal appearance - ENT Exam ENT Exam: Mucous Membranes Moist - Respiratory Exam Respiratory Exam: NORMAL BREATHING PATTERN - Cardiovascular Exam Cardiovascular Exam: +S1, +S2 - GI/Abdominal Exam GI & Abdominal Exam: Tenderness - Neurological Exam Neurological Exam: Alert, Awake, Oriented x3 - Psychiatric Exam Psychiatric exam: Normal Mood - Skin Skin Exam: Dry, Intact, Warm Assessment and Plan - Assessment and Plan (Free Text) Assessment: 71M s/p laparoscopic converted to open sigmoidotomy with resection of tubulous adenoma -CLD -F/u pathology -Analgesics/Anti-emetics -Ok to restrart DVT ppx D/w Dr. Rivera
--- NOTE | 2017-11-23 14:16 | PN ---
DATE: SUBJECTIVE: The patient is 71 years old. Seen and examined. Complained of some abdominal discomfort. No nausea or vomiting. No diarrhea. PHYSICAL EXAMINATION: VITAL SIGNS: He is afebrile, pulse 91, respirations 18, blood pressure 133/62. LUNGS: Bilateral good airflow. No rhonchi or crackle. HEART: S1 and S2 audible. ABDOMEN: Soft. Palpable discomfort. Bowel sounds are positive. NEUROLOGIC: He is awake, alert, oriented, communicative. LABORATORY EXAM: WBC 13.3, hemoglobin 8.8, hematocrit 27.0, platelet 262. Chemistry: Sodium 137, potassium 4.7, chloride 104, CO2 of 24, BUN 13, creatinine 1.1, blood sugar of 99. ASSESSMENT: 1. Status post partial colectomy, status post sigmoidectomy with resection of tubular adenoma. 2. History of cancer of lung. Fished chemotherapy. 3. Hypertension. 4. [id number] diabetes. PLAN: The patient is currently on IV fluid. He is getting nebulizer treatment. He is on analgesic. He is on DVT prophylaxis. He is getting gabapentin, getting Rocephin. We will follow up his CBC and CMP in the a.m. Jose Angel Hull MD
[2017-11-23] MEDS: Dextrose 5%/0.45% NS 1,000 ML IV SCH (14:57)
--- NOTE | 2017-11-23 15:26 | OP ---
PROCEDURE DATE: PREOPERATIVE DIAGNOSIS: Carcinoma of the sigmoid. POSTOPERATIVE DIAGNOSIS: Villous polyp. DESCRIPTION OF PROCEDURE: In the operating room, the patient was identified by name, name of procedure, laterally, by gaby. The flexible sigmoidoscope was used to about 20 cm. There was no tumor there. The abdomen was then prepped and draped. After successful time-out, the abdomen was entered through an open incision, it was difficult to get into the abdomen. Once we did, the adhesions were relatively mild. I was not able to see above the omentum from the prior cholecystectomy. The line of Toldt was taken down laparoscopically using a port and 2 right sided 5 mm ports. The intestine was pulled over using a intestinal grabber and the line of Toldt was taken down. In the pelvic brim, the adhesions were taken down; however, considerable amount of bleeding was encountered and we elected to open. The abdomen was entered. The bleeding in the left brim was marginal and completely stopped by the time I got in. The colon was run. There was a polyp in the distal rectal sigmoid. This was stabilized, tacking stitches of silk were placed in either side. The tenia was opened. The polyp grabbed and removed. The base was taken with a blue load of the TA 60 and the polyp removed. Frozen section was done, said that the base was not invaded. The incision was closed. Thereafter as there was no bleeding, several stitches were placed on the side itself using Vicryl. The incision was then closed and fashion using and TA 60. The abdomen was cleaned and run and was closed with On-Q using #1 PDS above and below tied in the middle with buried knot and closed with santi. The patient was taken to the recovery room in good condition after the sponge and needle counts were declared correct. Morgan Rivera MD
--- NOTE | 2017-11-23 15:49 | PN ---
DATE: 11/23/2017 LOCATION: Patient is in room 578, bed 2. REASON FOR CONSULTATION: Followup preop cardiac evaluation, risk stratification for abdominal surgery. Patient is now post laparotomy, sigmoidotomy, excision of tubulous adenoma, closure of enterotomy. SUBJECTIVE: Patient is lying comfortably in bed without chest pain, shortness of breath, or palpitation. He complains of some discomfort at surgical site. PHYSICAL EXAMINATION VITAL SIGNS: Blood pressure 133/62, respirations 18, pulse 91, temperature 97.9. HEENT: Head is normocephalic. Eyes, pupils normal. Conjunctiva is slightly pale. NECK: JVP low. Carotids are equal. Thorax, AP diameter is normal. LUNGS: Clear. CARDIOVASCULAR: S1 and S2. ABDOMEN: Surgery as mentioned. EXTREMITIES: No clubbing, no cyanosis. LABORATORY DATA: WBC 13.3, hemoglobin 8.8, hematocrit 27.0, platelets 262,000. Sodium 137, potassium 4.7, BUN 13, creatinine 1.1. Sugar 99. AST and ALT normal. Total protein 6.1, albumin 3.1. DIAGNOSES: Status post laparotomy, sigmoidotomy, excision of tubulous adenoma, closure of enterotomy, anemia, diabetes mellitus, hypertension, hyperlipidemia, chronic obstructive pulmonary disease. Echo on 11/17/2017 showed ejection fraction of 44%, mildly impaired left ventricular systolic function. No regurgitation noted. PLAN: To continue current therapy; patient is getting IV fluid therapy, metoprolol 25 mg b.i.d., 40 mg subcutaneous daily, Neurontin 400 mg t.i.d., Rocephin 1 g IV daily. We will continue the present therapy. Allan Chavez MD
--- NOTE | 2017-11-23 18:07 | CP.PCM.PN ---
<Priscilla Beal - Last Filed: 11/23/17 18:06> Subjective - Date & Time of Evaluation Date of Evaluation: 11/23/17 Time of Evaluation: 12:40 - Subjective Subjective: Seen and examined at the bedside earlier today, chart review. Postop day #1 status post attempted exploratory laparoscopy with sigmoid colon physician, closure of enterotomy and peritoneal biopsy. Patient denies nausea, vomiting, abdominal pain when abdomen palpated as per patient. No reports of fever or chills. No reports of the abdomen. Patient no appetite for lunch. Tray sitting at bedside. Objective - Vital Signs/Intake and Output Vital Signs (last 24 hours): Temp Pulse Resp BP Pulse Ox 98.8 F 91 H 20 124/65 94 L 11/23/17 16:12 11/23/17 16:12 11/23/17 16:12 11/23/17 16:12 11/23/17 16:12 Intake and Output: 11/23/17 11/23/17 06:59 18:59 Intake Total 1360 480 Output Total 450 Balance 910 480 - Medications Medications: Current Medications Albuterol/Ipratropium (Duoneb 3 Mg/0.5 Mg (3 Ml) Ud) 3 ml IH [id number] [facility] Last Admin: 11/23/17 14:09 Dose: 3 ml Enoxaparin Sodium (Lovenox) 40 mg SC DAILY [facility] PRN Reason: Protocol Last Admin: 11/23/17 11:12 Dose: 40 mg Gabapentin (Neurontin) 400 mg PO TID [facility] PRN Reason: Protocol Last Admin: 11/23/17 15:00 Dose: 400 mg Ceftriaxone Sodium (Rocephin 1 Gram Ivpb) 1 gm in 100 mls @ 100 mls/hr IVPB DAILY [facility] PRN Reason: Protocol Stop: 11/24/17 10:59 Last Admin: 11/23/17 11:11 Dose: 100 mls/hr Dextrose/Sodium Chloride (Dextrose 5%/0.45% Ns 1000 Ml) 1,000 mls @ 75 mls/hr IV .[id number] [facility] Last Admin: 11/23/17 14:57 Dose: 75 mls/hr Insulin Human Lispro (Humalog Med) 0 units SC ACHS [facility] PRN Reason: Protocol Last Admin: 11/23/17 17:13 Dose: Not Given Latanoprost (Xalatan Opht) 0 ml OU HS [facility] Last Admin: 11/22/17 22:05 Dose: 2.5 ml Metoprolol Tartrate (Lopressor) 25 mg PO BID [facility] Last Admin: 11/23/17 11:12 Dose: 25 mg Morphine Sulfate (Morphine) 4 mg IVP Q4H PRN PRN Reason: Pain, severe (8-10) Fluorometholone [Fml (0.1%] Eye Drops) 1 drop OU TID [facility] Last Admin: 11/23/17 14:56 Dose: 1 drop Ondansetron HCl (Zofran Inj) 4 mg IVP Q6H PRN PRN Reason: Nausea/Vomiting Last Admin: 11/23/17 04:50 Dose: 4 mg Oxycodone/Acetaminophen (Percocet 10/325 Mg Tab) 1 tab PO Q4H PRN PRN Reason: Pain, severe (8-10) Oxycodone/Acetaminophen (Percocet 5/325 Mg Tab) 1 tab PO Q4H PRN PRN Reason: Pain, moderate (4-7) Stop: 11/25/17 16:57 Last Admin: 11/22/17 18:48 Dose: 1 tab Prednisolone Acetate (Pred Forte 1% Opht Susp) 0 ml OU BID [facility] Last Admin: 11/23/17 11:10 Dose: 1 drop - Labs Labs: 11/23/17 06:00 11/23/17 06:00 PT 12.4 SECONDS (9.4-12.5) 11/22/17 04:00 INR 1.09 (0.93-1.08) H 11/22/17 04:00 APTT 31.7 Seconds (25.1-36.5) 11/22/17 04:00 - Constitutional Appears: No Acute Distress - Eye Exam Eye Exam: Normal appearance. absent: Scleral icterus - ENT Exam ENT Exam: Mucous Membranes Moist - Respiratory Exam Respiratory Exam: NORMAL BREATHING PATTERN. absent: Respiratory Distress - Cardiovascular Exam Cardiovascular Exam: +S1, +S2 - GI/Abdominal Exam GI & Abdominal Exam: Soft, Normal Bowel Sounds Additional comments: large abdominal dressing in place try and intact - Extremities Exam Extremities Exam: absent: Pedal Edema - Neurological Exam Neurological Exam: Alert, Awake, Oriented x3 Assessment and Plan - Assessment and Plan (Free Text) Assessment: Assessment: Status post exploratory laparoscopy with sigmoid colon exertion, closure of enterotomy and peritoneal biopsy Abnormal PET scan, status post colonoscopy found to have a sigmoid colon mass, pathology report tubular adenoma Lung cancer on chemotherapy Diabetes mellitus Peripheral vascular disease Plan: as per surgery on full liquid diet Continue PPI On IV antibiotics Follow-up surgical pathology DVT prophylaxis Monitor H&H Seen and discussed with Dr. Louis. <Selene Louis V - Last Filed: 11/23/17 22:46> Objective - Vital Signs/Intake and Output Vital Signs (last 24 hours): Temp Pulse Resp BP Pulse Ox 98.8 F 91 H 20 124/65 94 L 11/23/17 16:12 11/23/17 16:12 11/23/17 16:12 11/23/17 18:02 11/23/17 16:12 Intake and Output: 11/23/17 11/24/17 18:59 06:59 Intake Total 480 420 Output Total 475 Balance 480 -55 - Medications Medications: Current Medications Albuterol/Ipratropium (Duoneb 3 Mg/0.5 Mg (3 Ml) Ud) 3 ml IH [id number] [facility] Last Admin: 11/23/17 19:38 Dose: 3 ml Enoxaparin Sodium (Lovenox) 40 mg SC DAILY [facility] PRN Reason: Protocol Last Admin: 11/23/17 11:12 Dose: 40 mg Gabapentin (Neurontin) 400 mg PO TID [facility] PRN Reason: Protocol Last Admin: 11/23/17 18:02 Dose: 400 mg Ceftriaxone Sodium (Rocephin 1 Gram Ivpb) 1 gm in 100 mls @ 100 mls/hr IVPB DAILY [facility] PRN Reason: Protocol Stop: 11/24/17 10:59 Last Admin: 11/23/17 11:11 Dose: 100 mls/hr Dextrose/Sodium Chloride (Dextrose 5%/0.45% Ns 1000 Ml) 1,000 mls @ 75 mls/hr IV .[id number] [facility] Last Admin: 11/23/17 14:57 Dose: 75 mls/hr Insulin Human Lispro (Humalog Med) 0 units SC ACHS [facility] PRN Reason: Protocol Last Admin: 11/23/17 21:50 Dose: Not Given Latanoprost (Xalatan Opht) 0 ml OU HS [facility] Last Admin: 11/23/17 21:48 Dose: 2.5 ml Metoprolol Tartrate (Lopressor) 25 mg PO BID [facility] Last Admin: 11/23/17 18:02 Dose: 25 mg Morphine Sulfate (Morphine) 4 mg IVP Q4H PRN PRN Reason: Pain, severe (8-10) Fluorometholone [Fml (0.1%] Eye Drops) 1 drop OU TID [facility] Last Admin: 11/23/17 18:03 Dose: 1 drop Ondansetron HCl (Zofran Inj) 4 mg IVP Q6H PRN PRN Reason: Nausea/Vomiting Last Admin: 11/23/17 04:50 Dose: 4 mg Oxycodone/Acetaminophen (Percocet 10/325 Mg Tab) 1 tab PO Q4H PRN PRN Reason: Pain, severe (8-10) Oxycodone/Acetaminophen (Percocet 5/325 Mg Tab) 1 tab PO Q4H PRN PRN Reason: Pain, moderate (4-7) Stop: 11/25/17 16:57 Last Admin: 11/23/17 19:49 Dose: 1 tab Prednisolone Acetate (Pred Forte 1% Opht Susp) 0 ml OU BID [facility] Last Admin: 11/23/17 18:03 Dose: 1 drop - Labs Labs: 11/23/17 06:00 11/23/17 06:00 PT 12.4 SECONDS (9.4-12.5) 11/22/17 04:00 INR 1.09 (0.93-1.08) H 11/22/17 04:00 APTT 31.7 Seconds (25.1-36.5) 11/22/17 04:00 Attending/Attestation - Attestation I have personally seen and examined this patient.: Yes I have fully participated in the care of the patient.: Yes I have reviewed all pertinent clinical information, including history, physical exam and plan: Yes Notes (Text): This is an addendum to GI progress report dictated by Priscilla Beal APN.The patient was seen and examined earlier. Medical records, lab studies, imagings were reviewed. Last 24 hours events reviewed. Agreed with the above treatment plan as outlined in Priscilla Beal APN's notes the with the addition of the following 11/23/17 22:46
[2017-11-23] MEDS: Oxycodone/Acetaminophen 5/325 mg Tab PO PRN (19:49)
[2017-11-23] MEDS: Latanoprost 2.5 ml Opht Soln OU SCH (21:48)
[2017-11-24] MEDS: Albuterol-Ipratrop 3 mg / 0.5 (3 ml) UD IH SCH ×4 (01:12→20:20)
[2017-11-24] MEDS: Oxycodone/Acetaminophen 5/325 mg Tab PO PRN ×2 (04:24→14:57)
[2017-11-24] MEDS: Dextrose 5%/0.45% NS 1,000 ML IV SCH ×2 (04:26→17:48)
[2017-11-24 07:21] LABS: BASO # 0.02 K/mm3 (0.0-2.0); BASO % 0.2 % (0.0-3.0); EOS # 0.2 (0.0-0.7); EOS % 1.5 % (1.5-5.0); GRAN # 9.64 (1.4-6.5); GRAN % 90.8 % (50.0-68.0); HEMOGLOBIN 8.6 g/dL (14.0-18.0); LYMPH # 0.4 (1.2-3.4); LYMPH % 3.9 % (22.0-35.0); MEAN CELL VOLUME 85.5 fl (80.0-105.0); MEAN CORPUSCULAR HEMOGLOBIN 27.7 pg (25.0-35.0); MEAN CORPUSCULAR HGB CONC 32.3 g/dl (31.0-37.0); MONO # 0.4 (0.1-0.6); MONO % 3.6 % (1.0-6.0); RBC 3.11 10^6/uL (3.5-6.1); RED CELL DISTRIBUTION WIDTH 17.2 % (11.5-14.5); WHITE BLOOD COUNT 10.6 10^3/ul (4.5-11.0)
[2017-11-24 07:31] LABS: ALBUMIN 2.9 g/dL (3.0-4.8); ALT/SGPT 21 U/L (7-56); AST/SGOT 45 U/L (17-59); BLOOD UREA NITROGEN 12 mg/dL (7-21); CALCIUM 8.3 mg/dL (8.4-10.5); GFR AFRICAN-AMERICAN > 60; GFR NON-AFRICAN AMERICAN > 60
[2017-11-24] MEDS: Insulin Lispro (humaLOG) MEDIUM Coverage SC SCH ×3 (11:49→17:50)
[2017-11-24] MEDS: PrednisoLONE 1% Opht Susp(5 ml) OU SCH (11:50)
[2017-11-24] MEDS: cefTRIAXone 1 gm 1 GM/100 ML BAG IVPB SCH (11:59)
[2017-11-24] MEDS: Enoxaparin 40 mg Syringe SC SCH (11:59)
[2017-11-24] MEDS: FLUOROMETHOLONE OU SCH ×3 (12:24→17:49)
[2017-11-24] MEDS: EYE OU SCH ×3 (12:24→17:49)
--- NOTE | 2017-11-24 14:56 | PN ---
DATE: REASON FOR CONSULTATION AND FOLLOWUP: Preop evaluation, risk stratification for abdominal surgery, status post laparotomy, sigmoidotomy, excision of a tubulous adenoma, closure of enterostomy. SUBJECTIVE: The patient is lying flat on the bed. Denies any chest pain, shortness of breath. Complaining of right foot pain. PHYSICAL EXAMINATION VITAL SIGNS: Temperature afebrile, heart rate , blood pressure 111/62. HEENT: PERRLA. Extraocular muscles intact. NECK: Supple. No carotid bruit. No thyromegaly. CHEST: Clear to auscultation. HEART: S1 and S2 regular. ABDOMEN: Soft. EXTREMITIES: Clubbing and cyanosis negative. LABORATORY DATA: Blood workup as follows: WBC 10.6, hemoglobin 8.6, hematocrit 26.6, platelet count 246,000. Chemistry shows sodium 132, potassium 4, chloride 104, carbon dioxide 25, anion gap of 12, BUN 12, creatinine 1.0. IMPRESSION: Status post exploratory laparotomy; carcinoma of the sigmoid colon; status post excision of tubulous adenoma; status post sigmoidotomy and closure of colostomy; anemia; diabetes; hypertension; hyperlipidemia; chronic obstructive pulmonary disease; last echo on 11/17/2017, ejection fraction of 40%, mildly impaired systolic function, no regurgitant valvular heart disease noted. RECOMMENDATIONS: Continue beta-miguel. Continue low dose of JOHN inhibitor, blood pressure is tolerated. We will get STERLING, PVR on Sunday. The patient is complaining of foot pain, rule out any peripheral vascular disease. Continue DVT prophylaxis. Increase little support as blood pressure is tolerated. We will follow with you. Thank you Dr. Hull for providing us the opportunity in taking care of Prem Mo. Allan Solano MD
--- NOTE | 2017-11-24 15:18 | CP.PCM.PN ---
Subjective - Date & Time of Evaluation Date of Evaluation: 11/24/17 Time of Evaluation: 15:18 - Subjective Subjective: Surgery Pt s&e. Pain controlled. Tolerating CLD. + amb. No BM, denies N/V?D?Cp Objective - Vital Signs/Intake and Output Vital Signs (last 24 hours): Temp Pulse Resp BP Pulse Ox 97.9 F 84 18 111/62 94 L 11/24/17 07:30 11/24/17 12:00 11/24/17 07:30 11/24/17 12:00 11/24/17 07:30 Intake and Output: 11/24/17 11/24/17 06:59 18:59 Intake Total 480 900 Output Total 675 Balance -195 900 - Medications Medications: Current Medications Albuterol/Ipratropium (Duoneb 3 Mg/0.5 Mg (3 Ml) Ud) 3 ml IH [id number] [facility] Last Admin: 11/24/17 13:05 Dose: 3 ml Enoxaparin Sodium (Lovenox) 40 mg SC DAILY [facility] PRN Reason: Protocol Last Admin: 11/24/17 11:59 Dose: 40 mg Gabapentin (Neurontin) 400 mg PO TID [facility] PRN Reason: Protocol Last Admin: 11/24/17 12:00 Dose: 400 mg Dextrose/Sodium Chloride (Dextrose 5%/0.45% Ns 1000 Ml) 1,000 mls @ 75 mls/hr IV .[id number] [facility] Last Admin: 11/24/17 04:26 Dose: 75 mls/hr Insulin Human Lispro (Humalog Med) 0 units SC ACHS [facility] PRN Reason: Protocol Last Admin: 11/24/17 12:26 Dose: Not Given Latanoprost (Xalatan Opht) 0 ml OU HS [facility] Last Admin: 11/23/17 21:48 Dose: 2.5 ml Metoprolol Tartrate (Lopressor) 25 mg PO BID [facility] Last Admin: 11/24/17 12:00 Dose: 25 mg Morphine Sulfate (Morphine) 4 mg IVP Q4H PRN PRN Reason: Pain, severe (8-10) Fluorometholone [Fml (0.1%] Eye Drops) 1 drop OU TID [facility] Last Admin: 11/24/17 13:55 Dose: 1 drop Ondansetron HCl (Zofran Inj) 4 mg IVP Q6H PRN PRN Reason: Nausea/Vomiting Last Admin: 11/23/17 04:50 Dose: 4 mg Oxycodone/Acetaminophen (Percocet 10/325 Mg Tab) 1 tab PO Q4H PRN PRN Reason: Pain, severe (8-10) Oxycodone/Acetaminophen (Percocet 5/325 Mg Tab) 1 tab PO Q4H PRN PRN Reason: Pain, moderate (4-7) Stop: 11/25/17 16:57 Last Admin: 11/24/17 14:57 Dose: 1 tab Prednisolone Acetate (Pred Forte 1% Opht Susp) 0 ml OU BID [facility] Last Admin: 11/24/17 11:50 Dose: 1 drop - Labs Labs: 11/24/17 06:30 11/24/17 06:30 PT 12.4 SECONDS (9.4-12.5) 11/22/17 04:00 INR 1.09 (0.93-1.08) H 11/22/17 04:00 APTT 31.7 Seconds (25.1-36.5) 11/22/17 04:00 - Constitutional Appears: No Acute Distress - Head Exam Head Exam: ATRAUMATIC, NORMAL INSPECTION, NORMOCEPHALIC - Eye Exam Eye Exam: EOMI, Normal appearance, PERRL Pupil Exam: NORMAL ACCOMODATION, PERRL - ENT Exam ENT Exam: Mucous Membranes Moist, Normal Exam - Neck Exam Neck Exam: Full ROM, Normal Inspection. absent: Lymphadenopathy - Cardiovascular Exam Cardiovascular Exam: REGULAR RHYTHM, +S1, +S2. absent: Murmur - GI/Abdominal Exam GI & Abdominal Exam: Soft, Normal Bowel Sounds. absent: Distended, Firm, Guarding, Rigid, Tenderness Additional comments: incision c/D/I - Extremities Exam Extremities Exam: Full ROM, Normal Capillary Refill, Normal Inspection. absent : Joint Swelling, Pedal Edema - Back Exam Back Exam: NORMAL INSPECTION - Neurological Exam Neurological Exam: Alert, Awake, CN II-XII Intact, Normal Gait, Oriented x3 - Psychiatric Exam Psychiatric exam: Normal Affect, Normal Mood - Skin Skin Exam: Dry, Intact, Normal Color, Warm Assessment and Plan - Assessment and Plan (Free Text) Assessment: 71M s/p laparoscopic converted to open sigmoidotomy with resection of tubulous adenoma -FLD -F/u pathology -Analgesics/Anti-emetics DVT ppx D/w Dr. Rivera
--- NOTE | 2017-11-24 17:51 | PN ---
DATE: SUBJECTIVE: The patient is 71 years old seen and examined, complains of pain at surgical site and pass the flatus, did not have bowel movement yet. PHYSICAL EXAMINATION: VITAL SIGNS: Patient is afebrile, pulse 84, respirations 18, blood pressure 111/62. LUNGS: Bilateral fair air flow. No rhonchi or crackle. HEART: S1, S2 audible. ABDOMEN: Soft, flat, palpable discomfort. NEUROLOGIC: Patient is awake and alert, able to communicate. LABORATORY DATA: WBC is 7.6, hemoglobin 8.6, hematocrit and platelets 246. Chemistry: Sodium 136, potassium 4.0, chloride 104, CO2 of 25, BUN , creatinine 1.0, blood sugar of 181. ASSESSMENT: 1. Status post partial colectomy and sigmoidectomy. 2. Chronic anemia. 3. Zav-phjbuqe-jsmoqvoae diabetes. 4. Hypertension. 5. Hyperlipidemia. 6. Chronic obstructive pulmonary disease. 7. History of cancer of lung. PLAN: Patient is currently on IV fluids, he is on incentive spirometry, he is on liquid diet, out of bed to chair. Physical therapy evaluation has been requested. It was also emphasized for him to use spirometry more frequently and it was demonstrated to him also. Jose Angel Hull MD
[2017-11-25] MEDS: Albuterol-Ipratrop 3 mg / 0.5 (3 ml) UD IH SCH ×4 (02:50→21:03)
--- NOTE | 2017-11-25 03:07 | PN ---
DATE:11/24/2017 SUBJECTIVE: This patient was seen and evaluated earlier today. The patient is comfortable. PHYSICAL EXAMINATION: VITAL SIGNS: Temperature is 97.9, blood pressure 111/62, pulse 84, respirations 18, O2 saturation 94%. HEENT: Atraumatic, anicteric. NECK: Supple. HEART: S1 and S2 heard. LUNGS: Bilateral air entry present. ABDOMEN: Soft. Bowel sounds present. Surgical incisions noticed. EXTREMITIES: No cyanosis. No clubbing. No edema. LABORATORY DATA: Hemoglobin 8.6, hematocrit 26.6, WBC 10.6, platelets 246. Chemistry is essentially unremarkable. IMPRESSION: This is a 71-year-old patient, had sigmoid colon resection. Would recommend advance the diet as per the Surgery. Followup of the pathology; followup of the hemoglobin and hematocrit. Patient's other comorbidities include lung cancer, diabetes mellitus, hypertension, dyslipidemia, chronic obstructive pulmonary disease. Thank you very much for allowing us to participate in the care of the patient. Selene Louis MD [facility]
[2017-11-25] MEDS: Insulin Lispro (humaLOG) MEDIUM Coverage SC SCH ×3 (05:19→16:20)
[2017-11-25] MEDS: Latanoprost 2.5 ml Opht Soln OU SCH ×2 (05:20→21:48)
[2017-11-25 08:34] LABS: BASO # 0.03 K/mm3 (0.0-2.0); BASO % 0.3 % (0.0-3.0); EOS # 0.2 (0.0-0.7); EOS % 2.3 % (1.5-5.0); GRAN # 8.36 (1.4-6.5); GRAN % 84.6 % (50.0-68.0); HEMOGLOBIN 8.4 g/dL (14.0-18.0); LYMPH # 0.6 (1.2-3.4); LYMPH % 6.2 % (22.0-35.0); MEAN CELL VOLUME 85.9 fl (80.0-105.0); MEAN CORPUSCULAR HEMOGLOBIN 28.2 pg (25.0-35.0); MEAN CORPUSCULAR HGB CONC 32.8 g/dl (31.0-37.0); MEAN PLATELET VOLUME 9.1 fl (7.0-11.0); MONO # 0.7 (0.1-0.6); MONO % 6.6 % (1.0-6.0); RBC 2.98 10^6/uL (3.5-6.1); RED CELL DISTRIBUTION WIDTH 17.1 % (11.5-14.5); WHITE BLOOD COUNT 9.9 10^3/ul (4.5-11.0)
[2017-11-25 08:52] LABS: ALB/GLOB RATIO 0.9 (1.1-1.8); ALBUMIN 2.9 g/dL (3.0-4.8); ALT/SGPT 18 U/L (7-56); AST/SGOT 42 U/L (17-59); BLOOD UREA NITROGEN 12 mg/dL (7-21); CALCIUM 8.7 mg/dL (8.4-10.5); GFR AFRICAN-AMERICAN > 60; GFR NON-AFRICAN AMERICAN > 60
[2017-11-25] MEDS: EYE OU SCH ×3 (10:48→20:10)
[2017-11-25] MEDS: FLUOROMETHOLONE OU SCH ×3 (10:48→20:10)
[2017-11-25] MEDS: PrednisoLONE 1% Opht Susp(5 ml) OU SCH ×2 (10:51→20:11)
[2017-11-25] MEDS: Enoxaparin 40 mg Syringe SC SCH (10:59)
[2017-11-25] MEDS: Oxycodone/Acetaminophen 5/325 mg Tab PO PRN (11:01)
--- NOTE | 2017-11-25 13:14 | CP.PCM.PN ---
Subjective - Date & Time of Evaluation Date of Evaluation: 11/25/17 Time of Evaluation: 07:40 - Subjective Subjective: Patient seen and examined at bedside, No adverse events overnight. Patient tolerating Full liquid diet well, passing gas, but no BM. Patient complaining of some pain in the abdomen and in the right leg well controlled on the current regimen. No nausea, vomiting, fevers or chills. Objective - Vital Signs/Intake and Output Vital Signs (last 24 hours): Temp Pulse Resp BP Pulse Ox 97.9 F 84 20 124/64 96 11/25/17 07:30 11/25/17 11:00 11/25/17 07:30 11/25/17 11:00 11/25/17 07:30 Intake and Output: 11/25/17 11/25/17 06:59 18:59 Intake Total 300 Output Total 900 Balance -600 - Medications Medications: Current Medications Albuterol/Ipratropium (Duoneb 3 Mg/0.5 Mg (3 Ml) Ud) 3 ml IH [id number] [facility] Last Admin: 11/25/17 07:21 Dose: 3 ml Enoxaparin Sodium (Lovenox) 40 mg SC DAILY [facility] PRN Reason: Protocol Last Admin: 11/25/17 10:59 Dose: 40 mg Gabapentin (Neurontin) 400 mg PO TID [facility] PRN Reason: Protocol Last Admin: 11/25/17 11:00 Dose: 400 mg Dextrose/Sodium Chloride (Dextrose 5%/0.45% Ns 1000 Ml) 1,000 mls @ 75 mls/hr IV .[id number] [facility] Last Admin: 11/24/17 17:48 Dose: 75 mls/hr Potassium Chloride (Potassium Chloride 20 Meq/100 Ml) 20 meq in 100 mls @ 50 mls/hr IVPB ONCE ONE Stop: 11/25/17 13:18 Insulin Human Lispro (Humalog Med) 0 units SC ACHS [facility] PRN Reason: Protocol Last Admin: 11/25/17 10:49 Dose: Not Given Latanoprost (Xalatan Opht) 0 ml OU HS [facility] Last Admin: 11/25/17 05:20 Dose: Not Given Metoprolol Tartrate (Lopressor) 25 mg PO BID [facility] Last Admin: 11/25/17 11:00 Dose: 25 mg Morphine Sulfate (Morphine) 4 mg IVP Q4H PRN PRN Reason: Pain, severe (8-10) Fluorometholone [Fml (0.1%] Eye Drops) 1 drop OU TID [facility] Last Admin: 11/25/17 10:48 Dose: 1 drop Ondansetron HCl (Zofran Inj) 4 mg IVP Q6H PRN PRN Reason: Nausea/Vomiting Last Admin: 11/23/17 04:50 Dose: 4 mg Oxycodone/Acetaminophen (Percocet 10/325 Mg Tab) 1 tab PO Q4H PRN PRN Reason: Pain, severe (8-10) Last Admin: 11/24/17 17:58 Dose: 1 tab Oxycodone/Acetaminophen (Percocet 5/325 Mg Tab) 1 tab PO Q4H PRN PRN Reason: Pain, moderate (4-7) Stop: 11/25/17 16:57 Last Admin: 11/25/17 11:01 Dose: 1 tab Prednisolone Acetate (Pred Forte 1% Opht Susp) 0 ml OU BID [facility] Last Admin: 11/25/17 10:51 Dose: 1 drop Ramipril (Altace) 1.25 mg PO DAILY [facility] - Labs Labs: 11/25/17 08:24 11/25/17 08:24 PT 12.4 SECONDS (9.4-12.5) 11/22/17 04:00 INR 1.09 (0.93-1.08) H 11/22/17 04:00 APTT 31.7 Seconds (25.1-36.5) 11/22/17 04:00 - Constitutional Appears: Well, Non-toxic, No Acute Distress - Head Exam Head Exam: ATRAUMATIC, NORMOCEPHALIC - Eye Exam Eye Exam: Normal appearance. absent: Conjunctival injection, Scleral icterus - ENT Exam ENT Exam: Mucous Membranes Moist, Normal Oropharynx - Respiratory Exam Respiratory Exam: NORMAL BREATHING PATTERN. absent: Accessory Muscle Use, Respiratory Distress - Cardiovascular Exam Cardiovascular Exam: RRR - GI/Abdominal Exam GI & Abdominal Exam: Soft, Tenderness (LLQ>RLQ). absent: Distended, Guarding, Rebound Additional comments: incision well approximated by santi, no drainage, erythema, or bleeding - Extremities Exam Extremities Exam: absent: Calf Tenderness, Pedal Edema, Tenderness Additional comments: No palpable pulses in the right foot, foot warm, no skin breakdown. - Neurological Exam Neurological Exam: Alert, Awake, Oriented x3 - Psychiatric Exam Psychiatric exam: Normal Affect, Normal Mood - Skin Skin Exam: Dry, Intact, Normal Color, Warm Assessment and Plan - Assessment and Plan (Free Text) Assessment: 71M POD#3 s/p sigmoidectomy with primary anastamosis for polyp Plan: -monitor bowel movement closely -Continue FLD -PRN pain medication -encourage assisted ambulation in incentive spirometer use Discussed with DR. Miguel Dash, PGY2
[2017-11-25] MEDS: Dextrose 5%/0.45% NS 1,000 ML IV SCH (15:52)
--- NOTE | 2017-11-25 16:33 | PN ---
11/25/2017DATE: REASON FOR CONSULTATION: Follow up preop evaluation, risk stratification for abdominal surgery, status post laparotomy, sigmoidotomy, excision of tubulous adenoma, closure of enterostomy. SUBJECTIVE: The patient is lying flat on the bed. Denies any chest pain, shortness of breath, any palpitation. Complaining of right foot pain. PHYSICAL EXAMINATION: GENERAL: Not in apparent distress. VITAL SIGNS: Temperature afebrile, heart rate 84, blood pressure 124/64. HEENT: PERRLA. Extraocular muscles intact. NECK: Supple. No carotid bruit or thyromegaly. CHEST: Clear to auscultation. HEART: S1 and S2 regular. ABDOMEN: Soft. EXTREMITIES: Clubbing and cyanosis, negative. LABORATORY DATA: Blood workup as follows: WBC 9.9, hemoglobin 8.5, hematocrit 25.6, platelet count 228. Chemistry shows sodium 135, potassium 3.6, chloride 102, carbon dioxide 24, anion gap of 42, BUN 12, creatinine . IMPRESSION: Status post abdominal surgery, status post exploratory laparotomy, carcinoma of the sigmoid colon, status post excision of tubulous adenoma, status post sigmoidotomy, closure of colostomy, anemia, type 2 diabetes, hypertension, hyperlipidemia, chronic obstructive pulmonary disease. Last echo ejection fraction 40%, mildly impaired systolic function, no regurgitant significant valvular heart disease noted. RECOMMENDATIONS: Continue low dose beta-miguel. Continue with at bedside discussed with Dr. Rivera. We will hold it until the patient makes the bowel movement, though the patient is passing the gas. We will continue p.o. meds. Continue beta-miguel 25 mg p.o. b.i.d. Continue IV hydration. We will start low dose of JOHN inhibitors from tomorrow for low ejection fraction. We will repeat the blood workup in the morning. We will give 20 of potassium IV and elevate the mag level in the morning. Thank you, Dr. Hull, for providing us the opportunity in taking care of the patient, Chepe Amaro. Allan Solano MD
--- NOTE | 2017-11-25 18:06 | PN ---
DATE: SUBJECTIVE: The patient is a 71-year-old, seen and examined, lying in bed, seems to be comfortable except pain at surgical site and right foot pain. PHYSICAL EXAMINATION VITAL SIGNS: He is afebrile, pulse 84, respirations 20, blood pressure 124/64. LUNGS: Bilateral good airflow. No rhonchi or crackle. HEART: S1 and S2 audible. ABDOMEN: Soft, slightly tender at surgical site. NEUROLOGICAL: He is awake and alert, able to communicate, complained of pain in the right foot. LABORATORY DATA: WBC is 9.9, hemoglobin 8.4, hematocrit 25.6, platelet of 228. Chemistry: Sodium 135, potassium 3.6, chloride 102, CO2 of 24, BUN 12, creatinine 1. Blood sugar 177. ASSESSMENT: 1. Status post sigmoidectomy and partial colectomy. 2. Lung cancer. 3. Peripheral vascular disease. 4. Anemia. 5. Csq-ytyjxgf-uzekoqany diabetes. 6. Hypertension. 7. History of chronic obstructive pulmonary disease. PLAN: The patient is on clear liquid diet that will be advanced per surgical team. Analgesic as needed. Out of bed to chair and encourage ambulation, possible angioplasty for his occlusive arteries in the right leg next week. Jose Angel Hull MD
--- NOTE | 2017-11-25 21:13 | PN ---
DATE: 11/25/2017 SUBJECTIVE: This patient was seen and evaluated earlier today, tolerating the full liquid diet. PHYSICAL EXAMINATION: VITAL SIGNS: On examination, temperature is 97.9, pulse 84, blood pressure is 124/64. HEENT: Atraumatic, anicteric NECK: Supple. HEART: S1, S2, heard. LUNGS: Bilateral air entry present. ABDOMEN: Soft, surgical incision noticed. LABORATORY DATA: Hemoglobin 8.4, hematocrit 25.6, WBC 9.9, platelets 228. BUN 12, creatinine 1.0. IMPRESSION: This 71-year-old patient with status post sigmoid colon resection for the large polyp. Other comorbidities include history of lung cancer, diabetes mellitus, hypertension, dyslipidemia, and chronic obstructive pulmonary disease. RECOMMENDSTIONS: Continue postop after surgery, advance the diet. Followup of the pathology. Discussed with the patient at length and also discussed with nursing staff. Thank you very much for allowing us to participate in the care of the patient. Selene Louis MD
--- NOTE | 2017-11-26 00:01 | CP.PCM.PN ---
Subjective - Date & Time of Evaluation Date of Evaluation: 11/23/17 Time of Evaluation: 15:00 - Subjective Subjective: Comfortable in bed. No pain. s/p sigmoid colon resection for large tubular adenoma. Lung cancer right side with good response to chemo. iron deficiency anemia. pain controlled with current meds. Objective - Vital Signs/Intake and Output Vital Signs (last 24 hours): Temp Pulse Resp BP Pulse Ox 97.9 F 62 20 131/60 96 11/25/17 16:30 11/25/17 16:30 11/25/17 16:30 11/25/17 16:30 11/25/17 16:30 Intake and Output: 11/25/17 11/26/17 18:59 06:59 Intake Total 600 300 Output Total 750 500 Balance -150 -200 - Medications Medications: Current Medications Albuterol/Ipratropium (Duoneb 3 Mg/0.5 Mg (3 Ml) Ud) 3 ml IH [id number] [facility] Last Admin: 11/25/17 21:03 Dose: 3 ml Enoxaparin Sodium (Lovenox) 40 mg SC DAILY [facility] PRN Reason: Protocol Last Admin: 11/25/17 10:59 Dose: 40 mg Gabapentin (Neurontin) 400 mg PO TID [facility] PRN Reason: Protocol Last Admin: 11/25/17 20:11 Dose: Not Given Dextrose/Sodium Chloride (Dextrose 5%/0.45% Ns 1000 Ml) 1,000 mls @ 75 mls/hr IV .[id number] [facility] Last Admin: 11/25/17 15:52 Dose: 75 mls/hr Iron Sucrose 200 mg/ Sodium (Chloride) 110 mls @ 110 mls/hr IVPB ONCE ONE Stop: 11/26/17 10:59 Insulin Human Lispro (Humalog Med) 0 units SC ACHS [facility] PRN Reason: Protocol Last Admin: 11/25/17 16:20 Dose: Not Given Latanoprost (Xalatan Opht) 0 ml OU HS [facility] Last Admin: 11/25/17 21:48 Dose: 2.5 ml Metoprolol Tartrate (Lopressor) 25 mg PO BID [facility] Last Admin: 11/25/17 20:09 Dose: Not Given Fluorometholone [Fml (0.1%] Eye Drops) 1 drop OU TID [facility] Last Admin: 11/25/17 20:10 Dose: 1 drop Ondansetron HCl (Zofran Inj) 4 mg IVP Q6H PRN PRN Reason: Nausea/Vomiting Last Admin: 11/23/17 04:50 Dose: 4 mg Oxycodone/Acetaminophen (Percocet 10/325 Mg Tab) 1 tab PO Q4H PRN PRN Reason: Pain, severe (8-10) Last Admin: 11/24/17 17:58 Dose: 1 tab Prednisolone Acetate (Pred Forte 1% Opht Susp) 0 ml OU BID [facility] Last Admin: 11/25/17 20:11 Dose: 1 drop Ramipril (Altace) 1.25 mg PO DAILY [facility] - Labs Labs: 11/25/17 08:24 11/25/17 08:24 PT 12.4 SECONDS (9.4-12.5) 11/22/17 04:00 INR 1.09 (0.93-1.08) H 11/22/17 04:00 APTT 31.7 Seconds (25.1-36.5) 11/22/17 04:00 - Constitutional Appears: Non-toxic - Head Exam Head Exam: ATRAUMATIC, NORMAL INSPECTION, NORMOCEPHALIC - Eye Exam Eye Exam: Normal appearance Pupil Exam: NORMAL ACCOMODATION - ENT Exam ENT Exam: Mucous Membranes Moist - Neck Exam Neck Exam: Normal Inspection - Respiratory Exam Respiratory Exam: Clear to Ausculation Bilateral - Cardiovascular Exam Cardiovascular Exam: REGULAR RHYTHM, +S1, +S2 - GI/Abdominal Exam GI & Abdominal Exam: Soft, Normal Bowel Sounds - Extremities Exam Extremities Exam: Normal Inspection - Back Exam Back Exam: NORMAL INSPECTION - Neurological Exam Neurological Exam: Alert, Awake, Oriented x3 - Skin Skin Exam: Normal Color, Warm Assessment and Plan - Assessment and Plan (Free Text) Assessment: 1. Sigmoid colon adenoma : s/p resection. path pending. 2. Lung cancer : on chemo, gemzar. resolution of right lung mass. 3. anemia : Hb/hct stable. 4. DVT prophylaxis with lovenox 40 mg daily to continue. Thank you Dr. Hull for allowing us to participate in his care.
[2017-11-26 02:24] VITALS: RESP 18
[2017-11-26] MEDS: Insulin Lispro (humaLOG) MEDIUM Coverage SC SCH ×4 (02:46→17:38)
[2017-11-26] MEDS: Albuterol-Ipratrop 3 mg / 0.5 (3 ml) UD IH SCH ×3 (04:21→13:40)
[2017-11-26 07:01] LABS: BASO # 0.03 K/mm3 (0.0-2.0); BASO % 0.3 % (0.0-3.0); EOS # 0.3 (0.0-0.7); EOS % 3.2 % (1.5-5.0); GRAN # 7.02 (1.4-6.5); GRAN % 80.8 % (50.0-68.0); HEMOGLOBIN 8.9 g/dL (14.0-18.0); LYMPH # 0.6 (1.2-3.4); LYMPH % 7.2 % (22.0-35.0); MEAN CELL VOLUME 85.9 fl (80.0-105.0); MEAN CORPUSCULAR HEMOGLOBIN 27.9 pg (25.0-35.0); MEAN CORPUSCULAR HGB CONC 32.5 g/dl (31.0-37.0); MEAN PLATELET VOLUME 9.5 fl (7.0-11.0); MONO # 0.7 (0.1-0.6); MONO % 8.5 % (1.0-6.0); RBC 3.19 10^6/uL (3.5-6.1); RED CELL DISTRIBUTION WIDTH 16.6 % (11.5-14.5); WHITE BLOOD COUNT 8.7 10^3/ul (4.5-11.0)
[2017-11-26 07:24] LABS: ALBUMIN 3.2 g/dL (3.0-4.8); ALT/SGPT 23 U/L (7-56); AST/SGOT 42 U/L (17-59); BLOOD UREA NITROGEN 8 mg/dL (7-21); CALCIUM 9.1 mg/dL (8.4-10.5); GFR AFRICAN-AMERICAN > 60; GFR NON-AFRICAN AMERICAN > 60; MAGNESIUM 1.2 mg/dL (1.7-2.2)
--- NOTE | 2017-11-26 07:35 | CP.PCM.PN ---
Subjective - Date & Time of Evaluation Date of Evaluation: 11/26/17 Time of Evaluation: 07:00 - Subjective Subjective: I am doing okay Objective - Vital Signs/Intake and Output Vital Signs (last 24 hours): Temp Pulse Resp BP Pulse Ox 98.2 F 77 18 120/53 L 97 11/26/17 00:00 11/26/17 00:00 11/26/17 00:00 11/26/17 00:00 11/26/17 00:00 Intake and Output: 11/26/17 11/26/17 06:59 18:59 Intake Total 600 Output Total 1201 Balance -601 - Medications Medications: Current Medications Albuterol/Ipratropium (Duoneb 3 Mg/0.5 Mg (3 Ml) Ud) 3 ml IH [id number] [facility] Last Admin: 11/26/17 04:21 Dose: Not Given Enoxaparin Sodium (Lovenox) 40 mg SC DAILY [facility] PRN Reason: Protocol Last Admin: 11/25/17 10:59 Dose: 40 mg Gabapentin (Neurontin) 400 mg PO TID [facility] PRN Reason: Protocol Last Admin: 11/25/17 20:11 Dose: Not Given Dextrose/Sodium Chloride (Dextrose 5%/0.45% Ns 1000 Ml) 1,000 mls @ 75 mls/hr IV .[id number] [facility] Last Admin: 11/25/17 15:52 Dose: 75 mls/hr Iron Sucrose 200 mg/ Sodium (Chloride) 110 mls @ 110 mls/hr IVPB ONCE ONE Stop: 11/26/17 10:59 Insulin Human Lispro (Humalog Med) 0 units SC ACHS [facility] PRN Reason: Protocol Last Admin: 11/26/17 02:46 Dose: Not Given Latanoprost (Xalatan Opht) 0 ml OU HS [facility] Last Admin: 11/25/17 21:48 Dose: 2.5 ml Metoprolol Tartrate (Lopressor) 25 mg PO BID [facility] Last Admin: 11/25/17 20:09 Dose: Not Given Fluorometholone [Fml (0.1%] Eye Drops) 1 drop OU TID [facility] Last Admin: 11/25/17 20:10 Dose: 1 drop Ondansetron HCl (Zofran Inj) 4 mg IVP Q6H PRN PRN Reason: Nausea/Vomiting Last Admin: 11/23/17 04:50 Dose: 4 mg Oxycodone/Acetaminophen (Percocet 10/325 Mg Tab) 1 tab PO Q4H PRN PRN Reason: Pain, severe (8-10) Last Admin: 11/24/17 17:58 Dose: 1 tab Prednisolone Acetate (Pred Forte 1% Opht Susp) 0 ml OU BID [facility] Last Admin: 11/25/17 20:11 Dose: 1 drop Ramipril (Altace) 1.25 mg PO DAILY [facility] - Labs Labs: 11/26/17 06:15 11/26/17 06:15 PT 12.4 SECONDS (9.4-12.5) 11/22/17 04:00 INR 1.09 (0.93-1.08) H 11/22/17 04:00 APTT 31.7 Seconds (25.1-36.5) 11/22/17 04:00 - Constitutional Appears: Well, No Acute Distress - Head Exam Head Exam: NORMAL INSPECTION - Eye Exam Pupil Exam: NORMAL ACCOMODATION - ENT Exam ENT Exam: Normal Exam - Respiratory Exam Respiratory Exam: Clear to Ausculation Bilateral, NORMAL BREATHING PATTERN - Cardiovascular Exam Cardiovascular Exam: REGULAR RHYTHM - GI/Abdominal Exam GI & Abdominal Exam: Normal Bowel Sounds - Extremities Exam Extremities Exam: Normal Inspection - Neurological Exam Neurological Exam: Alert, Awake, Oriented x3 Assessment and Plan - Assessment and Plan (Free Text) Assessment: Status post post explor lap, carcinoma of the sigmoid,Type 2 Diabetes Mellitus, Hypertension,Hyperlipidemia, COPD,Last EF with Echo 40%, mildly impaired systolic function, no valvular disease noted in echo. Plan: Continue with current treatment continue low dose Lopressor and Altace Vital signs stable Will follow
[2017-11-26] MEDS ORDERED: Dextrose 5%/0.45% NS 1,000 ML IV SCH (07:38)
--- NOTE | 2017-11-26 07:41 | CP.PCM.PN ---
Subjective - Date & Time of Evaluation Date of Evaluation: 11/26/17 Time of Evaluation: 07:00 - Subjective Subjective: Patient seen and examined. No acute events over night. Tolerating full liquid diet. No complaints. Surgical incision site is clean, dry, intact. Objective - Vital Signs/Intake and Output Vital Signs (last 24 hours): Temp Pulse Resp BP Pulse Ox 98.2 F 77 18 120/53 L 97 11/26/17 00:00 11/26/17 00:00 11/26/17 00:00 11/26/17 00:00 11/26/17 00:00 Intake and Output: 11/26/17 11/26/17 06:59 18:59 Intake Total 600 Output Total 1201 Balance -601 - Medications Medications: Current Medications Albuterol/Ipratropium (Duoneb 3 Mg/0.5 Mg (3 Ml) Ud) 3 ml IH [id number] [facility] Last Admin: 11/26/17 07:34 Dose: 3 ml Enoxaparin Sodium (Lovenox) 40 mg SC DAILY [facility] PRN Reason: Protocol Last Admin: 11/25/17 10:59 Dose: 40 mg Gabapentin (Neurontin) 400 mg PO TID [facility] PRN Reason: Protocol Last Admin: 11/25/17 20:11 Dose: Not Given Iron Sucrose 200 mg/ Sodium (Chloride) 110 mls @ 110 mls/hr IVPB ONCE ONE Stop: 11/26/17 10:59 Dextrose/Sodium Chloride (Dextrose 5%/0.45% Ns 1000 Ml) 1,000 mls @ 5 mls/hr IV .Q24H [facility] Insulin Human Lispro (Humalog Med) 0 units SC ACHS [facility] PRN Reason: Protocol Last Admin: 11/26/17 02:46 Dose: Not Given Latanoprost (Xalatan Opht) 0 ml OU HS [facility] Last Admin: 11/25/17 21:48 Dose: 2.5 ml Metoprolol Tartrate (Lopressor) 25 mg PO BID [facility] Last Admin: 11/25/17 20:09 Dose: Not Given Fluorometholone [Fml (0.1%] Eye Drops) 1 drop OU TID [facility] Last Admin: 11/25/17 20:10 Dose: 1 drop Ondansetron HCl (Zofran Inj) 4 mg IVP Q6H PRN PRN Reason: Nausea/Vomiting Last Admin: 11/23/17 04:50 Dose: 4 mg Oxycodone/Acetaminophen (Percocet 10/325 Mg Tab) 1 tab PO Q4H PRN PRN Reason: Pain, severe (8-10) Last Admin: 11/24/17 17:58 Dose: 1 tab Prednisolone Acetate (Pred Forte 1% Opht Susp) 0 ml OU BID [facility] Last Admin: 11/25/17 20:11 Dose: 1 drop Ramipril (Altace) 1.25 mg PO DAILY [facility] - Labs Labs: 11/26/17 06:15 11/26/17 06:15 PT 12.4 SECONDS (9.4-12.5) 11/22/17 04:00 INR 1.09 (0.93-1.08) H 11/22/17 04:00 APTT 31.7 Seconds (25.1-36.5) 11/22/17 04:00 - Constitutional Appears: Non-toxic, No Acute Distress - Head Exam Head Exam: NORMOCEPHALIC - Eye Exam Eye Exam: Normal appearance Pupil Exam: NORMAL ACCOMODATION - ENT Exam ENT Exam: Mucous Membranes Moist - Respiratory Exam Respiratory Exam: NORMAL BREATHING PATTERN - Cardiovascular Exam Cardiovascular Exam: +S1, +S2 - GI/Abdominal Exam GI & Abdominal Exam: Soft - Neurological Exam Neurological Exam: Alert, Awake, Oriented x3 - Psychiatric Exam Psychiatric exam: Normal Mood - Skin Skin Exam: Dry, Intact, Warm Assessment and Plan - Assessment and Plan (Free Text) Assessment: 71M POD43 s/p sigmoidotomy and polypectomy -monitor bowel movements -Advance to regular diet -KVO -PRN pain medication -encourage assisted ambulation -incentive spirometer use -Keep heel pads on D/w Dr. Miguel Michaels PGY2
[2017-11-26 08:18] VITALS: PULSE 63; TEMP 98; O2SAT 98
[2017-11-26] MEDS: FLUOROMETHOLONE OU SCH ×3 (09:43→17:43)
[2017-11-26] MEDS: PrednisoLONE 1% Opht Susp(5 ml) OU SCH ×2 (09:43→17:44)
[2017-11-26] MEDS: EYE OU SCH ×3 (09:43→17:43)
[2017-11-26] MEDS: Enoxaparin 40 mg Syringe SC SCH (09:45)
[2017-11-26] MEDS ORDERED: Magnesium Sulfate 2 GM in Sodium Chloride 0.9% 100 ML IVPB ONE (09:58)
[2017-11-26 17:45] VITALS: BP 124/64
--- NOTE | 2017-11-27 03:36 | DS ---
HISTORY OF PRESENT ILLNESS: The patient is a 71-year-old, who underwent colonoscopy on 11/16/2017. He was found to have a large sigmoid colon polyp and biopsy was taken. He was admitted in Med-Surg floor. He was kept n.p.o. and was given IV fluid. Surgical consult was done and the patient was being prepped for partial colectomy, and later on biopsy showed tubular adenoma. The patient was complaining of right foot and leg pain. He was evaluated by Dr. Jose Piper, who did MRA and was found to have severe occlusive disease. However, the patient underwent sigmoidectomy and partial colectomy. Postop procedure seems to be uneventful. PHYSICAL EXAMINATION: VITAL SIGNS: He is afebrile, pulse 63, respirations 18, blood pressure 124/64. LUNGS: Bilateral good airflow. No rhonchi or crackle. HEART: S1 and S2 audible. ABDOMEN: Soft, nontender, no rebound, no guarding. NEUROLOGICAL: The patient is awake and alert, able to communicate. LABORATORY DATA: WBC 8.7, hemoglobin 8.9, hematocrit 27.4, platelets 255. Chemistry: Sodium 135, potassium 4.5, chloride 101, CO2 of 26, BUN 8, creatinine 0.9, blood sugar 198, magnesium 1.2. ASSESSMENT: 1. Status post partial colectomy. 2. Sigmoidectomy. 3. Hypertension. 4. Ixp-mkqkwot-odiflogyj diabetes. 5. Severe peripheral vascular disease. 6. Tubular adenoma. PLAN: The patient is clinically stable. He is ambulating. He is being transferred to TCU where we will follow him up and take care of his wound. Monitor his blood sugar and current physical therapy, and vascular intervention will be done while he is in the TCU. Jose Angel Hull MD
== END 2017-11-26 17:56 | DRG 330 ==
LOC: ENDO 12:37 → 5RSO 18:20
PROVIDERS: ADMIT Internal Medicine; ATTEND Internal Medicine
PROC: 0DBN8ZX Excision of Sigmoid Colon, Via Natural or Artificial Opening Endoscopic, Diagnostic (ICD-10-PCS; 2017-11-16)
PROC: 0DJD4ZZ Inspection of Lower Intestinal Tract, Percutaneous Endoscopic Approach (ICD-10-PCS; 2017-11-22)
PROC: B43 Imaging, Lower Arteries, Magnetic Resonance Imaging (MRI) (ICD-10-PCS; 2017-11-22)
PROC: B43 Imaging, Lower Arteries, Magnetic Resonance Imaging (MRI) (ICD-10-PCS; 2017-11-22)
PROC: 0DTN0ZZ Resection of Sigmoid Colon, Open Approach (ICD-10-PCS; principal; 2017-11-22 12:00)
DX: C18.7 Malignant neoplasm of sigmoid colon (principal); C34.11 Malignant neoplasm of upper lobe, right bronchus or lung; E11.51 Type 2 diabetes mellitus with diabetic peripheral angiopathy without gangrene; E87.5 Hyperkalemia; E83.42 Hypomagnesemia; I42.0 Dilated cardiomyopathy; J44.9 Chronic obstructive pulmonary disease, unspecified; D50.9 Iron deficiency anemia, unspecified; F17.210 Nicotine dependence, cigarettes, uncomplicated; E78.00 Pure hypercholesterolemia, unspecified; E78.5 Hyperlipidemia, unspecified; I10 Essential (primary) hypertension; H40.9 Unspecified glaucoma; I25.10 Atherosclerotic heart disease of native coronary artery without angina pectoris; I70.209 Unspecified atherosclerosis of native arteries of extremities, unspecified extremity; M10.9 Gout, unspecified; M17.11 Unilateral primary osteoarthritis, right knee; N28.9 Disorder of kidney and ureter, unspecified; Z87.01 Personal history of pneumonia (recurrent); Z87.440 Personal history of urinary (tract) infections; Z92.3 Personal history of irradiation; Z90.49 Acquired absence of other specified parts of digestive tract; K64.8 Other hemorrhoids; K64.4 Residual hemorrhoidal skin tags; Z53.31 Laparoscopic surgical procedure converted to open procedure

== ENCOUNTER 2017-11-26 17:54 | Inpatient (IN) | payer OTHER, BC ==
[2017-11-26 18:26] VITALS: BMI 17.8
[2017-11-26] MEDS ORDERED: Oxycodone/Acetaminophen 10/325 mg Tab PO PRN (18:32)
--- NOTE | 2017-11-26 19:51 | CP.PCM.PN ---
Subjective - Date & Time of Evaluation Date of Evaluation: 11/26/17 Time of Evaluation: 19:50 - Subjective Subjective: Patient was seen when he was in the lobby by 3 vaishali . Because a CODE KIRK was called on him. He is somewhat confused. We convinced him to come to his room. Has no symptoms. Stat finger stick blood glucose that I ordered was 124 mg %. This 71 year old male was admitted for evaluation after obstructing lesion was found on colonoscopy. Has PMH of lung cancer on chemotherapy, HTN, NIDDM, HLD, left humeral fracture , Objective - Vital Signs/Intake and Output Vital Signs (last 24 hours): Temp Pulse Resp BP Pulse Ox 98.3 F 91 H 18 142/75 96 11/26/17 18:54 11/26/17 18:54 11/26/17 18:54 11/26/17 18:54 11/26/17 18:54 - Medications Medications: Current Medications Albuterol/Ipratropium (Duoneb 3 Mg/0.5 Mg (3 Ml) Ud) 3 ml IH [id number] [facility] PRN Reason: Protocol Enoxaparin Sodium (Lovenox) 40 mg SC DAILY [facility] PRN Reason: Protocol Gabapentin (Neurontin) 400 mg PO TID [facility] PRN Reason: Protocol Home Med (Home Med) 1 unit OU TID [facility] PRN Reason: Protocol Insulin Human Lispro (Humalog Med) 0 units SC ACHS [facility] PRN Reason: Protocol Latanoprost (Xalatan Opht) 0 ml OU HS [facility] PRN Reason: Protocol Metoprolol Tartrate (Lopressor) 25 mg PO 0800,1800 [facility] PRN Reason: Protocol Ondansetron HCl (Zofran Inj) 4 mg IVP Q6H PRN; Protocol PRN Reason: Nausea/Vomiting Oxycodone/Acetaminophen (Percocet 10/325 Mg Tab) 1 tab PO Q4H PRN; Protocol PRN Reason: Pain, severe (8-10) Prednisolone Acetate (Pred Forte 1% Opht Susp) 0 ml OU BID [facility] PRN Reason: Protocol Ramipril (Altace) 1.25 mg PO DAILY [facility] PRN Reason: Protocol - Constitutional Appears: No Acute Distress - Head Exam Head Exam: ATRAUMATIC, NORMAL INSPECTION, NORMOCEPHALIC - Eye Exam Eye Exam: Normal appearance - ENT Exam ENT Exam: Normal External Ear Exam - Neck Exam Neck Exam: Normal Inspection - Respiratory Exam Respiratory Exam: NORMAL BREATHING PATTERN - Cardiovascular Exam Cardiovascular Exam: absent: JVD - GI/Abdominal Exam GI & Abdominal Exam: absent: Distended - Rectal Exam Rectal Exam: Deferred - Exam Additional comments: Deferred. - Extremities Exam Extremities Exam: Normal Inspection - Back Exam Back Exam: NORMAL INSPECTION - Neurological Exam Neurological Exam: Altered - Psychiatric Exam Psychiatric exam: Agitated - Skin Skin Exam: Normal Color Assessment and Plan - Assessment and Plan (Free Text) Assessment: Confusion. Agitation. HTN. Non insulin dependent DM. HLD. Lung cancer. Anemia. Plan: Risperdal 0.25 mg PO x 1. 1:1 watch. Continue present management.
[2017-11-26] MEDS: Albuterol-Ipratrop 3 mg / 0.5 (3 ml) UD IH SCH (21:59)
[2017-11-26] MEDS: Insulin Lispro (humaLOG) MEDIUM Coverage SC SCH (22:38)
[2017-11-26] MEDS: Latanoprost 2.5 ml Opht Soln OU SCH (22:39)
[2017-11-27] MEDS: Insulin Lispro (humaLOG) MEDIUM Coverage SC SCH ×4 (06:31→22:21)
[2017-11-27] MEDS: Albuterol-Ipratrop 3 mg / 0.5 (3 ml) UD IH SCH ×3 (07:22→20:02)
[2017-11-27] MEDS ORDERED: Home Med 1 UNIT OU SCH (10:00)
[2017-11-27] MEDS: PrednisoLONE 1% Opht Susp(5 ml) OU SCH ×2 (10:10→17:26)
[2017-11-27] MEDS: Enoxaparin 40 mg Syringe SC SCH (10:12)
[2017-11-27] MEDS: FLUOROMETHOLONE 0.1% OU SCH ×3 (10:13→17:25)
[2017-11-27] MEDS: OPTH OU SCH ×3 (10:13→17:25)
--- NOTE | 2017-11-27 10:34 | CP.PCM.PN ---
Subjective - Date & Time of Evaluation Date of Evaluation: 11/27/17 Time of Evaluation: 07:00 - Subjective Subjective: Patient seen and examined. No acute events over night. Tolerating diet. Still complains of pain in right leg. Objective - Vital Signs/Intake and Output Vital Signs (last 24 hours): Temp Pulse Resp BP Pulse Ox 98.3 F 79 18 105/55 L 96 11/26/17 20:17 11/27/17 08:22 11/26/17 20:17 11/27/17 10:10 11/26/17 18:54 - Medications Medications: Current Medications Albuterol/Ipratropium (Duoneb 3 Mg/0.5 Mg (3 Ml) Ud) 3 ml IH [id number] [facility] PRN Reason: Protocol Last Admin: 11/27/17 07:22 Dose: 3 ml Enoxaparin Sodium (Lovenox) 40 mg SC DAILY [facility] PRN Reason: Protocol Last Admin: 11/27/17 10:12 Dose: 40 mg Gabapentin (Neurontin) 400 mg PO TID [facility] PRN Reason: Protocol Last Admin: 11/27/17 10:11 Dose: 400 mg Home Med (Home Med) 0 unit OU TID [facility] PRN Reason: Protocol Last Admin: 11/27/17 10:13 Dose: Not Given Insulin Human Lispro (Humalog Med) 0 units SC ACHS [facility] PRN Reason: Protocol Last Admin: 11/27/17 06:31 Dose: Not Given Latanoprost (Xalatan Opht) 0 ml OU HS [facility] PRN Reason: Protocol Last Admin: 11/26/17 22:39 Dose: 2.5 ml Metoprolol Tartrate (Lopressor) 25 mg PO 0800,1800 [facility] PRN Reason: Protocol Last Admin: 11/27/17 08:22 Dose: 25 mg Ondansetron HCl (Zofran Inj) 4 mg IVP Q6H PRN; Protocol PRN Reason: Nausea/Vomiting Oxycodone/Acetaminophen (Percocet 10/325 Mg Tab) 1 tab PO Q4H PRN; Protocol PRN Reason: Pain, severe (8-10) Prednisolone Acetate (Pred Forte 1% Opht Susp) 0 ml OU BID [facility] PRN Reason: Protocol Last Admin: 11/27/17 10:10 Dose: 1 drop Ramipril (Altace) 1.25 mg PO DAILY [facility] PRN Reason: Protocol Last Admin: 11/27/17 10:10 Dose: 1.25 mg - Constitutional Appears: No Acute Distress - Head Exam Head Exam: NORMOCEPHALIC - Eye Exam Eye Exam: Normal appearance - ENT Exam ENT Exam: Mucous Membranes Moist - Cardiovascular Exam Cardiovascular Exam: +S1, +S2 - GI/Abdominal Exam GI & Abdominal Exam: Soft - Extremities Exam Extremities Exam: absent: Calf Tenderness - Neurological Exam Neurological Exam: Alert, Awake, Oriented x3 - Psychiatric Exam Psychiatric exam: Normal Mood - Skin Skin Exam: Dry, Warm Assessment and Plan - Assessment and Plan (Free Text) Assessment: 71M POD5 s/p sigmoidotomy and polypectomy -monitor bowel movements -Advance to regular diet -PRN pain medication -PT -incentive spirometer use -Keep heel pads on -Patient scheduled for right angioplasty on at 10 am D/w Dr. Healy D/w Dr. Miguel Michaels PGY2
--- NOTE | 2017-11-27 14:37 | PN ---
DATE: SUBJECTIVE: Patient is 71 years old who underwent colonoscopy on 11/16, who was found to have obstructive lesion in the sigmoid colon, so was admitted for partial colectomy. Biopsy showed tubular adenoma. Patient underwent sigmoidectomy and partial colectomy. He was also complaining of right foot pain and MRA done showed occlusive disease. Patient was having a difficult time, difficulty walking and right leg pain, transferred to TCU for rehab and possible angioplasty for the occlusive disease. PAST MEDICAL HISTORY: 1. Cancer of lung, currently on chemotherapy. 2. Non-insulin dependent diabetes. 3. Hypertension. 4. Hyperlipidemia. 5. Chronic anemia requiring multiple transfusions in the past. ALLERGIES: HE IS NOT ALLERGIC TO ANY MEDICATIONS. MEDICATIONS AT HOME: He is on tramadol 50 three times a day, metformin 500 twice a day, Januvia 100 mg daily, prednisolone eye drops, pravastatin 20 mg daily, latanoprost eyedrops, glipizide 10 mg twice a day, ferrous sulfate 325 daily, colchicine 0.6 daily. SOCIAL HISTORY: He is single and lives with his daughter. Active smoker, does drink alcohol. PHYSICAL EXAMINATION: GENERAL: He is awake, alert, oriented, somewhat confused in the evening. VITAL SIGNS: He is afebrile, pulse 81, respirations 18, blood pressure 105/55. LUNGS: Bilateral fair air flow. No rhonchi or crackle. HEART: S1, S2 audible. ABDOMEN: Soft, nontender. No rebound. No guarding. NEUROLOGIC: Patient is awake, alert, oriented, able to communicate, able to ambulate. ASSESSMENT: 1. Status post partial colectomy and sigmoidectomy, secondary to large colonic mass of tubular adenoma. 2. Cancer of lung, status post chemotherapy. 3. Non-insulin dependent diabetes. 4. Peripheral vascular disease. 5. Hypertension. PLAN: We will continue patient on current medication. Will discuss with Dr. Jose Piper for possible angioplasty soon. Jose Angel Hull MD
[2017-11-27] MEDS: Latanoprost 2.5 ml Opht Soln OU SCH (22:22)
[2017-11-28] MEDS: Albuterol-Ipratrop 3 mg / 0.5 (3 ml) UD IH SCH ×4 (01:30→20:58)
[2017-11-28] MEDS: Insulin Lispro (humaLOG) MEDIUM Coverage SC SCH ×4 (06:43→23:00)
--- NOTE | 2017-11-28 09:24 | CP.PCM.PN ---
Subjective - Date & Time of Evaluation Date of Evaluation: 11/28/17 Time of Evaluation: 09:20 - Subjective Subjective: Surgery progress note: Dr. Rivera Patient seen and examined. No acute events over night. He is tolerating his diet. Patient is still having pain in his right leg, has been advised to keep boot on his leg. Objective - Vital Signs/Intake and Output Vital Signs (last 24 hours): Temp Pulse Resp BP Pulse Ox 98 F 85 18 109/64 99 11/27/17 16:00 11/28/17 08:29 11/27/17 16:00 11/28/17 08:29 11/27/17 16:00 Intake and Output: 11/28/17 11/28/17 06:59 18:59 Intake Total 180 Output Total 450 600 Balance -450 -420 - Medications Medications: Current Medications Albuterol/Ipratropium (Duoneb 3 Mg/0.5 Mg (3 Ml) Ud) 3 ml IH [id number] [facility] PRN Reason: Protocol Last Admin: 11/28/17 07:14 Dose: 3 ml Enoxaparin Sodium (Lovenox) 40 mg SC DAILY [facility] PRN Reason: Protocol Last Admin: 11/27/17 10:12 Dose: 40 mg Gabapentin (Neurontin) 400 mg PO TID [facility] PRN Reason: Protocol Last Admin: 11/27/17 17:26 Dose: 400 mg Home Med (Home Med) 0 unit OU TID [facility] PRN Reason: Protocol Last Admin: 11/27/17 17:25 Dose: 1 unit Insulin Human Lispro (Humalog Med) 0 units SC ACHS [facility] PRN Reason: Protocol Last Admin: 11/28/17 06:43 Dose: 1 units Latanoprost (Xalatan Opht) 0 ml OU HS [facility] PRN Reason: Protocol Last Admin: 11/27/17 22:22 Dose: 2.5 ml Metoprolol Tartrate (Lopressor) 25 mg PO 0800,1800 [facility] PRN Reason: Protocol Last Admin: 11/28/17 08:29 Dose: 25 mg Ondansetron HCl (Zofran Inj) 4 mg IVP Q6H PRN; Protocol PRN Reason: Nausea/Vomiting Oxycodone/Acetaminophen (Percocet 10/325 Mg Tab) 1 tab PO Q4H PRN; Protocol PRN Reason: Pain, severe (8-10) Prednisolone Acetate (Pred Forte 1% Opht Susp) 0 ml OU BID [facility] PRN Reason: Protocol Last Admin: 11/27/17 17:26 Dose: 1 drop Ramipril (Altace) 1.25 mg PO DAILY [facility] PRN Reason: Protocol Last Admin: 11/27/17 10:10 Dose: 1.25 mg - Constitutional Appears: Well - Head Exam Head Exam: ATRAUMATIC, NORMAL INSPECTION, NORMOCEPHALIC - Eye Exam Eye Exam: EOMI, Normal appearance, PERRL Pupil Exam: NORMAL ACCOMODATION, PERRL - ENT Exam ENT Exam: Mucous Membranes Moist, Normal Exam - Neck Exam Neck Exam: Full ROM, Normal Inspection. absent: Lymphadenopathy - Respiratory Exam Respiratory Exam: Clear to Ausculation Bilateral, NORMAL BREATHING PATTERN - Cardiovascular Exam Cardiovascular Exam: REGULAR RHYTHM, +S1, +S2. absent: Murmur - GI/Abdominal Exam GI & Abdominal Exam: Soft, Normal Bowel Sounds. absent: Tenderness - Extremities Exam Extremities Exam: Full ROM, Normal Capillary Refill, Normal Inspection. absent : Joint Swelling, Pedal Edema - Back Exam Back Exam: NORMAL INSPECTION - Neurological Exam Neurological Exam: Alert, Awake, CN II-XII Intact, Normal Gait, Oriented x3 - Psychiatric Exam Psychiatric exam: Normal Affect, Normal Mood - Skin Skin Exam: Dry, Intact, Normal Color, Warm Assessment and Plan - Assessment and Plan (Free Text) Assessment: 71M POD5 s/p sigmoidotomy and polypectomy -monitor bowel movements -Advance to regular diet -PRN pain medication -PT -incentive spirometer use -Please make sure to keep boots on -Patient scheduled for right angioplasty on at 10 am
[2017-11-28] MEDS: OPTH OU SCH ×3 (11:07→17:21)
[2017-11-28] MEDS: Enoxaparin 40 mg Syringe SC SCH (11:07)
[2017-11-28] MEDS: FLUOROMETHOLONE 0.1% OU SCH ×3 (11:07→17:21)
[2017-11-28] MEDS: PrednisoLONE 1% Opht Susp(5 ml) OU SCH ×2 (11:08→17:22)
--- NOTE | 2017-11-28 15:17 | PN ---
DATE: SUBJECTIVE: Patient is a 71-year-old male, seen and examined, lying in bed, seems to be comfortable. No nausea, vomiting. No diarrhea. Eating and tolerating. He did not have bowel movement for 2 days and concerned about it. PHYSICAL EXAMINATION VITAL SIGNS: He is afebrile. Pulse 85, respiration 18, blood pressure 109/64. LUNGS: Bilateral fair airflow. No rhonchi or crackle. HEART: S1 and S2 audible. No murmur. ABDOMEN: Soft. Surgical site looks clean. No erythema. No discharge. EXTREMITIES: Complains of right leg and foot pain. LABORATORY EXAMINATION: Blood sugar is 179. ASSESSMENT AND PLAN: 1. Tubular adenoma status post sigmoidectomy and partial colectomy. 2. Insulin-dependent diabetes. 3. Cancer of lungs, on chemotherapy. 4. Hypertension. 5. Hyperlipidemia. 6. Severe peripheral vascular disease. PLAN: Plan is for possible angioplasty on Sunday by Dr. Healy and Dr. Jose Piper. Jose Angel Hull MD
[2017-11-28] MEDS: Latanoprost 2.5 ml Opht Soln OU SCH (21:24)
[2017-11-29] MEDS: Albuterol-Ipratrop 3 mg / 0.5 (3 ml) UD IH SCH ×4 (01:55→20:35)
[2017-11-29] MEDS ORDERED: Enoxaparin 40 mg Syringe SC SCH (06:30)
[2017-11-29 07:23] LABS: BASO # 0.07 K/mm3 (0.0-2.0); BASO % 0.7 % (0.0-3.0); EOS # 0.4 (0.0-0.7); EOS % 3.7 % (1.5-5.0); GRAN # 6.91 (1.4-6.5); GRAN % 72.1 % (50.0-68.0); HEMOGLOBIN 9.1 g/dL (14.0-18.0); LYMPH # 1.2 (1.2-3.4); LYMPH % 12.6 % (22.0-35.0); MEAN CELL VOLUME 86.5 fl (80.0-105.0); MEAN CORPUSCULAR HEMOGLOBIN 27.9 pg (25.0-35.0); MEAN CORPUSCULAR HGB CONC 32.3 g/dl (31.0-37.0); MONO % 10.9 % (1.0-6.0); RBC 3.26 10^6/uL (3.5-6.1); RED CELL DISTRIBUTION WIDTH 17.2 % (11.5-14.5); WHITE BLOOD COUNT 9.6 10^3/ul (4.5-11.0)
[2017-11-29 07:29] LABS: ALBUMIN 3.3 g/dL (3.0-4.8); ALT/SGPT 30 U/L (7-56); AST/SGOT 49 U/L (17-59); BLOOD UREA NITROGEN 23 mg/dL (7-21); CALCIUM 9.6 mg/dL (8.4-10.5); GFR AFRICAN-AMERICAN > 60; GFR NON-AFRICAN AMERICAN 60
[2017-11-29 07:39] LABS: PARTIAL THROMBOPLASTIN TIME 22.3 Seconds (25.1-36.5); PROTHROMBIN TIME 11.5 SECONDS (9.4-12.5)
[2017-11-29] MEDS: Insulin Lispro (humaLOG) MEDIUM Coverage SC SCH ×4 (07:46→21:23)
[2017-11-29] MEDS: PrednisoLONE 1% Opht Susp(5 ml) OU SCH ×2 (09:31→17:43)
--- NOTE | 2017-11-29 09:32 | CP.PCM.PN ---
Subjective - Date & Time of Evaluation Date of Evaluation: 11/29/17 Time of Evaluation: 09:28 - Subjective Subjective: Surgery progress note: Dr. Rivera Patient seen and examined at bedside. Patient denies any new coplaints right now, is tolerating diet well. Objective - Vital Signs/Intake and Output Vital Signs (last 24 hours): Temp Pulse Resp BP Pulse Ox 98.2 F 78 18 118/68 96 11/28/17 16:00 11/28/17 17:21 11/28/17 16:00 11/29/17 08:47 11/28/17 16:00 Intake and Output: 11/29/17 11/29/17 06:59 18:59 Intake Total 180 Output Total 800 Balance -620 - Medications Medications: Current Medications Albuterol/Ipratropium (Duoneb 3 Mg/0.5 Mg (3 Ml) Ud) 3 ml IH [id number] [facility] PRN Reason: Protocol Last Admin: 11/29/17 07:14 Dose: 3 ml Enoxaparin Sodium (Lovenox) 40 mg SC 0630 [facility] PRN Reason: Protocol Gabapentin (Neurontin) 400 mg PO TID [facility] PRN Reason: Protocol Last Admin: 11/28/17 17:20 Dose: 400 mg Home Med (Home Med) 0 unit OU TID [facility] PRN Reason: Protocol Last Admin: 11/28/17 17:21 Dose: 1 unit Insulin Human Lispro (Humalog Med) 0 units SC ACHS [facility] PRN Reason: Protocol Last Admin: 11/29/17 07:46 Dose: Not Given Latanoprost (Xalatan Opht) 0 ml OU HS [facility] PRN Reason: Protocol Last Admin: 11/28/17 21:24 Dose: 2.5 ml Metoprolol Tartrate (Lopressor) 25 mg PO 0800,1800 [facility] PRN Reason: Protocol Last Admin: 11/29/17 08:47 Dose: 25 mg Ondansetron HCl (Zofran Inj) 4 mg IVP Q6H PRN; Protocol PRN Reason: Nausea/Vomiting Oxycodone/Acetaminophen (Percocet 10/325 Mg Tab) 1 tab PO Q4H PRN; Protocol PRN Reason: Pain, severe (8-10) Prednisolone Acetate (Pred Forte 1% Opht Susp) 0 ml OU BID [facility] PRN Reason: Protocol Last Admin: 11/28/17 17:22 Dose: 1 drop Ramipril (Altace) 1.25 mg PO DAILY [facility] PRN Reason: Protocol Last Admin: 11/28/17 11:06 Dose: 1.25 mg - Labs Labs: 11/29/17 06:50 11/29/17 06:50 PT 11.5 SECONDS (9.4-12.5) 11/29/17 06:50 INR 1.00 (0.93-1.08) 11/29/17 06:50 APTT 22.3 Seconds (25.1-36.5) L 11/29/17 06:50 - Constitutional Appears: Well - Head Exam Head Exam: ATRAUMATIC, NORMAL INSPECTION, NORMOCEPHALIC - Eye Exam Eye Exam: EOMI, Normal appearance, PERRL Pupil Exam: NORMAL ACCOMODATION, PERRL - ENT Exam ENT Exam: Mucous Membranes Moist, Normal Exam - Neck Exam Neck Exam: Full ROM, Normal Inspection. absent: Lymphadenopathy - Respiratory Exam Respiratory Exam: Clear to Ausculation Bilateral, NORMAL BREATHING PATTERN - Cardiovascular Exam Cardiovascular Exam: REGULAR RHYTHM, +S1, +S2. absent: Murmur - GI/Abdominal Exam GI & Abdominal Exam: Soft, Normal Bowel Sounds. absent: Tenderness - Extremities Exam Extremities Exam: Full ROM, Normal Capillary Refill, Normal Inspection. absent : Joint Swelling, Pedal Edema - Back Exam Back Exam: NORMAL INSPECTION - Neurological Exam Neurological Exam: Alert, Awake, CN II-XII Intact, Normal Gait, Oriented x3 - Psychiatric Exam Psychiatric exam: Normal Affect, Normal Mood - Skin Skin Exam: Dry, Intact, Normal Color, Warm - Additional Findings Additional findings: There is a fluid collection under the incision point which is draining serosanguineous fluid. Assessment and Plan - Assessment and Plan (Free Text) Assessment: 71M POD5 s/p sigmoidotomy and polypectomy -monitor bowel movements -Advance to regular diet -PRN pain medication -incentive spirometer use -Please make sure to keep boots on -Patient NPO after midnight -Patient scheduled for right angioplasty tomorrow
[2017-11-29 11:43] VITALS: TEMP 98.1
[2017-11-29] MEDS: FLUOROMETHOLONE 0.1% OU SCH ×3 (12:36→17:42)
[2017-11-29] MEDS: OPTH OU SCH ×3 (12:36→17:42)
[2017-11-29] MEDS ORDERED: Sodium Chloride 0.9% 100 ML IV SCH (12:45)
[2017-11-29] MEDS: Sodium Chloride 0.9% 1,000 ML IV SCH (13:34)
[2017-11-29 17:22] VITALS: RESP 18; O2SAT 94
[2017-11-29] MEDS: Latanoprost 2.5 ml Opht Soln OU SCH (21:17)
--- NOTE | 2017-11-29 22:24 | PN ---
DATE: SUBJECTIVE: The patient is a 71-year-old, seen and examined, doing well, eating and tolerating. No nausea or vomiting, no diarrhea. PHYSICAL EXAMINATION: VITAL SIGNS: The patient is afebrile, pulse 73, respirations 20, blood pressure 120/73. LUNGS: Bilateral good air flow. No rhonchi or crackle. HEART: S1 and S2 audible. ABDOMEN: Soft, nontender, no rebound, no guarding. NEUROLOGICAL: The patient is awake, alert, oriented, communicative. LABORATORY DATA: WBC is 9.6, hemoglobin 9.1, hematocrit 28.2, platelets of 285. Chemistry: Sodium 136, potassium 5.0, chloride 101, CO2 of 27, BUN 23, creatinine 1.2, blood sugar of 147. ASSESSMENT AND PLAN: 1. Status post sigmoidectomy and partial colectomy. 2. Cancer of lungs status post chemotherapy. 3. Noninsulin-dependent diabetes. 4. Hypertension. 5. Hyperlipidemia. 6. Peripheral vascular disease. PLAN: The patient is scheduled to have angioplasty done tomorrow. I will continue to monitor blood pressure and blood sugar. Encourage ambulation. We will follow up the patient . Jose Angel Hull MD
[2017-11-30] MEDS: Sodium Chloride 0.9% 1,000 ML IV SCH ×2 (05:29→11:40)
[2017-11-30] MEDS: Insulin Lispro (humaLOG) MEDIUM Coverage SC SCH ×2 (06:29→13:44)
[2017-11-30] MEDS: Albuterol-Ipratrop 3 mg / 0.5 (3 ml) UD IH SCH ×2 (07:20→13:12)
[2017-11-30 07:58] VITALS: BP 118/60; PULSE 80
[2017-11-30 10:20] LABS: ALB/GLOB RATIO 0.9 (1.1-1.8); ALT/SGPT 37 U/L (7-56); AST/SGOT 47 U/L (17-59); BLOOD UREA NITROGEN 29 mg/dL (7-21); CALCIUM 9.4 mg/dL (8.4-10.5); GFR AFRICAN-AMERICAN > 60; GFR NON-AFRICAN AMERICAN 50
[2017-11-30] MEDS: FLUOROMETHOLONE 0.1% OU SCH ×2 (11:39→13:44)
[2017-11-30] MEDS: OPTH OU SCH ×2 (11:39→13:44)
[2017-11-30] MEDS: PrednisoLONE 1% Opht Susp(5 ml) OU SCH (11:40)
[2017-11-30] MEDS ORDERED: Sodium Chloride 0.9% 1,000 ML IV SCH (15:00)
--- NOTE | 2017-12-03 08:21 | PN ---
DATE: SUBJECTIVE: The patient is a 71-year-old, seen and examined. The patient is undergoing angioplasty today. PHYSICAL EXAMINATION: VITAL SIGNS: He is afebrile. Pulse 80, respirations 18, blood pressure 118/60. LUNGS: Bilateral good airflow. No rhonchi or crackles. HEART: S1 and S2 audible. No murmur. ABDOMEN: Soft, nontender. No rebound. No guarding. NEUROLOGIC: He is awake, alert, oriented, communicative. LABORATORY DATA: Sodium 137, potassium 4.8, chloride 106, CO2 23, BUN 29, creatinine 1.4, blood sugar of 50. ASSESSMENT: 1. Status post partial colectomy and sigmoidectomy with end-to-end anastomosis. 2. Noninsulin-dependent diabetes. 3. Hypertension. 4. Peripheral vascular disease, scheduled for angioplasty today. PLAN: We will monitor the patient's CBC and CMP in a.m. Spoke to the daughter who is at the bedside. We will follow up patient's CBC and CMP in a.m. Jose Angel Hull MD
== END 2017-11-30 07:50 | disposition short-term general hospital (02) | DRG 556 ==
LOC: TRCU 17:54
PROVIDERS: ADMIT Internal Medicine; ATTEND Internal Medicine
PROC: F07Z9ZZ Gait Training/Functional Ambulation Treatment (ICD-10-PCS; principal; 2017-11-27)
PROC: F08Z4ZZ Home Management Treatment (ICD-10-PCS; 2017-11-27)
PROC: 3E0F7GC Introduction of Other Therapeutic Substance into Respiratory Tract, Via Natural or Artificial Opening (ICD-10-PCS; 2017-11-27)
DX: R26.2 Difficulty in walking, not elsewhere classified (principal); E11.51 Type 2 diabetes mellitus with diabetic peripheral angiopathy without gangrene; C34.90 Malignant neoplasm of unspecified part of unspecified bronchus or lung; D64.9 Anemia, unspecified; E78.5 Hyperlipidemia, unspecified; F17.200 Nicotine dependence, unspecified, uncomplicated; I10 Essential (primary) hypertension; Z90.49 Acquired absence of other specified parts of digestive tract; Z92.21 Personal history of antineoplastic chemotherapy

== ENCOUNTER 2017-11-30 08:26 | Inpatient (IN) | payer MEDICARE, BC ==
[2017-11-30 08:57] LABS: HDL CHOLESTEROL 34 mg/dL (29-60)
[2017-11-30 09:08] LABS: LDL CHOLESTEROL 56 mg/dL (0-129)
[2017-11-30] MEDS ORDERED: Lidocaine 2% Inj (20ml) ONE (09:10)
[2017-11-30] MEDS ORDERED: Iodixanol 320 MG/ML 200 ML BOTTLE IV ONE (09:11)
[2017-11-30] MEDS ORDERED: Midazolam 2 MG/2 ML VIAL ONE ×2 (09:11→11:20)
[2017-11-30] MEDS ORDERED: Iodixanol 320 MG/ML 100 ML BOTTLE IV ONE ×3 (09:11→14:09)
[2017-11-30] MEDS ORDERED: Nitroglycerin 50mg in D5W 50 MG/250 ML BOTTLE IV ONE (09:11)
[2017-11-30] MEDS ORDERED: HEPARIN SODIUM/NS 2,000 ML IV ONE (09:12)
[2017-11-30] MEDS ORDERED: Sodium Chloride 0.45% 1,000 ML IV SCH (15:15)
[2017-11-30] MEDS ORDERED: Desflurane Inhalation Anesthetic Liq (240 ml) ONE (15:51)
[2017-11-30] MEDS ORDERED: Albuterol-Ipratrop 3 mg / 0.5 (3 ml) UD IH PRN (15:55)
--- NOTE | 2017-11-30 16:09 | CP.PCM.CON ---
<Salvatore Mckeon - Last Filed: 11/30/17 16:32> History of Present Illness - History of Present Illness History of Present Illness: Salvatore JohnsonMike PGY1 ICU Consult for Dr. Alcantara Mr. Amaro is a 71yo male with a PMH of PVD, lung cancer on chemo, colon cancer s/p open laparotomy with sigmoidotomy and excision of tubulovillous adenoma, tobacco use, COPD, DM2, HTN, and HLD who presented from TCU to vascular lab for angio with Dr. Healy. While on TCU, the patient developed an acute worsening of chronic right lower extremity pain, starting at knee and radiating down his leg. Patient underwent a bilateral US of his LE's on 11/19 which showed STERLING's of 0.45 on the right and 0.57 on the left. MRA done on 11/21 showed occlusion of mid R SFA and occlusive disease b/l tibial disease. Patient underwent angio today with Dr. Healy and per PACU nurse staff, 3 stents were placed into RLE. ICU consulted for post-procedure management. Patient was seen and examined in PACU. He is a poor historian and ROS was limited. Patient denies chest pain, shortness of breath, fevers/chills, n/v, abdominal pain. PMH: as above PSH: sigmoidotomy, cholecystectomy, portacath placement, ORIF R prox humerus ALL: NKDA Social: current 1/2PPD smoker, occasional alcohol consumption, no marijuana or other substances Review of Systems - Review of Systems All systems: reviewed and no additional remarkable complaints except (as per HPI ) Past Patient History - Infectious Disease Hx of Infectious Diseases: None - Past Medical History & Family History Past Medical History?: Yes - Past Social History Smoking Status: Current Some Days Smoker Alcohol: Occasional Drugs: Denies - CARDIAC Hx Hypercholesterolemia: Yes Hx Hypertension: Yes Hx Pacemaker: No - PULMONARY Hx Chronic Obstructive Pulmonary Disease (COPD): Yes - NEUROLOGICAL Hx Paralysis: No - HEENT Hx HEENT Problems: Yes Hx Cataracts: Yes (b/l sx) Hx Glaucoma: Yes - RENAL Hx Chronic Kidney Disease: No - ENDOCRINE/METABOLIC Hx Diabetes Mellitus Type 2: Yes - HEMATOLOGICAL/ONCOLOGICAL Hx Blood Transfusions: No Hx Cancer: Yes (lung and colon) - INTEGUMENTARY Hx Dermatological Problems: Yes (chronic venous changes) Other/Comment: dry skin to arms and legs thick toenails, dry heels - GASTROINTESTINAL Hx Gastrointestinal Disorders: Yes Hx Bowel Surgery: Yes Hx Colostomy: Yes - GENITOURINARY/GYNECOLOGICAL Hx Reproductive Disorders: No - PSYCHIATRIC Hx Emotional Abuse: No Hx Physical Abuse: No Hx Substance Use: No - SURGICAL HISTORY Hx Surgeries: Yes (R CHEST PAC) Hx Angioplasty: Yes (RLE ) Hx Open Reduction Internal Fixation: Yes (R humerus) - ANESTHESIA Hx Anesthesia Reactions: No Hx Malignant Hyperthermia: No Meds Allergies/Adverse Reactions: Allergies Allergy/AdvReac Type Severity Reaction Status Date / Time No Known Allergies Allergy Verified 11/16/17 13:55 - Medications Medications: Current Medications Acetaminophen (Tylenol 325mg Tab) 650 mg PO Q4 PRN PRN Reason: Fever >100.4 F Albuterol/Ipratropium (Duoneb 3 Mg/0.5 Mg (3 Ml) Ud) 3 ml IH [id number] [facility] Albuterol/Ipratropium (Duoneb 3 Mg/0.5 Mg (3 Ml) Ud) 3 ml IH Q2H PRN PRN Reason: Shortness of Breath Atorvastatin Calcium (Lipitor) 10 mg PO DAILY [facility] Sodium Chloride (Sodium Chloride 0.45%) 1,000 mls @ 60 mls/hr IV .[id number] [facility] Insulin Human Lispro (Humalog Med) 0 units SC ACHS [facility] PRN Reason: Protocol Latanoprost (Xalatan Opht) 0 ml OU HS [facility] Pantoprazole Sodium (Protonix Ec Tab) 40 mg PO DAILY [facility] Physical Exam - Constitutional Appears: Non-toxic, No Acute Distress, Unkempt, Older Than Stated Age - Head Exam Head Exam: ATRAUMATIC, NORMAL INSPECTION - Eye Exam Eye Exam: EOMI, Normal appearance - ENT Exam ENT Exam: Mucous Membranes Dry - Neck Exam Neck exam: Positive for: Normal Inspection - Respiratory Exam Respiratory Exam: Rhonchi, NORMAL BREATHING PATTERN. absent: Rales, Respiratory Distress Additional comments: R chest port - Cardiovascular Exam Cardiovascular Exam: RRR, +S1, +S2. absent: Systolic Murmur - GI/Abdominal Exam GI & Abdominal Exam: Normal Bowel Sounds, Soft. absent: Distended, Guarding, Tenderness Additional comments: dressing applied s/p colon surgery abdominal pressure dressing applied - Extremities Exam Extremities exam: Negative for: pedal edema, pedal pulses present Additional comments: pedal pulses could not be manually palpated chronic poor vascular skin changes - Neurological Exam Neurological exam: Alert - Skin Skin Exam: Dry, Normal Color, Warm Results - Vital Signs Recent Vital Signs: Last Vital Signs Temp 98.5 F 11/30/17 15:29 Pulse 87 11/30/17 15:29 Resp 16 11/30/17 15:29 BP 124/92 H 11/30/17 15:29 Pulse Ox 94 L 11/30/17 08:40 - Labs Labs: Laboratory Results - last 24 hr 11/30/17 11/30/17 08:00 08:35 Triglycerides 90 Cholesterol 120 L LDL Cholesterol Direct 56 HDL Cholesterol 34 Blood Type O POSITIVE Antibody Screen Negative Crossmatch See Detail BBK History Checked Patient has bt Assessment & Plan - Assessment and Plan (Free Text) Assessment: 71yo male with a PMH of PVD lung cancer on chemo, colon cancer s/p open laparotomy with sigmoidotomy and excision of tubulovillous adenoma, tobacco use, COPD, DM2, HTN, and HLD presenting from vascular lab for angio with Dr. Healy s/p stent placement into RLE. ICU consulted for post-procedure management. Patient is hemodynamically stable and in no respiratory distress. Plan: PVD s/p angioplasty of RLE - post-procedure labs ordered, f/u CBC, CMP and INR - vital signs Q30m - cont NS @ 60cc - precautions per vascular surgery - elevate head of bed > 30deg - aspiration precautions - CCD as tolerated - zofran prn - tylenol prn - monitor H/H Hx DM2 - ISS - Accuchecks ACHS - CCD Hx COPD - Duonebs [facility] and PRN - O2 PRN - morning CXR Hx HTN - will monitor BP and consider restarting patient on Lopressor as in prior visit PTX for DVT ppx Patient was seen, examined and discussed with attending, Dr. Quinton Mckeon PGY1 <Darrell Alcantara - Last Filed: 11/30/17 16:50> Meds - Medications Medications: Current Medications Acetaminophen (Tylenol 325mg Tab) 650 mg PO Q4 PRN PRN Reason: Fever >100.4 F Albuterol/Ipratropium (Duoneb 3 Mg/0.5 Mg (3 Ml) Ud) 3 ml IH [id number] [facility] Albuterol/Ipratropium (Duoneb 3 Mg/0.5 Mg (3 Ml) Ud) 3 ml IH Q2H PRN PRN Reason: Shortness of Breath Atorvastatin Calcium (Lipitor) 10 mg PO DAILY [facility] Sodium Chloride (Sodium Chloride 0.45%) 1,000 mls @ 60 mls/hr IV .[id number] [facility] Insulin Human Lispro (Humalog Med) 0 units SC ACHS [facility] PRN Reason: Protocol Latanoprost (Xalatan Opht) 0 ml OU HS [facility] Ondansetron HCl (Zofran Inj) 4 mg IVP Q4H PRN PRN Reason: Nausea/Vomiting Pantoprazole Sodium (Protonix Ec Tab) 40 mg PO DAILY [facility] Results - Vital Signs Recent Vital Signs: Last Vital Signs Temp 98.5 F 11/30/17 15:29 Pulse 87 11/30/17 15:29 Resp 16 11/30/17 15:29 BP 124/92 H 11/30/17 15:29 Pulse Ox 94 L 11/30/17 08:40 - Labs Labs: Laboratory Results - last 24 hr 11/30/17 11/30/17 08:00 08:35 Triglycerides 90 Cholesterol 120 L LDL Cholesterol Direct 56 HDL Cholesterol 34 Blood Type O POSITIVE Antibody Screen Negative Crossmatch See Detail BBK History Checked Patient has bt Attending/Attestation - Attestation I have personally seen and examined this patient.: Yes I have fully participated in the care of the patient.: Yes I have reviewed all pertinent clinical information: Yes Notes (Text): 11/30/17 16:46 The patient was seen and examined at the bedside. Patient care was discussed with resident . Medical records, lab studies were reviewed and management issues were discussed and formulated. Agree with above treatment plans as outlined in ' note with addition of the following: PVD \ COPD \ Lung CA \ Colon CA \ CHF \ DM \ HTN -hemodynamic monitoring to maintain MAP>65; continue metoprolol -o2 supplementation to maintain Spo2 >90 Pao2>60; currently comfortable on NC -continue nebs PRN; start incentive spirometry -f\u Bun\Cr and U\o; continue IVF to prevent contrast nephropathy -PO diet and aspiration precautions -ISS and BGM monitoring -Heme\Onc team f\u -monitor pulses post-op -PT\OT eval -DVT \ PUD prophylaxis CCM eval 32mins
[2017-11-30] MEDS: Insulin Lispro (humaLOG) MEDIUM Coverage SC SCH ×2 (17:11→22:13)
[2017-11-30] MEDS: Sodium Chloride 0.45% 1,000 ML IV SCH (17:14)
[2017-11-30] MEDS: Albuterol-Ipratrop 3 mg / 0.5 (3 ml) UD IH SCH (20:50)
[2017-11-30 21:13] LABS: HEMOGLOBIN 10.4 g/dL (14.0-18.0); MEAN CELL VOLUME 86.7 fl (80.0-105.0); MEAN CORPUSCULAR HEMOGLOBIN 28.3 pg (25.0-35.0); MEAN CORPUSCULAR HGB CONC 32.6 g/dl (31.0-37.0); MEAN PLATELET VOLUME 8.8 fl (7.0-11.0); RBC 3.68 10^6/uL (3.5-6.1); WHITE BLOOD COUNT 14.8 10^3/ul (4.5-11.0)
[2017-11-30 21:17] LABS: ALB/GLOB RATIO 1.1 (1.1-1.8); ALBUMIN 3.5 g/dL (3.0-4.8); ALT/SGPT 43 U/L (7-56); AST/SGOT 43 U/L (17-59); BLOOD UREA NITROGEN 27 mg/dL (7-21); CALCIUM 9.3 mg/dL (8.4-10.5); GFR AFRICAN-AMERICAN > 60; GFR NON-AFRICAN AMERICAN > 60
[2017-11-30 21:18] LABS: INR 1.05 (0.93-1.08)
[2017-11-30] MEDS ORDERED: Influenza Vaccine 60 mcg/0.5 mL SYR (4YR UP) IM ONE (22:23)
[2017-11-30] MEDS ORDERED: Pneumococcal 23-Valent Vaccine IM ONE (22:23)
[2017-11-30] MEDS: Latanoprost 2.5 ml Opht Soln OU SCH (23:00)
[2017-12-01] MEDS: Albuterol-Ipratrop 3 mg / 0.5 (3 ml) UD IH SCH ×6 (00:02→18:59)
--- NOTE | 2017-12-01 00:20 | OP ---
PROCEDURE DATE: 11/30/2017 PREOPERATIVE DIAGNOSES: Severe peripheral vascular disease, bilateral foot rest pain. POSTOPERATIVE DIAGNOSES: Severe peripheral vascular disease, bilateral foot rest pain. PROCEDURES: Angiogram; aortogram; bilateral femoral angiogram; atherectomy, right superficial femoral artery; drug-eluted balloon angioplasty of superficial femoral artery, 6 mm x 160 mm self-expanding stent to the SFA; balloon angioplasty of the popliteal and the peroneal, stenting of the below-knee popliteal and above-knee popliteal with the 6 x 100 mm Supera flexible stent, on-table angiogram. SURGEON: Sonya Healy MD BRAND REPRESENTATIVE: Feliz. TYPE OF ANESTHESIA: Local IV sedation. PROCEDURE NOTE: Patient was brought to the cardiac laborer heading and placed supine on the cath table. After adequate IV sedation have been accomplished, left leg was prepped with ChloraPrep and draped out as a sterile field. After local infiltration of 1% lidocaine, the left femoral artery was percutaneously assessed with some micropuncture kit and the micro guidewire was passed into the aorta. The MicroSheath was exchanged for 5-Welsh sheath and an Omni Flush type of catheter was passed into the abdominal aorta. Abdominal aortogram and bilateral femoral angiogram reviewed the following: The aorta is heavily calcified, but patent. The internal iliac, femoral, and profundus artery bilaterally are heavily calcified, but open. On the right side, the superficial femoral artery had a 60mm occlusion at midthigh, distal to that the above-knee popliteal and multiple area of stenosis, the below-knee popliteal artery was also diffusely stenotic and abruptly stopped at the bifurcation. The anterior tibial artery was occluded. The posterior tibial artery was occluded at its origin. The tibial peroneal trunk was open, but it was occluded at its bifurcation. The peroneal artery just distal to that reconstituted and had multiple points of stenosis to the midcalf, after that the peroneal artery was opened to ankle. There was no arch on either side. On the left side, the femoral arteries opened, there was diffuse stenosis. Again, the below-knee popliteal artery was occluded with severe bifurcation disease and also all three tibial arteries were diffusely stenotic. After the angiogram, we elected to perform atherectomy and angioplasty of the right leg. The guidewire was passed up and over into the right superficial femoral artery. A 7-Welsh sheath [employer] type was passed up and over into the proximal superficial femoral artery. An 0.035 stiff-angled glide was used to cross the SFA lesion and after that it was exchanged for an 0.014 wire that was easily passed from the below-knee popliteal artery into the peroneal artery. The peroneal artery and the tibial peroneal trunk was sterilely dilated up to a 3-mm balloon. Attention was turned to the superficial femoral artery lesion using the [employer] atherectomy device. The superficial femoral artery was atherectomized and after that it was balloon angioplastied with a 5 mm x 80 mm drug-eluted balloon. Next, using a 4 x 115 mm drug-eluted balloon, the distal above knee popliteal and below knee popliteal were ballooned. After that, completion angiogram showed residual stenosis of the superficial femoral artery, so a 6 x 16 mm self-expanding stent was deployed at the previous occlusive lesion; however, at this point, the popliteal artery was cut off just below the knee. Using the IVUS, it was shown that the distal popliteal artery was incompletely angioplastied. So, it was re-angioplastied with a 6-mm balloon and a 5 x 100 mm Supera type of stent was deployed across the knee joint. After that, completion angiogram showed good passage of dye from groin to foot. At this time, patient received 400 mL of dye and we elected to complete the procedure. At this point, the Perclose was deployed to close the left femoral puncture site that has failed, so compression was performed on the left groin for 30 minutes. Sterile dressing was applied. Patient tolerated the procedure well and was returned to the recovery room in stable condition. Sonya Healy MD [facility]
[2017-12-01 06:58] LABS: HEMOGLOBIN 9.8 g/dL (14.0-18.0); MEAN CELL VOLUME 86.6 fl (80.0-105.0); MEAN CORPUSCULAR HEMOGLOBIN 28.5 pg (25.0-35.0); MEAN CORPUSCULAR HGB CONC 32.9 g/dl (31.0-37.0); MEAN PLATELET VOLUME 9.1 fl (7.0-11.0); RBC 3.44 10^6/uL (3.5-6.1); RED CELL DISTRIBUTION WIDTH 17.2 % (11.5-14.5); WHITE BLOOD COUNT 13.5 10^3/ul (4.5-11.0)
[2017-12-01 07:22] LABS: INR 1.01 (0.93-1.08); PROTHROMBIN TIME 12.7 SECONDS (9.4-12.5)
[2017-12-01] MEDS: Insulin Lispro (humaLOG) MEDIUM Coverage SC SCH ×4 (07:30→21:15)
--- NOTE | 2017-12-01 09:47 | PN ---
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 SUBJECTIVE: The patient is resting in bed. No complaints of shortness of breath, cough, wheezing, chest congestion. Respiratory status is stable. He states that he did have a procedure yesterday in his right lower extremity and he states that they put stents in to open up his vessels and the patient has no new complaints. PHYSICAL EXAMINATION: VITAL SIGNS: Physical exam note that his temperature is 98.6, pulse is 90, respirations are 20 and BP is 122/54. SKIN: Warm and dry. HEENT: Head atraumatic, normocephalic. Eyes reactive to light. Ear, nose and throat seemed to be within normal limits. NECK: Supple. No JVD. No thyroid enlargement. No lymph nodes. HEART: Has regular rate and rhythm. Normal S1, S2. LUNGS: Reveal fairly good breath sounds bilaterally. ABDOMEN: Soft. Decreased bowel sounds. GENITALIA AND RECTAL: Deferred. MUSCULOSKELETAL: No joint deformities. EXTREMITIES: Reveal no significant lower extremity edema. NEUROLOGICALLY: He seemed to be grossly intact. LABORATORY DATA: As far as his laboratories are concerned, his white count is 13.5, hemoglobin is 9.8 and hematocrit is 29.8 with platelets of 281,000. The patient's sodium is 135, potassium 4.5, chloride 102, CO2 of 23, BUN of 27, creatinine of 1.1 and glucose of 102. IMPRESSION: As far as my impression, this patient has lower extremity arterial vascular disease that required angioplasty of the right lower extremity. Three stents were placed. He has history of anemia, congestive heart failure, chronic obstructive pulmonary disease, diabetes, hypertension, hyperlipidemia as well as history of lung cancer and colon cancer. PLAN: As far as our plan, we will continue to give the patient bronchodilators via nebulizer. I will also give him his Lipitor, his Protonix with an IV solution of one-half normal saline as well as Zofran p.r.n. The patient will be followed closely and treated aggressively along with the other consultants and the primary care doctor. Tyson Fitch MD [facility] # [id number]
--- NOTE | 2017-12-01 09:49 | RAD ---
HISTORY: Shortness of breath. COMPARISON: 11/17/2017 FINDINGS: LUNGS: Progressive right upper lobe infiltrate/ mass. There may be a cavitary lobe not seen previously. PLEURA: Stable small right pleural effusion/pleural thickening CARDIOVASCULAR: No radiographic findings to suggest acute or significant cardiovascular disease. Venous access catheter in stable, satisfactory position. OSSEOUS STRUCTURES: No significant abnormalities. VISUALIZED UPPER ABDOMEN: Normal. OTHER FINDINGS: None. IMPRESSION: Progressive infiltrate, mass right upper lobe.
--- NOTE | 2017-12-01 10:00 | CP.PCM.PN ---
Subjective - Date & Time of Evaluation Date of Evaluation: 12/01/17 Time of Evaluation: 07:00 - Subjective Subjective: Patient seen and examined. No acute events over night. Reports pain in leg has improved. +DP/PT signals on Doppler d/l. Groin site in c/d/i, no hematoma noted. Objective - Vital Signs/Intake and Output Vital Signs (last 24 hours): Temp Pulse Resp BP Pulse Ox 98.6 F 90 20 122/54 L 97 11/30/17 21:52 12/01/17 07:30 12/01/17 07:20 12/01/17 07:00 12/01/17 05:50 Intake and Output: 12/01/17 12/01/17 06:59 18:59 Intake Total 770 Output Total 1800 Balance -1030 - Medications Medications: Current Medications Acetaminophen (Tylenol 325mg Tab) 650 mg PO Q4 PRN PRN Reason: Fever >100.4 F Albuterol/Ipratropium (Duoneb 3 Mg/0.5 Mg (3 Ml) Ud) 3 ml IH [id number] [facility] Last Admin: 12/01/17 08:00 Dose: 3 ml Albuterol/Ipratropium (Duoneb 3 Mg/0.5 Mg (3 Ml) Ud) 3 ml IH Q2H PRN PRN Reason: Shortness of Breath Atorvastatin Calcium (Lipitor) 10 mg PO DAILY [facility] Clopidogrel Bisulfate (Plavix) 75 mg PO DAILY [facility] Enoxaparin Sodium (Lovenox) 40 mg SC DAILY [facility] PRN Reason: Protocol Sodium Chloride (Sodium Chloride 0.45%) 1,000 mls @ 60 mls/hr IV .[id number] [facility] Last Admin: 11/30/17 17:14 Dose: 60 mls/hr Insulin Human Lispro (Humalog Med) 0 units SC ACHS [facility] PRN Reason: Protocol Last Admin: 11/30/17 22:13 Dose: Not Given Latanoprost (Xalatan Opht) 0 ml OU HS [facility] Last Admin: 11/30/17 23:00 Dose: 2.5 ml Ondansetron HCl (Zofran Inj) 4 mg IVP Q4H PRN PRN Reason: Nausea/Vomiting Pantoprazole Sodium (Protonix Ec Tab) 40 mg PO DAILY [facility] - Labs Labs: 12/01/17 05:55 11/30/17 21:05 PT 12.7 SECONDS (9.4-12.5) H 12/01/17 05:55 INR 1.01 (0.93-1.08) 12/01/17 05:55 - Constitutional Appears: Non-toxic - Head Exam Head Exam: NORMOCEPHALIC - Eye Exam Eye Exam: Normal appearance Pupil Exam: NORMAL ACCOMODATION - ENT Exam ENT Exam: Mucous Membranes Moist - Respiratory Exam Respiratory Exam: NORMAL BREATHING PATTERN - Cardiovascular Exam Cardiovascular Exam: +S1, +S2 - GI/Abdominal Exam GI & Abdominal Exam: Soft Assessment and Plan - Assessment and Plan (Free Text) Assessment: 71M w/ severe PAD s/p angioplasty of right SFA and popliteal and peroneal artery stenting Plan: -Ok to resume diet -DVT ppx -Will start Plavix -PT evaluation -Monitor LE pulses b/l -Monitor groin site -D/w Dr. Healy -D/w Dr. Miguel Michaels PGY2
[2017-12-01] MEDS: Pantoprazole 40 mg EC Tab PO SCH (10:03)
[2017-12-01] MEDS: Enoxaparin 40 mg Syringe SC SCH (10:03)
[2017-12-01] MEDS: Sodium Chloride 0.45% 1,000 ML IV SCH (10:03)
[2017-12-01] MEDS: Latanoprost 2.5 ml Opht Soln OU SCH (21:18)
[2017-12-02] MEDS: Albuterol-Ipratrop 3 mg / 0.5 (3 ml) UD IH SCH ×6 (00:25→19:06)
[2017-12-02 06:36] LABS: HEMOGLOBIN 9.2 g/dL (14.0-18.0); MEAN CELL VOLUME 86.2 fl (80.0-105.0); MEAN CORPUSCULAR HEMOGLOBIN 28.1 pg (25.0-35.0); MEAN CORPUSCULAR HGB CONC 32.6 g/dl (31.0-37.0); MEAN PLATELET VOLUME 8.9 fl (7.0-11.0); RBC 3.27 10^6/uL (3.5-6.1); RED CELL DISTRIBUTION WIDTH 16.6 % (11.5-14.5); WHITE BLOOD COUNT 9.7 10^3/ul (4.5-11.0)
[2017-12-02 06:43] LABS: INR 1.13 (0.93-1.08)
[2017-12-02 07:02] LABS: ALT/SGPT 27 U/L (7-56); AST/SGOT 33 U/L (17-59); BLOOD UREA NITROGEN 24 mg/dL (7-21); CALCIUM 9.4 mg/dL (8.4-10.5); GFR AFRICAN-AMERICAN > 60; GFR NON-AFRICAN AMERICAN > 60
[2017-12-02 07:44] VITALS: RESP 16
[2017-12-02] MEDS: Insulin Lispro (humaLOG) MEDIUM Coverage SC SCH ×4 (08:20→21:48)
[2017-12-02 08:30] LABS: ALBUMIN 3.2 g/dL (3.0-4.8)
[2017-12-02] MEDS: Enoxaparin 40 mg Syringe SC SCH (09:21)
[2017-12-02] MEDS: Pantoprazole 40 mg EC Tab PO SCH (09:22)
--- NOTE | 2017-12-02 11:46 | CP.PCM.PN ---
Subjective - Date & Time of Evaluation Date of Evaluation: 12/02/17 Time of Evaluation: 11:43 - Subjective Subjective: Surgery: Dr. Healy Patient reports feeling well. He complains of mild pain in the lower extremities but overall improved. He denies f/c/n/v. Objective - Vital Signs/Intake and Output Vital Signs (last 24 hours): Temp Pulse Resp BP Pulse Ox 98.1 F 79 16 130/67 100 12/02/17 06:00 12/02/17 06:00 12/02/17 06:00 12/02/17 06:00 12/02/17 06:00 Intake and Output: 12/02/17 12/02/17 06:59 18:59 Intake Total Output Total Balance - Medications Medications: Current Medications Acetaminophen (Tylenol 325mg Tab) 650 mg PO Q4 PRN PRN Reason: Fever >100.4 F Albuterol/Ipratropium (Duoneb 3 Mg/0.5 Mg (3 Ml) Ud) 3 ml IH [id number] [facility] Last Admin: 12/02/17 11:06 Dose: 3 ml Albuterol/Ipratropium (Duoneb 3 Mg/0.5 Mg (3 Ml) Ud) 3 ml IH Q2H PRN PRN Reason: Shortness of Breath Atorvastatin Calcium (Lipitor) 10 mg PO DAILY [facility] Last Admin: 12/02/17 09:22 Dose: 10 mg Clopidogrel Bisulfate (Plavix) 75 mg PO DAILY [facility] Last Admin: 12/02/17 09:22 Dose: 75 mg Enoxaparin Sodium (Lovenox) 40 mg SC DAILY [facility] PRN Reason: Protocol Last Admin: 12/02/17 09:21 Dose: 40 mg Insulin Human Lispro (Humalog Med) [address] [facility] PRN Reason: Protocol Last Admin: 12/02/17 08:20 Dose: Not Given Latanoprost (Xalatan Opht) 0 ml OU HS [facility] Last Admin: 12/01/17 21:18 Dose: 2.5 ml Ondansetron HCl (Zofran Inj) 4 mg IVP Q4H PRN PRN Reason: Nausea/Vomiting Pantoprazole Sodium (Protonix Ec Tab) 40 mg PO DAILY [facility] Last Admin: 12/02/17 09:22 Dose: 40 mg - Labs Labs: 12/02/17 06:28 12/02/17 06:28 PT 13.0 SECONDS (9.4-12.5) H 12/02/17 06:28 INR 1.13 (0.93-1.08) H 12/02/17 06:28 - Constitutional Appears: Non-toxic, No Acute Distress, Cachectic - Head Exam Head Exam: ATRAUMATIC, NORMOCEPHALIC - Eye Exam Eye Exam: EOMI, Normal appearance - ENT Exam ENT Exam: Mucous Membranes Moist - Respiratory Exam Respiratory Exam: Clear to Ausculation Bilateral. absent: Respiratory Distress - Cardiovascular Exam Cardiovascular Exam: REGULAR RHYTHM. absent: Tachycardia - GI/Abdominal Exam GI & Abdominal Exam: Soft. absent: Distended, Tenderness Additional comments: Left groin dressing CDI, no hematoma palpable - Extremities Exam Extremities Exam: absent: Calf Tenderness, Pedal Edema Additional comments: DP and PT pulse signal appreciated on duplex bilaterally. LE are warm to touch. ROM and sensory intact. - Neurological Exam Neurological Exam: Alert, Awake - Psychiatric Exam Psychiatric exam: Normal Affect, Normal Mood - Skin Skin Exam: Dry, Warm Assessment and Plan - Assessment and Plan (Free Text) Assessment: 71M w/ severe PAD s/p angioplasty of right SFA and popliteal and peroneal artery stenting Plan: -DVT ppx -cont Plavix -PT evaluation -ok to d/c to TCU from surgical standpoint -Monitor groin site -further recs per Dr. Niraj Watts PGY3
[2017-12-02 15:48] VITALS: O2SAT 97
[2017-12-02] MEDS: Latanoprost 2.5 ml Opht Soln OU SCH (21:50)
--- NOTE | 2017-12-03 00:08 | CP.PCM.PN ---
Subjective - Date & Time of Evaluation Date of Evaluation: 12/02/17 Time of Evaluation: 13:00 - Subjective Subjective: Comfortable in bed . No pain. Able to tolerate PO feeds. No nausea, no vomiting. No ambulating. Objective - Vital Signs/Intake and Output Vital Signs (last 24 hours): Temp Pulse Resp BP Pulse Ox 98.7 F 80 16 107/62 97 12/02/17 15:47 12/02/17 15:47 12/02/17 15:47 12/02/17 15:47 12/02/17 15:47 Intake and Output: 12/02/17 12/03/17 18:59 06:59 Intake Total 480 420 Output Total 500 600 Balance -20 -180 - Medications Medications: Current Medications Acetaminophen (Tylenol 325mg Tab) 650 mg PO Q4 PRN PRN Reason: Fever >100.4 F Albuterol/Ipratropium (Duoneb 3 Mg/0.5 Mg (3 Ml) Ud) 3 ml IH [id number] [facility] Last Admin: 12/03/17 00:00 Dose: 3 ml Albuterol/Ipratropium (Duoneb 3 Mg/0.5 Mg (3 Ml) Ud) 3 ml IH Q2H PRN PRN Reason: Shortness of Breath Atorvastatin Calcium (Lipitor) 10 mg PO DAILY [facility] Last Admin: 12/02/17 09:22 Dose: 10 mg Clopidogrel Bisulfate (Plavix) 75 mg PO DAILY [facility] Last Admin: 12/02/17 09:22 Dose: 75 mg Enoxaparin Sodium (Lovenox) 40 mg SC DAILY [facility] PRN Reason: Protocol Last Admin: 12/02/17 09:21 Dose: 40 mg Insulin Human Lispro (Humalog Med) 0 units SC ACHS [facility] PRN Reason: Protocol Last Admin: 12/02/17 21:48 Dose: Not Given Latanoprost (Xalatan Opht) 0 ml OU HS [facility] Last Admin: 12/02/17 21:50 Dose: Not Given Ondansetron HCl (Zofran Inj) 4 mg IVP Q4H PRN PRN Reason: Nausea/Vomiting Pantoprazole Sodium (Protonix Ec Tab) 40 mg PO DAILY [facility] Last Admin: 12/02/17 09:22 Dose: 40 mg - Labs Labs: 12/02/17 06:28 12/02/17 06:28 PT 13.0 SECONDS (9.4-12.5) H 12/02/17 06:28 INR 1.13 (0.93-1.08) H 12/02/17 06:28 - Constitutional Appears: Cachectic, Chronically Ill - Head Exam Head Exam: ATRAUMATIC, NORMAL INSPECTION, NORMOCEPHALIC - Eye Exam Eye Exam: Normal appearance - ENT Exam ENT Exam: Mucous Membranes Moist, Normal Exam - Neck Exam Neck Exam: Normal Inspection - Respiratory Exam Respiratory Exam: Clear to Ausculation Bilateral, NORMAL BREATHING PATTERN - Cardiovascular Exam Cardiovascular Exam: REGULAR RHYTHM, +S1, +S2 - GI/Abdominal Exam GI & Abdominal Exam: Soft, Normal Bowel Sounds - Extremities Exam Extremities Exam: Normal Capillary Refill, Normal Inspection - Back Exam Back Exam: NORMAL INSPECTION - Neurological Exam Neurological Exam: Alert, CN II-XII Intact, Oriented x3 - Skin Skin Exam: Normal Color, Warm Assessment and Plan - Assessment and Plan (Free Text) Assessment: 1. Lung Cancer : good response to chemo. Residual in right lung. 2. Sigmoid mass : resected recently.Path pending. 3. Recent right femoral angioplasty. Vascular Dr. Healy following. 4. encourage ambulation. 5. Anemia : Hb/Hct stable.
[2017-12-03] MEDS: Albuterol-Ipratrop 3 mg / 0.5 (3 ml) UD IH SCH ×4 (05:14→11:20)
[2017-12-03 07:25] VITALS: BP 111/68; PULSE 85; TEMP 97.4
[2017-12-03 07:29] LABS: HEMOGLOBIN 9.6 g/dL (14.0-18.0); MEAN CELL VOLUME 86.7 fl (80.0-105.0); MEAN CORPUSCULAR HEMOGLOBIN 27.7 pg (25.0-35.0); MEAN PLATELET VOLUME 9.1 fl (7.0-11.0); RBC 3.46 10^6/uL (3.5-6.1); RED CELL DISTRIBUTION WIDTH 16.4 % (11.5-14.5); WHITE BLOOD COUNT 8.4 10^3/ul (4.5-11.0)
--- NOTE | 2017-12-03 07:41 | CP.PCM.PN ---
Subjective - Date & Time of Evaluation Date of Evaluation: 12/03/17 Time of Evaluation: 06:45 - Subjective Subjective: Patient seen and examined. No acute events over night. No complaints. Abdominal dressing changed, groin dressing removed. Denies fever/chills, chest pain, shortness of breath, abdominal pain. Objective - Vital Signs/Intake and Output Vital Signs (last 24 hours): Temp Pulse Resp BP Pulse Ox 97.4 F L 85 16 111/68 97 12/03/17 07:25 12/03/17 07:25 12/03/17 07:25 12/03/17 07:25 12/03/17 07:25 Intake and Output: 12/03/17 12/03/17 06:59 18:59 Intake Total 600 Output Total 1100 Balance -500 - Medications Medications: Current Medications Acetaminophen (Tylenol 325mg Tab) 650 mg PO Q4 PRN PRN Reason: Fever >100.4 F Albuterol/Ipratropium (Duoneb 3 Mg/0.5 Mg (3 Ml) Ud) 3 ml IH [id number] [facility] Last Admin: 12/03/17 07:29 Dose: 3 ml Albuterol/Ipratropium (Duoneb 3 Mg/0.5 Mg (3 Ml) Ud) 3 ml IH Q2H PRN PRN Reason: Shortness of Breath Atorvastatin Calcium (Lipitor) 10 mg PO DAILY [facility] Last Admin: 12/02/17 09:22 Dose: 10 mg Clopidogrel Bisulfate (Plavix) 75 mg PO DAILY [facility] Last Admin: 12/02/17 09:22 Dose: 75 mg Enoxaparin Sodium (Lovenox) 40 mg SC DAILY [facility] PRN Reason: Protocol Last Admin: 12/02/17 09:21 Dose: 40 mg Insulin Human Lispro (Humalog Med) 0 units SC ACHS [facility] PRN Reason: Protocol Last Admin: 12/02/17 21:48 Dose: Not Given Latanoprost (Xalatan Opht) 0 ml OU HS [facility] Last Admin: 12/02/17 21:50 Dose: Not Given Ondansetron HCl (Zofran Inj) 4 mg IVP Q4H PRN PRN Reason: Nausea/Vomiting Pantoprazole Sodium (Protonix Ec Tab) 40 mg PO DAILY [facility] Last Admin: 12/02/17 09:22 Dose: 40 mg - Labs Labs: 12/03/17 06:40 12/02/17 06:28 PT 13.0 SECONDS (9.4-12.5) H 12/02/17 06:28 INR 1.13 (0.93-1.08) H 12/02/17 06:28 - Constitutional Appears: No Acute Distress - Head Exam Head Exam: NORMOCEPHALIC - Eye Exam Eye Exam: Normal appearance - ENT Exam ENT Exam: Mucous Membranes Moist - Respiratory Exam Respiratory Exam: NORMAL BREATHING PATTERN - Cardiovascular Exam Cardiovascular Exam: +S1, +S2 - GI/Abdominal Exam GI & Abdominal Exam: Soft. absent: Tenderness Additional comments: serosanguinous drainage from inferior pole of abdominal incision - Neurological Exam Neurological Exam: Alert, Awake, Oriented x3 - Psychiatric Exam Psychiatric exam: Normal Mood - Skin Skin Exam: Dry Assessment and Plan - Assessment and Plan (Free Text) Assessment: 71M w/ severe PAD s/p angioplasty of right SFA and popliteal and peroneal artery stenting Plan: -DVT ppx -cont Plavix -Physical therapy evaluation -ok to d/c to TCU from surgical standpoint -further recs per Dr. Niraj Michaels PGY2
[2017-12-03 07:52] LABS: ALBUMIN 3.2 g/dL (3.0-4.8); ALT/SGPT 20 U/L (7-56); AST/SGOT 33 U/L (17-59); BLOOD UREA NITROGEN 25 mg/dL (7-21); CALCIUM 9.3 mg/dL (8.4-10.5); GFR AFRICAN-AMERICAN > 60; GFR NON-AFRICAN AMERICAN 50
[2017-12-03 07:55] LABS: INR 1.08 (0.93-1.08); PROTHROMBIN TIME 12.4 SECONDS (9.4-12.5)
--- NOTE | 2017-12-03 08:16 | CON ---
DATE: 12/01/2017 HISTORY OF PRESENT ILLNESS: Mr. Amaro is a 71-year-old male with history of lung cancer, right upper lobe. He also had left colon mass, which was resected recently. He underwent angioplasty of right femoral artery, recently admitted to ICU, now transferred to regular floor. No acute distress. No pain. Oral intake is good. Currently on aspirin, Plavix, and subcutaneous Lovenox. PAST MEDICAL HISTORY: Diabetes mellitus type 2, COPD, hypertension, hyperlipidemia, lung cancer. PAST SURGICAL HISTORY: Left humeral fracture and colon resection, left sided. CURRENT MEDICATIONS: Tramadol, metformin twice a day, Januvia, prednisone eyedrops, aspirin, Plavix, Lovenox prophylactic doses. SOCIAL HISTORY: Heavy smoker. Continues to smoke. No history of alcohol abuse. REVIEW OF SYSTEMS: As per HPI. Rest of 12-point review of systems reviewed negative. PHYSICAL EXAMINATION: GENERAL: Comfortable in bed, in no acute distress. VITAL SIGNS: Temperature 98.7, heart rate is 90 per minute, respiratory rate 20 per minute. HEENT: Pallor positive. NECK: No lymphadenopathy. CHEST: Air entry present and equal bilaterally. No added sounds. CARDIOVASCULAR: S1, S2 normal. No murmur. No gallop. ABDOMEN: Soft, nontender. No hepatosplenomegaly. EXTREMITIES: No edema. LABORATORY DATA: White count 13.5, hemoglobin 9.8, hematocrit 29.8, platelet 281. Glucose 191. ASSESSMENT: 1. Lung cancer, right upper lobe. 2. Colon mass, status post resection. 3. Peripheral vascular disease, status post angioplasty, right femoral. PLAN: Currently on aspirin, Plavix, and Lovenox prophylactic doses. Continue that. On IV fluid 60 mL an hour. We will continue IV fluids 24 hours until oral intake is good. DuoNeb q.6 hours scheduled. Zofran p.r.n. Blood count stable. Hemoglobin low at 9. We will continue to monitor. Renal function labs ordered for tomorrow. Port needle to be removed. To flush port with heparin. Estrella Lucio MD [facility]
[2017-12-03] MEDS: Pantoprazole 40 mg EC Tab PO SCH (10:02)
[2017-12-03] MEDS: Enoxaparin 40 mg Syringe SC SCH (10:02)
[2017-12-03] MEDS: Insulin Lispro (humaLOG) MEDIUM Coverage SC SCH ×2 (12:09)
[2017-12-03] MEDS ORDERED: POLYETHYLENE GLYCOL 3350 17 GM/Dose PACKET PO ONE (12:14)
--- NOTE | 2017-12-04 04:40 | HP ---
HISTORY OF PRESENT ILLNESS: The patient is a 71-year-old, who was initially admitted after colonoscopy. He was found to have a pedunculated mass. The biopsy is found to have tubular adenoma. Because of fear of obstruction, he had partial colectomy and sigmoidectomy done. During this time, the patient complained of right foot pain. He had a leg Doppler done that showed severe peripheral vascular disease. He was evaluated by Dr. Jose Piper, who did angiogram and was found to have occlusive disease. Dr. Healy was consulted and the patient was initially transferred to TCU for rehab and was brought to same-day surgery for intervention. MRA done on 11/21/2017 shows occlusion of mid right superficial femoral artery and occlusive disease and tibial artery. So, he underwent angioplasty. Since lot of IV dye was given, he was admitted in ICU for close observation. PAST MEDICAL HISTORY: The patient has significant past medical history of: 1. Lung cancer, getting chemotherapy. 2. Status post sigmoidectomy and excision of tubulovillous adenoma and partial colectomy. 3. Iqm-hpvueia-ubsknuzfv diabetes. 4. Diabetic neuropathy. 5. Chronic obstructive pulmonary disease. 6. Hypertension. PAST SURGICAL HISTORY: Significant for: 1. Cholecystectomy. 2. History of Port-A-Cath placement. 3. Status post fall and left humerus open reduction and internal fixation. ALLERGIES: HE IS NOT ALLERGIC TO ANY MEDICATIONS. SOCIAL HISTORY: Still smokes 1 pack per day and socially drinks. REVIEW OF SYSTEMS: Significant for right foot pain, complained of shortness of breath on walking, and generalized weakness. PHYSICAL EXAMINATION: GENERAL: He is awake, alert, oriented, communicative. VITAL SIGNS: He is afebrile, pulse 85, respirations 16, blood pressure 111/68. LUNGS: Bilateral good airflow. No rhonchi or crackle. HEART: S1 and S2 audible. No murmur. ABDOMEN: Soft. Nontender. No rebound. No guarding. NEUROLOGIC: He is awake, alert, oriented, communicative. LABORATORY EXAM: WBC is 8.4, hemoglobin 9.6, hematocrit 30, platelets 291. Chemistry: Sodium 138, potassium 4.8, chloride 106, CO2 23, BUN 25, creatinine 1.4, blood sugar of 154. ASSESSMENT: 1. Severe peripheral vascular disease. The patient has atherectomy and angioplasty of the right superficial femoral artery. 2. Hbv-ggsdcfw-snlmznhdc diabetes. 3. Hypertension. 4. Hyperlipidemia. 5. Status post sigmoidectomy. PLAN: The patient was observed in ICU from 11/30 to 12/03. The patient remains stable. So, he is being sent back and discharged to [facility] physical therapy. Jose Angel Hull MD
== END 2017-12-03 14:46 | DRG 271 ==
LOC: SDSVAS 08:26 → CCU 16:19 → SDSVAS 12-01 09:15 → CCU 12-01 09:15 → 5RSO 12-01 12:39
PROVIDERS: ADMIT Internal Medicine; ATTEND Internal Medicine
PROC: 04CK3ZZ Extirpation of Matter from Right Femoral Artery, Percutaneous Approach (ICD-10-PCS; principal; 2017-11-30)
PROC: 047K341 Dilation of Right Femoral Artery with Drug-eluting Intraluminal Device, using Drug-Coated Balloon, Percutaneous Approach (ICD-10-PCS; 2017-11-30)
PROC: 047T3ZZ Dilation of Right Peroneal Artery, Percutaneous Approach (ICD-10-PCS; 2017-11-30)
PROC: 047M341 Dilation of Right Popliteal Artery with Drug-eluting Intraluminal Device, using Drug-Coated Balloon, Percutaneous Approach (ICD-10-PCS; 2017-11-30)
PROC: B44FZZ3 Ultrasonography of Right Lower Extremity Arteries, Intravascular (ICD-10-PCS; 2017-11-30)
PROC: B40D1ZZ Plain Radiography of Aorta and Bilateral Lower Extremity Arteries using Low Osmolar Contrast (ICD-10-PCS; 2017-11-30)
DX: E11.51 Type 2 diabetes mellitus with diabetic peripheral angiopathy without gangrene (principal); C18.9 Malignant neoplasm of colon, unspecified; E11.40 Type 2 diabetes mellitus with diabetic neuropathy, unspecified; C34.11 Malignant neoplasm of upper lobe, right bronchus or lung; I11.0 Hypertensive heart disease with heart failure; I50.9 Heart failure, unspecified; J44.9 Chronic obstructive pulmonary disease, unspecified; D64.9 Anemia, unspecified; E78.00 Pure hypercholesterolemia, unspecified; E78.5 Hyperlipidemia, unspecified; F17.210 Nicotine dependence, cigarettes, uncomplicated; H40.9 Unspecified glaucoma; Z79.82 Long term (current) use of aspirin; Z93.3 Colostomy status; Z90.49 Acquired absence of other specified parts of digestive tract; Z98.42 Cataract extraction status, left eye; Z98.41 Cataract extraction status, right eye; Z87.81 Personal history of (healed) traumatic fracture

== ENCOUNTER 2017-12-03 14:50 | Inpatient (IN) | payer OTHER, BC ==
[2017-12-03] MEDS ORDERED: Albuterol-Ipratrop 3 mg / 0.5 (3 ml) UD IH PRN (16:14)
[2017-12-03] MEDS: Insulin Lispro (humaLOG) MEDIUM Coverage SC SCH ×2 (17:23→21:59)
[2017-12-03] MEDS: Albuterol-Ipratrop 3 mg / 0.5 (3 ml) UD IH SCH (20:12)
--- NOTE | 2017-12-03 23:27 | CP.PCM.CON ---
History of Present Illness - History of Present Illness History of Present Illness: DATE: 12/03/2017 HISTORY OF PRESENT ILLNESS: Mr. Amaro is a 71-year-old male with history of lung cancer, right upper lobe. He also had left colon mass, which was resected recently. He underwent angioplasty of right femoral artery, recently admitted to ICU, now transferred to regular floor. No acute distress. No pain. Oral intake is good. Currently on aspirin, Plavix, and subcutaneous Lovenox. PAST MEDICAL HISTORY: Diabetes mellitus type 2, COPD, hypertension, hyperlipidemia, lung cancer. PAST SURGICAL HISTORY: Left humeral fracture and colon resection, left sided. CURRENT MEDICATIONS: Tramadol, metformin twice a day, Januvia, prednisone eyedrops, aspirin, Plavix, Lovenox prophylactic doses. SOCIAL HISTORY: Heavy smoker. Continues to smoke. No history of alcohol abuse. REVIEW OF SYSTEMS: As per HPI. Rest of 12-point review of systems reviewed negative. PHYSICAL EXAMINATION: GENERAL: Comfortable in bed, in no acute distress. VITAL SIGNS: reviewed. HEENT: Pallor positive. NECK: No lymphadenopathy. CHEST: Air entry present and equal bilaterally. No added sounds. CARDIOVASCULAR: S1, S2 normal. No murmur. No gallop. ABDOMEN: Soft, nontender. No hepatosplenomegaly. EXTREMITIES: No edema. LABORATORY DATA: White count 13.5, hemoglobin 9.8, hematocrit 29.8, platelet 281. Glucose 191. ASSESSMENT: 1. Lung cancer, right upper lobe. 2. Colon mass, status post resection. 3. Peripheral vascular disease, status post angioplasty, right femoral. PLAN: Currently on aspirin, Plavix, and Lovenox prophylactic doses. DuoNeb q.6 hours scheduled. Zofran p.r.n. Blood count stable. Hemoglobin low at 9. We will continue to monitor. Renal functions stable. angioplasty right leg. Estrella Lucio MD Past Patient History - Infectious Disease Hx of Infectious Diseases: None - Past Medical History & Family History Past Medical History?: Yes - Past Social History Smoking Status: Former Smoker - CARDIAC Hx Hypercholesterolemia: Yes Hx Hypertension: Yes - PULMONARY Hx Chronic Obstructive Pulmonary Disease (COPD): Yes - NEUROLOGICAL Hx Neurological Disorder: No - HEENT Hx HEENT Problems: Yes (eyeglasses) Hx Cataracts: Yes (b/l sx) Hx Glaucoma: Yes - RENAL Hx Chronic Kidney Disease: No - ENDOCRINE/METABOLIC Hx Diabetes Mellitus Type 2: Yes - HEMATOLOGICAL/ONCOLOGICAL Hx Anemia: Yes (blood transfusion) Hx Cancer: Yes (lung) Hx Chemotherapy: Yes (last chemo was oct 22 2017) Other/Comment: family denies colon ca, mass was benign as per daughter jacqui - INTEGUMENTARY Hx Dermatological Problems: Yes (chronic venous changes) Other/Comment: dry skin to arms and legs thick toenails, dry heels, r groin dsg dry and intact - MUSCULOSKELETAL/RHEUMATOLOGICAL Hx Falls: Yes (past) - GASTROINTESTINAL Hx Gastrointestinal Disorders: Yes - GENITOURINARY/GYNECOLOGICAL Hx Reproductive Disorders: No - PSYCHIATRIC Hx Emotional Abuse: No Hx Physical Abuse: No Hx Substance Use: No - SURGICAL HISTORY Hx Surgeries: Yes (R CHEST PAC) Hx Cardiac Catheterization: Yes (04/09/17) Hx Cholecystectomy: Yes Hx Orthopedic Surgery: Yes (orif r humerus) Other/Comment: 11.22.2017 lap sigmoidectomy to removed sigmoid polyp - ANESTHESIA Hx Anesthesia Reactions: No Hx Malignant Hyperthermia: No Meds Allergies/Adverse Reactions: Allergies Allergy/AdvReac Type Severity Reaction Status Date / Time No Known Allergies Allergy Verified 11/16/17 13:55 - Medications Medications: Current Medications Acetaminophen (Tylenol 325mg Tab) 650 mg PO Q4 PRN; Protocol PRN Reason: Fever >100.4 F Albuterol/Ipratropium (Duoneb 3 Mg/0.5 Mg (3 Ml) Ud) 3 ml IH Q2H PRN; Protocol PRN Reason: Shortness of Breath Albuterol/Ipratropium (Duoneb 3 Mg/0.5 Mg (3 Ml) Ud) 3 ml IH Q4 [facility] PRN Reason: Protocol Last Admin: 12/03/17 20:12 Dose: 3 ml Atorvastatin Calcium (Lipitor) 10 mg PO DIN [facility] PRN Reason: Protocol Last Admin: 12/03/17 17:23 Dose: 10 mg Clopidogrel Bisulfate (Plavix) 75 mg PO DAILY [facility] PRN Reason: Protocol Enoxaparin Sodium (Lovenox) 40 mg SC 0600 [facility] PRN Reason: Protocol Insulin Human Lispro (Humalog Med) 0 units SC ACHS [facility] PRN Reason: Protocol Last Admin: 12/03/17 21:59 Dose: Not Given Latanoprost (Xalatan Opht) 0 ml OU HS [facility] PRN Reason: Protocol Ondansetron HCl (Zofran Inj) 4 mg IVP Q4H PRN; Protocol PRN Reason: Nausea/Vomiting Pantoprazole Sodium (Protonix Ec Tab) 40 mg PO 0600 [facility] PRN Reason: Protocol Results - Vital Signs Recent Vital Signs: Last Vital Signs Temp 92.2 F L 12/03/17 18:55 Pulse 79 12/03/17 18:55 Resp 18 12/03/17 18:55 BP 128/70 12/03/17 18:55 Pulse Ox 97 12/03/17 17:36 - Labs Labs: Laboratory Results - last 24 hr 12/03/17 12/03/17 17:00 21:52 POC Glucose (mg/dL) 107 162 H
[2017-12-04] MEDS: Albuterol-Ipratrop 3 mg / 0.5 (3 ml) UD IH SCH ×6 (04:28→21:20)
[2017-12-04] MEDS: Enoxaparin 40 mg Syringe SC SCH (06:01)
[2017-12-04] MEDS: Pantoprazole 40 mg EC Tab PO SCH (06:02)
[2017-12-04] MEDS: Latanoprost 2.5 ml Opht Soln OU SCH ×2 (06:02→21:55)
[2017-12-04] MEDS: Insulin Lispro (humaLOG) MEDIUM Coverage SC SCH ×4 (06:37→21:53)
[2017-12-05] MEDS: Albuterol-Ipratrop 3 mg / 0.5 (3 ml) UD IH SCH ×6 (01:00→19:31)
[2017-12-05] MEDS: Enoxaparin 40 mg Syringe SC SCH (05:57)
[2017-12-05] MEDS: Pantoprazole 40 mg EC Tab PO SCH (05:57)
--- NOTE | 2017-12-05 06:45 | HP ---
HISTORY OF PRESENT ILLNESS: The patient is a 71-year-old, seen and examined. The patient was initially admitted because of his colonic mass, has underwent sigmoidectomy and partial colectomy. The patient also has a history of CA lung. During this time, he was complaining of right foot pain, had Doppler study done, shows significant occlusive disease, underwent angioplasty and transferred back to TCU. PAST MEDICAL HISTORY: Significant for: 1. Zhx-uovjnbq-zklofmyqd diabetes. 2. Hypertension. 3. Hyperlipidemia. 4. History of CA lung, currently on chemotherapy. 5. Tubular adenoma, status post resection sigmoidectomy. 6. Chronic anemia. ALLERGIES: HE IS NOT ALLERGIC TO ANY MEDICATIONS. MEDICATIONS AT HOME: As per MAR. REVIEW OF SYSTEMS: Complained of generalized weakness. Still has right big toe pain. Minimal abdominal discomfort at surgical site. SOCIAL HISTORY: He lives with daughter. Used to be a heavy smoker. Currently, he is not smoking. PHYSICAL EXAMINATION GENERAL: He is awake, alert, oriented, communicative. VITAL SIGNS: He is afebrile, pulse 93, respiration 18, blood pressure 150/69. LUNGS: Bilateral good airflow. No rhonchi or crackle. HEART: S1 and S2 audible. ABDOMEN: Soft, nontender. No rebound, no guarding. NEUROLOGIC: The patient is awake, alert, oriented, communicative. LABORATORY DATA: Blood sugar is 139. ASSESSMENT: 1. Carcinoma of lung, on chemotherapy. 2. Peripheral vascular disease, status post superficial femoral artery angioplasty and arthrectomy. 3. History of left humeral fracture. 4. Ngy-bsagher-xjxtnauxi diabetes. 5. Chronic obstructive pulmonary disease. 6. Hyperlipidemia. 7. Hypertension. PLAN: Currently, the patient is on nebulizer treatment as needed. He is on insulin coverage. He is on atorvastatin. He is on DVT prophylaxis, Plavix, Protonix, and I will start him on MiraLax since he complained of constipation. Jose Angel Hull MD
[2017-12-05] MEDS: Insulin Lispro (humaLOG) MEDIUM Coverage SC SCH ×4 (06:58→21:37)
[2017-12-05] MEDS: POLYETHYLENE GLYCOL 3350 17 GM/Dose PACKET PO SCH (10:47)
[2017-12-05] MEDS: FLUOROMETHOLONE 0.1% OU SCH ×2 (14:42→17:12)
[2017-12-05] MEDS: EYE OU SCH ×2 (14:42→17:12)
[2017-12-05] MEDS: PREDNISOLONE 1% EYE DROPS OU SCH (17:12)
[2017-12-05] MEDS: Latanoprost 2.5 ml Opht Soln OU SCH (21:39)
--- NOTE | 2017-12-05 21:51 | PN ---
DATE: SUBJECTIVE: Patient is 71-year-old, seen and examined, still has right big toe pain, better than before though. He is eating and tolerating. PHYSICAL EXAMINATION: GENERAL: He is awake, alert, oriented, communicative. VITAL SIGNS: The patient is afebrile, pulse 75, respirations 18, blood pressure 132/76. LUNGS: Bilateral good air flow. No rhonchi or crackle. HEART: S1 and S2 audible. ABDOMEN: Soft, nontender. No rebound, no guarding. EXTREMITIES: Left foot big toe seems to be swollen and tender to touch. ASSESSMENT: 1. Status post right superficial femoral artery angioplasty and atherectomy. 2. Non-insulin dependent diabetes. 3. Hypertension. 4. Status post sigmoidectomy. 5. Lung cancer, on chemotherapy. PLAN: Start him on colchicine. We will continue all other medications, and encourage ambulation. We will follow up patient in the a.m. Jose Angel Hull MD
[2017-12-06] MEDS: Albuterol-Ipratrop 3 mg / 0.5 (3 ml) UD IH SCH ×6 (04:57→19:37)
[2017-12-06] MEDS: Pantoprazole 40 mg EC Tab PO SCH (05:29)
[2017-12-06] MEDS: Enoxaparin 40 mg Syringe SC SCH (05:30)
[2017-12-06] MEDS: Insulin Lispro (humaLOG) MEDIUM Coverage SC SCH ×4 (08:05→21:50)
--- NOTE | 2017-12-06 09:04 | CP.PCM.PCO ---
Physician Communication Note - Physician Communication Note Physician Communication Note: half santi removed, will remove remaining in office at f/u in 1 wk
[2017-12-06] MEDS: FLUOROMETHOLONE 0.1% OU SCH ×3 (09:17→17:30)
[2017-12-06] MEDS: EYE OU SCH ×3 (09:17→17:30)
[2017-12-06] MEDS: PREDNISOLONE 1% EYE DROPS OU SCH ×2 (09:19→17:31)
[2017-12-06] MEDS: POLYETHYLENE GLYCOL 3350 17 GM/Dose PACKET PO SCH (09:20)
--- NOTE | 2017-12-06 18:17 | PN ---
DATE: SUBJECTIVE: The patient is 71 years old, seen and examined. Still complained of right big toe pain. No nausea or vomiting. No diarrhea. Eating and tolerating. Having bowel movement. Participating in therapy. PHYSICAL EXAMINATION: VITAL SIGNS: He is afebrile, pulse 81, respirations 16, blood pressure 121/70. LUNGS: Bilateral good airflow. No rhonchi or crackle. HEART: S1 and S2 audible. ABDOMEN: Soft, nontender. No rebound, no guarding. NEUROLOGIC: The patient is awake, alert, oriented, communicative. LABORATORY EXAM: Blood sugar is 109. ASSESSMENT: 1. Status post sigmoidectomy, status post partial colectomy, status post right leg superficial femoral artery angioplasty. 2. Dqz-afroypj-dpjtcybhh diabetes. 3. Cancer of the lung. PLAN: I will order for colchicine 0.6 twice a day and also give him prednisone for 2 to 3 days. Jose Angel Hull MD
[2017-12-06] MEDS: Latanoprost 2.5 ml Opht Soln OU SCH (21:51)
[2017-12-07] MEDS: Albuterol-Ipratrop 3 mg / 0.5 (3 ml) UD IH SCH ×6 (00:53→20:55)
[2017-12-07] MEDS: Pantoprazole 40 mg EC Tab PO SCH (05:21)
[2017-12-07] MEDS: Enoxaparin 40 mg Syringe SC SCH (05:22)
[2017-12-07] MEDS: Insulin Lispro (humaLOG) MEDIUM Coverage SC SCH ×4 (06:51→21:52)
[2017-12-07] MEDS: FLUOROMETHOLONE 0.1% OU SCH ×3 (11:31→17:26)
[2017-12-07] MEDS: PREDNISOLONE 1% EYE DROPS OU SCH ×2 (11:31→17:26)
[2017-12-07] MEDS: EYE OU SCH ×3 (11:31→17:26)
[2017-12-07] MEDS: POLYETHYLENE GLYCOL 3350 17 GM/Dose PACKET PO SCH (11:32)
--- NOTE | 2017-12-07 14:46 | PN ---
DATE: SUBJECTIVE: The patient is 71 years old, seen and examined, lying in bed, seems to be comfortable. No nausea or vomiting. No diarrhea. Eating and tolerating, ambulating. Abdominal surgery santi have been removed. PHYSICAL EXAMINATION: VITAL SIGNS: He is afebrile, pulse 92, respirations 16, blood pressure 130/80. LUNGS: Bilateral good airflow. No rhonchi or crackle. HEART: S1 and S2 audible. ABDOMEN: Soft. Nontender. No rebound. No guarding. NEUROLOGIC: The patient is awake, alert, oriented, able to communicate. LABORATORY EXAM: Blood sugar is 175. ASSESSMENT: 1. Status post sigmoidectomy, status post partial colectomy. 2. Hypertension. 3. Hyperlipidemia. 4. Nou-cxitcfl-bptdfjmou diabetes. 5. Status post right leg superficial femoral arterial angioplasty. 6. Right big toe gouty arthritis. PLAN: We will continue the patient on current medication. Continue his Colcrys. I reduced his Colcrys to once a day. Encourage physical therapy. Discharge plan for next week. Jose Angel Hull MD
[2017-12-07] MEDS: Latanoprost 2.5 ml Opht Soln OU SCH (21:14)
[2017-12-08] MEDS: Albuterol-Ipratrop 3 mg / 0.5 (3 ml) UD IH SCH ×7 (00:19→20:40)
[2017-12-08] MEDS: Enoxaparin 40 mg Syringe SC SCH (05:26)
[2017-12-08] MEDS: Pantoprazole 40 mg EC Tab PO SCH (05:26)
[2017-12-08] MEDS: Insulin Lispro (humaLOG) MEDIUM Coverage SC SCH ×4 (07:04→21:31)
[2017-12-08] MEDS: POLYETHYLENE GLYCOL 3350 17 GM/Dose PACKET PO SCH (10:36)
[2017-12-08] MEDS: FLUOROMETHOLONE 0.1% OU SCH ×3 (10:40→18:18)
[2017-12-08] MEDS: EYE OU SCH ×3 (10:40→18:18)
[2017-12-08] MEDS: PREDNISOLONE 1% EYE DROPS OU SCH ×2 (10:41→18:20)
[2017-12-08] MEDS: Latanoprost 2.5 ml Opht Soln OU SCH (21:11)
[2017-12-09] MEDS: Albuterol-Ipratrop 3 mg / 0.5 (3 ml) UD IH SCH ×6 (00:30→21:30)
[2017-12-09] MEDS: Pantoprazole 40 mg EC Tab PO SCH (06:02)
[2017-12-09] MEDS: Enoxaparin 40 mg Syringe SC SCH (06:02)
[2017-12-09] MEDS: Insulin Lispro (humaLOG) MEDIUM Coverage SC SCH ×4 (06:56→21:40)
[2017-12-09] MEDS: FLUOROMETHOLONE 0.1% OU SCH ×3 (10:21→18:09)
[2017-12-09] MEDS: EYE OU SCH ×3 (10:21→18:09)
[2017-12-09] MEDS: PREDNISOLONE 1% EYE DROPS OU SCH ×2 (10:22→18:10)
[2017-12-09] MEDS: POLYETHYLENE GLYCOL 3350 17 GM/Dose PACKET PO SCH (10:22)
--- NOTE | 2017-12-09 15:49 | PN ---
DATE: 12/09/2017 SUBJECTIVE: The patient has no complaints of any chest pain. No shortness of breath. No headaches. PHYSICAL EXAMINATION: VITAL SIGNS: Temperature is 97.7, pulse of 82, blood pressure is 128/52, respirations 18. GENERAL: The patient is lying in bed, flat, comfortable. HEENT: No oral lesion. Anicteric sclerae. Moist mucosa. NECK: No JVD, adenopathy, or thyromegaly. CARDIOVASCULAR: S1 and S2, regular. No murmurs, rubs, or gallops. LUNGS: Clear to auscultation bilaterally. No wheeze, rales, or rhonchi. ABDOMEN: Bowel sounds are positive, soft, nontender and nondistended. EXTREMITIES: No cyanosis, clubbing or edema. ASSESSMENT: 1. Status post partial colectomy. 2. Hypertension. 3. Dyslipidemia. 4. Diabetes type 2. 5. Gouty arthritis. 6. Status post left leg superficial femoral artery angioplasty secondary to peripheral arterial disease. PLAN: The patient is currently comfortable. He is going to continue on physical therapy with physical therapy on the transitional care unit. The patient is going to be on colchicine for his gout. He is on Lipitor for dyslipidemia. He is on Plavix. He is on prednisone daily. The patient is on Protonix. He is going o continue with Xalatan for his eyes. The patient is on carbohydrate consistent diet. I will start to decrease the patient's prednisone. The patient is on prednisone 20 mg b.i.d. Change it to daily. We will also order lab work for tomorrow. Bello Patel MD
[2017-12-09] MEDS: Latanoprost 2.5 ml Opht Soln OU SCH (21:40)
[2017-12-10] MEDS: Enoxaparin 40 mg Syringe SC SCH (05:26)
[2017-12-10] MEDS: Pantoprazole 40 mg EC Tab PO SCH (05:26)
[2017-12-10 06:55] LABS: MEAN CELL VOLUME 85.2 fl (80.0-105.0); MEAN CORPUSCULAR HEMOGLOBIN 28.4 pg (25.0-35.0); MEAN CORPUSCULAR HGB CONC 33.3 g/dl (31.0-37.0); MEAN PLATELET VOLUME 8.8 fl (7.0-11.0); RBC 3.52 10^6/uL (3.5-6.1)
[2017-12-10] MEDS: Insulin Lispro (humaLOG) MEDIUM Coverage SC SCH ×4 (07:07→21:59)
[2017-12-10 07:43] LABS: ALB/GLOB RATIO 1.1 (1.1-1.8); ALBUMIN 3.4 g/dL (3.0-4.8); ALT/SGPT 36 U/L (7-56); AST/SGOT 32 U/L (17-59); BLOOD UREA NITROGEN 42 mg/dL (7-21); CALCIUM 9.9 mg/dL (8.4-10.5); GFR AFRICAN-AMERICAN > 60; GFR NON-AFRICAN AMERICAN 60
[2017-12-10] MEDS: FLUOROMETHOLONE 0.1% OU SCH ×2 (09:10→17:02)
[2017-12-10] MEDS: EYE OU SCH ×2 (09:10→17:02)
[2017-12-10] MEDS: PREDNISOLONE 1% EYE DROPS OU SCH (09:10)
[2017-12-10] MEDS: POLYETHYLENE GLYCOL 3350 17 GM/Dose PACKET PO SCH (09:11)
[2017-12-10] MEDS: Albuterol-Ipratrop 3 mg / 0.5 (3 ml) UD IH SCH ×5 (10:42→20:40)
[2017-12-10 18:17] VITALS: RESP 18
[2017-12-10] MEDS: Latanoprost 2.5 ml Opht Soln OU SCH (21:51)
[2017-12-11] MEDS: Albuterol-Ipratrop 3 mg / 0.5 (3 ml) UD IH SCH ×5 (00:30→15:11)
[2017-12-11] MEDS: Enoxaparin 40 mg Syringe SC SCH (05:36)
[2017-12-11] MEDS: Pantoprazole 40 mg EC Tab PO SCH (05:36)
[2017-12-11] MEDS: Insulin Lispro (humaLOG) MEDIUM Coverage SC SCH ×2 (06:33→12:03)
[2017-12-11] MEDS: FLUOROMETHOLONE 0.1% OU SCH (09:32)
[2017-12-11] MEDS: EYE OU SCH (09:32)
[2017-12-11] MEDS: POLYETHYLENE GLYCOL 3350 17 GM/Dose PACKET PO SCH (09:32)
[2017-12-11] MEDS: PREDNISOLONE 1% EYE DROPS OU SCH (09:32)
[2017-12-11 17:49] VITALS: BP 119/59; PULSE 86; TEMP 98; O2SAT 99
--- NOTE | 2017-12-11 23:52 | DS ---
HISTORY OF PRESENT ILLNESS: The patient is 71 years old, who was admitted initially with colonic mass, underwent sigmoidectomy and partial colectomy. Also had right leg angioplasty for occlusive disease. Has been in Physical Therapy, doing well. PHYSICAL EXAMINATION: GENERAL: He is awake, alert, oriented, communicative. VITAL SIGNS: He is afebrile, pulse 86, respirations 18, blood pressure 119/59. LUNGS: Bilateral good airflow. No rhonchi or crackle. HEART: S1 and S2 audible. ABDOMEN: Soft. Nontender. No rebound. No guarding. NEUROLOGIC: He is awake, alert, oriented, communicative. LABORATORY EXAM: Blood sugar is 220. ASSESSMENT: 1. Status post sigmoidectomy, status post partial colectomy. 2. Right leg angioplasty. 3. Hypertension. 4. Hyperlipidemia. 5. History of cancer of lung, on chemotherapy. PLAN: The patient is being discharged home on his usual medications including, 1. Pravastatin 20 mg daily. 2. Multiple eye drops. 3. Glipizide 10 mg twice a day. 4. Ferrous sulfate. 5. Colchicine. 6. Tramadol. 7. Metformin. 8. Januvia. We will see the patient in the office. Jose Angel Hull MD
== END 2017-12-11 18:30 | disposition home or self-care (01) | DRG 300 ==
LOC: TRCU 14:50
PROVIDERS: ADMIT Internal Medicine; ATTEND Internal Medicine
PROC: F07Z9FZ Gait Training/Functional Ambulation Treatment using Assistive, Adaptive, Supportive or Protective Equipment (ICD-10-PCS; principal; 2017-12-05)
PROC: F0726YZ Therapeutic Exercise Treatment of Neurological System - Lower Back / Lower Extremity using Other Equipment (ICD-10-PCS; 2017-12-05)
PROC: F08Z2FZ Grooming/Personal Hygiene Treatment using Assistive, Adaptive, Supportive or Protective Equipment (ICD-10-PCS; 2017-12-07)
PROC: F08Z1ZZ Dressing Techniques Treatment (ICD-10-PCS; 2017-12-07)
DX: E11.51 Type 2 diabetes mellitus with diabetic peripheral angiopathy without gangrene (principal); C34.11 Malignant neoplasm of upper lobe, right bronchus or lung; D64.9 Anemia, unspecified; J44.9 Chronic obstructive pulmonary disease, unspecified; E78.5 Hyperlipidemia, unspecified; F17.200 Nicotine dependence, unspecified, uncomplicated; M10.071 Idiopathic gout, right ankle and foot; I10 Essential (primary) hypertension; Z79.84 Long term (current) use of oral hypoglycemic drugs; Z98.62 Peripheral vascular angioplasty status; Z90.49 Acquired absence of other specified parts of digestive tract

== ENCOUNTER 2018-05-08 17:34 | Observation (INO) | payer MEDICARE, BC ==
[2018-05-08 17:42] VITALS: BMI 19.8
[2018-05-08] MEDS ORDERED: Sodium Chloride 0.9% 1,000 ML IV STA (17:55)
--- NOTE | 2018-05-08 18:17 | ED PDOC ---
Arrival/HPI - General Chief Complaint: Abnormal Labs Time Seen by Provider: 05/08/18 17:54 Historian: Patient - History of Present Illness Narrative History of Present Illness (Text): 05/08/18 18:06 A 72 y/o M w/ h/o lung cancer (on chemotherapy), who is accompanied by daughter presents arrives to the emergency department after being sent by his PMD for evaluation of low H&H levels. Per daughter, patient had blood drawn yesterday by PMD who noted his Hgb was low and requested he present to the hospital for transfusion. Patient denies any dizziness, shortness of breath, chest pain, rashes, or any other complaints at this time. Per the patient's daughter, the patient fell 4 days ago and had no head trauma, LOC or neck tenderness. Patient' s last chemotherapy session was 04/29/18. PMD: Dr. Hull Time/Duration: Prior to Arrival Symptom Onset: Gradual Symptom Course: Worsening Quality: Unable to Describe Severity Level: Moderate Past Medical History - Provider Review Nursing Documentation Reviewed: Yes - Infectious Disease Hx of Infectious Diseases: None - Cardiac Hx Hypertension: Yes - Pulmonary Hx Chronic Obstructive Pulmonary Disease (COPD): Yes Other/Comment: lung ca on chemo - Neurological Hx Neurological Disorder: No - HEENT Hx HEENT Disorder: Yes (eyeglasses) - Renal Hx Renal Disorder: No - Endocrine/Metabolic Hx Diabetes Mellitus Type 2: Yes - Integumentary Hx Dermatological Disorder: Yes (chronic venous changes) Other/Comment: dry skin to arms and legs thick toenails, dry heels, r groin dsg dry and intact - Musculoskeletal/Rheumatological Hx Arthritis: Yes - Gastrointestinal Hx Gastrointestinal Disorders: Yes - Genitourinary/Gynecological Hx Reproductive Disorders: No - Psychiatric Hx Substance Use: No - Surgical History Hx Cardiac Catheterization: Yes (04/09/17) Hx Cholecystectomy: Yes Hx Orthopedic Surgery: Yes (orif r humerus) Other/Comment: 11.22.2017 lap sigmoidectomy to removed sigmoid polyp - Anesthesia Hx Anesthesia Reactions: No Hx Malignant Hyperthermia: No - Suicidal Assessment Feels Threatened In Home Enviroment: No Family/Social History - Physician Review Nursing Documentation Reviewed: Yes Family/Social History: No Known Family HX Smoking Status: Former Smoker Hx Alcohol Use: Yes Frequency of alcohol use: Socially Hx Substance Use: No Allergies/Home Meds Allergies/Adverse Reactions: Allergies No Known Allergies Allergy (Verified 11/16/17 13:55) Home Medications: Home Meds Medication Instructions Recorded Confirmed Unobtainable 05/08/18 05/08/18 Review of Systems - Physician Review All systems were reviewed & negative as marked: Yes - Review of Systems Constitutional: absent: Other (no head trauma.) Respiratory: absent: SOB Cardiovascular: absent: Chest Pain Gastrointestinal: absent: Abdominal Pain Skin: absent: Rash Neurological: absent: Dizziness Physical Exam Vital Signs Reviewed: Yes Vital Signs Temp Pulse Resp BP Pulse Ox 05/08/18 20:20 80 20 110/60 94 L 05/08/18 17:35 98.6 F 78 20 120/60 98 Temperature: Afebrile Blood Pressure: Normal Pulse: Regular Respiratory Rate: Normal Appearance: Positive for: Well-Appearing Pain Distress: None Mental Status: Positive for: Alert and Oriented X 3 - Systems Exam Head: Present: Atraumatic, Normocephalic Pupils: Present: PERRL Extroacular Muscles: Present: EOMI Conjunctiva: Present: Normal Mouth: Present: Moist Mucous Membranes Neck: Present: Normal Range of Motion Respiratory/Chest: Present: Clear to Auscultation, Good Air Exchange. No: Respiratory Distress, Accessory Muscle Use Cardiovascular: Present: Regular Rate and Rhythm, Normal S1, S2. No: Murmurs Abdomen: No: Tenderness, Distention, Peritoneal Signs Back: Present: Normal Inspection Upper Extremity: Present: Normal Inspection. No: Cyanosis, Edema Lower Extremity: Present: Normal Inspection. No: Edema Neurological: Present: GCS=15, CN II-XII Intact, Speech Normal Skin: Present: Warm, Dry, Normal Color. No: Rashes Psychiatric: Present: Alert, Oriented x 3, Normal Insight, Normal Concentration Medical Decision Making ED Course and Treatment: 05/08/18 18:10 Impression: 72 year old male with low H&H levels. -patient will have transfusion and Hgb trended over time Differential Diagnosis included but are not limited to: Anemia Plan: -- Labs -- IV Fluids --Transfuse w/ pRBCs -- Reassess and disposition Progress Notes: 05/08/18 20:00 Labs reviewed. Hgb 6.8 with consent obtained. Patient eating food in bed comfortably. Spoke to Dr. Hull(PCP) who accepts patient onto her service. - Lab Interpretations Lab Results: 05/08/18 18:00 05/08/18 18:00 Lab Results 05/08/18 18:00: Blood Type O POSITIVE, Antibody Screen Negative, Crossmatch See Detail, BBK History Checked Patient has bt 05/08/18 18:00: Sodium 137, Potassium 4.0, Chloride 104, Carbon Dioxide 22, Anion Gap 15, BUN 14, Creatinine 0.9, Est GFR ( Amer) > 60, Est GFR (Non- Af Amer) > 60, Random Glucose 161 H, Calcium 8.6, Total Bilirubin 0.3, AST 19, ALT 22, Alkaline Phosphatase 157 H, Total Protein 6.3, Albumin 3.4, Globulin 2.9 , Albumin/Globulin Ratio 1.2 05/08/18 18:00: PT 12.2, INR 1.07, APTT 33.1 05/08/18 18:00: WBC 5.6 D, RBC 2.36 L, Hgb 6.8 L* D, Hct 20.5 L*, MCV 86.9, MCH 28.8, MCHC 33.2, RDW 18.1 H, Plt Count 128, MPV 9.1, Gran % 74.1 H, Lymph % (Auto) 15.6 L, [place] % (Auto) 8.5 H, Eos % (Auto) 1.4 L, Baso % (Auto) 0.4, Gran # 4.18, Lymph # (Auto) 0.9 L, [place] # (Auto) 0.5, Eos # (Auto) 0.1, Baso # (Auto ) 0.02 I have reviewed the lab results: Yes - EKG Interpretation EKG Interpretation (Text): 05/08/18 22:38 NSR @ 76 w/ PACs. No ST elevations or depressions Interpreted by ED Physician: Yes Type: 12 lead EKG - Medication Orders Current Medication Orders: Atorvastatin Calcium (Lipitor) 10 mg PO DIN [facility] Colchicine (Colocrys) 0.6 mg PO DAILY [facility] Glipizide (Glucotrol Xl) 10 mg PO BID [facility] Insulin Human Lispro (Humalog Med) 0 units SC ACHS [facility] PRN Reason: Protocol Latanoprost (Xalatan Opht) 0.02 ml OU HS [facility] Metformin HCl (Glucophage) 500 mg PO BID [facility] Last Admin: 05/08/18 20:24 Dose: 500 mg Prednisolone Acetate (Pred Forte 1% Opht Susp) 0.02 ml OU BID [facility] Sitagliptin Phosphate (Januvia) 100 mg PO DAILY [facility] Tramadol HCl (Ultram) 50 mg PO Q8H PRN PRN Reason: Pain, moderate (4-7) Discontinued Medications Sodium Chloride (Sodium Chloride 0.9%) 1,000 mls @ 999 mls/hr IV .Q1H1M STA Stop: 05/08/18 18:55 Last Admin: 05/08/18 18:19 Dose: 999 mls/hr eMAR Start Stop Document 05/08/18 18:19 SRE (Rec: 05/08/18 18:19 SRE [id number]) Intravenous Solution Start Date 05/08/18 Start Time 18:19 End Date 05/08/18 End time 19:20 Total Infusion Time 61 - Scribe Statement The provider has reviewed the documentation as recorded by the Jagdeep Daily Provider Scribe Provider Scribe Attestation: All medical record entries made by the Jagdeep were at my direction and personally dictated by me. I have reviewed the chart and agree that the record accurately reflects my personal performance of the history, physical exam, medical decision making, and the department course for this patient. I have also personally directed, reviewed, and agree with the discharge instructions and disposition. Disposition/Present on Arrival - Present on Arrival Any Indicators Present on Arrival: No History of DVT/PE: No History of Uncontrolled Diabetes: No Urinary Catheter: Yes History of Decub. Ulcer: No History Surgical Site Infection Following: None - Disposition Have Diagnosis and Disposition been Completed?: Yes Diagnosis: Anemia Disposition: HOSPITALIZED Disposition Time: 19:25 Patient Plan: Observation Patient Problems: Current Active Problems Problem Status Onset Anemia Acute Condition: GOOD
[2018-05-08 18:35] LABS: BASO # 0.02 K/mm3 (0.0-2.0); BASO % 0.4 % (0.0-3.0); EOS # 0.1 (0.0-0.7); EOS % 1.4 % (1.5-5.0); GRAN # 4.18 (1.4-6.5); GRAN % 74.1 % (50.0-68.0); LYMPH # 0.9 (1.2-3.4); LYMPH % 15.6 % (22.0-35.0); MEAN CELL VOLUME 86.9 fl (80.0-105.0); MEAN CORPUSCULAR HEMOGLOBIN 28.8 pg (25.0-35.0); MEAN CORPUSCULAR HGB CONC 33.2 g/dl (31.0-37.0); MEAN PLATELET VOLUME 9.1 fl (7.0-11.0); MONO # 0.5 (0.1-0.6); MONO % 8.5 % (1.0-6.0); RBC 2.36 10^6/uL (3.5-6.1); RED CELL DISTRIBUTION WIDTH 18.1 % (11.5-14.5); WHITE BLOOD COUNT 5.6 10^3/ul (4.5-11.0)
[2018-05-08 18:39] LABS: HEMOGLOBIN 6.8 g/dL (14.0-18.0)
[2018-05-08 18:46] LABS: INR 1.07; PARTIAL THROMBOPLASTIN TIME 33.1 Seconds (25.1-36.5); PROTHROMBIN TIME 12.2 SECONDS (9.4-12.5)
--- NOTE | 2018-05-08 18:48 | CARD ---
APPROVED REPORT Date of service: 05/08/2018 EKG Measurement Heart [id number] <Conclusion> Sinus rhythm with premature atrial complexes Otherwise normal ECG
[2018-05-08 18:49] LABS: ALB/GLOB RATIO 1.2 (1.1-1.8); ALBUMIN 3.4 g/dL (3.0-4.8); ALT/SGPT 22 U/L (7-56); AST/SGOT 19 U/L (17-59); BLOOD UREA NITROGEN 14 mg/dL (7-21); CALCIUM 8.6 mg/dL (8.4-10.5); GFR AFRICAN-AMERICAN > 60; GFR NON-AFRICAN AMERICAN > 60
[2018-05-08] MEDS: Insulin Lispro (humaLOG) MEDIUM Coverage SC SCH (23:37)
[2018-05-09] MEDS: Latanoprost 2.5 ml Opht Soln OU SCH ×2 (00:07→21:35)
[2018-05-09] MEDS: GlipiZIDE 10 mg SR Tab PO SCH ×2 (00:07→10:00)
[2018-05-09] MEDS: PrednisoLONE 1% Opht Susp(5 ml) OU SCH ×3 (00:08→17:04)
[2018-05-09 07:05] LABS: BASO # 0.02 K/mm3 (0.0-2.0); BASO % 0.3 % (0.0-3.0); EOS # 0.1 (0.0-0.7); EOS % 2.1 % (1.5-5.0); GRAN # 4.11 (1.4-6.5); GRAN % 71.3 % (50.0-68.0); LYMPH # 0.8 (1.2-3.4); MEAN CELL VOLUME 86.9 fl (80.0-105.0); MEAN CORPUSCULAR HEMOGLOBIN 28.8 pg (25.0-35.0); MEAN CORPUSCULAR HGB CONC 33.1 g/dl (31.0-37.0); MEAN PLATELET VOLUME 8.9 fl (7.0-11.0); MONO # 0.7 (0.1-0.6); MONO % 12.3 % (1.0-6.0); RBC 3.13 10^6/uL (3.5-6.1); RED CELL DISTRIBUTION WIDTH 16.6 % (11.5-14.5); WHITE BLOOD COUNT 5.8 10^3/ul (4.5-11.0)
[2018-05-09 07:36] LABS: ALT/SGPT 18 U/L (7-56); AST/SGOT 23 U/L (17-59); BLOOD UREA NITROGEN 14 mg/dL (7-21); CALCIUM 8.2 mg/dL (8.4-10.5); GFR AFRICAN-AMERICAN > 60; GFR NON-AFRICAN AMERICAN > 60
[2018-05-09] MEDS: Insulin Lispro (humaLOG) MEDIUM Coverage SC SCH ×4 (07:57→21:37)
--- NOTE | 2018-05-09 08:15 | HP ---
Copied To: Jose Agnel Hull MD Attending MD: Jose Angel Hull MD HISTORY OF PRESENT ILLNESS: The patient is a 72-year-old known to me from multiple previous admissions. Daughter, Shikha, brought him to my office yesterday that her father is feeling extremely cold, tired, get short of breath easily and when she is trying to check his blood sugar, no blood is coming out of his fingerstick and when it comes, it is very watery, so I did blood work in office and I got result this morning and found to have hemoglobin of 7.4. So, he was referred to emergency room for blood transfusion. Complained of feeling cold, complained of feeling tired, short of breath. No rectal bleeding, no hemoptysis, no hematemesis. PAST MEDICAL HISTORY: The patient has significant past medical history of: 1. Mak-xjcedgf-gcuagmvud diabetes. 2. Hypertension. 3. COPD. 4. Active smoker. 5. Chronic bronchitis. 6. History of CA lung, currently on chemotherapy with Dr. Lucio. ALLERGIES: HE IS NOT ALLERGIC TO ANY MEDICATIONS. MEDICATIONS AT HOME: He is on; 1. Metformin 500 twice a day. 2. Januvia 100 mg daily. 3. Prednisolone eye drops. 4. Pravastatin 20 mg daily. 5. Nystatin powder for his groin rash. 6. Glipizide 10 mg twice a day. 7. Fluorometholone. 8. Ferrous sulfate. 9. Colchicine 0.6 mg. 10. Tramadol 50 mg every 6 hours p.r.n. SOCIAL HISTORY: He used to smoke heavy, still smokes, but few cigarettes a day and he socially drinks. PHYSICAL EXAMINATION: GENERAL: He is awake, alert, oriented, communicative. HEENT: He has dirty sclerae, pale conjunctivae. LUNGS: Bilateral expiratory rhonchi. HEART: S1 and S2 audible. ABDOMEN: Soft, nontender. No rebound. No guarding. NEUROLOGIC: He is awake, alert, oriented, communicative, ambulatory. EXTREMITIES: Bilateral legs, no edema. LABORATORY DATA: WBC 5.6, hemoglobin 6.8, hematocrit 20.5, platelet of 128. PT 12.2, INR 1.07. Chemistry: Sodium 137, potassium 4, chloride 104, CO2 of 22, BUN 14, creatinine 0.9, blood sugar 161. ASSESSMENT: 1. Symptomatic anemia. 2. Cancer lung, currently on chemotherapy. 3. Kyf-jiwrvfl-uaoerrmkr diabetes. 4. Hypertension. 5. Hyperlipidemia. 6. Mild renal insufficiency. 7. History of right leg occlusive disease and had right superficial femoral artery angioplasty done. PLAN: The patient will receive two blood transfusions overnight. We will follow up his H and H. We will resume his medication. We will monitor his blood sugar. Followup H and H in a.m. If it is below 8, he will get 2 blood transfusions. Goal is to keep his hemoglobin around 10. Jose Angel Hull MD
[2018-05-09 12:14] LABS: IRON 37 ug/dL (45-180)
[2018-05-09 12:24] LABS: % IRON SATURATION 13 % (20-55); TOTAL IRON BINDING CAPACITY 284 ug/dL (261-462)
[2018-05-09 12:49] LABS: FOLATE 6.8 ng/mL
[2018-05-09] MEDS ORDERED: Albuterol-Ipratrop 3 mg / 0.5 (3 ml) UD IH PRN (18:23)
--- NOTE | 2018-05-09 19:33 | PN ---
Copied To: Jose Angel Hull MD Attending MD: Jose Angel Hull MD DATE: 05/09/2018 SUBJECTIVE: The patient is 72 year old who was seen in the office, was found to have hemoglobin of 7.4, was referred to ER for blood transfusion. In the ER, his hemoglobin was 6.8. The patient was given two blood transfusions. The patient has history of diabetes. He was given his usual medications including metformin, glipizide, and Januvia, but his blood sugar has been running low. In the afternoon, it was 60 and found to be 48 at 4 o'clock and 72 before dinner. Although the patient was ready to be discharged, but we will hold his discharge, start him on IV dextrose, we will hold all his oral hypoglycemic, and we will keep on monitoring his blood sugar. PHYSICAL EXAMINATION: GENERAL: Today earlier, he is awake, alert, oriented, and communicative. VITAL SIGNS: He is afebrile, pulse 74, respirations 20, and blood pressure 136/71. LUNGS: Bilateral good airflow. No rhonchi or crackle. HEART: S1 and S2 audible. ABDOMEN: Soft, nontender. No rebound, no guarding. NEUROLOGIC: He is awake, alert, oriented, and communicative. EXTREMITIES: Moves all extremities. LABORATORY EXAM: His sodium 140, potassium 4.5, chloride 107, CO2 of 24. BUN 14, creatinine 1. Blood sugar is 72. His CBC; WBC 5.8, hemoglobin 9, hematocrit 27, and platelets of 137. ASSESSMENT: 1. Symptomatic anemia. 2. Cnd-nyszpcw-nfuzvtwdi diabetes, currently running hypoglycemic. 3. Cancer, lung. 4. Chronic obstructive pulmonary disease. 5. Anemia. 6. Currently on chemotherapy. PLAN: We will start him on IV dextrose water. We will monitor his blood sugar. We will hold his glipizide. We will start him on Januvia 50 and metformin 500 twice a day from tomorrow if his blood sugar is running above 110. We will monitor his CBC and CMP in a.m. Jose Angel Hull MD
[2018-05-10] MEDS: Insulin Lispro (humaLOG) MEDIUM Coverage SC SCH ×3 (07:28→16:53)
[2018-05-10 07:32] LABS: BASO # 0.03 K/mm3 (0.0-2.0); BASO % 0.4 % (0.0-3.0); EOS # 0.1 (0.0-0.7); EOS % 1.5 % (1.5-5.0); GRAN # 5.08 (1.4-6.5); HEMOGLOBIN 9.5 g/dL (14.0-18.0); LYMPH # 0.8 (1.2-3.4); LYMPH % 11.1 % (22.0-35.0); MEAN CELL VOLUME 86.3 fl (80.0-105.0); MEAN CORPUSCULAR HEMOGLOBIN 28.9 pg (25.0-35.0); MEAN CORPUSCULAR HGB CONC 33.5 g/dl (31.0-37.0); MEAN PLATELET VOLUME 9.4 fl (7.0-11.0); MONO # 0.9 (0.1-0.6); RBC 3.29 10^6/uL (3.5-6.1); WHITE BLOOD COUNT 6.9 10^3/ul (4.5-11.0)
[2018-05-10 07:41] LABS: ALB/GLOB RATIO 1.1 (1.1-1.8); ALBUMIN 3.2 g/dL (3.0-4.8); ALT/SGPT 24 U/L (7-56); AST/SGOT 25 U/L (17-59); BLOOD UREA NITROGEN 13 mg/dL (7-21); CALCIUM 8.6 mg/dL (8.4-10.5); GFR AFRICAN-AMERICAN > 60; GFR NON-AFRICAN AMERICAN > 60
[2018-05-10 07:53] VITALS: PULSE 78; RESP 20
[2018-05-10] MEDS: PrednisoLONE 1% Opht Susp(5 ml) OU SCH ×2 (10:04→17:40)
[2018-05-10 13:21] VITALS: BP 119/70; TEMP 97.8; O2SAT 96
--- NOTE | 2018-05-10 13:50 | DS ---
Copied To: Jose Angel Hull MD Attending MD: Jose Angel Hull MD HOSPITAL COURSE: The patient is a 72-year-old known to me from office practice, was seen in office because of generalized weakness, feeling cold, was found to be anemic with hemoglobin of 7.4. The patient is currently on chemotherapy for CA of lung and he was sent to ER for blood transfusion. The patient was given his usual medication yesterday. His blood sugar dropped so he was supposed to be discharged. Because of dropping blood sugar, he was started on IV dextrose and his oral hypoglycemics were held. His sugar dipped down to 47 and has been on IV fluid overnight, doing well. OBJECTIVE: GENERAL: On examination today, he is awake, alert, oriented, communicative. VITAL SIGNS: He is afebrile, pulse 78, respiration 20, blood pressure 160/71. LUNGS: Bilateral good airflow. No rhonchi or crackle. HEART: S1, S2 audible. ABDOMEN: Soft, nontender. No rebound, no guarding. NEUROLOGIC: He is awake, alert, oriented, able to communicate. Complaining of right second toe pain, probably ingrown toenail. DATA: Laboratory examination: WBC is 6.9, hemoglobin 9.5, hematocrit 28.4, platelets of 189. Chemistry: Sodium 136, potassium 4.4, chloride 103, CO2 22, BUN 13, creatinine 1, blood sugar 119. ASSESSMENT AND PLAN: 1. Symptomatic anemia, status post blood transfusion. 2. History of carcinoma of lung, on chemotherapy. 3. Peripheral vascular disease, recent lower extremity angioplasty. 4. Ozn-nrkuioy-bpmxbixcj diabetes, diet controlled currently. 5. Status post right superficial femoral artery angioplasty. PLAN: We will discontinue IV dextrose, monitor his blood sugar without IV dextrose. If he is holding his blood sugar, he will be discharged later on today. Jose Angel Hull MD
== END 2018-05-10 19:18 | disposition home or self-care (01) ==
LOC: ED 17:34 → ERH 19:23 → 5RSO 20:45
PROVIDERS: ADMIT Internal Medicine; ATTEND Internal Medicine
DX: D64.9 Anemia, unspecified (principal); C34.90 Malignant neoplasm of unspecified part of unspecified bronchus or lung; J44.9 Chronic obstructive pulmonary disease, unspecified; I10 Essential (primary) hypertension; E11.51 Type 2 diabetes mellitus with diabetic peripheral angiopathy without gangrene; E11.649 Type 2 diabetes mellitus with hypoglycemia without coma; F17.210 Nicotine dependence, cigarettes, uncomplicated; E78.5 Hyperlipidemia, unspecified; Z79.84 Long term (current) use of oral hypoglycemic drugs; Z91.81 History of falling
CPT/HCPCS: 36415; 36430; 80053; 82607; 82728; 82746; 82948; 83540; 83550; 85025; 85610; 85651; 85730; 86850; 86900; 86920; 93005; 96360; 99283; G0378; J7030; J7070; P9016

== ENCOUNTER 2018-10-25 05:54 | Outpatient (CLI) | payer MEDICARE, BC | END 2018-10-25 05:55 | disposition home or self-care (01) | LOC: PET-BROA 05:54 ==

== ENCOUNTER 2018-10-28 13:04 | Inpatient (IN) | payer MEDICARE, BC ==
--- NOTE | 2018-10-28 14:38 | ED PDOC ---
Arrival/HPI - General Chief Complaint: Cough, Cold, Congestion Historian: Patient - History of Present Illness Narrative History of Present Illness (Text): 10/28/18 14:36 72 year old male, pmh including htn/hld/dm/lung cancer under chemotherapy, nkda, bib daughter for coughing x 4 days. Pt. has been coughing for over 1 weeks, completed the course of antibiotic and coughing started about 4 days ago, admits fatigue and tire, no fever or chills, no chest pain or shortness of breath, no palpitation, no rash, no other medical or psychological complaints. Past Medical History - Provider Review Nursing Documentation Reviewed: Yes - Infectious Disease Hx of Infectious Diseases: None - Cardiac Hx Hypertension: Yes - Pulmonary Hx Chronic Obstructive Pulmonary Disease (COPD): Yes Other/Comment: lung ca on chemo - Neurological Hx Neurological Disorder: No - HEENT Hx HEENT Disorder: Yes (eyeglasses) - Renal Hx Renal Disorder: No - Endocrine/Metabolic Hx Diabetes Mellitus Type 2: Yes - Integumentary Hx Dermatological Disorder: Yes (chronic venous changes) Other/Comment: dry skin to arms and legs thick toenails, dry heels, r groin dsg dry and intact - Musculoskeletal/Rheumatological Hx Arthritis: Yes - Gastrointestinal Hx Gastrointestinal Disorders: Yes - Genitourinary/Gynecological Hx Reproductive Disorders: No - Psychiatric Hx Emotional Abuse: No Hx Physical Abuse: No Hx Substance Use: No - Surgical History Hx Cardiac Catheterization: Yes (04/09/17) Hx Cholecystectomy: Yes Hx Orthopedic Surgery: Yes (orif r humerus) Other/Comment: 11.22.2017 lap sigmoidectomy to removed sigmoid polyp - Anesthesia Hx Anesthesia: Yes Hx Anesthesia Reactions: No Hx Malignant Hyperthermia: No - Suicidal Assessment Feels Threatened In Home Enviroment: No Family/Social History - Physician Review Nursing Documentation Reviewed: Yes Family/Social History: Unknown Family HX Smoking Status: Former Smoker Hx Alcohol Use: Yes Hx Substance Use: No Allergies/Home Meds Allergies/Adverse Reactions: Allergies No Known Allergies Allergy (Verified 11/16/17 13:55) Review of Systems - Review of Systems Constitutional: Fatigue. absent: Fevers Eyes: absent: Vision Changes ENT: Rhinorrhea. absent: Hearing Changes Respiratory: Cough. absent: SOB, Sputum, Wheezing Cardiovascular: absent: Chest Pain Gastrointestinal: absent: Abdominal Pain, Diarrhea, Nausea, Vomiting Musculoskeletal: absent: Arthralgias, Back Pain, Myalgias Skin: absent: Rash, Pruritis Neurological: absent: Headache Psychiatric: absent: Anxiety, Depression, Suicidal Ideation Physical Exam Vital Signs Reviewed: Yes Vital Signs Temp Pulse Resp BP Pulse Ox 10/28/18 13:05 97.3 F L 94 H 20 120/75 95 Temperature: Afebrile Blood Pressure: Normal Pulse: Regular Respiratory Rate: Normal Appearance: Positive for: Well-Appearing, Non-Toxic, Comfortable Pain Distress: None Mental Status: Positive for: Alert and Oriented X 3 - Systems Exam Head: Present: Atraumatic, Normocephalic Pupils: Present: PERRL Extroacular Muscles: Present: EOMI Conjunctiva: Present: Normal Ears: Present: NORMAL TM, Normal Canal. No: Erythema Mouth: Present: Moist Mucous Membranes Pharnyx: No: ERYTHEMA, EXUDATE, TONSILS ENLARGED Nose (External): Present: Atraumatic. No: Abrasion, Contusion, Laceration Nose (Internal): Present: Normal Inspection, No Active Bleeding, Rhinorrhea. No: Septal Hematoma, Epistaxis Neck: Present: Normal Range of Motion, Trachea Midline. No: MIDLINE TENDERNESS, Paraspinal Tenderness, Lymphadenopathy Respiratory/Chest: Present: Clear to Auscultation, Good Air Exchange. No: Respiratory Distress, Accessory Muscle Use Cardiovascular: Present: Regular Rate and Rhythm, Normal S1, S2. No: Murmurs Abdomen: Present: Rebound, Guarding. No: Tenderness, Distention, Peritoneal Signs Back: Present: Normal Inspection. No: CVA Tenderness, Midline Tenderness, Paraspinal Tenderness Upper Extremity: Present: Normal Inspection, NORMAL PULSES, Neurovascularly Intact, Capillary Refill < 2s. No: Cyanosis, Edema, Deformity Lower Extremity: Present: Normal Inspection, NORMAL PULSES, Normal ROM, Neurovascularly Intact, Capillary Refill < 2 s. No: Edema, Tenderness, Swelling, Deformity Neurological: Present: GCS=15, CN II-XII Intact, Speech Normal, Motor Func Grossly Intact, Memory Normal Skin: Present: Warm, Dry, Normal Color. No: Rashes Psychiatric: Present: Alert, Oriented x 3, Normal Insight, Normal Concentration Medical Decision Making ED Course and Treatment: 10/28/18 14:38 -labs -chest xray -observe and reassess 10/28/18 17:12 -EKG -Chest xray Right IJ approach central venous catheter. Right upper lobe consolidation. COPD/emphysema. Ectatic aorta. -Rapid flu is negative -Labs show no acute findings except wbc 13.5 from 6.9 (blood cultures ordered) -Mg 1.2 (mgsulfate 2gm IV ordered). -IV rocephine and azithromycin ordered. nasal cannula 2L as the patient has hypoxic 92% percent and would require admission. -Paging PMD Dr. Hull for admission, discussed with the patient and daughter, they agreed to be admitted. 10/28/18 17:42 -I spoke to Dr. Hull, discussed about the case/labs/radiology result, agreed to admit and request Dr. Driscoll/Khadijah for routine consults (ordered). - RAD Interpretation Radiology Orders: 10/28/18 14:35 CHEST TWO VIEWS (PA/LAT) [RAD] Stat HISTORY: lung cancer, URI symptoms x 4 days COMPARISON: Chest x-ray performed 12/01/17, PET-CT performed 10/25/18 TECHNIQUE: Chest PA and lateral FINDINGS: Right IJ approach central venous catheter extends the cavoatrial junction. LUNGS: Right upper lobe consolidation re-identified. Emphysematous changes. Hyperinflation may be seen in the setting of COPD. Please note that chest x-ray has limited sensitivity for the detection of pulmonary masses. PLEURA: No significant pleural effusion identified. No definite pneumothorax . CARDIOVASCULAR: Heart size appears within normal limits. Ectatic aorta. OSSEOUS STRUCTURES: Osseous demineralization. Degenerative changes. Partially imaged right shoulder hardware. VISUALIZED UPPER ABDOMEN: Unremarkable. OTHER FINDINGS: None. IMPRESSION: Right IJ approach central venous catheter. Right upper lobe consolidation. COPD/emphysema. Ectatic aorta. Findings discussed with SADE Hamilton on 10/28/18 at 5:05 p.m. Evaporator Repairer: Radiologist - PA / TOP PRECIPITATOR OPERATOR / Resident Statement MD/DO has reviewed & agrees with the documentation as recorded. Disposition/Present on Arrival - Present on Arrival Any Indicators Present on Arrival: No History of DVT/PE: No History of Uncontrolled Diabetes: No Urinary Catheter: Yes History of Decub. Ulcer: No History Surgical Site Infection Following: None - Disposition Have Diagnosis and Disposition been Completed?: Yes Diagnosis: Pneumonia, Hypoxia, Hypomagnesemia, Ectatic aorta, Leukocytosis Disposition: HOSPITALIZED Disposition Time: 17:13 Patient Plan: Admission, Observation, Telemetry Patient Problems: Current Active Problems Problem Status Onset Ectatic aorta Acute Hypomagnesemia Acute Hypoxia Acute Pneumonia Acute Condition: GUARDED Referrals: Jose Angel Hull MD [Primary Care Provider] - Follow up with primary Forms: [employer] (I[place]ic)
[2018-10-28 16:42] LABS: ALB/GLOB RATIO 1.1 (1.1-1.8); ALBUMIN 3.8 g/dL (3.0-4.8); ALT/SGPT 9 U/L (7-56); AST/SGOT 20 U/L (17-59); BASO # 0.04 K/mm3 (0.0-2.0); BASO % 0.3 % (0.0-3.0); BLOOD UREA NITROGEN 21 mg/dL (7-21); CALCIUM 8.9 mg/dL (8.4-10.5); GFR NON-AFRICAN AMERICAN 59; HEMOGLOBIN 11.5 g/dL (14.0-18.0); LYMPH # 1.1 (1.2-3.4); LYMPH % 7.8 % (22.0-35.0); MEAN CORPUSCULAR HEMOGLOBIN 28.8 pg (25.0-35.0); MEAN CORPUSCULAR HGB CONC 32.3 g/dl (31.0-37.0); MEAN PLATELET VOLUME 9.3 fl (7.0-11.0); MONO # 1.1 (0.1-0.6); MONO % 8.4 % (1.0-6.0); RED CELL DISTRIBUTION WIDTH 17.1 % (11.5-14.5); WHITE BLOOD COUNT 13.5 10^3/uL (4.5-11.0)
[2018-10-28] MEDS ORDERED: Magnesium Sulfate 2 gm/50 ml 2 GM/50 ML BAG IVPB ONE (16:51)
[2018-10-28] MEDS ORDERED: cefTRIAXone 1 gm 1 GM/100 ML BAG IVPB STA (17:10)
--- NOTE | 2018-10-28 17:12 | RAD ---
HISTORY: lung cancer, URI symptoms x 4 days COMPARISON: Chest x-ray performed 12/01/17, PET-CT performed 10/25/18 TECHNIQUE: Chest PA and lateral FINDINGS: Right IJ approach central venous catheter extends the cavoatrial junction. LUNGS: Right upper lobe consolidation re-identified. Emphysematous changes. Hyperinflation may be seen in the setting of COPD. Please note that chest x-ray has limited sensitivity for the detection of pulmonary masses. PLEURA: No significant pleural effusion identified. No definite pneumothorax . CARDIOVASCULAR: Heart size appears within normal limits. Ectatic aorta. OSSEOUS STRUCTURES: Osseous demineralization. Degenerative changes. Partially imaged right shoulder hardware. VISUALIZED UPPER ABDOMEN: Unremarkable. OTHER FINDINGS: None. IMPRESSION: Right IJ approach central venous catheter. Right upper lobe consolidation. COPD/emphysema. Ectatic aorta. Findings discussed with SADE Hamilton on 10/28/18 at 5:05 p.m.
[2018-10-28] MEDS ORDERED: Albuterol-Ipratrop 3 mg / 0.5 (3 ml) UD IH STA (17:13)
[2018-10-28] MEDS ORDERED: Albuterol-Ipratrop 3 mg / 0.5 (3 ml) UD IH PRN ×2 (18:59→19:00)
[2018-10-28] MEDS ORDERED: PrednisoLONE 1% Opht Susp(5 ml) OU SCH (19:00)
[2018-10-28] MEDS: Albuterol-Ipratrop 3 mg / 0.5 (3 ml) UD IH SCH (21:14)
[2018-10-28] MEDS: MethylPREDNISolone 40 mg Vial IV SCH (22:27)
[2018-10-28] MEDS: Insulin Reg-HIGH-Coverage SC SCH (22:33)
[2018-10-28] MEDS: Latanoprost 2.5 ml Opht Soln OU SCH (22:33)
[2018-10-28] MEDS: Vancomycin 1gm in NS 250ml 1 GM/250 ML BAG IVPB SCH (23:28)
--- NOTE | 2018-10-28 23:36 | HP ---
DATE OF EXAM: 10/28/2018 HISTORY OF PRESENT ILLNESS: The patient is a 72-year-old, who came to emergency room because of increasing cough, congestion, and shortness of breath. The patient is known to me from multiple previous admission. He was following Dr. Lucio, who gave him antibiotic, felt little bit better, but cough started again, complaining of feeling tired, get winded very easily. According to daughter, he did not have fever or chills. No history of chest pain. Denies any shortness of breath or hemoptysis. PAST MEDICAL HISTORY: Significant for: 1. CA lung, currently on chemotherapy under the care of Dr. Lucio. 2. Hypertension. 3. Mds-wranhrd-bkybqpyvg diabetes. 4. Status post fall, has left humerus fracture. ALLERGIES: HE IS NOT ALLERGIC TO ANY MEDICATIONS. MEDICATIONS AT HOME: He is on tramadol as needed, prednisolone eyedrops. He is on atorvastatin, Lipitor, and metformin. SOCIAL HISTORY: He used to be a heavy smoker, still smoke here and there, and socially drinks. REVIEW OF SYSTEMS: Significant for cough, congestion, wheezing, tired. PHYSICAL EXAMINATION: GENERAL: He is awake, alert, oriented, and able to communicate. VITAL SIGNS: He is afebrile, pulse 88, respirations 16, and blood pressure 133/76. LUNGS: Bilateral soft crackles mostly in the upper lung region, more right than the left. HEART: S1 and S2 audible. ABDOMEN: Soft and nontender. No rebound. No guarding. NEUROLOGIC: The patient is awake, alert, oriented, and able to communicate. LABORATORY DATA: WBC 13.5, hemoglobin 11.5, hematocrit 35.6, and platelets 338. Chemistry; sodium 137, potassium 4.1, chloride 98, CO2 of 29, BUN 21, creatinine 1.2, and blood sugar 267. Flu test is negative. X-ray of the chest shows right upper lobe consolidation and ectatic aorta and also COPD and emphysema. ASSESSMENT: 1. Right upper lung mass, right upper lobe infiltrate and mass, rule out post-obstructive pneumonia. 2. Hypertension. 3. Vru-drhjtnl-kpqkiouch diabetes. 4. Cancer of lung, currently on chemotherapy. PLAN: We will start the patient on IV antibiotics, start him on nebulizer treatment, and order for procalcitonin. The patient had PET scan done recently on 10/25/2018, that shows lymphadenopathy in the upper mediastinum new meds along with lymphadenopathy and the left lower mediastinum. We will monitor blood sugar and continue nebulizer treatment. We will follow up with the patient in the a.m. Jose Angel Hull MD
[2018-10-29] MEDS: Piperacillin/Tazobact 3.375 gm 100 ML IVPB SCH ×5 (01:12→23:50)
[2018-10-29] MEDS: Albuterol-Ipratrop 3 mg / 0.5 (3 ml) UD IH SCH ×4 (02:30→19:45)
[2018-10-29] MEDS: Pantoprazole 40 mg EC Tab PO SCH (06:32)
[2018-10-29] MEDS: Vancomycin 1gm in NS 250ml 1 GM/250 ML BAG IVPB SCH ×2 (07:49→23:54)
[2018-10-29] MEDS: Insulin Reg-HIGH-Coverage SC SCH ×4 (07:49→22:14)
[2018-10-29] MEDS ORDERED: Insulin Regular 1 UNITS/0.01 ML ML ONE (07:51)
[2018-10-29] MEDS ORDERED: cefTRIAXone 1 gm 1 GM/100 ML BAG IVPB SCH (10:00)
[2018-10-29] MEDS: MethylPREDNISolone 40 mg Vial IV SCH ×2 (10:21→23:55)
[2018-10-29 11:09] LABS: URINE BILIRUBIN NEGATIVE (NEGATIVE); URINE BLOOD NEGATIVE (NEGATIVE); URINE GLUCOSE (UA) 250 mg/dL (NEGATIVE); URINE LEUKOCYTE ESTERASE NEGATIVE Leu/uL (NEGATIVE); URINE PROTEIN TRACE mg/dL (<30 mg/dL); URINE UROBILINOGEN 0.2 E.U./dL (<1 E.U./dL)
[2018-10-29 11:23] LABS: URINE APPEARANCE CLEAR (CLEAR); URINE COLOR YELLOW (YELLOW)
[2018-10-29 11:49] LABS: URINE BACTERIA MOD /hpf; URINE EPITHELIAL CELLS 0 - 2 /hpf (0-5); URINE RBC 0 - 2 /hpf (0-2); URINE WBC 0 - 2 /hpf (0-6)
[2018-10-29] MEDS: Azithromycin 500MG/NS 250ml 500 MG/250 ML BAG IVPB SCH (12:47)
--- NOTE | 2018-10-29 14:19 | CP.PCM.CON ---
<Miguel Angel Fuller - Last Filed: 10/29/18 14:15> History of Present Illness - History of Present Illness History of Present Illness: ID Consult Note 72 year old male with past medical history of Lung cancer, HTN, and DM presents to the hospital for 1 month duration of progressive shortness of breath. Patient notes he was [place] for a month and returned last week. He last received chemotherapy last week. Patient states his shortness of breath started in [place]. Patient states he has had a cough and congestion. He also admits to subjective fevers at home. He denies sick contacts. Denies chest pain, nausea, vomiting, diarrhea, dysuria, chills. Medical hx: As above Surgical Hx: Right chest port placement Family hx: Denies Social Hx: Former smoker, social alcohol use. Denies illicit drug use Allergies: NKDA Medications: Reviewed, as per MAR Review of Systems - Review of Systems Review of Systems: 12 point ROS as per HPI, otherwise negative Past Patient History - Infectious Disease Hx of Infectious Diseases: None - Past Medical History & Family History Past Medical History?: Yes - Past Social History Smoking Status: Former Smoker - CARDIAC Hx Hypertension: Yes - PULMONARY Hx Chronic Obstructive Pulmonary Disease (COPD): Yes Other/Comment: lung ca on chemo - NEUROLOGICAL Hx Neurological Disorder: No - HEENT Hx HEENT Problems: Yes (eyeglasses) - RENAL Hx Chronic Kidney Disease: No - ENDOCRINE/METABOLIC Hx Diabetes Mellitus Type 2: Yes - INTEGUMENTARY Hx Dermatological Problems: Yes (chronic venous changes) Other/Comment: dry skin to arms and legs thick toenails, dry heels, r groin dsg dry and intact - MUSCULOSKELETAL/RHEUMATOLOGICAL Hx Arthritis: Yes - GASTROINTESTINAL Hx Gastrointestinal Disorders: Yes - GENITOURINARY/GYNECOLOGICAL Hx Reproductive Disorders: No - PSYCHIATRIC Hx Emotional Abuse: No Hx Physical Abuse: No Hx Substance Use: No - SURGICAL HISTORY Hx Cardiac Catheterization: Yes (04/09/17) Hx Cholecystectomy: Yes Hx Orthopedic Surgery: Yes (orif r humerus) Other/Comment: 11.22.2017 lap sigmoidectomy to removed sigmoid polyp - ANESTHESIA Hx Anesthesia: Yes Hx Anesthesia Reactions: No Hx Malignant Hyperthermia: No Meds Allergies/Adverse Reactions: Allergies Allergy/AdvReac Type Severity Reaction Status Date / Time No Known Allergies Allergy Verified 11/16/17 13:55 - Medications Medications: Current Medications Acetaminophen (Tylenol 325mg Tab) 650 mg PO Q6H PRN PRN Reason: Fever >100.4 F Albuterol/Ipratropium (Duoneb 3 Mg/0.5 Mg (3 Ml) Ud) 3 ml IH [id number] PRN PRN Reason: Cough Albuterol/Ipratropium (Duoneb 3 Mg/0.5 Mg (3 Ml) Ud) 3 ml IH Q2H PRN PRN Reason: Shortness of Breath Albuterol/Ipratropium (Duoneb 3 Mg/0.5 Mg (3 Ml) Ud) 3 ml IH [id number] [facility] Last Admin: 10/29/18 13:34 Dose: 3 ml Aspirin (Aspirin Chewable) 81 mg PO DAILY [facility] Last Admin: 10/29/18 10:21 Dose: 81 mg Atorvastatin Calcium (Lipitor) 10 mg PO DIN [facility] Last Admin: 10/28/18 21:15 Dose: 10 mg Glipizide (Glucotrol) 10 mg PO 0730,1630 [facility] Azithromycin (Zithromax 500mg In Ns) 500 mg in 250 mls @ 167 mls/hr IVPB DAILY [facility]; Protocol Last Admin: 10/29/18 12:47 Dose: 167 mls/hr Vancomycin HCl (Vancomycin 1gm) 1 gm in 250 mls @ 167 mls/hr IVPB Q12H [facility]; Protocol Stop: 11/04/18 19:16 Last Admin: 10/29/18 07:49 Dose: 167 mls/hr Piperacillin Sod/Tazobactam Sod (Zosyn 3.375 In Ns 100ml) 100 mls @ 200 mls/hr IVPB Q6 [facility]; Protocol Stop: 11/05/18 00:01 Last Admin: 10/29/18 12:50 Dose: 200 mls/hr Insulin Detemir (Levemir) 10 unit SC HS [facility] Insulin Human Regular (Humulin R High) 0 units SC ACHS [facility]; Protocol Last Admin: 10/29/18 12:50 Dose: 12 units Latanoprost (Xalatan Opht) 0 ml OU HS [facility] Last Admin: 10/28/18 22:33 Dose: 2.5 ml Metformin HCl (Glucophage) 500 mg PO BID [facility] Last Admin: 10/29/18 10:21 Dose: 500 mg Methylprednisolone (Solu-Medrol) 30 mg IV Q12 [facility] Ondansetron HCl (Zofran Inj) 4 mg IVP Q6H PRN PRN Reason: Nausea/Vomiting Pantoprazole Sodium (Protonix Ec Tab) 40 mg PO 0630 [facility] Last Admin: 10/29/18 06:32 Dose: 40 mg Tramadol HCl (Ultram) 50 mg PO Q8H PRN PRN Reason: Pain, moderate (4-7) Physical Exam - Constitutional Appears: Non-toxic, No Acute Distress - Head Exam Head Exam: ATRAUMATIC, NORMAL INSPECTION, NORMOCEPHALIC - Eye Exam Eye Exam: EOMI, Normal appearance - ENT Exam ENT Exam: Mucous Membranes Moist - Respiratory Exam Respiratory Exam: Decreased Breath Sounds, Wheezes (Right sided), NORMAL BREATHING PATTERN - Cardiovascular Exam Cardiovascular Exam: RRR, +S1, +S2 - GI/Abdominal Exam GI & Abdominal Exam: Normal Bowel Sounds, Soft. absent: Tenderness - Extremities Exam Extremities exam: Positive for: normal inspection. Negative for: pedal edema - Neurological Exam Neurological exam: Alert, Oriented x3 - Psychiatric Exam Psychiatric exam: Normal Affect, Normal Mood - Skin Skin Exam: Intact, Normal Color, Warm Results - Vital Signs Recent Vital Signs: Last Vital Signs Temp 98.1 F 10/29/18 10:59 Pulse 99 H 10/29/18 10:59 Resp 16 10/29/18 10:59 BP 133/75 10/29/18 10:59 Pulse Ox 96 10/29/18 10:59 - Labs Result Diagrams: 10/28/18 16:00 10/28/18 16:00 Labs: Laboratory Results - last 24 hr 10/28/18 10/28/18 10/28/18 15:33 16:00 16:00 WBC 13.5 H RBC 4.00 Hgb 11.5 L D Hct 35.6 L MCV 89.0 MCH 28.8 MCHC 32.3 RDW 17.1 H Plt Count 338 MPV 9.3 Neut % (Auto) 83.5 H Lymph % (Auto) 7.8 L Terrell % (Auto) 8.4 H Eos % (Auto) 0.0 L Baso % (Auto) 0.3 Lymph # (Auto) 1.1 L Terrell # (Auto) 1.1 H Eos # (Auto) 0.0 Baso # (Auto) 0.04 Absolute Neuts (auto) 11.28 H Sodium 137 Potassium 4.1 Chloride 98 Carbon Dioxide 29 Anion Gap 15 BUN 21 Creatinine 1.2 Est GFR ( Amer) > 60 Est GFR (Non-Af Amer) 59 POC Glucose (mg/dL) Random Glucose 267 H Calcium 8.9 Magnesium 1.2 L Total Bilirubin 0.6 AST 20 ALT 9 Alkaline Phosphatase 121 Total Protein 7.2 Albumin 3.8 Globulin 3.4 Albumin/Globulin Ratio 1.1 Urine Color Urine Appearance Urine pH Ur Specific [place] Urine Protein Urine Glucose (UA) Urine Ketones Urine Blood Urine Nitrate Urine Bilirubin Urine Urobilinogen Ur Leukocyte Esterase Urine RBC Urine WBC Ur Epithelial Cells Urine Bacteria Urine Other Influenza Typ A,B (EIA) Negative for flu a/b 10/28/18 10/29/18 10/29/18 22:15 07:30 09:54 WBC RBC Hgb Hct MCV MCH MCHC RDW Plt Count MPV Neut % (Auto) Lymph % (Auto) Terrell % (Auto) Eos % (Auto) Baso % (Auto) Lymph # (Auto) Terrell # (Auto) Eos # (Auto) Baso # (Auto) Absolute Neuts (auto) Sodium Potassium Chloride Carbon Dioxide Anion Gap BUN Creatinine Est GFR ( Amer) Est GFR (Non-Af Amer) POC Glucose (mg/dL) 359 H 467 H* 454 H* Random Glucose Calcium Magnesium Total Bilirubin AST ALT Alkaline Phosphatase Total Protein Albumin Globulin Albumin/Globulin Ratio Urine Color Urine Appearance Urine pH Ur Specific [place] Urine Protein Urine Glucose (UA) Urine Ketones Urine Blood Urine Nitrate Urine Bilirubin Urine Urobilinogen Ur Leukocyte Esterase Urine RBC Urine WBC Ur Epithelial Cells Urine Bacteria Urine Other Influenza Typ A,B (EIA) 10/29/18 10/29/18 10:50 12:32 WBC RBC Hgb Hct MCV MCH MCHC RDW Plt Count MPV Neut % (Auto) Lymph % (Auto) Terrell % (Auto) Eos % (Auto) Baso % (Auto) Lymph # (Auto) Terrell # (Auto) Eos # (Auto) Baso # (Auto) Absolute Neuts (auto) Sodium Potassium Chloride Carbon Dioxide Anion Gap BUN Creatinine Est GFR ( Amer) Est GFR (Non-Af Amer) POC Glucose (mg/dL) 388 H Random Glucose Calcium Magnesium Total Bilirubin AST ALT Alkaline Phosphatase Total Protein Albumin Globulin Albumin/Globulin Ratio Urine Color Yellow Urine Appearance Clear Urine pH 6.0 Ur Specific [place] 1.020 Urine Protein Trace H Urine Glucose (UA) 250 H Urine Ketones Negative Urine Blood Negative Urine Nitrate Negative Urine Bilirubin Negative Urine Urobilinogen 0.2 Ur Leukocyte Esterase Negative Urine RBC 0 - 2 Urine WBC 0 - 2 Ur Epithelial Cells 0 - 2 Urine Bacteria Mod Urine Other Uyeast Influenza Typ A,B (EIA) Assessment & Plan - Assessment and Plan (Free Text) Plan: Right sided Community acquired pneumonia Hx of Lung cancer Hx of HTN Hx of DM Plan Chest x-ray reviewed Will continue Vancomycin, Zosyn, and Azithromycin Procal pending Flu negative Legionella pending Follow up cultures Continue to monitor closely Alina, PGY-3 <Gio Holland - Last Filed: 10/29/18 16:03> Meds - Medications Medications: Current Medications Acetaminophen (Tylenol 325mg Tab) 650 mg PO Q6H PRN PRN Reason: Fever >100.4 F Albuterol/Ipratropium (Duoneb 3 Mg/0.5 Mg (3 Ml) Ud) 3 ml IH [id number] PRN PRN Reason: Cough Albuterol/Ipratropium (Duoneb 3 Mg/0.5 Mg (3 Ml) Ud) 3 ml IH Q2H PRN PRN Reason: Shortness of Breath Albuterol/Ipratropium (Duoneb 3 Mg/0.5 Mg (3 Ml) Ud) 3 ml IH [id number] [facility] Last Admin: 10/29/18 13:34 Dose: 3 ml Aspirin (Aspirin Chewable) 81 mg PO DAILY [facility] Last Admin: 10/29/18 10:21 Dose: 81 mg Atorvastatin Calcium (Lipitor) 10 mg PO DIN [facility] Last Admin: 10/28/18 21:15 Dose: 10 mg Glipizide (Glucotrol) 10 mg PO 0730,1630 [facility] Azithromycin (Zithromax 500mg In Ns) 500 mg in 250 mls @ 167 mls/hr IVPB DAILY [facility]; Protocol Last Admin: 10/29/18 12:47 Dose: 167 mls/hr Vancomycin HCl (Vancomycin 1gm) 1 gm in 250 mls @ 167 mls/hr IVPB Q12H [facility]; Protocol Stop: 11/04/18 19:16 Last Admin: 10/29/18 07:49 Dose: 167 mls/hr Piperacillin Sod/Tazobactam Sod (Zosyn 3.375 In Ns 100ml) 100 mls @ 200 mls/hr IVPB Q6 [facility]; Protocol Stop: 11/05/18 00:01 Last Admin: 10/29/18 12:50 Dose: 200 mls/hr Insulin Detemir (Levemir) 10 unit SC HS [facility] Insulin Human Regular (Humulin R High) 0 units SC ACHS [facility]; Protocol Last Admin: 10/29/18 12:50 Dose: 12 units Latanoprost (Xalatan Opht) 0 ml OU HS [facility] Last Admin: 10/28/18 22:33 Dose: 2.5 ml Metformin HCl (Glucophage) 500 mg PO BID [facility] Last Admin: 10/29/18 10:21 Dose: 500 mg Methylprednisolone (Solu-Medrol) 30 mg IV Q12 [facility] Ondansetron HCl (Zofran Inj) 4 mg IVP Q6H PRN PRN Reason: Nausea/Vomiting Pantoprazole Sodium (Protonix Ec Tab) 40 mg PO 0630 [facility] Last Admin: 10/29/18 06:32 Dose: 40 mg Tramadol HCl (Ultram) 50 mg PO Q8H PRN PRN Reason: Pain, moderate (4-7) Results - Vital Signs Recent Vital Signs: Last Vital Signs Temp 98.1 F 10/29/18 10:59 Pulse 99 H 10/29/18 10:59 Resp 16 10/29/18 10:59 BP 133/75 10/29/18 10:59 Pulse Ox 96 10/29/18 10:59 - Labs Result Diagrams: 10/28/18 16:00 10/28/18 16:00 Labs: Laboratory Results - last 24 hr 10/28/18 10/28/18 10/28/18 15:33 16:00 16:00 WBC 13.5 H RBC 4.00 Hgb 11.5 L D Hct 35.6 L MCV 89.0 MCH 28.8 MCHC 32.3 RDW 17.1 H Plt Count 338 MPV 9.3 Neut % (Auto) 83.5 H Lymph % (Auto) 7.8 L Terrell % (Auto) 8.4 H Eos % (Auto) 0.0 L Baso % (Auto) 0.3 Lymph # (Auto) 1.1 L Terrell # (Auto) 1.1 H Eos # (Auto) 0.0 Baso # (Auto) 0.04 Absolute Neuts (auto) 11.28 H Sodium 137 Potassium 4.1 Chloride 98 Carbon Dioxide 29 Anion Gap 15 BUN 21 Creatinine 1.2 Est GFR ( Amer) > 60 Est GFR (Non-Af Amer) 59 POC Glucose (mg/dL) Random Glucose 267 H Calcium 8.9 Magnesium 1.2 L Total Bilirubin 0.6 AST 20 ALT 9 Alkaline Phosphatase 121 Total Protein 7.2 Albumin 3.8 Globulin 3.4 Albumin/Globulin Ratio 1.1 Urine Color Urine Appearance Urine pH Ur Specific [place] Urine Protein Urine Glucose (UA) Urine Ketones Urine Blood Urine Nitrate Urine Bilirubin Urine Urobilinogen Ur Leukocyte Esterase Urine RBC Urine WBC Ur Epithelial Cells Urine Bacteria Urine Other Influenza Typ A,B (EIA) Negative for flu a/b 10/28/18 10/29/18 10/29/18 22:15 07:30 09:54 WBC RBC Hgb Hct MCV MCH MCHC RDW Plt Count MPV Neut % (Auto) Lymph % (Auto) Terrell % (Auto) Eos % (Auto) Baso % (Auto) Lymph # (Auto) Terrell # (Auto) Eos # (Auto) Baso # (Auto) Absolute Neuts (auto) Sodium Potassium Chloride Carbon Dioxide Anion Gap BUN Creatinine Est GFR ( Amer) Est GFR (Non-Af Amer) POC Glucose (mg/dL) 359 H 467 H* 454 H* Random Glucose Calcium Magnesium Total Bilirubin AST ALT Alkaline Phosphatase Total Protein Albumin Globulin Albumin/Globulin Ratio Urine Color Urine Appearance Urine pH Ur Specific [place] Urine Protein Urine Glucose (UA) Urine Ketones Urine Blood Urine Nitrate Urine Bilirubin Urine Urobilinogen Ur Leukocyte Esterase Urine RBC Urine WBC Ur Epithelial Cells Urine Bacteria Urine Other Influenza Typ A,B (EIA) 10/29/18 10/29/18 10:50 12:32 WBC RBC Hgb Hct MCV MCH MCHC RDW Plt Count MPV Neut % (Auto) Lymph % (Auto) Terrell % (Auto) Eos % (Auto) Baso % (Auto) Lymph # (Auto) Terrell # (Auto) Eos # (Auto) Baso # (Auto) Absolute Neuts (auto) Sodium Potassium Chloride Carbon Dioxide Anion Gap BUN Creatinine Est GFR ( Amer) Est GFR (Non-Af Amer) POC Glucose (mg/dL) 388 H Random Glucose Calcium Magnesium Total Bilirubin AST ALT Alkaline Phosphatase Total Protein Albumin Globulin Albumin/Globulin Ratio Urine Color Yellow Urine Appearance Clear Urine pH 6.0 Ur Specific [place] 1.020 Urine Protein Trace H Urine Glucose (UA) 250 H Urine Ketones Negative Urine Blood Negative Urine Nitrate Negative Urine Bilirubin Negative Urine Urobilinogen 0.2 Ur Leukocyte Esterase Negative Urine RBC 0 - 2 Urine WBC 0 - 2 Ur Epithelial Cells 0 - 2 Urine Bacteria Mod Urine Other Uyeast Influenza Typ A,B (EIA) Assessment & Plan - Assessment and Plan (Free Text) Plan: Infectious diseases Attending Physician Attestation Patient seen and examined, discussed with director global medical affairs. I have reviewed the patient's history of present illness, past medical, social, personal and family histories, pertinent physical exam findings, course so far in this hospital admission, pertinent laboratory and imaging results. I agree with the above findings, assessment and plan. In addition, started Vancomycin, Zosyn and Zithromax for patient with probable RUL HCAP in this patient with lung cancer. Follow up blood, sputum cx, PCT, urine Legionella Ag and will monitor clinically. Overall prognosis is poor.
--- NOTE | 2018-10-29 15:21 | PN ---
DATE: 10/29/2018 SUBJECTIVE: The patient is 72-year-old, seen and examined. Looks better than last night. PHYSICAL EXAMINATION: VITAL SIGNS: He is afebrile. Pulse 99, respiration 16 and blood pressure 136/75. LUNGS: Bilateral soft crackle in the right upper lung region. HEART: S1 and S2, audible. ABDOMEN: Soft and nontender. No rebound. No guarding. NEUROLOGICAL: The patient is awake, alert, oriented and able to communicate. LABORATORY DATA: Blood sugar is 455. Flu test is negative. ASSESSMENT: 1. Community-acquired pneumonia. 2. Asthmatic bronchitis. 3. Bronchial asthma. 4. Cancer lung on chemo. 5. Hypertension. PLAN: We will cut down his steroids. Continue him on antibiotics and adjust insulin coverage. physical therapy. We will follow the patient in a.m. Jose Angel Hull MD
[2018-10-29 17:43] VITALS: BMI 16.1
[2018-10-29] MEDS ORDERED: Influenza Vaccine 60 mcg/0.5 mL SYR (4YR UP) IM ONE (17:43)
--- NOTE | 2018-10-29 20:16 | CARD ---
APPROVED REPORT Date of service: 10/29/2018 EKG Measurement Heart [id number] <Conclusion> Normal sinus rhythm with sinus arrhythmia Normal ECG
[2018-10-29] MEDS: Insulin Detemir 100 units/ml Vial (Levemir) SC SCH (23:52)
[2018-10-29] MEDS: Latanoprost 2.5 ml Opht Soln OU SCH (23:53)
[2018-10-30] MEDS: Albuterol-Ipratrop 3 mg / 0.5 (3 ml) UD IH SCH ×4 (01:18→19:42)
[2018-10-30] MEDS: Piperacillin/Tazobact 3.375 gm 100 ML IVPB SCH ×4 (06:39→23:45)
[2018-10-30] MEDS: Pantoprazole 40 mg EC Tab PO SCH (06:40)
[2018-10-30] MEDS: Vancomycin 1gm in NS 250ml 1 GM/250 ML BAG IVPB SCH ×2 (08:00→19:45)
[2018-10-30] MEDS: Insulin Reg-HIGH-Coverage SC SCH ×3 (09:08→17:19)
[2018-10-30] MEDS: MethylPREDNISolone 40 mg Vial IV SCH (09:10)
[2018-10-30] MEDS: Azithromycin 500MG/NS 250ml 500 MG/250 ML BAG IVPB SCH (11:00)
--- NOTE | 2018-10-30 14:47 | CP.PCM.PN ---
<Miguel Angel Fuller - Last Filed: 10/30/18 14:47> Subjective - Date & Time of Evaluation Date of Evaluation: 10/30/18 Time of Evaluation: 10:40 - Subjective Subjective: ID Progress Note Patient seen and examined at bedside. Patient with improvement in breathing. No fevers. Objective - Vital Signs/Intake and Output Vital Signs (last 24 hours): Temp Pulse Resp BP Pulse Ox 97.9 F 80 18 117/65 96 10/30/18 06:00 10/30/18 06:00 10/30/18 06:00 10/30/18 06:00 10/30/18 06:00 Intake and Output: 10/30/18 10/30/18 06:59 18:59 Intake Total 600 Output Total 500 Balance 100 - Medications Medications: Current Medications Acetaminophen (Tylenol 325mg Tab) 650 mg PO Q6H PRN PRN Reason: Fever >100.4 F Albuterol/Ipratropium (Duoneb 3 Mg/0.5 Mg (3 Ml) Ud) 3 ml IH [id number] PRN PRN Reason: Cough Albuterol/Ipratropium (Duoneb 3 Mg/0.5 Mg (3 Ml) Ud) 3 ml IH Q2H PRN PRN Reason: Shortness of Breath Albuterol/Ipratropium (Duoneb 3 Mg/0.5 Mg (3 Ml) Ud) 3 ml IH [id number] [facility] Last Admin: 10/30/18 13:16 Dose: 3 ml Aspirin (Aspirin Chewable) 81 mg PO DAILY [facility] Last Admin: 10/30/18 09:09 Dose: 81 mg Atorvastatin Calcium (Lipitor) 10 mg PO DIN [facility] Last Admin: 10/29/18 17:21 Dose: 10 mg Glipizide (Glucotrol) 10 mg PO 0730,1630 [facility] Last Admin: 10/30/18 09:09 Dose: 10 mg Azithromycin (Zithromax 500mg In Ns) 500 mg in 250 mls @ 167 mls/hr IVPB DAILY [facility]; Protocol Last Admin: 10/29/18 12:47 Dose: 167 mls/hr Vancomycin HCl (Vancomycin 1gm) 1 gm in 250 mls @ 167 mls/hr IVPB Q12H [facility]; Protocol Stop: 11/04/18 19:16 Last Admin: 10/29/18 23:54 Dose: 167 mls/hr Piperacillin Sod/Tazobactam Sod (Zosyn 3.375 In Ns 100ml) 100 mls @ 200 mls/hr IVPB Q6 [facility]; Protocol Stop: 11/05/18 00:01 Last Admin: 10/30/18 13:19 Dose: 200 mls/hr Insulin Detemir (Levemir) 10 unit SC HS [facility] Last Admin: 10/29/18 23:52 Dose: 10 unit Insulin Human Regular (Humulin R High) 0 units SC ACHS [facility]; Protocol Last Admin: 10/30/18 11:56 Dose: 4 units Latanoprost (Xalatan Opht) 0 ml OU HS [facility] Last Admin: 10/29/18 23:53 Dose: 2.5 ml Metformin HCl (Glucophage) 500 mg PO BID [facility] Last Admin: 10/30/18 09:09 Dose: 500 mg Methylprednisolone (Solu-Medrol) 20 mg IV Q12 [facility] Ondansetron HCl (Zofran Inj) 4 mg IVP Q6H PRN PRN Reason: Nausea/Vomiting Pantoprazole Sodium (Protonix Ec Tab) 40 mg PO 0630 [facility] Last Admin: 10/30/18 06:40 Dose: 40 mg Tramadol HCl (Ultram) 50 mg PO Q8H PRN PRN Reason: Pain, moderate (4-7) - Labs Labs: 10/28/18 16:00 10/28/18 16:00 - Constitutional Appears: Non-toxic, No Acute Distress - Head Exam Head Exam: ATRAUMATIC, NORMAL INSPECTION, NORMOCEPHALIC - ENT Exam ENT Exam: Mucous Membranes Moist - Respiratory Exam Respiratory Exam: Decreased Breath Sounds, Wheezes (Right sided), NORMAL BREATHING PATTERN. absent: Rales, Rhonchi - Cardiovascular Exam Cardiovascular Exam: RRR, +S1, +S2 - GI/Abdominal Exam GI & Abdominal Exam: Soft, Normal Bowel Sounds. absent: Tenderness - Extremities Exam Extremities Exam: absent: Pedal Edema - Neurological Exam Neurological Exam: Alert, Awake, Oriented x3 - Psychiatric Exam Psychiatric exam: Normal Affect, Normal Mood - Skin Skin Exam: Dry, Intact, Warm Assessment and Plan - Assessment and Plan (Free Text) Plan: Right sided HCAP Hx of Lung cancer Hx of HTN Hx of DM Plan Continue Vancomycin, Zosyn, and Azithromycin Procal negative Flu negative Legionella pending Blood cultures negative Continue to monitor closely Alina, PGY-3 <Gio Holland - Last Filed: 10/30/18 15:31> Objective - Vital Signs/Intake and Output Vital Signs (last 24 hours): Temp Pulse Resp BP Pulse Ox 97.9 F 96 H 18 141/74 100 10/30/18 15:02 10/30/18 15:02 10/30/18 15:02 10/30/18 15:02 10/30/18 15:02 Intake and Output: 10/30/18 10/30/18 06:59 18:59 Intake Total 600 Output Total 500 Balance 100 - Medications Medications: Current Medications Acetaminophen (Tylenol 325mg Tab) 650 mg PO Q6H PRN PRN Reason: Fever >100.4 F Albuterol/Ipratropium (Duoneb 3 Mg/0.5 Mg (3 Ml) Ud) 3 ml IH [id number] PRN PRN Reason: Cough Albuterol/Ipratropium (Duoneb 3 Mg/0.5 Mg (3 Ml) Ud) 3 ml IH Q2H PRN PRN Reason: Shortness of Breath Albuterol/Ipratropium (Duoneb 3 Mg/0.5 Mg (3 Ml) Ud) 3 ml IH [id number] [facility] Last Admin: 10/30/18 13:16 Dose: 3 ml Aspirin (Aspirin Chewable) 81 mg PO DAILY [facility] Last Admin: 10/30/18 09:09 Dose: 81 mg Atorvastatin Calcium (Lipitor) 10 mg PO DIN [facility] Last Admin: 10/29/18 17:21 Dose: 10 mg Glipizide (Glucotrol) 10 mg PO 0730,1630 [facility] Last Admin: 10/30/18 09:09 Dose: 10 mg Azithromycin (Zithromax 500mg In Ns) 500 mg in 250 mls @ 167 mls/hr IVPB DAILY [facility]; Protocol Last Admin: 10/29/18 12:47 Dose: 167 mls/hr Vancomycin HCl (Vancomycin 1gm) 1 gm in 250 mls @ 167 mls/hr IVPB Q12H [facility]; Protocol Stop: 11/04/18 19:16 Last Admin: 10/29/18 23:54 Dose: 167 mls/hr Piperacillin Sod/Tazobactam Sod (Zosyn 3.375 In Ns 100ml) 100 mls @ 200 mls/hr IVPB Q6 [facility]; Protocol Stop: 11/05/18 00:01 Last Admin: 10/30/18 13:19 Dose: 200 mls/hr Insulin Detemir (Levemir) 10 unit SC HS [facility] Last Admin: 10/29/18 23:52 Dose: 10 unit Insulin Human Regular (Humulin R High) 0 units SC ACHS [facility]; Protocol Last Admin: 10/30/18 11:56 Dose: 4 units Latanoprost (Xalatan Opht) 0 ml OU HS [facility] Last Admin: 10/29/18 23:53 Dose: 2.5 ml Metformin HCl (Glucophage) 500 mg PO BID [facility] Last Admin: 10/30/18 09:09 Dose: 500 mg Methylprednisolone (Solu-Medrol) 20 mg IV Q12 [facility] Ondansetron HCl (Zofran Inj) 4 mg IVP Q6H PRN PRN Reason: Nausea/Vomiting Pantoprazole Sodium (Protonix Ec Tab) 40 mg PO 0630 [facility] Last Admin: 10/30/18 06:40 Dose: 40 mg Tramadol HCl (Ultram) 50 mg PO Q8H PRN PRN Reason: Pain, moderate (4-7) - Labs Labs: 10/28/18 16:00 10/28/18 16:00 Assessment and Plan - Assessment and Plan (Free Text) Plan: Infectious diseases Attending Physician Attestation Patient seen and examined, discussed with medical office administrator. I have reviewed the patient's history of present illness, past medical, social, personal and family histories, pertinent physical exam findings, course so far in this hospital admission, pertinent laboratory and imaging results. I agree with the above findings, assessment and plan. In addition, continue Vancomycin, Zosyn and Zithromax for patient with right sided HCAP. Follow up final culture results, urine Legionella Ag. Overall prognosis is poor.
--- NOTE | 2018-10-30 16:35 | PN ---
DATE: 10/30/2018 SUBJECTIVE: The patient is 72-year-old, seen and examined. Seems to be comfortable. Less cough. Less wheezing. PHYSICAL EXAMINATION: VITAL SIGNS: He is afebrile. Pulse 80, respiration 18 and blood pressure 117/65. LUNGS: Bilateral fair airflow. Few occasional expiratory rhonchi and soft crackling in the right upper lung region. HEART: S1 and S2, audible. ABDOMEN: Soft and nontender. No rebound. No guarding. NEUROLOGICAL: The patient is awake, alert, oriented and able to communicate. LABORATORY DATA: Blood sugar is 236. His blood cultures are negative. ASSESSMENT: 1. Right upper lung mass. 2. Post obstructive pneumonia. 3. Bronchial asthma. 4. Hypertension. 5. Non-insulin dependant diabetes. PLAN: The patient is on aspirin. He is getting nebulizer treatment. He is on metformin. We will cut down his steroid. Continue on IV antibiotic as recommend by ID. He might be a good candidate to go to TCU to complete his course of antibiotic and get therapy. Jose Angel Hull MD
[2018-10-30] MEDS: Insulin Detemir 100 units/ml Vial (Levemir) SC SCH (23:46)
[2018-10-31] MEDS: Latanoprost 2.5 ml Opht Soln OU SCH ×2 (00:47→21:42)
[2018-10-31] MEDS: Albuterol-Ipratrop 3 mg / 0.5 (3 ml) UD IH SCH ×4 (01:31→19:49)
[2018-10-31] MEDS: Insulin Reg-HIGH-Coverage SC SCH ×5 (05:41→22:03)
[2018-10-31] MEDS: Piperacillin/Tazobact 3.375 gm 100 ML IVPB SCH ×3 (06:04→17:54)
[2018-10-31] MEDS: Vancomycin 1gm in NS 250ml 1 GM/250 ML BAG IVPB SCH ×2 (06:50→19:15)
[2018-10-31 08:20] LABS: HEMOGLOBIN 9.7 g/dL (14.0-18.0); MEAN CELL VOLUME 87.5 fl (80.0-105.0); MEAN CORPUSCULAR HEMOGLOBIN 28.8 pg (25.0-35.0); MEAN CORPUSCULAR HGB CONC 32.9 g/dl (31.0-37.0); MEAN PLATELET VOLUME 8.6 fl (7.0-11.0); RBC 3.37 10^6/uL (3.5-6.1); RED CELL DISTRIBUTION WIDTH 16.8 % (11.5-14.5); WHITE BLOOD COUNT 14.7 10^3/uL (4.5-11.0)
[2018-10-31] MEDS: MethylPREDNISolone 40 mg Vial IV SCH ×3 (09:30→21:43)
[2018-10-31] MEDS: Pantoprazole 40 mg EC Tab PO SCH (09:50)
[2018-10-31] MEDS: Azithromycin 500MG/NS 250ml 500 MG/250 ML BAG IVPB SCH (09:51)
--- NOTE | 2018-10-31 10:14 | CP.PCM.PN ---
<Miguel Angel Fuller - Last Filed: 10/31/18 12:40> Subjective - Date & Time of Evaluation Date of Evaluation: 10/31/18 Time of Evaluation: 09:40 - Subjective Subjective: ID Progress Note Patient seen and examined. No acute events overnight. No fevers. Objective - Vital Signs/Intake and Output Vital Signs (last 24 hours): Temp Pulse Resp BP Pulse Ox 97.4 F L 80 18 137/72 95 10/31/18 06:00 10/31/18 06:00 10/31/18 06:00 10/31/18 06:00 10/31/18 06:00 Intake and Output: 10/31/18 10/31/18 06:59 18:59 Intake Total 600 Output Total 1100 Balance -500 - Medications Medications: Current Medications Acetaminophen (Tylenol 325mg Tab) 650 mg PO Q6H PRN PRN Reason: Fever >100.4 F Albuterol/Ipratropium (Duoneb 3 Mg/0.5 Mg (3 Ml) Ud) 3 ml IH [id number] PRN PRN Reason: Cough Albuterol/Ipratropium (Duoneb 3 Mg/0.5 Mg (3 Ml) Ud) 3 ml IH Q2H PRN PRN Reason: Shortness of Breath Albuterol/Ipratropium (Duoneb 3 Mg/0.5 Mg (3 Ml) Ud) 3 ml IH [id number] [facility] BEDS [facility] Last Admin: 10/31/18 07:30 Dose: 3 ml Aspirin (Aspirin Chewable) 81 mg PO DAILY [facility] Last Admin: 10/31/18 09:49 Dose: 81 mg Atorvastatin Calcium (Lipitor) 10 mg PO DIN [facility] Last Admin: 10/30/18 17:20 Dose: 10 mg Glipizide (Glucotrol) 10 mg PO 0730,1630 [facility] Last Admin: 10/31/18 09:49 Dose: 10 mg Azithromycin (Zithromax 500mg In Ns) 500 mg in 250 mls @ 167 mls/hr IVPB DAILY [facility]S [facility]; Protocol Last Admin: 10/31/18 09:51 Dose: 167 mls/hr Vancomycin HCl (Vancomycin 1gm) 1 gm in 250 mls @ 167 mls/hr IVPB Q12H [facility]S [facility]; Protocol Stop: 11/04/18 19:16 Last Admin: 10/31/18 06:50 Dose: 167 mls/hr Piperacillin Sod/Tazobactam Sod (Zosyn 3.375 In Ns 100ml) 100 mls @ 200 mls/hr IVPB Q6 [facility]; Protocol Stop: 11/05/18 00:01 Last Admin: 10/31/18 06:04 Dose: 200 mls/hr Insulin Detemir (Levemir) 10 unit SC HS [facility]S [facility] Last Admin: 10/30/18 23:46 Dose: 10 unit Insulin Human Regular (Humulin R High) 0 units SC ACHS [facility] 234 [facility]S [facility]; Protocol Last Admin: 10/31/18 08:35 Dose: 2 units Latanoprost (Xalatan Opht) 0 ml OU HS [facility] 234 B[facility]S [facility] Last Admin: 10/31/18 00:47 Dose: Not Given Metformin HCl (Glucophage) 500 mg PO BID [facility]S [facility] Last Admin: 10/31/18 09:49 Dose: 500 mg Methylprednisolone (Solu-Medrol) 20 mg IV Q12 [facility] Last Admin: 10/31/18 09:50 Dose: 20 mg Ondansetron HCl (Zofran Inj) 4 mg IVP Q6H PRN PRN Reason: Nausea/Vomiting Pantoprazole Sodium (Protonix Ec Tab) 40 mg PO 0630 [facility] Last Admin: 10/31/18 09:50 Dose: 40 mg Tramadol HCl (Ultram) 50 mg PO Q8H PRN PRN Reason: Pain, moderate (4-7) - Labs Labs: 10/31/18 08:10 10/28/18 16:00 - Constitutional Appears: Non-toxic, No Acute Distress - Head Exam Head Exam: ATRAUMATIC, NORMAL INSPECTION, NORMOCEPHALIC - ENT Exam ENT Exam: Mucous Membranes Moist - Respiratory Exam Respiratory Exam: Decreased Breath Sounds, Wheezes, NORMAL BREATHING PATTERN - Cardiovascular Exam Cardiovascular Exam: RRR, +S1, +S2 - GI/Abdominal Exam GI & Abdominal Exam: Soft, Normal Bowel Sounds. absent: Tenderness - Extremities Exam Extremities Exam: Normal Inspection. absent: Pedal Edema - Neurological Exam Neurological Exam: Alert, Awake, Oriented x3 - Psychiatric Exam Psychiatric exam: Normal Affect, Normal Mood - Skin Skin Exam: Dry, Intact, Warm Assessment and Plan - Assessment and Plan (Free Text) Plan: Right sided HCAP Hx of Lung cancer Hx of HTN Hx of DM Plan Continue Vancomycin, Zosyn, and Azithromycin Procal negative Flu negative Legionella pending Blood cultures negative Continue to monitor closely Alina, PGY-3 <Gio Holland S - Last Filed: 10/31/18 18:22> Objective - Vital Signs/Intake and Output Vital Signs (last 24 hours): Temp Pulse Resp BP Pulse Ox 97.9 F 88 18 143/81 97 10/31/18 14:21 10/31/18 14:21 10/31/18 14:21 10/31/18 14:21 10/31/18 14:21 Intake and Output: 10/31/18 10/31/18 06:59 18:59 Intake Total 600 960 Output Total 1100 1300 Balance -500 -340 - Medications Medications: Current Medications Acetaminophen (Tylenol 325mg Tab) 650 mg PO Q6H PRN PRN Reason: Fever >100.4 F Albuterol/Ipratropium (Duoneb 3 Mg/0.5 Mg (3 Ml) Ud) 3 ml IH [id number] PRN PRN Reason: Cough Albuterol/Ipratropium (Duoneb 3 Mg/0.5 Mg (3 Ml) Ud) 3 ml IH Q2H PRN PRN Reason: Shortness of Breath Albuterol/Ipratropium (Duoneb 3 Mg/0.5 Mg (3 Ml) Ud) 3 ml IH [id number] [facility] Last Admin: 10/31/18 13:21 Dose: 3 ml Aspirin (Aspirin Chewable) 81 mg PO DAILY [facility] 234 [facility]S [facility] Last Admin: 10/31/18 09:49 Dose: 81 mg Atorvastatin Calcium (Lipitor) 10 mg PO DIN [facility] 234 [facility]S [facility] Last Admin: 10/31/18 16:02 Dose: 10 mg Glipizide (Glucotrol) 10 mg PO 0730,1630 [facility] 234 [facility] Last Admin: 10/31/18 16:02 Dose: 10 mg Azithromycin (Zithromax 500mg In Ns) 500 mg in 250 mls @ 167 mls/hr IVPB DAILY [facility] 234 [facility]; Protocol Last Admin: 10/31/18 09:51 Dose: 167 mls/hr Vancomycin HCl (Vancomycin 1gm) 1 gm in 250 mls @ 167 mls/hr IVPB Q12H [facility] 234 BEDS [facility]; Protocol Stop: 11/04/18 19:16 Last Admin: 10/31/18 06:50 Dose: 167 mls/hr Piperacillin Sod/Tazobactam Sod (Zosyn 3.375 In Ns 100ml) 100 mls @ 200 mls/hr IVPB Q6 [facility] 234 B[facility]S [facility]; Protocol Stop: 11/05/18 00:01 Last Admin: 10/31/18 17:54 Dose: 200 mls/hr Insulin Detemir (Levemir) 10 unit SC HS [facility] 234 B[facility]S AT [facility] Last Admin: 10/30/18 23:46 Dose: 10 unit Insulin Human Regular (Humulin R High) 0 units SC ACHS [facility] 234 BEDS AT [facility]; Protocol Last Admin: 10/31/18 16:45 Dose: 2 units Latanoprost (Xalatan Opht) 0 ml OU HS [facility] 234 BEDS AT [facility] Last Admin: 10/31/18 00:47 Dose: Not Given Metformin HCl (Glucophage) 500 mg PO BID [facility] 234 BEDS AT [facility] Last Admin: 10/31/18 17:53 Dose: 500 mg Methylprednisolone (Solu-Medrol) 20 mg IV Q12 [facility] 234 B[facility]S AT [facility] Last Admin: 10/31/18 09:50 Dose: 20 mg Ondansetron HCl (Zofran Inj) 4 mg IVP Q6H PRN PRN Reason: Nausea/Vomiting Pantoprazole Sodium (Protonix Ec Tab) 40 mg PO 0630 [facility] 234 BEDS AT [facility] Last Admin: 10/31/18 09:50 Dose: 40 mg Tramadol HCl (Ultram) 50 mg PO Q8H PRN PRN Reason: Pain, moderate (4-7) - Labs Labs: 10/31/18 08:10 10/28/18 16:00 Assessment and Plan - Assessment and Plan (Free Text) Plan: Infectious diseases Attending Physician Attestation Patient seen and examined, discussed with medical laboratory scientist. I have reviewed the patient's history of present illness, past medical, social, personal and family histories, pertinent physical exam findings, course so far in this hospital admission, pertinent laboratory and imaging results. I agree with the above findings, assessment and plan. In addition, continue Vancomycin, Zosyn and Zithromax day 3 for patient with right sided HCAP with sepsis in this patient wi th lung cancer. Follow up final cx results. Overall prognosis is poor. Target 4- 7 days of therapy.
--- NOTE | 2018-10-31 21:36 | PN ---
HISTORY OF PRESENT ILLNESS: The patient is 72 years old, seen and examined, lying in bed, seems to be comfortable. No nausea or vomiting. No diarrhea. Eating and tolerating. Has minimal cough and congestion. PHYSICAL EXAMINATION: VITAL SIGNS: He is afebrile, pulse 80, respiration 18 and blood pressure 137/72. LUNGS: Bilateral soft crackle more so in the right upper lung region. HEART: S1 and S2 audible. ABDOMEN: Soft and nontender. No rebound. No guarding. NEUROLOGIC: The patient is awake, alert, oriented and able to communicate. EXTREMITIES: Moves all extremities. Bilateral legs, no edema. LABORATORY DATA: WBC is 14.7, hemoglobin 9.7, hematocrit 29.5 and platelets 299. Blood sugar is 73. Flu test is negative. Blood cultures are negative. ASSESSMENT: 1. Right upper lung mass. 2. Right upper lobe infiltrate. 3. [id number] diabetes. 4. Hypertension. 5. Hyperlipidemia. 6. History of cancer of lung on chemotherapy by Dr. Lucio. PLAN: The patient is currently on vancomycin, Zosyn and Zithromax. The patient is clinically stable, best candidate for TCU to finish her course of antibiotics. Jose Angel Hull MD
[2018-10-31] MEDS: Insulin Detemir 100 units/ml Vial (Levemir) SC SCH (21:59)
[2018-11-01] MEDS: Piperacillin/Tazobact 3.375 gm 100 ML IVPB SCH ×4 (00:16→17:08)
[2018-11-01] MEDS: Albuterol-Ipratrop 3 mg / 0.5 (3 ml) UD IH SCH ×3 (02:10→13:41)
[2018-11-01] MEDS: Pantoprazole 40 mg EC Tab PO SCH (06:18)
[2018-11-01] MEDS: Vancomycin 1gm in NS 250ml 1 GM/250 ML BAG IVPB SCH (07:10)
[2018-11-01] MEDS: Insulin Reg-HIGH-Coverage SC SCH ×3 (08:07→16:37)
[2018-11-01 08:29] VITALS: PULSE 88; RESP 18
[2018-11-01] MEDS: MethylPREDNISolone 40 mg Vial IV SCH (09:14)
[2018-11-01] MEDS: Azithromycin 500MG/NS 250ml 500 MG/250 ML BAG IVPB SCH (09:14)
[2018-11-01 13:05] LABS: BASO # 0.05 K/mm3 (0.0-2.0); BASO % 0.3 % (0.0-3.0); HEMOGLOBIN 10.6 g/dL (14.0-18.0); LYMPH # 0.8 (1.2-3.4); LYMPH % 5.3 % (22.0-35.0); MEAN CORPUSCULAR HEMOGLOBIN 28.8 pg (25.0-35.0); MEAN CORPUSCULAR HGB CONC 33.1 g/dl (31.0-37.0); MEAN PLATELET VOLUME 8.5 fl (7.0-11.0); MONO # 0.9 (0.1-0.6); MONO % 6.1 % (1.0-6.0); RBC 3.68 10^6/uL (3.5-6.1); RED CELL DISTRIBUTION WIDTH 16.6 % (11.5-14.5)
[2018-11-01 13:15] LABS: ALBUMIN 3.5 g/dL (3.0-4.8); ALT/SGPT 11 U/L (7-56); AST/SGOT 25 U/L (17-59); BLOOD UREA NITROGEN 27 mg/dL (7-21); CALCIUM 9.1 mg/dL (8.4-10.5); GFR NON-AFRICAN AMERICAN > 60
[2018-11-01 14:25] VITALS: BP 115/83; TEMP 98.2; O2SAT 92
--- NOTE | 2018-11-01 14:29 | CP.PCM.PN ---
<Miguel Angel Fuller - Last Filed: 11/01/18 14:27> Subjective - Date & Time of Evaluation Date of Evaluation: 11/01/18 Time of Evaluation: 10:50 - Subjective Subjective: ID Progress Note Patient seen and examined. Patient states cough and breathing are improved. No complaints. No fevers. Objective - Vital Signs/Intake and Output Vital Signs (last 24 hours): Temp Pulse Resp BP Pulse Ox 98.2 F 88 18 115/83 92 L 11/01/18 14:23 11/01/18 14:23 11/01/18 06:00 11/01/18 14:23 11/01/18 14:23 Intake and Output: 11/01/18 11/01/18 06:59 18:59 Intake Total 1440 Output Total 3200 Balance -1760 - Medications Medications: Current Medications Acetaminophen (Tylenol 325mg Tab) 650 mg PO Q6H PRN PRN Reason: Fever >100.4 F Albuterol/Ipratropium (Duoneb 3 Mg/0.5 Mg (3 Ml) Ud) 3 ml IH [id number] PRN PRN Reason: Cough Albuterol/Ipratropium (Duoneb 3 Mg/0.5 Mg (3 Ml) Ud) 3 ml IH Q2H PRN PRN Reason: Shortness of Breath Albuterol/Ipratropium (Duoneb 3 Mg/0.5 Mg (3 Ml) Ud) 3 ml IH [id number] [facility] Last Admin: 11/01/18 13:41 Dose: 3 ml Aspirin (Aspirin Chewable) 81 mg PO DAILY [facility] Last Admin: 11/01/18 09:14 Dose: 81 mg Atorvastatin Calcium (Lipitor) 10 mg PO DIN [facility] Last Admin: 10/31/18 16:02 Dose: 10 mg Glipizide (Glucotrol) 10 mg PO 0730,1630 [facility] Last Admin: 11/01/18 08:07 Dose: 10 mg Azithromycin (Zithromax 500mg In Ns) 500 mg in 250 mls @ 167 mls/hr IVPB DAILY [facility]; Protocol Last Admin: 11/01/18 09:14 Dose: 167 mls/hr Piperacillin Sod/Tazobactam Sod (Zosyn 3.375 In Ns 100ml) 100 mls @ 200 mls/hr IVPB Q6 [facility]; Protocol Stop: 11/05/18 00:01 Last Admin: 11/01/18 12:01 Dose: 200 mls/hr Insulin Detemir (Levemir) 10 unit SC HS [facility] Last Admin: 10/31/18 21:59 Dose: 10 unit Insulin Human Regular (Humulin R High) 0 units SC ACHS [facility]; Protocol Last Admin: 11/01/18 11:42 Dose: Not Given Latanoprost (Xalatan Opht) 0 ml OU HS [facility] Last Admin: 10/31/18 21:42 Dose: 2.5 ml Metformin HCl (Glucophage) 500 mg PO BID [facility] Last Admin: 11/01/18 09:14 Dose: 500 mg Methylprednisolone (Solu-Medrol) 20 mg IV Q12 [facility] Last Admin: 11/01/18 09:14 Dose: 20 mg Ondansetron HCl (Zofran Inj) 4 mg IVP Q6H PRN PRN Reason: Nausea/Vomiting Pantoprazole Sodium (Protonix Ec Tab) 40 mg PO 0630 [facility] Last Admin: 11/01/18 06:18 Dose: 40 mg Tramadol HCl (Ultram) 50 mg PO Q8H PRN PRN Reason: Pain, moderate (4-7) - Labs Labs: 11/01/18 13:00 11/01/18 13:00 - Constitutional Appears: Non-toxic, No Acute Distress - Head Exam Head Exam: ATRAUMATIC, NORMAL INSPECTION, NORMOCEPHALIC - Respiratory Exam Respiratory Exam: Decreased Breath Sounds, Wheezes (Mild), NORMAL BREATHING PATTERN - Cardiovascular Exam Cardiovascular Exam: RRR, +S1, +S2 - GI/Abdominal Exam GI & Abdominal Exam: Soft, Normal Bowel Sounds. absent: Tenderness - Extremities Exam Extremities Exam: Normal Inspection. absent: Pedal Edema - Neurological Exam Neurological Exam: Alert, Awake, Oriented x3 - Psychiatric Exam Psychiatric exam: Normal Affect, Normal Mood - Skin Skin Exam: Dry, Intact, Warm Assessment and Plan - Assessment and Plan (Free Text) Plan: Right sided HCAP Hx of Lung cancer Hx of HTN Hx of DM Plan Stop Vancomycin Continue Zosyn and Azithromycin, day 4/7 Procal negative Flu negative Legionella pending Blood cultures negative Continue to monitor closely Alina, PGY-3 <Gio Holland - Last Filed: 11/01/18 19:51> Objective - Vital Signs/Intake and Output Vital Signs (last 24 hours): Temp Pulse Resp BP Pulse Ox 98.2 F 88 18 115/83 92 L 11/01/18 14:23 11/01/18 14:23 11/01/18 06:00 11/01/18 14:23 11/01/18 14:23 - Labs Labs: 11/01/18 13:00 11/01/18 13:00 Assessment and Plan - Assessment and Plan (Free Text) Plan: Infectious diseases Attending Physician Attestation Patient seen and examined, discussed with medical affairs leader. I have reviewed the patient's history of present illness, past medical, social, personal and family histories, pertinent physical exam findings, course so far in this hospital admission, pertinent laboratory and imaging results. I agree with the above findings, assessment and plan. In addition, continue Zosyn and Zithromax for right sided HCAP in this patient with lung cancer. We have stopped Vancomycin since cultures are negative. Complete 4-7 days of antibiotics (Day 4 today). Overall prognosis is poor.
[2018-11-01] MEDS ORDERED: Influenza Vaccine 60 mcg/0.5 mL SYR (4YR UP) IM ONE (15:40)
--- NOTE | 2018-11-01 15:49 | PN ---
DATE: 11/01/2018 SUBJECTIVE: The patient is 72 years old, seen and examined, lying in bed, seems to be comfortable, has cough, but doing much better than before. Still has crackles in the upper lung region, right more than the left. PHYSICAL EXAMINATION: HEART: S1 and S2 audible. ABDOMEN: Soft, nontender. No rebound. No guarding. NEUROLOGICAL: The patient is awake, alert, and oriented. Able to communicate. LABORATORY DATA: Blood sugar 141, flu test is negative. Blood cultures are negative. ASSESSMENT: 1. Right upper lung mass. 2. Right upper lung infiltrate. 3. Chronic obstructive pulmonary disease. 4. Non-insulin dependent diabetes. 5. History of hypertension. PLAN: Currently, the patient is on aspirin, nebulizer treatment. He is on metformin. He is on glipizide. He is on Levemir. He is getting Protonix. He is on IV steroids. Will monitor the blood sugar. He is getting vanco 1 g every 12 hours and Zithromax. Will reach out to ID. If he needs IV antibiotics, he should be transferred to TCU to complete his course plus new therapy, and if it can be switched, we can switch to p.o. antibiotics and be discharged home in a.m. Jose Angel Hull MD
== END 2018-11-01 18:28 | DRG 194 ==
LOC: ED 13:04 → ERH 17:40 → 5RSO 10-29 11:24
PROVIDERS: ADMIT Internal Medicine; ATTEND Internal Medicine
DX: J18.9 Pneumonia, unspecified organism (principal); C34.90 Malignant neoplasm of unspecified part of unspecified bronchus or lung; J43.9 Emphysema, unspecified; I77.819 Aortic ectasia, unspecified site; E11.9 Type 2 diabetes mellitus without complications; R09.02 Hypoxemia; E83.42 Hypomagnesemia; I10 Essential (primary) hypertension; E78.5 Hyperlipidemia, unspecified; Z79.84 Long term (current) use of oral hypoglycemic drugs; Z87.891 Personal history of nicotine dependence; Z23 Encounter for immunization

== ENCOUNTER 2018-11-01 18:11 | Inpatient (IN) | payer OTHER, BC ==
[2018-11-01] MEDS ORDERED: Albuterol-Ipratrop 3 mg / 0.5 (3 ml) UD IH PRN ×2 (18:46→18:49)
[2018-11-01] MEDS ORDERED: Vancomycin 1gm in NS 250ml 1 GM/250 ML BAG IVPB SCH (19:00)
[2018-11-01] MEDS: Albuterol-Ipratrop 3 mg / 0.5 (3 ml) UD IH SCH (19:15)
[2018-11-01] MEDS: MethylPREDNISolone 40 mg Vial IVP SCH (21:40)
[2018-11-01] MEDS: Insulin Reg-HIGH-Coverage SC SCH (21:57)
[2018-11-01] MEDS: Insulin Detemir 100 units/ml Vial (Levemir) SC SCH (22:31)
[2018-11-01] MEDS: Latanoprost 2.5 ml Opht Soln OU SCH (23:29)
[2018-11-02] MEDS: Piperacillin/Tazobact 3.375 gm 100 ML IVPB SCH ×4 (00:50→17:32)
[2018-11-02] MEDS: Albuterol-Ipratrop 3 mg / 0.5 (3 ml) UD IH SCH ×4 (01:13→19:58)
[2018-11-02] MEDS: Pantoprazole 40 mg EC Tab PO SCH (05:16)
[2018-11-02] MEDS: Azithromycin 500MG/NS 250ml 500 MG/250 ML BAG IVPB SCH (05:16)
[2018-11-02] MEDS: Insulin Reg-HIGH-Coverage SC SCH ×4 (06:53→21:39)
[2018-11-02] MEDS: MethylPREDNISolone 40 mg Vial IVP SCH ×2 (09:39→21:44)
--- NOTE | 2018-11-02 17:35 | HP ---
DATE OF EXAM: 11/02/2018 HISTORY OF PRESENT ILLNESS: The patient is 72 years old, who was brought to the emergency room by daughter because of increasing cough, congestion, shortness of breath. The patient has history of CA lung, currently getting chemotherapy under the care of Dr. Lucio. The patient states when he visited [place], he got sick over there. He was in the hospital, but he signed AMA after the day as he wanted to come here. PAST MEDICAL HISTORY: Significant for: 1. CA lung. 2. COPD. 3. Noninsulin-dependent diabetes. 4. Hypertension. 5, Hyperlipidemia. PAST SURGICAL HISTORY: Significant for left humerus fracture last year that he had opened fixation. ALLERGIES: HE IS NOT ALLERGIC TO ANY MEDICATION. MEDICATIONS AT HOME: He is on tramadol 50 mg t.i.d., metformin 500 twice a day, Januvia 100 daily, he is on Xalatan eye drops, glipizide 10 mg twice a day, atorvastatin 10 mg daily, and nebulizer treatment. SOCIAL HISTORY: He was a heavy smoker, still smoking. PHYSICAL EXAMINATION GENERAL: He is awake, alert, oriented, communicative. VITAL SIGNS: He is afebrile, pulse 91, respirations 18, and blood pressure 128/87. LUNGS: Bilateral fair flow. No rhonchi or crackles. HEART: S1 and S2 audible. ABDOMEN: Soft and nontender. No rebound. No guarding. NEUROLOGIC: The patient is awake, alert, oriented, able to communicate. LABORATORY DATA: Blood sugar is 281. ASSESSMENT: 1. Bilateral pneumonia. 2. Noninsulin-dependent diabetes. 3. Hypertension. 4. Hyperlipidemia. 5. History of cancer of the lung. 6. Chronic obstructive pulmonary disease. PLAN: We will continue the patient on current medication. Continue nebulizer treatment. Monitor his blood sugar and encourage physical therapy. Jose Angel Hull MD
[2018-11-02] MEDS: Insulin Detemir 100 units/ml Vial (Levemir) SC SCH (21:39)
[2018-11-02] MEDS: Latanoprost 2.5 ml Opht Soln OU SCH (21:45)
[2018-11-03] MEDS: Piperacillin/Tazobact 3.375 gm 100 ML IVPB SCH ×4 (00:02→17:25)
[2018-11-03] MEDS: Albuterol-Ipratrop 3 mg / 0.5 (3 ml) UD IH SCH ×4 (01:58→19:59)
--- NOTE | 2018-11-03 03:20 | CON ---
DATE: 11/02/2018 The patient was seen earlier today in room 302. CHIEF COMPLAINT: Weakness times several days. HISTORY OF PRESENT ILLNESS: This is a 72-year-old male, who appears much older than his stated age with a history of lung cancer, hypertension, diabetes, with a right chest port placement, was admitted with shortness of breath, used from [place], he had chemotherapy a week prior to admission to the acute care. He has had no fevers and no chills. No nausea. No vomiting. No chest pain. Now transferred to transitional care to complete therapy. PAST MEDICAL HISTORY: Significant for lung cancer, chronic obstructive lung disease, hypertension, and diabetes, and the patient has had chemotherapy for his lung cancer. PAST SURGICAL HISTORY: Significant for orthopedic surgery on his right humerus, ORIF, cholecystectomy, and cardiac catheterization. ALLERGIES: THE PATIENT HAS NO KNOWN ALLERGIES. MEDICATIONS: Reviewed. PHYSICAL EXAMINATION: GENERAL: The patient is in bed, in no acute distress. VITAL SIGNS: Temperature of 98, blood pressure is 128/70, respiratory rate of 18, heart rate of 102. HEENT: Examination of HEENT is unremarkable. NECK: Supple. LUNGS: Have decreased breath sounds. HEART: Normal S1, S2. ABDOMEN: Soft, nontender. LABORATORY DATA: Laboratory examination reveals a white count of 15,000, hemoglobin of 10, and platelets of 327. Chemistries revealed a BUN of 27, creatinine of 1.1. Urinalysis is noted. Serology reveals influenza for A and B are negative. Microbiology reveals the blood cultures have no growth. The patient had a chest x-ray on admission in the acute care on 10/28/2018, which is reviewed and shows the internal jugular vein central venous, and there is an upper lobe consolidation. ASSESSMENT AND PLAN: This is a 72-year-old [place] male with hypertension, diabetes, chronic obstructive lung disease, lung cancer, had chemotherapy, admitted with leukocytosis and tachycardia; 1. Sepsis with right-sided healthcare-associated pneumonia, on azithromycin and Zosyn, day #5 of 7 days. The patient was on vancomycin, which was stopped and review of orders reveals the patient's Zosyn to be active, azithromycin to be active, we may be able to switch her azithromycin to p.o., and we will follow with you. Donaldo Driscoll MD
[2018-11-03] MEDS: Azithromycin 500MG/NS 250ml 500 MG/250 ML BAG IVPB SCH (05:57)
[2018-11-03] MEDS: Pantoprazole 40 mg EC Tab PO SCH (06:53)
[2018-11-03] MEDS: Insulin Reg-HIGH-Coverage SC SCH ×4 (06:55→21:17)
[2018-11-03] MEDS: MethylPREDNISolone 40 mg Vial IVP SCH ×2 (09:42→21:22)
--- NOTE | 2018-11-03 16:26 | CP.PCM.PN ---
Subjective - Date & Time of Evaluation Date of Evaluation: 11/03/18 Time of Evaluation: 09:50 - Subjective Subjective: Patient is feeling a little better, no fevers, not in distress. Objective - Vital Signs/Intake and Output Vital Signs (last 24 hours): Temp Pulse Resp BP Pulse Ox 98.1 F 102 H 16 132/70 98 11/02/18 16:00 11/02/18 16:00 11/02/18 16:00 11/02/18 16:00 11/02/18 16:00 - Medications Medications: Current Medications Acetaminophen (Tylenol 325mg Tab) 650 mg PO Q6H PRN PRN Reason: Headache Albuterol/Ipratropium (Duoneb 3 Mg/0.5 Mg (3 Ml) Ud) 3 ml IH [id number] PRN PRN Reason: Cough Albuterol/Ipratropium (Duoneb 3 Mg/0.5 Mg (3 Ml) Ud) 3 ml IH Q2H PRN PRN Reason: Shortness of Breath Albuterol/Ipratropium (Duoneb 3 Mg/0.5 Mg (3 Ml) Ud) 3 ml IH [id number] [facility] Last Admin: 11/03/18 07:12 Dose: 3 ml Aspirin (Aspirin Chewable) 81 mg PO 0800 [facility] Last Admin: 11/03/18 08:33 Dose: 81 mg Atorvastatin Calcium (Lipitor) 10 mg PO DIN [facility] Last Admin: 11/02/18 17:32 Dose: 10 mg Glipizide (Glucotrol) 10 mg PO 0730,1430 [facility] Last Admin: 11/03/18 06:53 Dose: 10 mg Azithromycin (Zithromax 500mg In Ns) 500 mg in 250 mls @ 167 mls/hr IVPB 0600 [facility]; Protocol Last Admin: 11/03/18 05:57 Dose: 167 mls/hr Piperacillin Sod/Tazobactam Sod (Zosyn 3.375 In Ns 100ml) 100 mls @ 25 mls/hr IVPB Q6 [facility]; Protocol Stop: 11/07/18 00:01 Last Admin: 11/03/18 06:51 Dose: 25 mls/hr Insulin Detemir (Levemir) 10 unit SC [facility] Last Admin: 11/02/18 21:39 Dose: 10 u Insulin Human Regular (Humulin R High) 0 units SC ACHS [facility]; Protocol Last Admin: 11/03/18 06:55 Dose: 7 u Latanoprost (Xalatan Opht) 0 ml OU HS [facility] Last Admin: 11/02/18 21:45 Dose: 2.5 ml Metformin HCl (Glucophage) 500 mg PO BID [facility] Last Admin: 11/02/18 17:32 Dose: 500 mg Methylprednisolone (Solu-Medrol) 20 mg IVP Q12 [facility] Last Admin: 11/02/18 21:44 Dose: 20 mg Ondansetron HCl (Zofran Inj) 4 mg IVP Q6H PRN PRN Reason: Nausea/Vomiting Pantoprazole Sodium (Protonix Ec Tab) 40 mg PO 0600 [facility] Last Admin: 11/03/18 06:53 Dose: 40 mg Tramadol HCl (Ultram) 50 mg PO Q8H PRN PRN Reason: Pain, moderate (4-7) - Constitutional Appears: Chronically Ill - Head Exam Head Exam: NORMAL INSPECTION - Respiratory Exam Respiratory Exam: Decreased Breath Sounds - Cardiovascular Exam Cardiovascular Exam: +S1, +S2 - GI/Abdominal Exam GI & Abdominal Exam: Soft. absent: Tenderness Assessment and Plan - Assessment and Plan (Free Text) Plan: Assessment right sided HCAP, slowly improving history of severe sepsis secondary to healthcare-associated pneumonia with possible gram positive cocci and/or gram negative bacilli S/P systemic viral illness with Influenza with no evidence of pneumonia, on top of acute bronchitis history of hospital-acquired pneumonia HTN lung cancer history of arthritis history of cataracts coronary artery disease Plan continue Zosyn and Zithromax day 6 of 7 overall prognosis is poor will continue to monitor clinically
[2018-11-03] MEDS: Insulin Detemir 100 units/ml Vial (Levemir) SC SCH (21:20)
[2018-11-03] MEDS: Latanoprost 2.5 ml Opht Soln OU SCH (21:26)
[2018-11-04] MEDS: Piperacillin/Tazobact 3.375 gm 100 ML IVPB SCH ×5 (00:18→23:05)
[2018-11-04] MEDS: Albuterol-Ipratrop 3 mg / 0.5 (3 ml) UD IH SCH ×4 (01:57→20:33)
[2018-11-04] MEDS: Pantoprazole 40 mg EC Tab PO SCH (05:39)
[2018-11-04] MEDS: Insulin Reg-HIGH-Coverage SC SCH ×5 (06:53→21:25)
[2018-11-04] MEDS: MethylPREDNISolone 40 mg Vial IVP SCH (10:11)
[2018-11-04] MEDS ORDERED: Insulin Detemir 100 units/ml Vial (Levemir) SC SCH (11:09)
--- NOTE | 2018-11-04 13:50 | CP.PCM.PN ---
Subjective - Date & Time of Evaluation Date of Evaluation: 11/04/18 Time of Evaluation: 11:20 - Subjective Subjective: No fevers, not in distress, doing his physical therapy ok. Objective - Vital Signs/Intake and Output Vital Signs (last 24 hours): Temp Pulse Resp BP Pulse Ox 97.1 F L 101 H 18 113/84 97 11/03/18 10:00 11/03/18 10:00 11/03/18 10:00 11/03/18 10:00 11/03/18 10:00 - Medications Medications: Current Medications Acetaminophen (Tylenol 325mg Tab) 650 mg PO Q6H PRN PRN Reason: Headache Albuterol/Ipratropium (Duoneb 3 Mg/0.5 Mg (3 Ml) Ud) 3 ml IH [id number] PRN PRN Reason: Cough Albuterol/Ipratropium (Duoneb 3 Mg/0.5 Mg (3 Ml) Ud) 3 ml IH Q2H PRN PRN Reason: Shortness of Breath Albuterol/Ipratropium (Duoneb 3 Mg/0.5 Mg (3 Ml) Ud) 3 ml IH [id number] [facility] Last Admin: 11/03/18 13:35 Dose: 3 ml Aspirin (Aspirin Chewable) 81 mg PO 0800 [facility] Last Admin: 11/03/18 08:33 Dose: 81 mg Atorvastatin Calcium (Lipitor) 10 mg PO DIN [facility] Last Admin: 11/02/18 17:32 Dose: 10 mg Azithromycin (Zithromax) 500 mg PO DAILY [facility]; Protocol Last Admin: 11/03/18 10:46 Dose: Not Given Glipizide (Glucotrol) 10 mg PO 0730,1430 [facility] Last Admin: 11/03/18 14:16 Dose: 10 mg Piperacillin Sod/Tazobactam Sod (Zosyn 3.375 In Ns 100ml) 100 mls @ 25 mls/hr IVPB Q6 [facility]; Protocol Stop: 11/07/18 00:01 Last Admin: 11/03/18 12:55 Dose: 25 mls/hr Insulin Detemir (Levemir) 10 unit SC [facility] Last Admin: 11/02/18 21:39 Dose: 10 u Insulin Human Regular (Humulin R High) [address] [facility]; Protocol Last Admin: 11/03/18 12:10 Dose: Not Given Latanoprost (Xalatan Opht) 0 ml OU HS [facility] Last Admin: 11/02/18 21:45 Dose: 2.5 ml Metformin HCl (Glucophage) 500 mg PO BID [facility] Last Admin: 11/03/18 09:42 Dose: 500 mg Methylprednisolone (Solu-Medrol) 20 mg IVP Q12 [facility] Last Admin: 11/03/18 09:42 Dose: 20 mg Ondansetron HCl (Zofran Inj) 4 mg IVP Q6H PRN PRN Reason: Nausea/Vomiting Pantoprazole Sodium (Protonix Ec Tab) 40 mg PO 0600 [facility] Last Admin: 11/03/18 06:53 Dose: 40 mg Tramadol HCl (Ultram) 50 mg PO Q8H PRN PRN Reason: Pain, moderate (4-7) - Constitutional Appears: No Acute Distress, Chronically Ill - Head Exam Head Exam: NORMAL INSPECTION - Respiratory Exam Respiratory Exam: Decreased Breath Sounds - Cardiovascular Exam Cardiovascular Exam: +S1, +S2 - GI/Abdominal Exam GI & Abdominal Exam: Soft. absent: Tenderness Assessment and Plan - Assessment and Plan (Free Text) Plan: Assessment right sided HCAP, slowly improving history of severe sepsis secondary to healthcare-associated pneumonia with possible gram positive cocci and/or gram negative bacilli S/P systemic viral illness with Influenza with no evidence of pneumonia, on top of acute bronchitis history of hospital-acquired pneumonia HTN lung cancer history of arthritis history of cataracts coronary artery disease Plan continue Zosyn and Zithromax day 7 of 7 - will d/c after today overall prognosis is poor will continue to monitor clinically
--- NOTE | 2018-11-04 15:01 | PN ---
DATE: 11/04/2018 SUBJECTIVE: The patient is 72-year-old, seen and examined, doing well. Participating in therapy. Blood sugar is running high because of the Solu-Medrol we will taper it down, otherwise he is doing well. PHYSICAL EXAMINATION: VITAL SIGNS: He is afebrile. Pulse 83, respiration 18 and blood pressure 124/64. LUNGS: Bilateral fair airflow. No rhonchi or crackle. HEART: S1 and S2, audible. ABDOMEN: Soft and nontender. No rebound. No guarding. NEUROLOGICAL: The patient is awake, alert, oriented and communicative. LABORATORY DATA: Blood sugar , 6:00 was 410. ASSESSMENT: 1. Cancer of the lung. 2. Chronic obstructive pulmonary disease exacerbation. 3. Right upper lung mass. 4. Pneumonia. 5. Hypertension. 6. Non-insulin dependant diabetes. PLAN: I will discontinue Solu-Medrol, start him on p.o. prednisone and I will increase his Levemir and continue nebulizer treatment. Continue Zosyn and Zithromax. We will reevaluate the patient in a.m. Jose Angel Hull MD
--- NOTE | 2018-11-04 21:07 | CON ---
DATE: 11/04/2018 REQUESTING PHYSICIAN: Jose Angel Hull MD REASON FOR CONSULTATION: Lung cancer and pneumonia. HISTORY OF PRESENT ILLNESS: Mr. Amaro is a 72-year-old male, diagnosed with lung cancer a few years ago. He has been getting single agent chemotherapy status post radiation to the lung. He visited [place] for almost a month. There, he felt sick. He checked himself out in the hospital. Got IV fluids. Treated with IV antibiotics. He checked himself out one day from a hospital in [place]. He presented with increased shortness of breath, not eating, losing weight, cough with greenish expectoration. Currently being treated with IV antibiotic for right upper lobe pneumonia. PAST MEDICAL HISTORY: COPD, lung cancer, diabetes mellitus type 2, hypertension, and hyperlipidemia. PAST SURGICAL HISTORY: Left humerus fracture, port placement. ALLERGIES: NO KNOWN DRUG ALLERGIES. HOME MEDICATIONS: Tramadol, metformin, Januvia, Xalatan eyedrops, atorvastatin and nebulizer treatment. SOCIAL HISTORY: Heavy smoker, continues to smoke. REVIEW OF SYSTEMS: As per HPI. Rest of 12-point review of systems reviewed negative. PHYSICAL EXAMINATION: GENERAL: Comfortable in bed, in no acute distress. VITAL SIGNS: Temperature 98.7, heart rate 80 per minute, respiratory rate 18 per minute, and blood pressure 120/70. LUNG: Good airflow bilaterally. No rhonchi. No crepitation. CARDIOVASCULAR: S1 and S2 normal. No murmur. No gallop. ABDOMEN: Soft and nontender. No hepatosplenomegaly. NEUROLOGIC: Awake, alert and oriented x3. No focal, sensory or motor deficit. LABORATORY DATA: Blood sugar last was 331. ASSESSMENT: 1. Lung cancer, stage 4. 2. Chronic obstructive pulmonary disease. 3. Wae-fzfiieh-ohjzdtzls diabetes mellitus. 4. Hypertension. 5. Hyperlipidemia. 6. Right upper lobe pneumonia. PLAN: He is being currently treated with bronchodilator, IV antibiotics. Dr. Driscoll is following. Currently on Zithromax and Zosyn. Also on prednisone 10 mg daily. Sugars uncontrolled. Management as per Dr. Hull. Currently, on bronchodilators. Daughter at the bedside, Ms. Trivedi. Discussed with her at length. He will be in Transitional Care Unit getting physical therapy for deconditioning. We will resume chemo in 1 to 2 weeks upon discharge from the hospital. His appetite has improved since admission to the hospital. He is currently participating in physical therapy. Thank you, Dr. Hull for allowing us to participate in Mr. Amaro' care. Estrella Lucio MD
[2018-11-04] MEDS: Latanoprost 2.5 ml Opht Soln OU SCH (21:18)
[2018-11-05] MEDS: Albuterol-Ipratrop 3 mg / 0.5 (3 ml) UD IH SCH ×4 (01:24→20:35)
[2018-11-05] MEDS: Piperacillin/Tazobact 3.375 gm 100 ML IVPB SCH ×2 (05:22→12:10)
[2018-11-05] MEDS: Pantoprazole 40 mg EC Tab PO SCH (05:22)
[2018-11-05] MEDS: Insulin Reg-HIGH-Coverage SC SCH ×4 (07:43→21:16)
--- NOTE | 2018-11-05 09:55 | PN ---
DATE: 11/05/2018 SUBJECTIVE: He is comfortable in bed, in no acute distress. Breathing has improved. Appetite has improved, he is eating. Participating in physical therapy. REVIEW OF SYSTEMS: As per HPI. Rest of 12-point review of systems reviewed and negative. PHYSICAL EXAMINATION GENERAL: Comfortable in bed, in no acute distress. VITAL SIGNS: Temperature 97.8, heart rate 80 per minute, respiratory rate 15 per minute, and blood pressure 130/80. HEENT: Pallor positive. NECK: No lymphadenopathy. CHEST: Air entry present equal bilaterally. No added sound. No rhonchi. No crepitations. ABDOMEN: Soft and nontender. No hepatosplenomegaly. EXTREMITIES: No edema. LABORATORY DATA: Reviewed. MEDICATIONS: Reviewed. ASSESSMENT AND PLAN: Stage IV lung cancer, chronic obstructive pulmonary disease, yyf-iebuhfj-xjktubhor diabetes mellitus, hypertension, hyperlipidemia, bilateral pneumonia. Currently on antibiotics on Zithromax and Zosyn. Infectious Diseases following. Currently on bronchodilators, participating in physical therapy. We will resume treatment upon discharge from the hospital. Discussed with the patient's daughter, Ms. Barrow. Thank you Dr. Hull for allowing us to participate in Mr. Prem godfrey. Estrella Lucio MD
--- NOTE | 2018-11-05 15:10 | PN ---
DATE: 11/05/2018 SUBJECTIVE: The patient is 72-year-old, seen and examined, lying in bed, seems to be comfortable, his scanty cough wheezing. No nausea or vomiting. No diarrhea. Eating and tolerating. PHYSICAL EXAMINATION: VITAL SIGNS: The patient is afebrile, pulse 99, respirations 20, and blood pressure 141/77. LUNGS: Soft crackle on right upper lung region. HEART: S1 and S2 audible. ABDOMEN: Soft and nontender. No rebound. No guarding. NEUROLOGIC: The patient is awake, alert, oriented, and communicative. LABORATORY DATA: His blood sugar was 61 this morning, I will cut down night insulin. ASSESSMENT: 1. Right upper lung mass. 2. Chronic obstructive pulmonary disease. 3. Pneumonia. 4. Hypertension. 5. Anemia. PLAN: We will continue the patient on aspirin, nebulizer treatment. He is on metformin 500 mg twice a day. He is on glipizide. We will cut down his evening Levemir to 15 units. Monitor his blood sugar. Continue physical therapy. Discharge plan by the end of the week. Continue current antibiotics as recommended by ID and that is Zithromax 500 mg daily. We will monitor his blood sugar. We will followup in a.m. Jose Angel Hull MD
--- NOTE | 2018-11-05 16:43 | CP.PCM.PN ---
Subjective - Date & Time of Evaluation Date of Evaluation: 11/05/18 Time of Evaluation: 09:40 - Subjective Subjective: Afebrile, comfortable. Objective - Vital Signs/Intake and Output Vital Signs (last 24 hours): Temp Pulse Resp BP Pulse Ox 97.4 F L 83 18 124/64 97 11/03/18 16:00 11/03/18 16:00 11/03/18 16:00 11/03/18 16:00 11/03/18 16:00 - Medications Medications: Current Medications Acetaminophen (Tylenol 325mg Tab) 650 mg PO Q6H PRN PRN Reason: Headache Albuterol/Ipratropium (Duoneb 3 Mg/0.5 Mg (3 Ml) Ud) 3 ml IH [id number] PRN PRN Reason: Cough Albuterol/Ipratropium (Duoneb 3 Mg/0.5 Mg (3 Ml) Ud) 3 ml IH Q2H PRN PRN Reason: Shortness of Breath Albuterol/Ipratropium (Duoneb 3 Mg/0.5 Mg (3 Ml) Ud) 3 ml IH [id number] [facility] Last Admin: 11/04/18 13:14 Dose: 3 ml Aspirin (Aspirin Chewable) 81 mg PO 0800 [facility] Last Admin: 11/04/18 08:14 Dose: 81 mg Atorvastatin Calcium (Lipitor) 10 mg PO DIN [facility] Last Admin: 11/03/18 17:25 Dose: 10 mg Azithromycin (Zithromax) 500 mg PO DAILY [facility]; Protocol Last Admin: 11/04/18 10:11 Dose: 500 mg Glipizide (Glucotrol) 10 mg PO 0730,1430 [facility] Last Admin: 11/04/18 06:44 Dose: 10 mg Piperacillin Sod/Tazobactam Sod (Zosyn 3.375 In Ns 100ml) 100 mls @ 25 mls/hr IVPB Q6 [facility]; Protocol Stop: 11/07/18 00:01 Last Admin: 11/04/18 11:26 Dose: 25 mls/hr Insulin Detemir (Levemir) 25 unit SC HS [facility] Insulin Human Regular (Humulin R High) 0 units SC ACHS [facility]; Protocol Last Admin: 11/04/18 11:26 Dose: Not Given Latanoprost (Xalatan Opht) 0 ml OU HS [facility] Last Admin: 11/03/18 21:26 Dose: 2.5 ml Metformin HCl (Glucophage) 500 mg PO BID [facility] Last Admin: 11/04/18 10:11 Dose: 500 mg Ondansetron HCl (Zofran Inj) 4 mg IVP Q6H PRN PRN Reason: Nausea/Vomiting Pantoprazole Sodium (Protonix Ec Tab) 40 mg PO 0600 [facility] Last Admin: 11/04/18 05:39 Dose: 40 mg Prednisone (Prednisone Tab) 10 mg PO DAILY [facility] Tramadol HCl (Ultram) 50 mg PO Q8H PRN PRN Reason: Pain, moderate (4-7) - Constitutional Appears: Chronically Ill - Head Exam Head Exam: NORMAL INSPECTION - Respiratory Exam Respiratory Exam: Decreased Breath Sounds - Cardiovascular Exam Cardiovascular Exam: +S1, +S2 - GI/Abdominal Exam GI & Abdominal Exam: Soft. absent: Tenderness Assessment and Plan - Assessment and Plan (Free Text) Plan: Assessment right sided HCAP, clinically improved and S/P treatment with antibiotics history of severe sepsis secondary to healthcare-associated pneumonia with possible gram positive cocci and/or gram negative bacilli S/P systemic viral illness with Influenza with no evidence of pneumonia, on top of acute bronchitis history of hospital-acquired pneumonia HTN lung cancer history of arthritis history of cataracts coronary artery disease Plan completed Zosyn and Zithromax 7 day course - will continue to monitor off antibiotics since he is at risk for nosocomial infections overall prognosis is poor
[2018-11-05] MEDS: Insulin Detemir 100 units/ml Vial (Levemir) SC SCH (21:15)
[2018-11-05] MEDS: Latanoprost 2.5 ml Opht Soln OU SCH (21:16)
[2018-11-06] MEDS: Albuterol-Ipratrop 3 mg / 0.5 (3 ml) UD IH SCH ×4 (02:40→20:05)
[2018-11-06] MEDS: Pantoprazole 40 mg EC Tab PO SCH (05:43)
[2018-11-06] MEDS: Insulin Reg-HIGH-Coverage SC SCH ×4 (06:39→22:34)
--- NOTE | 2018-11-06 12:56 | CP.PCM.PN ---
Subjective - Date & Time of Evaluation Date of Evaluation: 11/06/18 Time of Evaluation: 10:20 - Subjective Subjective: Doing physical therapy ok, no fevers, not in distress. Objective - Vital Signs/Intake and Output Vital Signs (last 24 hours): Temp Pulse Resp BP Pulse Ox 97.6 F 99 H 20 141/77 98 11/04/18 16:00 11/04/18 16:00 11/04/18 16:00 11/04/18 16:00 11/04/18 16:00 - Medications Medications: Current Medications Acetaminophen (Tylenol 325mg Tab) 650 mg PO Q6H PRN PRN Reason: Headache Albuterol/Ipratropium (Duoneb 3 Mg/0.5 Mg (3 Ml) Ud) 3 ml IH [id number] PRN PRN Reason: Cough Albuterol/Ipratropium (Duoneb 3 Mg/0.5 Mg (3 Ml) Ud) 3 ml IH Q2H PRN PRN Reason: Shortness of Breath Albuterol/Ipratropium (Duoneb 3 Mg/0.5 Mg (3 Ml) Ud) 3 ml IH [id number] [facility] Last Admin: 11/05/18 13:44 Dose: 3 ml Aspirin (Aspirin Chewable) 81 mg PO 0800 [facility] Last Admin: 11/05/18 07:43 Dose: 81 mg Atorvastatin Calcium (Lipitor) 10 mg PO DIN [facility] Last Admin: 11/04/18 17:31 Dose: 10 mg Azithromycin (Zithromax) 500 mg PO DAILY [facility]; Protocol Last Admin: 11/05/18 10:01 Dose: 500 mg Glipizide (Glucotrol) 10 mg PO 0730,1430 [facility] Last Admin: 11/05/18 13:55 Dose: 10 mg Insulin Detemir (Levemir) 15 unit SC HS [facility] Insulin Human Regular (Humulin R High) 0 units SC [facility]; Protocol Last Admin: 11/05/18 12:28 Dose: 2 u Latanoprost (Xalatan Opht) 0 ml OU HS [facility] Last Admin: 11/04/18 21:18 Dose: 2.5 ml Metformin HCl (Glucophage) 500 mg PO 0800,1800 [facility] Last Admin: 11/05/18 07:43 Dose: 500 mg Ondansetron HCl (Zofran Inj) 4 mg IVP Q6H PRN PRN Reason: Nausea/Vomiting Pantoprazole Sodium (Protonix Ec Tab) 40 mg PO 0600 [facility] Last Admin: 11/05/18 05:22 Dose: 40 mg Prednisone (Prednisone Tab) 10 mg PO DAILY [facility] Last Admin: 11/05/18 10:01 Dose: 10 mg Tramadol HCl (Ultram) 50 mg PO Q8H PRN PRN Reason: Pain, moderate (4-7) - Constitutional Appears: Chronically Ill - Head Exam Head Exam: NORMAL INSPECTION - Respiratory Exam Respiratory Exam: Decreased Breath Sounds - Cardiovascular Exam Cardiovascular Exam: +S1, +S2 - GI/Abdominal Exam GI & Abdominal Exam: Soft. absent: Tenderness Assessment and Plan - Assessment and Plan (Free Text) Plan: Assessment right sided HCAP, clinically improved and S/P treatment with antibiotics history of severe sepsis secondary to healthcare-associated pneumonia with possible gram positive cocci and/or gram negative bacilli S/P systemic viral illness with Influenza with no evidence of pneumonia, on top of acute bronchitis history of hospital-acquired pneumonia HTN lung cancer history of arthritis history of cataracts coronary artery disease Plan completed Zosyn and Zithromax 7 day course - will continue to monitor off antibiotics since he is at risk for hospital-acquired infections overall prognosis is poor
--- NOTE | 2018-11-06 17:23 | PN ---
DATE: 11/06/2018 SUBJECTIVE: The patient is a 72-year-old, seen and examined, doing well. Eating and tolerating. Still has cough and congestion. PHYSICAL EXAMINATION: VITAL SIGNS: He is afebrile, pulse 96, respirations 18, and blood pressure 130/78. LUNGS: Bilateral fair airflow. No rhonchi or crackle. HEART: S1 and S2 audible. ABDOMEN: Soft and nontender. No rebound. No guarding. NEUROLOGIC: The patient is awake, alert, oriented, and able to communicate. LABORATORY DATA: Blood sugar was 108 this morning and this afternoon is 157. ASSESSMENT: 1. Right upper lung mass. 2. Chronic obstructive pulmonary disease. 3. Right upper lobe pneumonia. 4. Hypertension. 5. Hyperlipidemia. 6. Active smoker. 7. Cancer of lungs. PLAN: So plan is, the patient is currently on aspirin, nebulizer treatment. He is on metformin. He is on glipizide. Blood sugar is being monitored. We will continue him on statin. He is on small dose of steroids. Encourage ambulation. We will followup in a.m. Jose Angel Hull MD
[2018-11-06] MEDS: Latanoprost 2.5 ml Opht Soln OU SCH (21:08)
[2018-11-06] MEDS: Insulin Detemir 100 units/ml Vial (Levemir) SC SCH (22:34)
[2018-11-07] MEDS: Albuterol-Ipratrop 3 mg / 0.5 (3 ml) UD IH SCH ×4 (01:19→20:42)
[2018-11-07] MEDS: Pantoprazole 40 mg EC Tab PO SCH (05:14)
[2018-11-07] MEDS: Insulin Reg-HIGH-Coverage SC SCH ×4 (06:53→21:24)
--- NOTE | 2018-11-07 14:28 | CP.PCM.PN ---
Subjective - Date & Time of Evaluation Date of Evaluation: 11/07/18 Time of Evaluation: 11:00 - Subjective Subjective: No fevers, not in distress. Objective - Vital Signs/Intake and Output Vital Signs (last 24 hours): Temp Pulse Resp BP Pulse Ox 97.6 F 96 H 20 141/77 97 11/04/18 16:00 11/05/18 16:32 11/04/18 16:00 11/04/18 16:00 11/05/18 16:32 Intake and Output: 11/06/18 11/06/18 06:59 18:59 Intake Total 520 Balance 520 - Medications Medications: Current Medications Acetaminophen (Tylenol 325mg Tab) 650 mg PO Q6H PRN PRN Reason: Headache Albuterol/Ipratropium (Duoneb 3 Mg/0.5 Mg (3 Ml) Ud) 3 ml IH [id number] PRN PRN Reason: Cough Albuterol/Ipratropium (Duoneb 3 Mg/0.5 Mg (3 Ml) Ud) 3 ml IH Q2H PRN PRN Reason: Shortness of Breath Albuterol/Ipratropium (Duoneb 3 Mg/0.5 Mg (3 Ml) Ud) 3 ml IH [id number] [facility] Last Admin: 11/06/18 07:13 Dose: 3 ml Aspirin (Aspirin Chewable) 81 mg PO 0800 [facility] Last Admin: 11/06/18 08:09 Dose: 81 mg Atorvastatin Calcium (Lipitor) 10 mg PO DIN [facility] Last Admin: 11/05/18 17:07 Dose: 10 mg Glipizide (Glucotrol) 10 mg PO 0730,1430 [facility] Last Admin: 11/06/18 08:09 Dose: 10 mg Insulin Detemir (Levemir) 15 unit SC HS [facility] Last Admin: 11/05/18 21:15 Dose: 15 units Insulin Human Regular (Humulin R High) [address] [facility]; Protocol Last Admin: 11/06/18 06:39 Dose: Not Given Latanoprost (Xalatan Opht) 0 ml OU HS [facility] Last Admin: 11/05/18 21:16 Dose: 2.5 ml Metformin HCl (Glucophage) 500 mg PO 0800,1800 [facility] Last Admin: 11/06/18 08:09 Dose: 500 mg Ondansetron HCl (Zofran Inj) 4 mg IVP Q6H PRN PRN Reason: Nausea/Vomiting Pantoprazole Sodium (Protonix Ec Tab) 40 mg PO 0600 [facility] Last Admin: 11/06/18 05:43 Dose: 40 mg Prednisone (Prednisone Tab) 10 mg PO DAILY [facility] Last Admin: 11/06/18 10:42 Dose: 10 mg Tramadol HCl (Ultram) 50 mg PO Q8H PRN PRN Reason: Pain, moderate (4-7) - Constitutional Appears: Chronically Ill - Head Exam Head Exam: NORMAL INSPECTION - Respiratory Exam Respiratory Exam: Decreased Breath Sounds - Cardiovascular Exam Cardiovascular Exam: +S1, +S2 - GI/Abdominal Exam GI & Abdominal Exam: Soft. absent: Tenderness Assessment and Plan - Assessment and Plan (Free Text) Plan: Assessment right sided HCAP, clinically improved and S/P treatment with antibiotics history of severe sepsis secondary to healthcare-associated pneumonia with possible gram positive cocci and/or gram negative bacilli S/P systemic viral illness with Influenza with no evidence of pneumonia, on top of acute bronchitis history of hospital-acquired pneumonia HTN lung cancer history of arthritis history of cataracts coronary artery disease Plan completed Zosyn and Zithromax 7 day course - will continue to monitor off antibiotics since he is at risk for healthcare-associated infections overall prognosis is poor
[2018-11-07 16:45] VITALS: RESP 18; TEMP 98; O2SAT 96
--- NOTE | 2018-11-07 19:17 | PN ---
DATE: 11/07/2018 SUBJECTIVE: The patient is 72-year-old, seen and examined, doing well, still has cough and congestion, better than before, has bilateral wheezing, right more than the left. PHYSICAL EXAMINATION: VITAL SIGNS: The patient is afebrile. Pulse is 96, respirations 20, and blood pressure 120/71. LUNGS: Bilateral soft crackles in the upper lung region, occasional expiratory rhonchi. HEART: S1 and S2 audible. ABDOMEN: Soft and nontender, no rebound and no guarding. NEUROLOGIC: The patient is awake, alert, and oriented, communicative. LABORATORY DATA: Blood sugar is 176. ASSESSMENT: 1. Right lung mass. 2. History of chronic obstructive pulmonary disease. 3. Right upper lung pneumonia, improving. 4. Non-insulin dependent diabetes. PLAN: So, plan is, I will continue current medication. I will increase his steroid from 10 mg to 20 mg twice a day because today, he has wheezing bilaterally. Continue nebulizer treatment. We will reevaluate in the a.m. Possible discharge on Sunday. Jose Angel Hull MD
[2018-11-07] MEDS: Insulin Detemir 100 units/ml Vial (Levemir) SC SCH (21:27)
[2018-11-07] MEDS: Latanoprost 2.5 ml Opht Soln OU SCH (21:28)
[2018-11-08] MEDS: Albuterol-Ipratrop 3 mg / 0.5 (3 ml) UD IH SCH ×4 (02:25→20:20)
[2018-11-08] MEDS: Pantoprazole 40 mg EC Tab PO SCH (05:23)
[2018-11-08] MEDS: Insulin Reg-HIGH-Coverage SC SCH ×4 (06:56→21:47)
--- NOTE | 2018-11-08 12:29 | CP.PCM.PN ---
Subjective - Date & Time of Evaluation Date of Evaluation: 11/08/18 Time of Evaluation: 09:45 - Subjective Subjective: Comfortable in bed, no fevers, not in distress, no nausea, no diarrhea. Objective - Vital Signs/Intake and Output Vital Signs (last 24 hours): Temp Pulse Resp BP Pulse Ox 97.6 F 96 H 20 141/77 95 11/04/18 16:00 11/06/18 16:35 11/04/18 16:00 11/04/18 16:00 11/06/18 16:35 Intake and Output: 11/07/18 11/07/18 06:59 18:59 Intake Total 430 Balance 430 - Medications Medications: Current Medications Acetaminophen (Tylenol 325mg Tab) 650 mg PO Q6H PRN PRN Reason: Headache Last Admin: 11/07/18 08:27 Dose: 650 mg Albuterol/Ipratropium (Duoneb 3 Mg/0.5 Mg (3 Ml) Ud) 3 ml IH [id number] PRN PRN Reason: Cough Albuterol/Ipratropium (Duoneb 3 Mg/0.5 Mg (3 Ml) Ud) 3 ml IH Q2H PRN PRN Reason: Shortness of Breath Albuterol/Ipratropium (Duoneb 3 Mg/0.5 Mg (3 Ml) Ud) 3 ml IH [id number] [facility] Last Admin: 11/07/18 13:16 Dose: 3 ml Aspirin (Aspirin Chewable) 81 mg PO 0800 [facility] Last Admin: 11/07/18 08:19 Dose: 81 mg Atorvastatin Calcium (Lipitor) 10 mg PO DIN [facility] Last Admin: 11/06/18 17:24 Dose: 10 mg Glipizide (Glucotrol) 10 mg PO 0730,1430 [facility] Last Admin: 11/07/18 13:30 Dose: 10 mg Insulin Detemir (Levemir) 15 unit SC [facility] Last Admin: 11/06/18 22:34 Dose: Not Given Insulin Human Regular (Humulin R High) 0 units SC [facility]; Protocol Last Admin: 11/07/18 12:16 Dose: Not Given Latanoprost (Xalatan Opht) 0 ml OU HS [facility] Last Admin: 11/06/18 21:08 Dose: 2.5 ml Metformin HCl (Glucophage) 500 mg PO 0800,1800 [facility] Last Admin: 11/07/18 08:20 Dose: 500 mg Ondansetron HCl (Zofran Inj) 4 mg IVP Q6H PRN PRN Reason: Nausea/Vomiting Pantoprazole Sodium (Protonix Ec Tab) 40 mg PO 0600 [facility] Last Admin: 11/07/18 05:14 Dose: 40 mg Prednisone (Prednisone Tab) 20 mg PO BID [facility] Tramadol HCl (Ultram) 50 mg PO Q8H PRN PRN Reason: Pain, moderate (4-7) - Constitutional Appears: Chronically Ill - Head Exam Head Exam: NORMAL INSPECTION - Respiratory Exam Respiratory Exam: Decreased Breath Sounds - Cardiovascular Exam Cardiovascular Exam: +S1, +S2 - GI/Abdominal Exam GI & Abdominal Exam: Soft. absent: Tenderness Assessment and Plan - Assessment and Plan (Free Text) Plan: Assessment right sided HCAP, clinically improved and S/P treatment with antibiotics history of severe sepsis secondary to healthcare-associated pneumonia with possible gram positive cocci and/or gram negative bacilli S/P systemic viral illness with Influenza with no evidence of pneumonia, on top of acute bronchitis history of hospital-acquired pneumonia HTN lung cancer history of arthritis history of cataracts coronary artery disease Plan completed Zosyn and Zithromax 7 day course - will continue to monitor off antibiotics since he is at risk for nosocomial infections overall prognosis is poor
[2018-11-08] MEDS: Insulin Detemir 100 units/ml Vial (Levemir) SC SCH (21:47)
[2018-11-08] MEDS: Latanoprost 2.5 ml Opht Soln OU SCH (22:06)
--- NOTE | 2018-11-09 01:07 | PN ---
DATE: 11/08/2018 SUBJECTIVE: The patient is a 72-year-old, seen and examined, still has cough and congestion. PHYSICAL EXAMINATION: VITAL SIGNS: He is afebrile. Pulse 92, respirations 18, blood pressure 120/66. LUNGS: Bilateral equal air entry. No rhonchi or crackle. HEART: S1 and S2 audible. ABDOMEN: Soft, nontender. No rebound, no guarding. NEUROLOGIC: The patient is awake and alert, able to communicate, ambulatory, participating in therapy. ASSESSMENT: 1. Right upper lung mass. 2. Postobstructive pneumonia. 3. Uncontrolled diabetes. 4. Hypertension. 5. Chronic obstructive pulmonary disease. PLAN: Taper down steroid. Continue nebulizer treatment. Discharge plan for a.m. Jose Angel Hull MD
[2018-11-09] MEDS: Albuterol-Ipratrop 3 mg / 0.5 (3 ml) UD IH SCH ×3 (01:54→14:16)
[2018-11-09] MEDS: Pantoprazole 40 mg EC Tab PO SCH (05:31)
[2018-11-09] MEDS: Insulin Reg-HIGH-Coverage SC SCH ×3 (07:14→17:13)
--- NOTE | 2018-11-09 13:14 | PN ---
DATE: 11/09/2018 SUBJECTIVE: The patient is 72 years old, seen and examined, still has cough and congestion, better than before. Gets short of breath on walking, was admitted because of pneumonia and increasing shortness of breath. Given IV antibiotics, seemed to be doing little better. PHYSICAL EXAMINATION VITAL SIGNS: He is afebrile, pulse 92, respirations 18, blood pressure 120/66. LUNGS: Bilateral fair airflow. Has soft crackles in upper lung region. Occasional expiratory rhonchi. HEART: S1 and S2, audible. ABDOMEN: Soft and nontender. No rebound. No guarding. NEUROLOGIC: The patient is awake, alert, oriented, and communicative. LABORATORY DATA: Blood sugar is 149. ASSESSMENT 1. Carcinoma of the lung. 2. Right upper lung mass. 3. Pneumonia, seemed to be resolving. 4. Chronic obstructive pulmonary disease. 5. Hypertension. 6. Hyperlipidemia. PLAN: The patient is being discharged. He is given prescription of doxycycline 100 mg twice a day and prednisone 10 mg daily if he has nebulizer machine at home. He is advised to take his nebulizer regularly. We will follow up the patient in a.m. Jose Angel Hull MD
--- NOTE | 2018-11-09 13:15 | CP.PCM.PN ---
Subjective - Date & Time of Evaluation Date of Evaluation: 11/09/18 Time of Evaluation: 10:15 - Subjective Subjective: Not in distress, afebrile. Objective - Vital Signs/Intake and Output Vital Signs (last 24 hours): Temp Pulse Resp BP Pulse Ox 98 F 92 H 18 119/65 96 11/07/18 16:00 11/08/18 12:08 11/07/18 16:00 11/07/18 16:00 11/08/18 12:08 Intake and Output: 11/08/18 11/08/18 06:59 18:59 Intake Total 520 Balance 520 - Medications Medications: Current Medications Acetaminophen (Tylenol 325mg Tab) 650 mg PO Q6H PRN PRN Reason: Headache Last Admin: 11/07/18 08:27 Dose: 650 mg Albuterol/Ipratropium (Duoneb 3 Mg/0.5 Mg (3 Ml) Ud) 3 ml IH [id number] PRN PRN Reason: Cough Albuterol/Ipratropium (Duoneb 3 Mg/0.5 Mg (3 Ml) Ud) 3 ml IH Q2H PRN PRN Reason: Shortness of Breath Albuterol/Ipratropium (Duoneb 3 Mg/0.5 Mg (3 Ml) Ud) 3 ml IH [id number] [facility] Last Admin: 11/08/18 07:18 Dose: 3 ml Aspirin (Aspirin Chewable) 81 mg PO 0800 [facility] Last Admin: 11/08/18 07:43 Dose: 81 mg Atorvastatin Calcium (Lipitor) 10 mg PO DIN [facility] Last Admin: 11/07/18 17:22 Dose: 10 mg Glipizide (Glucotrol) 10 mg PO 0730,1430 [facility] Last Admin: 11/08/18 06:55 Dose: 10 mg Insulin Detemir (Levemir) 15 unit SC [facility] Last Admin: 11/07/18 21:27 Dose: Not Given Insulin Human Regular (Humulin R High) 0 units SC [facility]; Protocol Last Admin: 11/08/18 11:57 Dose: 2 u Latanoprost (Xalatan Opht) 0 ml OU HS [facility] Last Admin: 11/07/18 21:28 Dose: 2.5 ml Metformin HCl (Glucophage) 500 mg PO 0800,1800 [facility] Last Admin: 11/08/18 07:43 Dose: 500 mg Ondansetron HCl (Zofran Inj) 4 mg IVP Q6H PRN PRN Reason: Nausea/Vomiting Pantoprazole Sodium (Protonix Ec Tab) 40 mg PO 0600 [facility] Last Admin: 11/08/18 05:23 Dose: 40 mg Prednisone (Prednisone Tab) 20 mg PO BID [facility] Last Admin: 11/08/18 09:38 Dose: Not Given Tramadol HCl (Ultram) 50 mg PO Q8H PRN PRN Reason: Pain, moderate (4-7) - Constitutional Appears: No Acute Distress, Chronically Ill - Head Exam Head Exam: NORMAL INSPECTION - Respiratory Exam Respiratory Exam: Decreased Breath Sounds - Cardiovascular Exam Cardiovascular Exam: +S1, +S2 - GI/Abdominal Exam GI & Abdominal Exam: Soft. absent: Tenderness Assessment and Plan - Assessment and Plan (Free Text) Plan: Assessment right sided HCAP, clinically improved and S/P treatment with antibiotics history of severe sepsis secondary to healthcare-associated pneumonia with possible gram positive cocci and/or gram negative bacilli S/P systemic viral illness with Influenza with no evidence of pneumonia, on top of acute bronchitis history of hospital-acquired pneumonia HTN lung cancer history of arthritis history of cataracts coronary artery disease Plan completed Zosyn and Zithromax 7 day course - will continue to monitor off antibiotics since he is at risk for hospital-acquired infections overall prognosis is poor
[2018-11-09 16:35] VITALS: BP 137/81; PULSE 98
== END 2018-11-09 18:31 | disposition home or self-care (01) | DRG 194 ==
LOC: TRCU 18:11
PROVIDERS: ADMIT Internal Medicine; ATTEND Internal Medicine
PROC: F07Z9FZ Gait Training/Functional Ambulation Treatment using Assistive, Adaptive, Supportive or Protective Equipment (ICD-10-PCS; principal; 2018-11-02)
PROC: F07M6ZZ Therapeutic Exercise Treatment of Musculoskeletal System - Whole Body (ICD-10-PCS; 2018-11-02)
PROC: F08Z2ZZ Grooming/Personal Hygiene Treatment (ICD-10-PCS; 2018-11-02)
PROC: F08Z1ZZ Dressing Techniques Treatment (ICD-10-PCS; 2018-11-02)
DX: J18.1 Lobar pneumonia, unspecified organism (principal); J44.1 Chronic obstructive pulmonary disease with (acute) exacerbation; C34.90 Malignant neoplasm of unspecified part of unspecified bronchus or lung; J44.0 Chronic obstructive pulmonary disease with (acute) lower respiratory infection; E11.65 Type 2 diabetes mellitus with hyperglycemia; E78.5 Hyperlipidemia, unspecified; D64.9 Anemia, unspecified; F17.200 Nicotine dependence, unspecified, uncomplicated; I10 Essential (primary) hypertension; I25.10 Atherosclerotic heart disease of native coronary artery without angina pectoris; Y95 Nosocomial condition; Z79.84 Long term (current) use of oral hypoglycemic drugs; Z79.899 Other long term (current) drug therapy; Z92.21 Personal history of antineoplastic chemotherapy; Z92.3 Personal history of irradiation; Z87.81 Personal history of (healed) traumatic fracture; Z90.49 Acquired absence of other specified parts of digestive tract; M19.90 Unspecified osteoarthritis, unspecified site

== ENCOUNTER 2019-01-09 06:02 | Day surgery (SDC) | payer MEDICARE, BC ==
[2019-01-06 14:29] VITALS: BMI 19.3
[2019-01-09 07:14] LABS: BASO # 0.03 K/mm3 (0.0-2.0); BASO % 0.3 % (0.0-3.0); EOS % 0.5 % (1.5-5.0); HEMOGLOBIN 9.5 g/dL (14.0-18.0); MEAN CELL VOLUME 85.1 fl (80.0-105.0); MEAN CORPUSCULAR HEMOGLOBIN 28.4 pg (25.0-35.0); MEAN CORPUSCULAR HGB CONC 33.3 g/dl (31.0-37.0); MEAN PLATELET VOLUME 10.7 fl (7.0-11.0); MONO # 0.2 (0.1-0.6); MONO % 1.7 % (1.0-6.0); RBC 3.35 10^6/uL (3.5-6.1); RED CELL DISTRIBUTION WIDTH 14.7 % (11.5-14.5); WHITE BLOOD COUNT 8.8 10^3/uL (4.5-11.0)
[2019-01-09 07:24] LABS: INR 1.22; PARTIAL THROMBOPLASTIN TIME 29.8 Seconds (26.9-38.3); PROTHROMBIN TIME 13.8 SECONDS (9.4-12.5)
[2019-01-09 07:26] LABS: BLOOD UREA NITROGEN 15 mg/dL (7-21); CALCIUM 8.1 mg/dL (8.4-10.5); GFR NON-AFRICAN AMERICAN > 60
[2019-01-09] MEDS ORDERED: Lidocaine PF 2% (5 ml) Inj (For Cardiac Arrhy) ONE (10:40)
[2019-01-09] MEDS ORDERED: Iodixanol 320 MG/ML 200 ML BOTTLE IV ONE (10:41)
[2019-01-09] MEDS ORDERED: Iodixanol 320 MG/ML 100 ML BOTTLE IV ONE ×2 (10:41→12:08)
[2019-01-09] MEDS: Midazolam 2 MG/2 ML VIAL ONE ×2 (11:24→16:58)
[2019-01-09] MEDS: Nitroglycerin 50mg in D5W 50 MG/250 ML BOTTLE IV ONE (11:54)
[2019-01-09 13:19] VITALS: TEMP 98.1
[2019-01-09] MEDS ORDERED: Oxycodone/Acetaminophen 5/325 mg Tab PO PRN (13:27)
[2019-01-09] MEDS ORDERED: Sodium Chloride 0.45% 1,000 ML IV SCH (13:30)
[2019-01-09 14:23] VITALS: O2SAT 93
[2019-01-09 15:28] VITALS: RESP 20
[2019-01-09 15:30] VITALS: BP 125/79; PULSE 108
--- NOTE | 2019-01-09 18:51 | VASCULAR ---
Date of service: 01/09/2019 PROCEDURE: 1. Abdominal aortogram and bilateral lower extremity runoff with right selective views. 2. Right popliteal artery stent silver Hawk atherectomy and drug-eluting balloon angioplasty. 3. Right tibioperoneal trunk and proximal right peroneal artery atherectomy, angioplasty, and drug-eluting stent placement HISTORY: Severe peripheral vascular disease. Lung carcinoma. Ischemic ulceration right 2nd toe with significant pain. Occluded right popliteal artery stent PHYSICIAN(S): Jose Piper M.D. TECHNIQUE: The relative risks and indications of the procedure were explained to the patient and his daughter and consent obtained. The patient was hydrated prior to the procedure and the appropriate labs drawn. The patient was placed supine on the arteriogram table and the left groin prepped and draped in the usual sterile fashion. Conscious sedation and monitoring were provided throughout the procedure by a nurse. Under ultrasound guidance, the left common femoral artery is puncture gaby puncture set. A 5 Guamanian sheath was placed. Through the sheath number guidewire a 5 Guamanian flush catheter was placed the abdominal aorta at the level renal arteries and a PA DSA abdominal and pelvic arteriogram performed. The catheter was pulled down to the bifurcation and bilateral oblique DSA pelvic arteriograms performed. Overlapping bilateral lower extremity DSA arteriograms were obtained from the inguinal ligaments to the trifurcation. A 0.035 angled Glidewire was advanced over the bifurcation and placed in the mid right SFA. A 7 Guamanian 65 cm destination sheath was placed in the mid right SFA. Heparin 5000 units IV and nitroglycerin in 250 mcg aliquots were given. The occluded right popliteal artery stent was crossed rather easily. It was difficult to cross the occlusion of the right tibioperoneal trunk and proximal right peroneal artery. Eventually this was accomplished. Exchange is made for a 0.014 support wire. Silver Hawk atherectomy of the occluded right popliteal artery stent was performed. And LS catheter was utilized. Five passes were performed. Silver Hawk atherectomy was also performed in limited fashion of the right tibioperoneal trunk and proximal right peroneal artery. Only 2 passes were performed. The right peroneal artery and right tibioperoneal trunk were dilated with 3.5 and 4 mm balloons. The right popliteal artery stent was dilated with a 5 mm drug-eluting balloon. Overlapping 3.5 x 38 and 3.0 x 38 drug-eluting stents were placed in the right tibioperoneal trunk and proximal right posterior tibial artery. Completion angiograms were obtained. The sheath was removed hemostasis obtained with a Perclose device. The patient tolerated the procedure well P FINDINGS: Low calorie act output is noted. Extensive vascular calcification is seen. There are single renal arteries bilaterally. 50 percent stenosis of the proximal right renal artery is present. The infrarenal abdominal aorta is patent. The aortic bifurcation is patent. The common and external iliac arteries are mildly tortuous. The internal iliac arteries are patent bilaterally. The external iliac arteries are patent. Right lower extremity: The right common femoral artery is patent. The right profunda femoral artery is patent. The right superficial femoral artery is patent with mild smooth disease and a patent Nitinol stent in the distal right SFA.. The Supera stent in the right popliteal artery is occluded. The right trifurcation and right tibioperoneal trunk are occluded. There is reconstitution of the proximal right peroneal artery. There are stenoses in the mid right peroneal artery. The right posterior tibial and anterior tibial arteries are occluded. There is significant right pedal occlusive disease. Left lower extremity: Left common femoral artery is patent. The left profunda femoral artery is patent. The left superficial femoral artery is smoothly diseased with multiple mild stenoses.. The left popliteal artery smoothly disease. The left tibial arteries are not adequately seen IMPRESSION: 1.Successful right popliteal artery stent silver Hawk atherectomy and drug-eluting balloon angioplasty 2. Right tibioperoneal trunk and proximal right peroneal artery silver Hawk atherectomy, angioplasty, and drug-eluting stent placement 3. Severe right tibial and pedal occlusive disease. 4. Given the patient's advanced PVD and one-vessel runoff, he will be started on Xarelto 2.5 mg b.i.d. and aspirin 81 mg. long-term patency is suspect.
== END 2019-01-09 17:30 | disposition home or self-care (01) ==
LOC: SDSVAS 06:02
PROVIDERS: ATTEND Radiology Vascular & Interventional Radiology
DX: I70.235 Atherosclerosis of native arteries of right leg with ulceration of other part of foot (principal); L97.519 Non-pressure chronic ulcer of other part of right foot with unspecified severity; Y83.1 Surgical operation with implant of artificial internal device as the cause of abnormal reaction of the patient, or of later complication, without mention of misadventure at the time of the procedure; C34.90 Malignant neoplasm of unspecified part of unspecified bronchus or lung

== ENCOUNTER 2019-01-29 16:09 | Outpatient (CLI) | payer MEDICARE, BC | END 2019-01-29 16:10 | disposition home or self-care (01) | LOC: RAD 16:09 ==

== ENCOUNTER 2019-01-29 17:43 | Observation (INO) | payer MEDICARE, BC ==
[2019-01-29 19:03] VITALS: BMI 16.4
[2019-01-29] MEDS ORDERED: Heparin25000 units/250ml 1/2NS 25,000 UNITS/250 ML BAG IV PRN (19:37)
[2019-01-29 20:55] LABS: BASO # 0.04 K/mm3 (0.0-2.0); BASO % 0.5 % (0.0-3.0); EOS % 0.1 % (1.5-5.0); HEMOGLOBIN 7.9 g/dL (14.0-18.0); LYMPH # 1.3 (1.2-3.4); LYMPH % 15.1 % (22.0-35.0); MEAN CELL VOLUME 82.1 fl (80.0-105.0); MEAN CORPUSCULAR HEMOGLOBIN 27.2 pg (25.0-35.0); MEAN CORPUSCULAR HGB CONC 33.2 g/dl (31.0-37.0); MEAN PLATELET VOLUME 9.1 fl (7.0-11.0); MONO # 0.3 (0.1-0.6); MONO % 3.2 % (1.0-6.0); RBC 2.9 10^6/uL (3.5-6.1); RED CELL DISTRIBUTION WIDTH 15.4 % (11.5-14.5); WHITE BLOOD COUNT 8.4 10^3/uL (4.5-11.0)
--- NOTE | 2019-01-29 20:57 | ED PDOC ---
Arrival/HPI - General Chief Complaint: Lower Extremity Problem/Injury Time Seen by Provider: 01/29/19 19:30 Historian: Patient - History of Present Illness Narrative History of Present Illness (Text): 01/29/19 21:00 A 73 year old male, whose past medical history includes peripheral vascular disease, presents to the emergency department complaining of right foot pain, brought in by daughter. Patient reports having sten placed to right femoral to try treating vascular disease, however patient continues to experiencing pain. Patient was sent by transfer physician for vascular consult at outside facility. Patient denies any other complaints at this time. PMD: Dr. Hull Past Medical History - Provider Review Nursing Documentation Reviewed: Yes - Infectious Disease Hx of Infectious Diseases: None - Cardiac Hx Pacemaker: No - Pulmonary Hx Respiratory Disorders: Yes (has home nebulizer machine) Hx Asthma: Yes Hx Bronchitis: Yes Hx Chronic Obstructive Pulmonary Disease (COPD): Yes Hx Emphysema: Yes Hx Pneumonia: Yes Other/Comment: lung ca on chemo - Neurological Hx Paralysis: No - HEENT Hx HEENT Disorder: Yes (eyeglasses) Hx Cataracts: Yes (b/l sx) Hx Glaucoma: Yes - Renal Hx Renal Disorder: No - Endocrine/Metabolic Hx Diabetes Mellitus Type 2: Yes - Hematological/Oncological Hx Blood Transfusions: Yes Hx Blood Transfusion Reaction: No - Integumentary Hx Dermatological Disorder: Yes (chronic venous changes) Other/Comment: dry skin to arms and legs thick toenails, dry heels, multiple skin discolorations both legs hammertoes 2 3 4 left ft - Musculoskeletal/Rheumatological Hx Musculoskeletal Disorders: Yes (LEG PAIN) - Gastrointestinal Hx Gastrointestinal Disorders: Yes - Genitourinary/Gynecological Hx Reproductive Disorders: No - Psychiatric Hx Emotional Abuse: No Hx Physical Abuse: No Hx Substance Use: No - Surgical History Hx Cardiac Catheterization: Yes (04/09/17) Hx Cholecystectomy: Yes Hx Orthopedic Surgery: Yes (orif r humerus) Other/Comment: 11.22.2017 lap sigmoidectomy to removed sigmoid polyp, rcw pac - Anesthesia Hx Anesthesia Reactions: No Hx Malignant Hyperthermia: No - Suicidal Assessment Feels Threatened In Home Enviroment: No Family/Social History - Physician Review Nursing Documentation Reviewed: Yes Family/Social History: No Known Family HX Smoking Status: Former Smoker Hx Alcohol Use: No Hx Substance Use: No Allergies/Home Meds Allergies/Adverse Reactions: Allergies No Known Allergies Allergy (Verified 01/06/19 14:27) Home Medications: Home Meds Medication Instructions Recorded Confirmed Fluorometholone 1 drop BOTHEYES BID 10/29/18 01/29/19 GlipiZIDE [Glucotrol] 10 mg PO PRN PRN 10/29/18 01/29/19 SITagliptin [Januvia] 100 mg PO DAILY PRN 10/29/18 01/29/19 metFORMIN [glucOPHAGE] 500 mg PO BID 10/29/18 01/29/19 Aspirin [Adult Low Dose Aspirin EC] 81 mg PO DAILY 01/09/19 01/29/19 Enalapril Maleate [Vasotec] 20 mg PO DAILY 01/09/19 01/29/19 Rivaroxaban [Xarelto] 2.5 mg PO BID 01/09/19 01/29/19 Review of Systems - Physician Review All systems were reviewed & negative as marked: Yes - Review of Systems Constitutional: absent: Fevers, Night Sweats Respiratory: absent: SOB Cardiovascular: absent: Chest Pain Musculoskeletal: Other (right foot pain) Physical Exam Vital Signs Reviewed: Yes Vital Signs Temp Pulse Resp BP Pulse Ox 01/29/19 19:16 98.4 F 84 18 110/60 98 Temperature: Afebrile Blood Pressure: Normal Pulse: Regular Respiratory Rate: Normal Appearance: Positive for: Cachectic Pain Distress: None Mental Status: Positive for: Alert and Oriented X 3 - Systems Exam Head: Present: Atraumatic, Normocephalic Pupils: Present: PERRL Extroacular Muscles: Present: EOMI Conjunctiva: Present: Normal Mouth: Present: Moist Mucous Membranes Neck: Present: Normal Range of Motion Respiratory/Chest: Present: Clear to Auscultation, Good Air Exchange. No: Respiratory Distress, Accessory Muscle Use Cardiovascular: Present: Regular Rate and Rhythm, Normal S1, S2. No: Murmurs Abdomen: No: Tenderness, Distention, Peritoneal Signs Back: Present: Normal Inspection Upper Extremity: Present: Normal Inspection. No: Cyanosis, Edema Lower Extremity: Present: Tenderness (right foot), Other (some developing necrosis to 2nd digit of right foot.). No: NORMAL PULSES (decreased DP pulse), Swelling, Erythema Neurological: Present: GCS=15, CN II-XII Intact, Speech Normal Skin: Present: Dry, Normal Color, Cold. No: Rashes, Other (no evidence of cellulitis) Psychiatric: Present: Alert, Oriented x 3, Normal Insight, Normal Concentration Medical Decision Making ED Course and Treatment: 01/29/19 21:01 Impression: 73 year old male with right foot pain. Physical exam shows right foot tenderness, no erythema/swelling; right foot is cold to touch, decreased DP pulses, some developing necrosis of 2nd digit right foot, no evidence of cellulitis. Plan: -- Labs -- Heparin -- Reassess and disposition Progress Notes: Case discussed with Dr. Hull and Dr. Lucio, recommend labs, starting heparin, and transfer to [facility] for vascular surgery consult so as to attempt to avoid R foot amputation. They have already spoke to Dr. Giovana Villa at [facility] who is prepared to accept the patient for transfer. Labs ordered. Heparin bolus and GTT ordered. Case discussed with Dr. Villa, she will accept the patient, would like vascular surgery consulted- Dr. Lily Soriano currently information technology technician. Called Dr. Soriano, no answer, left message. Spoke to transfer center at [facility]. Case discussed. They will call back. Spoke again to [facility] transfer center, with Dr. Soriano also on the line. Agrees to consult on patient. Dr. Villa to accept patient. [facility] transfer center later called back, states that their facility is on divert and cannot accept transfer at this time. Spoke to Dr. Hull, she agrees to admit patient to her service for future transfer for evaluation by vascular surgery. - Medication Orders Current Medication Orders: Heparin Sodium/Sodium Chloride (Heparin 51949 Units/250ml 1/2 Normal Saline) 25,000 units in 250 mls @ 8.573 mls/hr IV .Q24H PRN; Protocol PRN Reason: ADJUST RATE PER PROTOCOL Discontinued Medications Heparin Sodium (Porcine) (Heparin) 3,800 units 80 units/kg (3800 units) IV ONCE ONE; Protocol Stop: 01/29/19 19:38 - Scribe Statement The provider has reviewed the documentation as recorded by the Jagdeep Daily Provider Scribe Attestation: All medical record entries made by the Scribe were at my direction and persona lly dictated by me. I have reviewed the chart and agree that the record accurately reflects my personal performance of the history, physical exam, medical decision making, and the department course for this patient. I have also personally directed, reviewed, and agree with the discharge instructions and disposition. Disposition/Present on Arrival - Present on Arrival Any Indicators Present on Arrival: Yes History of DVT/PE: No History of Uncontrolled Diabetes: Yes Urinary Catheter: No History of Decub. Ulcer: Yes (Rt foot second digit.) History Surgical Site Infection Following: None - Disposition Have Diagnosis and Disposition been Completed?: Yes Diagnosis: Peripheral vascular disease Disposition: HOSPITALIZED Disposition Time: 22:57 Condition: STABLE
[2019-01-29 20:59] LABS: INR 1.08; PARTIAL THROMBOPLASTIN TIME 33.7 Seconds (26.9-38.3)
[2019-01-29 21:14] LABS: ALBUMIN 3.6 g/dL (3.0-4.8); ALT/SGPT 14 U/L (7-56); AST/SGOT 40 U/L (17-59); BLOOD UREA NITROGEN 31 mg/dL (7-21); CALCIUM 8.8 mg/dL (8.4-10.5); GFR NON-AFRICAN AMERICAN 59
[2019-01-30] MEDS ORDERED: Sodium Chloride 0.9% 500 ML IV STA (06:52)
--- NOTE | 2019-01-30 11:14 | CP.PCM.PN ---
Subjective - Date & Time of Evaluation Date of Evaluation: 01/30/19 Time of Evaluation: 06:40 - Subjective Subjective: Desiree Villegas, PGY2, House Doc Progress Note: 6:40 AM: Nurse called to inform that patient has BP 74/53 and HR 135 at 6 AM. Patient is asymptomatic, alert, awake oriented x3, conversing. Denies chest pain, dizziness, leg weakness, abdominal pain, urinary symptoms. Patient given 500 cc bolus. Post 100 cc bolus, patient's BP repeated and found to be 116/69 and HR 68. Heparin drip infusing as ordered for PAD. Dr Hull made aware of the episode, agrees with management so far. Nurse informed to monitor BP, HR, any signs of bleeding, AMS, dizziness. Objective - Vital Signs/Intake and Output Vital Signs (last 24 hours): Temp Pulse Resp BP Pulse Ox 98.4 F 150 H 20 74/53 L 99 01/30/19 06:00 01/30/19 06:00 01/30/19 06:00 01/30/19 06:00 01/30/19 06:00 Intake and Output: 01/30/19 01/30/19 06:59 18:59 Intake Total 0 Output Total 200 Balance -200 - Medications Medications: Current Medications Aspirin (Ecotrin) 81 mg PO DAILY BRAYAN Atorvastatin Calcium (Lipitor) 10 mg PO DIN BRAYAN Heparin Sodium/Sodium Chloride (Heparin 50986 Units/250ml 1/2 Normal Saline) 25,000 units in 250 mls @ 8.573 mls/hr IV .Q24H PRN; Protocol PRN Reason: ADJUST RATE PER PROTOCOL Last Admin: 01/29/19 22:35 Dose: 8.573 mls/hr Insulin Human Lispro (Humalog Med) 0 units SC [facility]; Protocol Latanoprost (Xalatan Opht) 0.02 ml OU HS BRAYAN - Labs Labs: 01/29/19 20:44 01/29/19 20:44 PT 12.0 SECONDS (9.4-12.5) 01/29/19 20:44 INR 1.08 01/29/19 20:44 APTT 70.4 Seconds (26.9-38.3) H 01/30/19 04:10
[2019-01-30] MEDS: Insulin Lispro (humaLOG) MEDIUM Coverage SC SCH ×3 (12:00→22:02)
[2019-01-30 12:28] LABS: BASO # 0.03 K/mm3 (0.0-2.0); BASO % 0.4 % (0.0-3.0); HEMOGLOBIN 8.1 g/dL (14.0-18.0); LYMPH # 1.2 (1.2-3.4); LYMPH % 15.3 % (22.0-35.0); MEAN CELL VOLUME 82.5 fl (80.0-105.0); MEAN CORPUSCULAR HEMOGLOBIN 26.8 pg (25.0-35.0); MEAN CORPUSCULAR HGB CONC 32.5 g/dl (31.0-37.0); MEAN PLATELET VOLUME 9.1 fl (7.0-11.0); MONO # 0.3 (0.1-0.6); MONO % 4.2 % (1.0-6.0); RBC 3.02 10^6/uL (3.5-6.1); RED CELL DISTRIBUTION WIDTH 15.4 % (11.5-14.5); WHITE BLOOD COUNT 7.5 10^3/uL (4.5-11.0)
[2019-01-30 13:02] LABS: FREE T4 1.51 ng/dL (0.78-2.19)
[2019-01-30 13:38] LABS: ALB/GLOB RATIO 1.1 (1.1-1.8); ALBUMIN 3.3 g/dL (3.0-4.8); ALT/SGPT 23 U/L (7-56); AST/SGOT 23 U/L (17-59); BLOOD UREA NITROGEN 28 mg/dL (7-21); GFR NON-AFRICAN AMERICAN > 60
[2019-01-30] MEDS ORDERED: Magnesium Sulfate 2 gm/50 ml 2 GM/50 ML BAG IVPB ONE (14:09)
--- NOTE | 2019-01-30 14:42 | CP.PCM.PCO ---
Physician Communication Note - Physician Communication Note Physician Communication Note: awaiting bed at [facility]
[2019-01-30 16:52] VITALS: O2SAT 100
[2019-01-30] MEDS ORDERED: Albuterol-Ipratrop 3 mg / 0.5 (3 ml) UD IH PRN (17:55)
[2019-01-30] MEDS ORDERED: Magnesium Oxide 400 mg Tab UD PO SCH (18:00)
[2019-01-30] MEDS ORDERED: FLUOROMETHOLONE BOTHEYES SCH (18:00)
[2019-01-30 20:44] VITALS: BP 158/66; PULSE 79; RESP 18; TEMP 97.9
--- NOTE | 2019-01-30 21:30 | CON ---
DATE: 01/30/2019 CONSULT REQUESTED BY: Dr. Hull. REASON FOR CONSULTATION: Lung cancer, peripheral vascular disease, limb ischemia. HISTORY OF PRESENT ILLNESS: Mr. Amaro is a 73-year-old male admitted to the hospital with bilateral cold extremity. He was evaluated by Dr. Jose Piper, Interventional Radiologist. He had 30 stent placement and found to have occluded the stent. He has diffuse peripheral vascular disease in both extremities, complaining of pain in the right leg. He has stage IV lung cancer, currently on single-agent chemotherapy with vinorelbine. His last chemotherapy was 2 weeks ago. PAST MEDICAL HISTORY: Lung cancer, COPD, peripheral vascular disease, diabetes mellitus type 2. PAST SURGICAL HISTORY: Lung biopsy status post radiation, stent placement in both legs, cardiac catheterization, surgery of right humerus. ALLERGIES: NO KNOWN DRUG ALLERGIES. PERSONAL HISTORY: Current smoker, smokes few cigarettes a day. No history of alcohol abuse. FAMILY HISTORY: Not contributory. HOME MEDICATIONS: Glipizide 10 mg daily, Januvia 100 mg daily, metformin 500 mg p.o. b.i.d., aspirin 81 mg daily, enalapril 20 mg daily, Xarelto 2.5 mg p.o. b.i.d. REVIEW OF SYSTEMS: As per HPI. Rest of 12-point review of systems reviewed negative. PHYSICAL EXAMINATION GENERAL: Comfortable in bed, in no acute distress. VITAL SIGNS: Temperature 98.4, heart rate 84 per minute, respiratory rate 18 per minute, blood pressure 110/60, and pulse ox is 98% on room air. HEENT: Pallor positive. NECK: No lymphadenopathy. CHEST: Air entry present equal bilaterally. No added sounds. CARDIOVASCULAR: S1 and S2 normal. No murmur. No gallop. ABDOMEN: Soft and nontender. No hepatosplenomegaly. EXTREMITIES: Bilateral cold extremity. Second digit of the right toe early necrosis. Decreased dorsalis pedis pulsation bilateral. NEUROLOGIC: Alert and oriented x3. No focal, sensory or motor deficit. SKIN: Dry. Pallor positive. ASSESSMENT: 1. Bilateral peripheral vascular disease. 2. Lung cancer. 3. Stent occlusion in the right leg, possible left leg. PLAN: Discussed with Dr. Giovana Villa. He will be transferred to Vascular Surgery Unit at [facility] for possible bypass surgery. He got a bed now. He will be transferred there. Currently getting blood transfusion for hemoglobin of 7. He is accepted by Dr. Villa at [facility]. Discussed with Dr. Hull. I would recommend continuing heparin drip until further Vascular Surgery intervention. Thank you Dr. Hull for allowing us to participate in Mr. Chepe godfrey. Estrella Lucio MD
[2019-01-30] MEDS ORDERED: Latanoprost 2.5 ml Opht Soln OU SCH (22:00)
--- NOTE | 2019-01-31 01:23 | HP ---
DATE OF EXAM: 01/30/2019 HISTORY OF PRESENT ILLNESS: Patient is a 73-year-old, very well known to me. He presented to emergency room with right leg and foot feeling cold. He was evaluated by Dr. Jose Piper for his lower extremity. Arterial sonogram shows bilateral distal SFA and popliteal occlusive disease and found that ankle and metatarsal waveform bilaterally are essentially flat consistent with bilateral trifurcation and severe occlusive disease intervention. So, the patient was admitted, started on heparin. I spoke to patient's daughter that he might need amputation. She wanted to have a second opinion. We do not have any vascular surgeon. We made arrangements for him to be transferred to [facility] for second opinion and possible intervention if needed. PAST MEDICAL HISTORY: He has significant past medical history of: 1. Lung CA. He is on chemotherapy under the care of Dr. Lucio. 2. Noninsulin-dependent diabetes. 3. Hypertension. 4. Hyperlipidemia. 5. Severe peripheral vascular disease. ALLERGIES: HE IS NOT ALLERGIC TO ANY MEDICATIONS. MEDICATIONS AT HOME: He is on tramadol 50 mg 3 times a day as needed, metformin 500 mg twice a day, Januvia 100 daily, Xalatan eye drops, glipizide 10 mg twice a day, atorvastatin 10 mg daily. PAST SURGICAL HISTORY: Significant for left humerus fracture, for that he had open reduction and internal fixation done. SOCIAL HISTORY: He was a heavy smoker, he still smokes here and there. PHYSICAL EXAMINATION: GENERAL: He is sitting comfortable. VITAL SIGNS: He is afebrile. Pulse 86, respirations 19, blood pressure 112/68. LUNGS: Bilateral diffuse decreased breath sounds. HEART: S1 and S2 audible. ABDOMEN: Soft and nontender. No rebound. No guarding. NEUROLOGIC: He is awake and alert, able to communicate. EXTREMITIES: Bilateral extremities below knee, right more than the left. ASSESSMENT AND PLAN: Currently, patient is on heparin. We will restart his medication. awaiting transfer to [facility] for possible vascular intervention upon daughter's request. Jose Angel Hull MD
== END 2019-01-30 22:41 | disposition short-term general hospital (02) ==
LOC: ED 17:43 → ERH 22:57 → 3RNO 01-30 02:24
PROVIDERS: ADMIT Internal Medicine; ATTEND Internal Medicine
DX: E11.51 Type 2 diabetes mellitus with diabetic peripheral angiopathy without gangrene (principal); C34.90 Malignant neoplasm of unspecified part of unspecified bronchus or lung; I10 Essential (primary) hypertension; E78.5 Hyperlipidemia, unspecified; J43.9 Emphysema, unspecified; F17.210 Nicotine dependence, cigarettes, uncomplicated; H40.9 Unspecified glaucoma; I99.8 Other disorder of circulatory system; Z79.01 Long term (current) use of anticoagulants; Z79.82 Long term (current) use of aspirin; Z79.84 Long term (current) use of oral hypoglycemic drugs; Z79.899 Other long term (current) drug therapy; Z87.01 Personal history of pneumonia (recurrent); Z90.49 Acquired absence of other specified parts of digestive tract; Z98.42 Cataract extraction status, left eye; Z98.41 Cataract extraction status, right eye
CPT/HCPCS: 36415; 36430; 80053; 82948; 83036; 83735; 84100; 84439; 84443; 85025; 85610; 85730; 86850; 86900; 86920; G0378; J1644; P9016